=== PATIENT | female | born 1970 | race Caucasian/White ===

== ENCOUNTER 2016-12-23 12:31 | Inpatient (IN) | payer OTHER, MEDICAID ==
[~2016-12-23] VITALS: Ht 177.8 cm; Wt 65.3 kg
--- NOTE | 2016-12-23 13:50 | NUR ---
New admit from [facility] Report recieved from [place] at [facility]. patient arrived at 1340.
[2016-12-23 14:07] VITALS: BP 169/91; PULSE 87; RESP 15; O2SAT 98
--- NOTE | 2016-12-23 14:08 | NUR ---
Dialysis Dialysis nurse called and notified vital signs.
[2016-12-23 14:11] VITALS: PULSE 84
--- NOTE | 2016-12-23 14:18 | NUR ---
Nephrology Dr. Chadwick Beveller Operator at bed side.
--- NOTE | 2016-12-23 14:31 | NUR ---
Dialysis Dialysis nurse called and states," patient is ready for dialysis." Dr. Knightwin aware. Dr. Castillo at bed side and speaking to patient.
--- NOTE | 2016-12-23 14:36 | NUR ---
new orders Notified Dr. Castillo that patient received Ativan on her way back from [facility] to [facility]. New orders for Ativan and Dr. castillo states," it is fine." will follow orders.
[2016-12-23] MEDS ORDERED: Alum-Mag Hydrox-Simeth 30 mL Suspension PO PRN (15:00)
[2016-12-23] MEDS ORDERED: Polyethylene Glycol (PEG) 17 Gm Powder PO PRN (15:00)
[2016-12-23] MEDS ORDERED: Ondansetron 2 mg/mL 2 mL Inj IVPUSH PRN (15:00)
--- NOTE | 2016-12-23 15:05 | NUR ---
At dialysis Patient off to dialysis. Ativan given per orders with effective results.
[2016-12-23 15:10] VITALS: BP 165/106; PULSE 78
--- NOTE | 2016-12-23 15:13 | PCM.HPMED ---
Subjective Date of Service Dec 23, 2016 Primary Provider: Admitting Physician: Gabby Ramachandran DO Primary Care Physician: Trav Cox PA-C Attending Physician: Gabby Ramachandran DO Chief Complaint: Nausea and vomiting Chest pain/palpitations History of Present Illness: 46-year-old female with extensive history of cardiac disease requiring CABG 3 in October of 2016, end-stage renal disease on hemodialysis, history of anxiety and depression, uncontrolled type 2 diabetes with history of gastroparesis, and history of substance abuse including current daily use of marijuana presents to the emergency department at [facility] due to complaints of palpitations that started 3 days ago and nausea and vomiting. Patient reports that this has a gradual onset has remained constant. Patient denies chest pain including radiation to the arm or neck, shortness of breath, diaphoresis, diplopia, dizziness, lightheadedness, or back pain. Pain does not go away with rest. Patient also complains of ongoing nausea and vomiting with reported 15 bouts of nonbloody emesis over the last 3 days. Patient also states she has a sense of impending doom, difficulty concentrating, and lack of enthusiasm. Patient states that she is using marijuana daily and that this helps control her anxiety. Denies previous episodes of anxiety related emesis. Patient denies recent substance abuse outside of her marijuana. Patient missed dialysis on Friday due to these ailments. [facility] the patient had a mildly elevated white count 12.7 with a mild left shift and an otherwise unremarkable CBC. Glucose however was elevated at 444 with a creatinine of 7.9 and a BUN of 53. BMP revealed a corrected sodium of 135, potassium 4.7, chloride 91, bicarbonate of 20, albumin of 4.1, calcium of 9.5, normal LFTs, magnesium at 3.1, phosphorus of 5.8, and a negative troponin. Patient was transferred to [facility] for management of her kidney failure with dialysis. Review of Systems: Complete review of systems performed, pertinent positives and negatives per history of present illness, all other systems reviewed and are negative Allergies Coded Allergies: amoxicillin (Verified Allergy, Severe, Anaphylaxis, 12/23/16) clavulanic acid (Verified Allergy, Severe, Anaphylaxis, 12/23/16) lisinopril (Verified Allergy, Severe, "hyperkalemia", 12/23/16) morphine (Verified Allergy, Severe, Anaphylaxis, 12/23/16) propoxyphene (Verified Allergy, Severe, Anaphylaxis, 12/23/16) sulfamethizole (Verified Allergy, Severe, Anaphylaxis, 12/23/16) sumatriptan (Verified Allergy, Severe, Shortness of Breath, 12/23/16) hydroxyzine (Verified Allergy, Intermediate, "twitching", 12/23/16) metformin (Verified Allergy, Intermediate, "gi upset, diarrhea", 12/23/16) naproxen (Verified Allergy, Intermediate, Hives, 12/23/16) codeine (Verified Allergy, Unknown, 12/23/16) droperidol (Verified Allergy, Unknown, 12/23/16) ketorolac (Verified Allergy, Unknown, 12/23/16) metoclopramide (Verified Allergy, Unknown, 12/23/16) ondansetron (Verified Allergy, Unknown, 12/23/16) prochlorperazine (Verified Allergy, Unknown, 12/23/16) promethazine (Verified Allergy, Unknown, 12/23/16) tramadol (Verified Allergy, Unknown, 12/23/16) Uncoded Allergies: hyzine (Allergy, Intermediate, "myalgia", 12/23/16) Home Medications Albuterol sulfate HFA Alprazolam by mouth Aspirin 81 mg Ativan 1 mg 4 times a day when necessary migraines B complex vitamin Combivent spermatic inhalation Docusate Ergocalciferol Iron supplement Regular Humulin insulin sliding scale Lantus 20 units at bedtime Levothyroxine Hydroxyprogesterone acetate intramuscular Methadone Metoprolol succinate Sevelamer Carbonate Simvastatin Vitamin D PMH CABG and October/2016 and history of atypical chest pain Paroxysmal supraventricular tachycardia Anxiety/depression End-stage renal disease on hemodialysis with a history of hematuria Marijuana/substance abuse Type II diabetes with gastroparesis Cellulitis Chronic headache/migraines/tension GERD Surgical History Ankle surgery CABG 3 in October 2016 Incision and drainage of abscess Oophorectomy Shoulder and sinus surgery Family History Father at 62 of [place] Mother still living Social History Hx Alcohol Use: No Hx Substance Use: Yes Hx Tobacco Use: Yes Smoking Status: Former Smoker Exam Vital Signs Vital Sign - Last Date Time Temp Pulse Resp B/P Pulse Ox O2 Delivery O2 Flow Rate FiO2 12/23/16 14:11 84 12/23/16 14:07 36.5 15 169/91 98 Room Air Exam General: Very anxious, mild distress HEENT: PERRLA, EOMI, no JVD, neck supple Lymph: No lymphadenopathy Cardio: Tachycardic, regular rhythm; incision scar looks well-healed over the sternum Respiratory: CTA bilaterally with crackles greater in the left and right base Abdomen: Soft, moderately tender especially in the right upper quadrant, no guarding, no rebound tenderness, no distention Extremities: Strength 4 out of 5, no edema or cyanosis Psychiatric: Extremely anxious, not talkative, depressed mood Neuro: No neurological deficiencies appreciated Skin: No rash Lab and Diagnostics 12-lead ECG Normal sinus rhythm with rate of [address] changes. QTC is 474 Assessment & Plan 46-year-old female with uncontrolled diabetes and gastroparesis, CABG 3 in October 2016, end-stage renal disease on dialysis who recently missed her appointment for dialysis was transferred [facility] from [place] due to ongoing severe nausea vomiting and reported palpitations. Complete review of outside records completed. Abdominal pain with Nausea and vomiting; present admission; ongoing -Patient reports 15 episodes of nonbloody emesis, worse after prandial intake, over the last 3 days; does not appear to be overly dehydrated -Has a history of gastroparesis and daily marijuana use; patient also has a gallbladder but LFTs are normal -Compazine -Nothing by mouth today -If persistent nausea consider gastric emptying study -US RUQ abdomen Type II diabetes with gastroparesis -Presented with a blood sugar of 444 with anion gap of 25; patient at dialysis and ketones could not be checked but low concern for DKA -Home regimen: Lantus 20 units at bedtime; Regular human insulin per sliding scale twice daily -Will continue Lantus 20 units at bedtime -Patient is nothing by mouth so no prandial today -Medium correctional scale -Recheck BMP tomorrow Electrolyte imbalances with hyponatremia; present admission; ongoing -Patient admits to recently missed hemodialysis due to severe nausea and vomiting; feels worse today; AG 25 -Dr. Chadwick consulted and the patient will have dialysis today -Recheck magnesium and phosphorus as well as BMP tomorrow Reported Palpitations without chest pain; present on admission; ongoing -Recent history of CABG; patient denies chest pain or pressure; patient was tachycardic on admission -Initial troponin at [place] was negative and there are no concerning EKG changes -Trend troponin -If patient develops pain or pressure repeat EKG and obtain echo Anxiety on chronic benzodiazepines; present admission; ongoing -Patient's med rec shows she is on alprazolam and Ativan at home -Patient is extremely anxious and describes a sense of impending doom swells many other features of a panic attack -Will continue with Ativan, and at this point schedule 1 mg every 4 History of substance abuse CAD with recent CABG End-stage renal disease on hemodialysis Disposition: Patient admitted to medical floor for expectant length of stay greater than 2 midnights due to severity presenting symptoms, duration treatment , and risk for adverse events. Complete review of outside records was completed and assisted in the creation of this record. Pain Evaluation: Pain not Controlled Resuscitation Status: CPR: Attempt Resuscitation Time spent 60 minutes Attending Statement The patient was seen and examined together with Dr. Castillo on 12/23/16 I have added additional information to the note above. Charles Castillo DO Dec 23, 2016 15:13 Gabby Ramachandran DO Dec 23, 2016 17:31
[2016-12-23] MEDS ORDERED: Glucose 40% Oral Gel 15 Gm Tube PO PRN ×2 (16:05→16:10)
[2016-12-23] MEDS ORDERED: MetoCLOpramide 5 mg/mL 2 mL Inj IVPUSH PRN (16:05)
--- NOTE | 2016-12-23 16:21 | NUR ---
Elevated BP Notified Dr. Castillo r/t elevated BP 179/115, HR 81 and c/o headaches. New orders for Tylenol and PRN given as ordered at the dialysis. Dr. Castillo is aware of that admit nurse is working on Medication Req.
[2016-12-23 16:35] VITALS: BP 123/71; PULSE 73; RESP 21; O2SAT 97
[2016-12-23] MEDS: Insulin LISPRO 300 Unit/3 mL Inj SUBQ SCH ×2 (17:30→22:00)
[2016-12-23] MEDS ORDERED: MULT-666 PO (17:36)
[2016-12-23] MEDS ORDERED: VIT1TABL83 PO (17:36)
[2016-12-23] MEDS ORDERED: ALPR2TAB6 PO (17:36)
[2016-12-23] MEDS ORDERED: INSU100V7 SUBQ (17:36)
[2016-12-23] MEDS ORDERED: UBID100C16 PO (17:36)
[2016-12-23] MEDS ORDERED: DOCU240C41 PO (17:36)
[2016-12-23] MEDS ORDERED: SEVE800T7 PO (17:36)
[2016-12-23] MEDS ORDERED: SENN-133 PO (17:36)
[2016-12-23] MEDS ORDERED: LEVO50TA6 PO (17:36)
[2016-12-23] MEDS ORDERED: METO25TA6 PO (17:36)
[2016-12-23] MEDS ORDERED: ATOR40TA69 PO (17:36)
[2016-12-23] MEDS ORDERED: LOSA25TA21 PO (17:36)
[2016-12-23] MEDS ORDERED: IPRA4AER INH (17:36)
[2016-12-23] MEDS ORDERED: NEPHVIT PO (17:36)
[2016-12-23] MEDS ORDERED: methadone liquid PO (17:36)
[2016-12-23] MEDS ORDERED: INSLIS SUBQ (17:36)
[2016-12-23] MEDS ORDERED: ALBU18HF INH (17:36)
[2016-12-23] MEDS ORDERED: CHOL100045 PO (17:36)
[2016-12-23] MEDS ORDERED: ASCO100089 PO (17:36)
[2016-12-23] MEDS ORDERED: ASPI-973 PO (17:36)
[2016-12-23] MEDS ORDERED: MEDR150D7 INTRAMU040 (17:36)
[2016-12-23] MEDS ORDERED: ProchlorPERazine 5 mg/mL 2 mL Inj IVPUSH PRN (17:45)
--- NOTE | 2016-12-23 18:48 | NUR ---
Call from dialysis Dialysis nurse called and states," patient is tachycardic HR 125 and pain 8/10 abdominal pain and headaches. PRN Tylenol was given by dialysis nurse with ineffective results per dialysis nurse. Manan paged Dr. Charles Castillo and awaiting call back with orders. patient is still at dialysis.
[2016-12-23] MEDS ORDERED: Labetalol 5 mg/mL 4 mL Inj IVPUSH ONE (18:55)
--- NOTE | 2016-12-23 19:05 | NUR ---
New orders New orders for IV labetelol and status " UNV." notified dialysis nurse r/t new orders and aware.
--- NOTE | 2016-12-23 19:22 | NUR ---
Dialysis note: 4 hr tx, Net UF 2850. Right cath, QB 350 for most of tx. Pt received ativan shortly before [place] [facility] and still exhibited anxiety intermittently through tx. Tylenol given for pain, but unable to manage pain effectively. Primary MD is working on getting methadone for her. Dressing changed, island dressing and chloroprep. No s/s of infection. clotting noted near end of tx in venous drip chamber and QB was gradually decreased r.t elevated venous pressures. She was tachy, in the 120s, 30 min before end of tx, Primary RNMagnus notified and she contacted MD. Meds will be available on pts. floor. HR decreased to 98 at end of tx. Blood returned; site dwelled with heparin 1000 and secured with caps and gauze. Pt returned to floor stable but exhibiting some anxiety r/t pain. Please see DTR for complete record of VS.
[2016-12-23 20:17] VITALS: BP 146/92; PULSE 96; RESP 16; O2SAT 96
[2016-12-23] MEDS: LORazepam 1 mg Tablet PO PRN (20:25)
[2016-12-23] MEDS ORDERED: Insulin GLARgine 100 Unit/mL Syringe SUBQ SCH (21:00)
--- NOTE | 2016-12-23 21:42 | CONS ---
[address] [address] CONSULTATION REPORT PATIENT: SHAWNEE ZUNIGA : 1970 MR#: [id number] ADMIT: 12/23/2016 JOB ID: [id number] DATE OF SERVICE: RENAL CONSULTATION: HISTORY: The patient is a very pleasant 46-year-old white female who was transferred to [facility] for end-stage renal disease and is in need of dialysis. Renal consultation is being sought for further evaluation and management of her end-stage renal disease. She has a history of end-stage renal disease, normally dialyzes on Friday, and Friday at [facility]. The etiology of her renal failure is due to longstanding chronic kidney disease from insulin-requiring diabetes. She also has a history of hypertension. She states that she missed dialysis this past Friday because she was feeling unwell. She relates a 2-3 day history of nausea, vomiting, and some slight diarrhea. She has also complained of a chronic chilling feeling which has gone on for a number of months. She denies any fever, cough, wheezing, chest pain, orthopnea, headache, scotomas, skin rashes, or arthralgias. She denies any urinary discomfort, dysuria, or frequency. She came to the emergency department at [facility] because she was "freaking out." In questioning her a bit more closely, it appears that in the last four months, aside from starting dialysis, she has also had coronary artery bypass graft surgery in October of this year and has had somewhat of a prolonged recovery. She states that she has been continually anxious and takes intermittently Ativan. She also has recent insomnia, flight of ideas, difficulty in concentrating, difficulty with short-term memory. She denies any suicidal ideations but also has a feeling of impending doom. She denies a history of any prior depression. PAST MEDICAL HISTORY: Significant for insulin-dependent diabetes mellitus for the last 20 years which has been complicated by retinopathy, however, she states that she does not have a history of peripheral neuropathy or peripheral vascular disease. She also has a history of hypertension with hypertensive heart disease and hypertensive nephrosclerosis, coronary artery disease and a history of coronary artery bypass graft earlier this year, a transient ischemic attack in the past, hepatitis A, hypothyroidism and hyperlipidemia. PAST SURGICAL HISTORY: Significant for coronary artery bypass graft, ankle ORIF and an oophorectomy. ALLERGIES: She denies any allergies to any food or any medications. SOCIAL HISTORY: She denies use of alcohol, tobacco, or illicit drugs, but does smoke marijuana. FAMILY HISTORY: Noncontributory. MEDICATION LIST: Unavailable at time of my consultation. REVIEW OF SYSTEMS: As detailed above, otherwise, is noncontributory. PHYSICAL EXAMINATION: Revealed a thin, somewhat pale appearing 46-year-old white female who was somewhat anxious and made poor eye contact during our consultation. Her blood pressure is 169/91 with a pulse rate of 87. HEENT examination is remarkable for pale sclerae. Cornea, conjunctivae, pupils, and extraocular muscles are all within normal limits. Neck: Supple without adenopathy, thyromegaly or jugular venous distention. Lungs were clear to auscultation. Tunnel catheter was in place in the right internal jugular vein. Heart was regular and rhythmical with a soft systolic murmur. Abdomen was soft, without any tenderness, rebound, guarding, masses or hepatosplenomegaly. Extremities do not show any evidence of any clubbing, cyanosis, or edema. Skin turgor is good. LABORATORY EXAMINATION: Lab obtained earlier today at [place] showed a potassium of 4.8 and creatinine of 7.53. IMPRESSION: 1. End-stage renal disease, dialysis dependent. 2. Diabetic nephropathy. 3. Hypertension with hypertensive heart disease and hypertensive nephrosclerosis. 4. Anxiety and depression secondary to numerous situational issues with her health. RECOMMENDATION: 1. The patient is to be dialyzed today for four hours on a Revaclear Max dialyzer and a 3 potassium bath. Blood flow rate is 400, dialysate flow 600, 1200 of heparin 500 an hour. Will try to take 1-2 L or more if possible. 2. I would strongly recommend a psychiatric evaluation for better medical coverage for both her anxiety and depression. Anxiety following either initiation of renal replacement therapy and/or coronary artery bypass graft is extremely common, and putting these two together her risk of having a major depressive episode is quite high. Once again, I would like to thank you for allowing me to participate in the care of this most pleasant and interesting patient. I will be following her closely with you.
[2016-12-23 23:29] VITALS: BP 173/103; PULSE 89; RESP 18; O2SAT 98
[2016-12-24 00:13] VITALS: PULSE 90
[2016-12-24 02:35] LABS: BASOPHILS % (AUTO) 0.2 % (0-3); EOSINOPHILS % (AUTO) 0.1 % (0-5); MONOCYTES % (AUTO) 8.4 % (4-12); Mean Corpuscular Hemoglobin 29.9 pg (27.0-35.0); Mean Corpuscular Volume 91.4 fL (81-100); NEUTROPHILS % (AUTO) 68.7 % (40-74); Platelet Count 276 bil/L (150-400)
[2016-12-24 03:37] LABS: Magnesium 2.3 mg/dL (1.6-2.6); Phosphorus 5.1 mg/dL (2.5-4.9)
[2016-12-24 04:48] VITALS: BP 151/111; PULSE 118; RESP 18; O2SAT 97
[2016-12-24] MEDS: LORazepam 1 mg Tablet PO PRN (05:03)
--- NOTE | 2016-12-24 05:45 | NUR ---
Anxiety / Pain Pt reported severe migraine at beginning of shift and requested pain medication; attempted to assess methadone usage per pt report, but pt stated "I don't take methadone for pain. It's for... It's for... It's for... ... I can't remember the words for it." Pt stated Ativan or Dilaudid were effective pain management for her migraine; paged. Ativan ordered and administered without relief, pt requested further pain medication. paged again, orders for oxycodone given. Pt significantly anxious and restless, repeatedly turning and moving in bed, though resting during interventions. After obtaining oxycodone for pt and administering, pain level was assessed and pt stated "It's bad." When asked for a number, pt stated "Oh, it's a three. ... No. A six." Oxycodone administered; pt resting throughout rest of shift. At approx. 0500, pt reported "I feel miserable, I need methadone; I haven't had it in three or four days." Pt informed methadone was not available per eMAR, but she could be given oxycodone instead. Pt stated "Okay." Upon reassessment, pt violently coughing/retching in room; denied vomiting, but stated "I feel miserable! My stomach hurts, my head hurts, the oxycodone didn't help at all." informed. Pt hypertensive throughout shift but did not meet parameters for labetalol administration. Tele SR/ST 90s-100s. EKG obtained this AM r/t elevated troponins; pt denies chest pain or discomfort. Addendum: 12/24/16 at 0608 by DIMITRY CASTILLO RN Pt requested garcía this AM at 0600; when pt educated to current NPO status while GI workup is ongoing, pt stated "I know what the problem is, I'm withdrawing. I couldn't take my methadone for 3 days."
--- NOTE | 2016-12-24 08:21 | NUR ---
left AMA 0820 Pt's mom arrives, pt signed AMA paperwork. PIV dc'd with ease. Pt left with mother. Dr Aldana notified
--- NOTE | 2016-12-24 08:21 | DRSVH ---
PROCEDURE: US ABDOMEN ([id number]) INDICATIONS: gallbladder and ducts TECHNIQUE: Real-time scanning was performed of the abdominal and retroperitoneal organs, with image documentatio n. COMPARISON: None. FINDINGS: Liver: Liver is normal in size and homogeneous in echotexture. Gallbladder: There are gallstones and sludge. No gallbladder wall thickening, pericholecystic fluid or sonographic Cantrell's sign. Biliary ducts: Intrahepatic bile ducts are non-dilated. Extrahepatic bile duct caliber measures 5 m m. Normal is 6-7 mm or less in diameter, or 10 mm or less post-cholecystectomy. Pancreas: Visualized portions of the pancreas are sonographically normal. Spleen: Spleen is normal in size and homogeneous in echotexture. Kidneys: Kidneys are normal in size and echotexture. Right kidney measures 10.1 cm long; left kidne y measures 10.0 cm long. There several simple appearing cyst in right kidney measuring up to 2 cm. T here is mild renal cortical thinning. Left kidney is suboptimally visualized. No hydronephrosis or ne phrolithiasis. No solid masses. Aorta: Visualized aorta is normal in caliber at less than 3 cm. Iliacs: Proximal common iliac arteries are normal in caliber at less than 2.5 cm. IVC: Intrahepatic inferior vena cava is patent. Miscellaneous: No free abdominal fluid. IMPRESSION: 1. Cholelithiasis. No ultrasoun evidence for acute cholecystitis. 2. Simple renal cysts in right kidney and mild renal cortical thinning. Dictated by: Isela Randolph M.D. on 12/24/2016 at 8:08 Approved by: Isela Randolph M.D. on 12/24/2016 at 8:20
--- NOTE | 2016-12-24 16:43 | PCM.DC.MED ---
Discharge Summary Date of Service Dec 24, 2016 Dates of Hospitalization Date of Hospital Admission Dec 23, 2016 at 13:46 Date of Discharge: Dec 24, 2016 Providers: Admitting Physician: Gabby Ramachandran DO Primary Care Physician: Trav Cox PA-C Attending Physician: Gabby Ramachandran DO Diagnosis at Time of Discharge Diagnosis at Time of Discharge Abdominal pain with Nausea and vomiting; present admission; ongoing Type II diabetes with gastroparesis Electrolyte imbalances with hyponatremia; present admission; ongoing Reported Palpitations without chest pain; present on admission; ongoing Anxiety on chronic benzodiazepines; present admission; ongoing . Consultations Nephrology consulted with Dr. Chadwick Procedures ECG 12 Lead Normal sinus rhythm with rate of [address] changes. QTC is 474 Brief History Taken From HPI composed by Dr. Castillo on 12/23/16 46-year-old female with extensive history of cardiac disease requiring CABG 3 in October of 2016, end-stage renal disease on hemodialysis, history of anxiety and depression, uncontrolled type 2 diabetes with history of gastroparesis, and history of substance abuse including current daily use of marijuana presents to the emergency department at [facility] due to complaints of palpitations that started 3 days ago and nausea and vomiting. Patient reports that this has a gradual onset has remained constant. Patient denies chest pain including radiation to the arm or neck, shortness of breath, diaphoresis, diplopia, dizziness, lightheadedness, or back pain. Pain does not go away with rest. Patient also complains of ongoing nausea and vomiting with reported 15 bouts of nonbloody emesis over the last 3 days. Patient also states she has a sense of impending doom, difficulty concentrating, and lack of enthusiasm. Patient states that she is using marijuana daily and that this helps control her anxiety. Denies previous episodes of anxiety related emesis. Patient denies recent substance abuse outside of her marijuana. Patient missed dialysis on Friday due to these ailments. [facility] the patient had a mildly elevated white count 12.7 with a mild left shift and an otherwise unremarkable CBC. Glucose however was elevated at 444 with a creatinine of 7.9 and a BUN of 53. BMP revealed a corrected sodium of 135, potassium 4.7, chloride 91, bicarbonate of 20, albumin of 4.1, calcium of 9.5, normal LFTs, magnesium at 3.1, phosphorus of 5.8, and a negative troponin. Patient was transferred to [facility] for management of her kidney failure with dialysis. . Hospital Course The patient was admitted with 10/ abdominal pain in the setting of poorly controlled diabetes, renal failure on dialysis having missed her prior dialysis on 12/21/16, and longstanding gastroparesis. The patient's main concern throughout her stay was administration of her Methadone, after her dosing was confirmed with her clinic the patient was offered Methadone at a slightly reduced dose given that her abdominal pain was likely secondary to constipation and gastroparesis. However, she abruptly elected to leave against medical advice despite assurance that she would receive methadone and dialysis today. Patient elected to leave AMA Abdominal pain with Nausea and vomiting; present admission; ongoing -Patient reports 15 episodes of nonbloody emesis, worse after prandial intake, over the last 3 days; does not appear to be overly dehydrated -Has a history of gastroparesis and daily marijuana use; patient also has a gallbladder but LFTs are normal -Compazine -Nothing by mouth -considered gastric emptying study -US RUQ abdomen Type II diabetes with gastroparesis -Presented with a blood sugar of 444 with anion gap of 25; patient at dialysis and ketones could not be checked but low concern for DKA -Home regimen: Lantus 20 units at bedtime; Regular human insulin per sliding scale twice daily -continued Lantus 20 units at bedtime -Patient is nothing by mouth so no prandial -Medium correctional scale -Recheck BMP tomorrow Electrolyte imbalances with hyponatremia; present admission; ongoing -Patient admits to recently missed hemodialysis due to severe nausea and vomiting; feels worse today; AG 25 -Dr. Chadwick consulted and we appreciate his advice -tracked magnesium and phosphorus as well as BMP Reported Palpitations without chest pain; present on admission; ongoing -Recent history of CABG; patient denies chest pain or pressure; patient was tachycardic on admission -Initial troponin [facility] negative and there are no concerning EKG changes -Trended troponin Anxiety on chronic benzodiazepines; present admission; ongoing -Patient's med rec shows she is on alprazolam and Ativan at home -Patient was extremely anxious and described a sense of impending doom as well as many other features of a panic attack -Will continue with Ativan, and at this point schedule 1 mg every 4 Exam Vital Signs (Last) Date Time Temp Pulse Resp B/P Pulse Ox O2 Delivery O2 Flow Rate FiO2 12/24/16 04:48 37.4 118 18 151/111 97 Room Air Exam General: A/O x3 Very anxious, moderate acute distress secondary to abdominal pain HEENT: PERRLA, EOMI, no JVD, neck supple Lymph: No lymphadenopathy Cardio: Tachycardic, regular rhythm; incision scar looks well-healed over the sternum Respiratory: CTA bilaterally with crackles greater in the left and right base Abdomen: Soft, moderately tender especially in the right upper quadrant, no guarding, no rebound tenderness, no distention Extremities: Strength 4 out of 5, no edema or cyanosis Psychiatric: Extremely anxious, fixated upon methadone dosing Neuro: No neurological deficiencies appreciated . Test 12/24/16 02:25 White Blood Count 12.5th/mm3 (3.8-10.1) Red Blood Count 5.55mil/mm3 (3.90-5.20) Hemoglobin 16.6g/dL (12.0-15.6) Hematocrit 50.7% (35.0-46.0) Mean Corpuscular Volume 91.4fL (81-100) Mean Corpuscular Hemoglobin 29.9pg (27.0-35.0) Mean Corpuscular Hemoglobin Concent 32.7% (32.0-37.0) Red Cell Distribution Width 15.0% (12.3-15.4) Platelet Count 276bil/L (150-400) Neutrophils (%) (Auto) 68.7% (40-74) Lymphocytes (%) (Auto) 22.3% (14-46) Monocytes (%) (Auto) 8.4% (4-12) Eosinophils (%) (Auto) 0.1% (0-5) Basophils (%) (Auto) 0.2% (0-3) Sodium Level 131mEq/L (134-144) Potassium Level 4.8mEq/L (3.5-5.2) Chloride Level 89mEq/L (97-108) Carbon Dioxide Level 19mmol/L (18-29) Blood Urea Nitrogen 30mg/dL (6-24) Creatinine 5.11mg/dL (0.57-1.00) Estimat Glomerular Filtration Rate 13mL/min (>59) Glucose Level 320mg/dL (60-99) Lactic Acid Level 1.7mmol/L (0.4-2.0) Calcium Level 10.0mg/dL (8.5-10.1) Phosphorus Level 5.1mg/dL (2.5-4.9) Magnesium Level 2.3mg/dL (1.6-2.6) Total Bilirubin 1.1mg/dL (0.0-1.2) Aspartate Amino Transf (AST/SGOT) 19U/L (0-50) Alanine Aminotransferase (ALT/SGPT) 12U/L (0-32) Alkaline Phosphatase 115U/L (25-150) Troponin T 0.522ug/L (0.0-0.011) Total Protein 7.4g/dL (6.4-8.4) Albumin 4.2g/dL (3.4-5.0) Lipase 23U/L (13-60) Procalcitonin 0.30ng/mL (0.00-0.08) Thyroid Stimulating Hormone (TSH) 1.670uIU/mL (0.450-4.500) Discharge Medications Discharge Medications ([methadone liquid]) Unknown Dose PO DAILY (Reported) Ascorbic Acid (Vitamin C) 1,000 Mg Tab.chew 2,000 MG PO DAILY (Reported) Aspirin (Aspirin) 81 Mg Tablet 162 MG PO DAILY (Reported) Atorvastatin Calcium (Atorvastatin Calcium) 40 Mg Tablet 40 MG PO DAILY ( Reported) Cholecalciferol (Vitamin D3) (Vitamin D) 1,000 Unit Capsule 1,000 UNIT PO DAILY (Reported) Docusate Calcium (Stool Softener) 240 Mg Capsule 240-480 MG PO DAILY (Reported) Insulin Glargine (Lantus U100 Insulin Vial) 100 Unit/Ml Vial 8 UNITS SUBQ HS ( Reported) Levothyroxine (Levothyroxine) 50 Mcg Tablet 50 MCG PO DAILY (Reported) Losartan Potassium (Losartan Potassium) 25 Mg Tablet 25 MG PO DAILY (Reported) Medroxyprogesterone Acetate (Medroxyprogesterone Acetate) 150 Mg/1 Ml Syringe 150 MG [id number] q12 weeks (Reported) Metoprolol Tartrate (Metoprolol Tartrate) 25 Mg Tablet 25 MG PO BID (Reported) Multivitamin (Once Daily) 1 Each Tablet 1 EACH PO DAILY (Reported) Sennosides (Senna) 8.6 Mg Tablet 8.6-17.2 MG PO DAILY (Reported) Sevelamer Carbonate (Renvela) 800 Mg Tablet 1,600 MG PO TIDWM (Reported) Ubidecarenone (Coq-10) 100 Mg Capsule 100 MG PO DAILY (Reported) Vit B Comp/C/FA/Iron/Vit E (Vitamin B Complex Tablet) 1 Each Tablet 1 EACH PO DAILY (Reported) Vitamin B Complex/Vit C ([place]-Michael Tablet) 1 Tab Tab 1 TAB PO DAILY (Reported) As needed Albuterol Sulfate (Ventolin HFA Inhaler) 200 Puff/18 Gm Inhaler 1-2 PUFFS INH q4 -6 hours PRN PRN For Shortness of Breath (Reported) Albuterol/Ipratropium (Combivent Respimat Inhal [place]) 120 Spr/4 Gm Inhaler 1 PUFF INH q6 hours PRN PRN For Shortness of Breath (Reported) Alprazolam (Alprazolam) 2 Mg Tablet 2 MG PO TID PRN PRN For Anxiety (Reported) Insulin Human Lispro (HumaLOG U100 Insulin Vial) 100 Unit/Ml Unit 2-10 UNITS SUBQ TIDWM PRN PRN sliding scale (Reported) Followup Plan Disposition: Left AMA Follow-up plan Please go to dialysis for your regularly scheduled appointment today. Follow up with your primary care provider within 2 weeks. Follow-up Provider: Trav Cox PA-C Follow-up with PCP in: 2 weeks Attending Statement The patient was seen and examined together with Dr. Aldana on 12/24/16 and I have added additional information to the note above. copies to: Trav Cox PA-C, David E DO Dec 24, 2016 16:43 Gabby Ramachandran DO Dec 24, 2016 18:50
== END 2016-12-24 08:15 | disposition left against medical advice (07) | DRG 73 ==
LOC: PCC 13:46
PROVIDERS: ADMIT Neuromusculoskeletal Medicine & OMM; ATTEND Neuromusculoskeletal Medicine & OMM
PROC: 5A1D00Z (ICD-10-PCS; principal; 2016-12-23)
DX: E11.43 Type 2 diabetes mellitus with diabetic autonomic (poly)neuropathy (principal); N18.6 End stage renal disease; I13.11 Hypertensive heart and chronic kidney disease without heart failure, with stage 5 chronic kidney disease, or end stage renal disease; E11.65 Type 2 diabetes mellitus with hyperglycemia; K31.84 Gastroparesis; E11.319 Type 2 diabetes mellitus with unspecified diabetic retinopathy without macular edema; E03.9 Hypothyroidism, unspecified; E78.5 Hyperlipidemia, unspecified; F41.8 Other specified anxiety disorders; F12.90 Cannabis use, unspecified, uncomplicated; R00.2 Palpitations; Z79.82 Long term (current) use of aspirin; Z95.1 Presence of aortocoronary bypass graft; Z79.51 Long term (current) use of inhaled steroids; Z99.2 Dependence on renal dialysis; Z79.4 Long term (current) use of insulin; Z87.891 Personal history of nicotine dependence

== ENCOUNTER 2016-12-24 20:58 | Observation (INO) | payer MEDICAID, OTHER ==
[~2016-12-24] VITALS: Ht 167.6 cm; Wt 62.0 kg
[~2016-12-24 20:58] MED LIST: ALBU18HF INH; ALPR2TAB6 PO; ASCO100089 PO; ASPI-973 PO; ATOR40TA69 PO; CHOL100045 PO; DOCU240C41 PO; INSLIS SUBQ; INSU100V7 SUBQ; IPRA4AER INH; LEVO50TA6 PO; LOSA25TA21 PO; MEDR150D7 INTRAMU040; METO25TA6 PO; MULT-666 PO; NEPHVIT PO; SENN-133 PO; SEVE800T7 PO; UBID100C16 PO; VIT1TABL83 PO; methadone liquid PO
[2016-12-24 22:37] VITALS: PULSE 65
[2016-12-24 22:41] VITALS: BP 101/37; PULSE 66; RESP 19; O2SAT 99
[2016-12-25] MEDS ORDERED: Alum-Mag Hydrox-Simeth 30 mL Suspension PO PRN (00:45)
[2016-12-25] MEDS ORDERED: Polyethylene Glycol (PEG) 17 Gm Powder PO PRN (00:45)
[2016-12-25] MEDS ORDERED: Heparin 5,000 Unit/mL Inj SUBQ SCH (00:45)
--- NOTE | 2016-12-25 01:45 | PCM.HPMED ---
Subjective Date of Service Dec 25, 2016 Primary Provider: Admitting Physician: Dragan Quinn MD Primary Care Physician: Trav Cox PA-C Attending Physician: Dragan Quinn MD Admit Status: Direct Admit Chief Complaint: Altered mental status History of Present Illness: Ms. William is a 46-year-old female with past medical history of cardiac disease requiring CABG 3 in October 2016, ESRD on HD, anxiety/depression, DM type II uncontrolled, gastroparesis, substance abuse with current daily use of marijuana presented to the [facility] emergency department yesterday evening after leaving [facility] the same day after not receiving her desired methadone dose. She was told that her methadone dose would have to be decreased secondary to her reported complaints of abdominal pain which is most likely secondary to constipation and gastroparesis. She was scheduled for dialysis though she did not receive this treatment prior to leaving [facility]. She reportedly returned home and reportedly took twice her regular dose of methadone. She was only transferred back to [facility] to receive dialysis and monitoring for methadone overdose. At time of interview patient arousable to painful stimulation though not able to converse appropriately or answer questions in a meaningful manner. When asked specifically of pain complaints she does deny this. At [facility] was found to have a prolonged QT on EKG, magnesium was given. She also presented with an elevated troponin at 0.1. Also had a mildly elevated white count 4.9 with mild left shift. Otherwise unremarkable. Glucose reported to be 399, creatinine 6.9 BUN 47. Corrected sodium 135, potassium 4.1, chloride 92, bicarbonate 28, albumin 3.3, calcium 8.8, TSH of 6.838 Review of Systems: Unable to obtain ROS secondary to patient mental status. Allergies Coded Allergies: amoxicillin (Verified Allergy, Severe, Anaphylaxis, 12/23/16) clavulanic acid (Verified Allergy, Severe, Anaphylaxis, 12/23/16) lisinopril (Verified Allergy, Severe, "hyperkalemia", 12/23/16) morphine (Verified Allergy, Severe, Anaphylaxis, 12/23/16) propoxyphene (Verified Allergy, Severe, Anaphylaxis, 12/23/16) sulfamethizole (Verified Allergy, Severe, Anaphylaxis, 12/23/16) sumatriptan (Verified Allergy, Severe, Shortness of Breath, 12/23/16) hydroxyzine (Verified Allergy, Intermediate, "twitching", 12/23/16) metformin (Verified Allergy, Intermediate, "gi upset, diarrhea", 12/23/16) naproxen (Verified Allergy, Intermediate, Hives, 12/23/16) codeine (Verified Allergy, Unknown, 12/23/16) droperidol (Verified Allergy, Unknown, 12/23/16) ketorolac (Verified Allergy, Unknown, 12/23/16) metoclopramide (Verified Allergy, Unknown, 12/23/16) ondansetron (Verified Allergy, Unknown, 12/23/16) prochlorperazine (Verified Allergy, Unknown, 12/23/16) promethazine (Verified Allergy, Unknown, 12/23/16) tramadol (Verified Allergy, Unknown, 12/23/16) Uncoded Allergies: hyzine (Allergy, Intermediate, "myalgia", 12/23/16) Home Medications Albuterol sulfate HFA Alprazolam by mouth Aspirin 81 mg Ativan 1 mg 4 times a day when necessary migraines B complex vitamin Combivent spermatic inhalation Docusate Ergocalciferol Iron supplement Regular Humulin insulin sliding scale Lantus 20 units at bedtime Levothyroxine Hydroxyprogesterone acetate intramuscular Methadone Metoprolol succinate Sevelamer Carbonate Simvastatin Vitamin D [facility] CABG and October/2016 and history of atypical chest pain Paroxysmal supraventricular tachycardia Anxiety/depression End-stage renal disease on hemodialysis with a history of hematuria Marijuana/substance abuse Type II diabetes with gastroparesis Cellulitis Chronic headache/migraines/tension GERD Surgical History Ankle surgery CABG 3 in October 2016 Incision and drainage of abscess Oophorectomy Shoulder and sinus surgery Family History Father at 62 of [place] Mother still living Social History Hx Alcohol Use: No Hx Substance Use: Yes (Marijuana and heroin) Hx Tobacco Use: Yes Smoking Status: Former Smoker Exam Vital Signs Vital Sign - Last Date Time Temp Pulse Resp B/P Pulse Ox O2 Delivery O2 Flow Rate FiO2 12/24/16 22:52 Supplement Oxygen 12/24/16 22:41 36.1 66 19 101/37 99 2.00 Exam General: Lying in hospital bed asleep. Arousable to painful stimulation. Unable to answer questions appropriately. HEENT: Normocephalic, atraumatic. External ears without defect. Pupils constricted, reactive to light. Neck: No jugular venous distension. No bruits. Cardiovascular: Regular rate and rhythm with no murmurs, rubs, or gallops appreciated Pulmonary: Clear to auscultation bilaterally, upper anterior lung triplett. Abdomen: Soft, nontender - no painful response to palpation, nondistended. No rigidity noted. Extremities: No cyanosis or edema Skin: Normal temperature, turgor, and texture, no rash Psychiatric: Somnolent, arousable to painful stimulation. Able to answer questions in 1 word sentences. Lab and Diagnostics 12-lead ECG EKG done at [facility] shows normal sinus rhythm with a prolonged QT interval Assessment & Plan 46-year-old female with uncontrolled diabetes and gastroparesis, CABG 3 in October 2016, end-stage renal disease noncompliant with dialysis recently left [facility] after methadone overdose. Acute encephalopathy due to Methadone overdose. Present on admission. Ongoing - GCS 12 - eyes open to pain, confused, moves to localized pain - EKG showed QT prolongation - Telemetry shows sinus rhythm with regular rate, prolonged QTc interval - Respiratory rate remains greater than 12, supplemental oxygen to maintain sats - Continue to monitor, - Consider Naloxone Type II diabetes with gastroparesis. Chronic. Present on admission. Ongoing - But sugar reported to be 399 at [facility] ER, anion gap 11 - A1c 8.5 - Correctional scale ordered - Continue to monitor End-stage renal disease, on HD. Chronic. Present on admission. Ongoing - Patient scheduled to receive dialysis yesterday, left AM prior to receiving treatment - Nephrology consult Pseudo-Hyponatremia. Present on admission. Ongoing - At [facility] ER 131, glucose 399, corrected sodium 134 - Continue to monitor Elevated troponins. Present on admission. Ongoing - Troponin 0.1 at [facility], continue to trend - EKG did not show ST changes - Recent history of CABG - Continue to monitor Hypothyroidism. Present on admission. Ongoing - TSH [facility] 6.838 - Restart home levothyroxine Patient Status: Patient was admitted under inpatient status with expected length of stay greater than two midnights due to severity of presenting symptoms , risk of adverse event, and complexity of treatment plan. Majority of patient's medications held secondary to patient's mental status and hemodynamic state. Day team to adjust medications Pain Evaluation: Adequate Pain Control GI Prophylaxis: H2 rhonda VTE Prophylaxis: Sub-Q Heparin (Unfractionated) Resuscitation Status: CPR: Attempt Resuscitation Attending Statement The patient was seen and examined together with Dr. Veloz on 12/24 and I agree with the history, exam and plan as outlined in the note above. ERUM VELOZ DO Dec 25, 2016 01:45 Dragan Quinn MD Dec 25, 2016 02:52
[2016-12-25] MEDS ORDERED: Dextrose 10% 250 ML IV PRN (02:10)
[2016-12-25] MEDS ORDERED: Glucose 40% Oral Gel 15 Gm Tube PO PRN (02:10)
[2016-12-25 02:59] VITALS: BP 101/69; PULSE 67; RESP 19; O2SAT 100
[2016-12-25 03:10] LABS: BASOPHILS % (AUTO) 0.8 % (0-3); EOSINOPHILS % (AUTO) 2.6 % (0-5); MONOCYTES % (AUTO) 7.8 % (4-12); Mean Corpuscular Hemoglobin 30.2 pg (27.0-35.0); Mean Corpuscular Volume 93.5 fL (81-100); NEUTROPHILS % (AUTO) 47.1 % (40-74); Platelet Count 188 bil/L (150-400)
[2016-12-25 03:36] LABS: Magnesium 3.4 mg/dL (1.6-2.6)
--- NOTE | 2016-12-25 05:56 | PCM.DC.MED ---
Discharge Summary Date of Service Dec 25, 2016 Dates of Hospitalization Date of Hospital Admission Dec 24, 2016 at 22:23 Date of Discharge: Dec 25, 2016 Providers: Admitting Physician: Dragan Quinn MD Primary Care Physician: Trav Cox PA-C Attending Physician: Dragan Quinn MD Diagnosis at Time of Discharge Diagnosis at Time of Discharge Acute encephalopathy due to Methadone overdose Type II diabetes with gastroparesis End-stage renal disease, on HD Pseudo-Hyponatremia Elevated troponin Hypothyroidism Procedures ECG 12 Lead EKG done at [facility] shows normal sinus rhythm with a prolonged QT interval Brief History Ms. William is a 46-year-old female with past medical history of cardiac disease requiring CABG 3 in October 2016, ESRD on HD, anxiety/depression, DM type II uncontrolled, gastroparesis, substance abuse with current daily use of marijuana presented to the [place] emergency department yesterday evening after leaving [facility] the same day after not receiving her desired methadone dose. She was told that her methadone dose would have to be decreased secondary to her reported complaints of abdominal pain which is most likely secondary to constipation and gastroparesis. She was scheduled for dialysis though she did not receive this treatment prior to leaving [facility]. She reportedly returned home and reportedly took twice her regular dose of methadone. She was only transferred back to [facility] to receive dialysis and monitoring for methadone overdose. At time of interview patient arousable to painful stimulation though not able to converse appropriately or answer questions in a meaningful manner. When asked specifically of pain complaints she does deny this. At [facility] was found to have a prolonged QT on EKG, magnesium was given. She also presented with an elevated troponin at 0.1. Also had a mildly elevated white count 4.9 with mild left shift. Otherwise unremarkable. Glucose reported to be 399, creatinine 6.9 BUN 47. Corrected sodium 135, potassium 4.1, chloride 92, bicarbonate 28, albumin 3.3, calcium 8.8, TSH of 6.838 Hospital Course 46-year-old female with uncontrolled diabetes and gastroparesis, CABG 3 in October 2016, end-stage renal disease noncompliant with dialysis recently left [facility] after methadone overdose. During morning lab draw patient was awoken by laborer car [employer], immediately demanded to leave hospital. Patient strongly counseled against this as she is overdue to receive her hemodialysis treatment and her troponin levels jenny from 0.1-0.36 and the span of approximately 8 hours. She was alert and oriented to time day place situation. Was capable of making her own decisions and remained adamant that she wants to return home to be in her own house. Patient's mother made aware of this decision, refused to provide transportation as she also feels patient needs to remain in hospital. Despite vigorous efforts to work with patient in whatever way we can to keep her in the hospital she adamantly refused to stay and signed AMA paperwork. At time of dictation patient calling For a ride home. Acute encephalopathy due to Methadone overdose. Present on admission. Ongoing - GCS 12 - eyes open to pain, confused, moves to localized pain - EKG showed QT prolongation - Telemetry shows sinus rhythm with regular rate, prolonged QTc interval - Respiratory rate remains greater than 12, supplemental oxygen to maintain sats - Continue to monitor, - Consider Naloxone Type II diabetes with gastroparesis. Chronic. Present on admission. Ongoing - But sugar reported to be 399 at [place] ER, anion gap 11 - A1c 8.5 - Correctional scale ordered - Continue to monitor End-stage renal disease, on HD. Chronic. Present on admission. Ongoing - Patient scheduled to receive dialysis yesterday, left AMA prior to receiving treatment - Nephrology consult Pseudo-Hyponatremia. Present on admission. Ongoing - At [place] ER 131, glucose 399, corrected sodium 134 - Continue to monitor Elevated troponin. Present on admission. Ongoing - Troponin 0.1 at [place], continue to trend - EKG did not show ST changes - Recent history of CABG - Continue to monitor Hypothyroidism. Present on admission. Ongoing - TSH cascade 6.838 - Restart home levothyroxine Patient Status: Patient was admitted under inpatient status with expected length of stay greater than two midnights due to severity of presenting symptoms , risk of adverse event, and complexity of treatment plan. Majority of patient's medications held secondary to patient's mental status and hemodynamic state. Day team to adjust medications Exam Vital Signs (Last) Date Time Temp Pulse Resp B/P Pulse Ox O2 Delivery O2 Flow Rate FiO2 12/25/16 02:59 36.3 67 19 101/69 100 Nasal Cannula 2.00 Exam No exam, Pt left AMA Test 12/25/16 02:18 White Blood Count 9.9th/mm3 (3.8-10.1) Red Blood Count 4.44mil/mm3 (3.90-5.20) Hemoglobin 13.4g/dL (12.0-15.6) Hematocrit 41.5% (35.0-46.0) Mean Corpuscular Volume 93.5fL (81-100) Mean Corpuscular Hemoglobin 30.2pg (27.0-35.0) Mean Corpuscular Hemoglobin Concent 32.3% (32.0-37.0) Red Cell Distribution Width 14.8% (12.3-15.4) Platelet Count 188bil/L (150-400) Neutrophils (%) (Auto) 47.1% (40-74) Lymphocytes (%) (Auto) 41.2% (14-46) Monocytes (%) (Auto) 7.8% (4-12) Eosinophils (%) (Auto) 2.6% (0-5) Basophils (%) (Auto) 0.8% (0-3) Sodium Level 136mEq/L (134-144) Potassium Level 4.2mEq/L (3.5-5.2) Chloride Level 95mEq/L (97-108) Carbon Dioxide Level 22mmol/L (18-29) Blood Urea Nitrogen 51mg/dL (6-24) Creatinine 6.83mg/dL (0.57-1.00) Estimat Glomerular Filtration Rate 9mL/min (>59) Glucose Level 180mg/dL (60-99) Calcium Level 9.2mg/dL (8.5-10.1) Magnesium Level 3.4mg/dL (1.6-2.6) Total Bilirubin 0.5mg/dL (0.0-1.2) Aspartate Amino Transf (AST/SGOT) 35U/L (0-50) Alanine Aminotransferase (ALT/SGPT) 26U/L (0-32) Alkaline Phosphatase 84U/L (25-150) Troponin T 0.360ug/L (0.0-0.011) Total Protein 5.8g/dL (6.4-8.4) Albumin 3.4g/dL (3.4-5.0) Discharge Medications Discharge Medications ([methadone liquid]) Unknown Dose PO DAILY (Reported) Ascorbic Acid (Vitamin C) 1,000 Mg Tab.chew 2,000 MG PO DAILY (Reported) Aspirin (Aspirin) 81 Mg Tablet 162 MG PO DAILY (Reported) Atorvastatin Calcium (Atorvastatin Calcium) 40 Mg Tablet 40 MG PO DAILY ( Reported) Cholecalciferol (Vitamin D3) (Vitamin D) 1,000 Unit Capsule 1,000 UNIT PO DAILY (Reported) Docusate Calcium (Stool Softener) 240 Mg Capsule 240-480 MG PO DAILY (Reported) Insulin Glargine (Lantus U100 Insulin Vial) 100 Unit/Ml Vial 8 UNITS SUBQ HS ( Reported) Levothyroxine (Levothyroxine) 50 Mcg Tablet 50 MCG PO DAILY (Reported) Losartan Potassium (Losartan Potassium) 25 Mg Tablet 25 MG PO DAILY (Reported) Medroxyprogesterone Acetate (Medroxyprogesterone Acetate) 150 Mg/1 Ml Syringe 150 MG [id number] q12 weeks (Reported) Metoprolol Tartrate (Metoprolol Tartrate) 25 Mg Tablet 25 MG PO BID (Reported) Multivitamin (Once Daily) 1 Each Tablet 1 EACH PO DAILY (Reported) Sennosides (Senna) 8.6 Mg Tablet 8.6-17.2 MG PO DAILY (Reported) Sevelamer Carbonate (Renvela) 800 Mg Tablet 1,600 MG PO TIDWM (Reported) Ubidecarenone (Coq-10) 100 Mg Capsule 100 MG PO DAILY (Reported) Vit B Comp/C/FA/Iron/Vit E (Vitamin B Complex Tablet) 1 Each Tablet 1 EACH PO DAILY (Reported) Vitamin B Complex/Vit C (Adilene-Michael Tablet) 1 Tab Tab 1 TAB PO DAILY (Reported) As needed Albuterol Sulfate (Ventolin HFA Inhaler) 200 Puff/18 Gm Inhaler 1-2 PUFFS INH q4 -6 hours PRN PRN For Shortness of Breath (Reported) Albuterol/Ipratropium (Combivent Respimat Inhal Campbell) 120 Spr/4 Gm Inhaler 1 PUFF INH q6 hours PRN PRN For Shortness of Breath (Reported) Alprazolam (Alprazolam) 2 Mg Tablet 2 MG PO TID PRN PRN For Anxiety (Reported) Insulin Human Lispro (HumaLOG U100 Insulin Vial) 100 Unit/Ml Unit 2-10 UNITS SUBQ TIDWM PRN PRN sliding scale (Reported) Followup Plan Follow-up plan Patient left AMA Patient Instructions Patient counseled strongly against remaining in hospital, counseled strongly to present herself for hemodialysis today. Advised about her elevated troponin levels possible danger of an additional cardiac event. Patient acknowledged warnings and instructions, remained determined to leave AGAINST MEDICAL ADVICE Attending Statement The patient was seen and examined together with Dr. Veloz on 12/24 and I agree with the history, exam and plan as outlined in the note above. ERUM VELOZ DO Dec 25, 2016 05:46 Dragan Quinn MD Dec 28, 2016 11:30
--- NOTE | 2016-12-25 06:21 | NUR ---
Admit Pt arrived to PCC room 2023 at approx. 2230; sedated but rousable to voice, able to answer questions with one-word answers but falls right back to sleep. Belongings with patient, report received from [facility] RN. Admit completed per past medical records, med rec not able to be completed r/t pt unable to answer questions effectively, poor historian, and family not available. Tele SR 80s, VSS. Soft wrist restraints implemented to protect lines, as pt removes IVs and leads when awake.
--- NOTE | 2016-12-25 06:25 | NUR ---
AMA At approx. 0300, pt woke for lab draw, and per report from kaleb, stated she wanted to go home and was in pain. Upon assessment, pt sitting up to EOB, stating repeatedly that she wanted to go home. When asked why, pt stated "I just do. I just want to go home. I can't do this, I can't be here. I need to go home." Pt called her mother, but mother refused to come escort pt home. Pt insisted she was going to go home. MD givens, consulted with pt and delineated risks of leaving AMA; pt stated she understood risks of going home despite elevated troponins and necessary dialysis treatment. Pt asked to verbalize clearly that she understood she may be having a cardiac event and that leaving AMA may result in ; pt verbalized understanding and restated wish to leave and go home. Pt called multiple [employer] [facility] this AM arranging transport, currently waiting arrival of cab. AMA paperwork signed and in chart. Addendum: 12/25/16 at 0706 by DIMITRY CASTILLO RN Pt left building at approx. 0705. Escorted by security. All belongings with pt.
[2016-12-25] MEDS ORDERED: Insulin LISPRO 300 Unit/3 mL Inj SUBQ SCH (08:00)
== END 2016-12-25 07:20 | disposition left against medical advice (07) ==
LOC: PCC 22:23 → INTOOBSV 22:23
PROVIDERS: ADMIT Hospitalist; ATTEND Hospitalist
DX: G93.40 Encephalopathy, unspecified (principal); T40.3X4A Poisoning by methadone, undetermined, initial encounter; E11.43 Type 2 diabetes mellitus with diabetic autonomic (poly)neuropathy; K31.84 Gastroparesis; N18.6 End stage renal disease; Z99.2 Dependence on renal dialysis; E03.9 Hypothyroidism, unspecified; E87.1 Hypo-osmolality and hyponatremia; I25.10 Atherosclerotic heart disease of native coronary artery without angina pectoris; F41.8 Other specified anxiety disorders; G43.909 Migraine, unspecified, not intractable, without status migrainosus; K21.9 Gastro-esophageal reflux disease without esophagitis; I47.1 Supraventricular tachycardia; F12.90 Cannabis use, unspecified, uncomplicated; F11.90 Opioid use, unspecified, uncomplicated; Z95.1 Presence of aortocoronary bypass graft; Z87.891 Personal history of nicotine dependence; Z79.51 Long term (current) use of inhaled steroids; Z79.4 Long term (current) use of insulin; Z79.82 Long term (current) use of aspirin
CPT/HCPCS: 36415; 80053; 83735; 84484; 85025; G0378; G0379; J1644; J1815

== ENCOUNTER 2017-02-09 19:03 | Inpatient (IN) | payer OTHER, MEDICAID ==
[~2017-02-09] VITALS: Ht 167.6 cm; Wt 64.7 kg
[2017-02-09 20:40] VITALS: PULSE 76
[2017-02-09 20:46] VITALS: BP 185/84; PULSE 77; RESP 16; O2SAT 97
[2017-02-09] MEDS ORDERED: Ondansetron 2 mg/mL 2 mL Inj IVPUSH PRN (21:10)
[2017-02-09] MEDS ORDERED: Alum-Mag Hydrox-Simeth 30 mL Suspension PO PRN (21:10)
[2017-02-09] MEDS ORDERED: Furosemide 10 mg/mL 10 mL Inj IVPUSH ONE (21:10)
[2017-02-09] MEDS ORDERED: HYDROmorphone 1 mg/mL Inj IVPUSH PRN (21:10)
[2017-02-09] MEDS ORDERED: Sucralfate 100 mg/mL 10 mL Suspension PO ONE (21:10)
[2017-02-09] MEDS ORDERED: Polyethylene Glycol (PEG) 17 Gm Powder PO PRN (21:10)
[2017-02-09] MEDS: Ondansetron 2 mg/mL 2 mL Inj IVPUSH PRN (21:46)
[2017-02-09] MEDS: 0.9% Sodium Chloride 1,000 ML IV SCH (21:46)
[2017-02-09 22:27] LABS: BASOPHILS % (AUTO) 0.3 % (0-3); EOSINOPHILS % (AUTO) 0 % (0-5); Mean Corpuscular Hemoglobin 31.4 pg (27.0-35.0); Mean Corpuscular Volume 95.7 fL (81-100); NEUTROPHILS % (AUTO) 86.1 % (40-74); Platelet Count 270 bil/L (150-400)
--- NOTE | 2017-02-09 22:42 | PCM.HPMED ---
Subjective Date of Service Feb 09, 2017 Primary Provider: Admitting Physician: Marcelle Herring DO Primary Care Physician: Trav Cox PA-C Attending Physician: Marcelle Herring DO Admit Status: Direct Admit Chief Complaint: Nausea, vomiting, abdominal pain History of Present Illness: 46-year-old female with extensive history of cardiac disease requiring CABG 3 in October of 2016, end-stage renal disease on hemodialysis, history of anxiety and depression, uncontrolled type 2 diabetes with history of gastroparesis, and history of substance abuse including current daily use of marijuana presents to the emergency department at [facility] due to complaints 7 days of nausea, diarrhea, vomiting, and abdominal pain. Patient is only moderately cooperative on interview. Patient states that the symptoms came 3 days after she lost her benzodiazepine prescription. Since that time she is having trouble eating due to the severity of the nausea, but continues to use marijuana daily. Her pain is located mostly in the epigastrium to the right flank, sharp, without additional radiation, and is constant. Patient denies any recent changes in diet, travel, or sick contacts. Patient was recently here in December complaining of palpitations with concurrent nausea and vomiting similar to today's episode. She states that she has been compliant with her dialysis and did not miss dialysis yesterday. Patient was also quite anxious. [place] labs revealed a elevated potassium of 5.8. Additional labs of note include glucose of 456. In [facility] ED patient was given 2 mg Ativan, 10 units insulin acute events check. Patient was brought to [facility] due to severity of symptoms and our ability to do inpatient dialysis. Review of Systems: Complete review of systems performed; pertinent positives and negatives per history of present illness, all other systems reviewed and are negative Allergies Coded Allergies: amoxicillin (Verified Allergy, Severe, Anaphylaxis, 12/23/16) clavulanic acid (Verified Allergy, Severe, Anaphylaxis, 12/23/16) morphine (Verified Allergy, Severe, Anaphylaxis, 02/09/17) OK TO TAKE OXYCODONE propoxyphene (Verified Allergy, Severe, Anaphylaxis, 12/23/16) sulfamethizole (Verified Allergy, Severe, Anaphylaxis, 12/23/16) sumatriptan (Verified Allergy, Severe, Shortness of Breath, 12/23/16) hydroxyzine (Verified Allergy, Intermediate, "twitching", 12/23/16) naproxen (Verified Allergy, Intermediate, Hives, 12/23/16) codeine (Verified Allergy, Unknown, 12/23/16) droperidol (Verified Allergy, Unknown, 12/23/16) ketorolac (Verified Allergy, Unknown, 12/23/16) metoclopramide (Verified Allergy, Unknown, 12/23/16) ondansetron (Verified Allergy, Unknown, 12/23/16) prochlorperazine (Verified Allergy, Unknown, 12/23/16) promethazine (Verified Allergy, Unknown, 12/23/16) tramadol (Verified Allergy, Unknown, 12/23/16) metformin (Verified Adverse Reaction, Intermediate, "gi upset, diarrhea", 02/09/17) Uncoded Allergies: hyzine (Allergy, Intermediate, "myalgia", 12/23/16) Home Medications Albuterol HFA Combivent Alprazolam 2 mg by mouth 3 times a day Aspirin 81 mg Atorvastatin 40 mg Insulin glargine 8 units subcutaneous at bedtime Humalog 10 units subcutaneous 3 times a day with meals Levothyroxine 50 g by mouth daily Losartan 25 mg by mouth daily Medroxyprogesterone 50 mg every 12 weeks Metoprolol 25 mg by mouth twice a day Sevelamer 1600 mg Questionable methadone PMH CABG and October/2016 and history of atypical chest pain Paroxysmal supraventricular tachycardia Anxiety/depression End-stage renal disease on hemodialysis with a history of hematuria Marijuana/substance abuse Type II diabetes with gastroparesis Cellulitis Chronic headache/migraines/tension GERD Hypothyroidism Surgical History Ankle surgery CABG 3 in October 2016 Incision and drainage of abscess Oophorectomy Shoulder and sinus surgery Family History Father at 62 of [place] Mother still living Social History Hx Alcohol Use: No Hx Substance Use: Yes (marijuana) Hx Tobacco Use: Yes Smoking Status: Former Smoker Exam Vital Signs Vital Sign - Last Date Time Temp Pulse Resp B/P Pulse Ox O2 Delivery O2 Flow Rate FiO2 02/09/17 20:46 37.0 77 16 185/84 97 Room Air Exam General: Somnolent female, appears older than stated age HEENT: PERRLA, EOMI, nonicteric, membranes dry Lymph: No lymphadenopathy Cardio: Regular rate and rhythm no murmurs rubs or gallops Respiratory: CTA bilaterally, no wheezes, no crackles Abdomen: Soft, positive bowel sounds, only mildly tender, nondistended Extremities: No edema, 4 x 4 strength, sensation intact Psych: Somnolent Neuro: Sensation intact Skin: No rash Lab and Diagnostics Result Diagram: 02/09/17 0175 Assessment & Plan 46-year-old female with extensive history of cardiac disease requiring CABG 3 in October of 2016, end-stage renal disease on hemodialysis, history of anxiety and depression, uncontrolled type 2 diabetes with history of gastroparesis, and history of substance abuse including current daily use of marijuana presents to the emergency department at [facility] due to complaints 7 days of nausea, diarrhea, vomiting, and abdominal pain. Abdominal pain with nausea and vomiting; present on admission; ongoing -Etiology unclear at this time; could be due to Ativan withdrawal, cholecystitis as patient has a history of cholelithiasis; gastroparesis from diabetes; peptic ulcer disease, or cyclic vomiting syndrome from heavy marijuana use -10ml Sucrulfate x1 tonight as she will be going for dialysis tomorrow -Ondansetron 4-8 mg for nausea control -Dilaudid 0.5 mg every 4 when necessary for abdominal pain which is likely related to prolonged vomiting -Ativan given at [facility] and continued here -Ultrasound the right upper quadrant -CMP/LFTs ordered -Patient has adverse reaction to Reglan along with just about every other medication -Protonix 40 mg by mouth twice a day as IV is unavailable -CBC is unremarkable and will recheck in the a.m. -Patient counseled against continuing to use marijuana -Patient received 1L NS at [facility]; ordered additional liter and continue at 125ml/hr through tonight -Procalcitonin,lipase, and magnesium pending -Noted patient is somewhat somnolent likely due to recent Ativan and pain control Anion gap metabolic acidosis; present on admission; ongoing -AG of 27 likely due to hyperglycemia and recent severe vomiting -1L NS already given; second liter running; continue NS through night -Recheck in AM -Dialysis ordered for AM Hypertensive urgency; present admission; ongoing -presented here with SBP > 180 -Labetalol 20mg IV if available; if not will switch to PO -Restart home meds Acute Hyperkalemia; present admission; ongoing -Presented with K of 5.8 -Given 10units regular insulin at [facility] -Kayexalate given -Furosemide 60mg -Recheck CMP on admit -Tele ESRD; presents on admission; stable -Patient currently has hyperkalemia at 5.8 -Maintain on telemetry; no abnormalities noted -Disgussed with Dr Vazquez who will set up dialysis -Renal diet -Recheck CMP -Urine analysis Type II diabetes with gastroparesis -presented to cascade with BG >400; now 237 -Continue home regimen -Lantus 10 units at bedtime -Lispro correctional with 3 units prandial at dinnertime Anxiety on chronic benzodiazepines -Ativan 1 mg every 6 Hypothyroidism, chronic; present admission; stable -Continue levothyroxine 50 g daily Disposition: Patient is being admitted to inpatient status with expected length of stay greater than two midnights due to to severity of presentation, duration of treatment, and risks of adverse events disposition Pain Evaluation: Adequate Pain Control GI Prophylaxis: Proton Pump Inhibitor VTE Prophylaxis: Sub-Q Heparin (Unfractionated) Resuscitation Status: CPR: Attempt Resuscitation Attending Statement The patient was seen and examined together with house staff on 02/09/2017 and I agree with the history, exam and plan as outlined in the note above. Charles Castillo DO Feb 09, 2017 22:41 Marcelle Herring DO Feb 10, 2017 03:08
[2017-02-09 23:07] LABS: Magnesium 2.7 mg/dL (1.6-2.6)
[2017-02-09] MEDS ORDERED: 0.9% Sodium Chloride 1,000 ML IV ONE (23:10)
[2017-02-09] MEDS ORDERED: Insulin GLARgine 100 Unit/mL Syringe SUBQ SCH (23:13)
[2017-02-09 23:14] VITALS: BP 190/96; PULSE 76; RESP 20; O2SAT 98
[2017-02-09] MEDS ORDERED: Labetalol 5 mg/mL 20 mL Inj IVPUSH ONE (23:15)
[2017-02-09 23:20] VITALS: BP 186/84
--- NOTE | 2017-02-09 23:35 | NUR ---
Admit Patient arrived via EMS from [facility] at 2039. Patient is oriented x3 but drowsy, appears to fall asleep during conversation. Patient restless in bed and reports 8/10 abdominal pain and continuous nausea. Per records from [facility], patient already received IV zofran and ativan in their ED. Patient placed on tele: sinus rhythm in the 90s. NS infusing on arrival. Patient uncooperative with admission process; admit documentation completed as much as possible with available records from [facility]. Patient having frequent episodes of gagging and dry heaving, with occasional small amounts of greenish, watery emesis. Additional 4mg IV zofran given and 1000mg carafate. Patient asleep but restless in bed.
[2017-02-10] VITALS (8 sets, daily range): BP systolic 147–198; BP diastolic 79–103; PULSE 69–93; RESP 16–20; O2SAT 93–97
[2017-02-10] MEDS: 0.9% Sodium Chloride 1,000 ML IV SCH ×2 (00:24→09:16)
[2017-02-10] MEDS: Heparin 5,000 Unit/mL Inj SUBQ SCH ×4 (01:52→23:20)
[2017-02-10] MEDS: HYDROmorphone 0.5 mg/0.5 mL iSecure Syringe IVPUSH PRN ×3 (01:53→14:12)
[2017-02-10 02:38] LABS: BASOPHILS % (AUTO) 0.3 % (0-3); EOSINOPHILS % (AUTO) 2.7 % (0-5); Mean Corpuscular Volume 96.8 fL (81-100); NEUTROPHILS % (AUTO) 84.5 % (40-74); Platelet Count 219 bil/L (150-400)
[2017-02-10 02:49] LABS: Magnesium 2.6 mg/dL (1.6-2.6); Phosphorus 6.3 mg/dL (2.5-4.9)
--- NOTE | 2017-02-10 09:15 | DRSVH ---
PROCEDURE: US ABDOMEN, LIMITED ([id number]) INDICATIONS: 46 year-old woman with abdominal pain. TECHNIQUE: Real-time focused scanning was performed of the abdomen, with image documentation. COMPARISON: [facility], US, US ABDOMEN, 12/23/2016, 22:08. FINDINGS: The there are gallstones. Gallbladder wall is borderline thickened measuring 2.7 x 3.1 mm. No pericholecystic fluid collection or sonographic Cantrell sign. Common bile duct is normal in color m easuring 5 mm. IMPRESSION: Cholelithiasis. There is borderline thickening of gallbladder wall. Recommend clinical co rrelation for early acute cholecystitis. Dictated by: Isela Randolph M.D. on 02/10/2017 at 9:10 Approved by: Isela Randolph M.D. on 02/10/2017 at 9:13
[2017-02-10] MEDS: Ondansetron 2 mg/mL 2 mL Inj IVPUSH PRN (09:16)
--- NOTE | 2017-02-10 09:43 | PCM.PNMED ---
Subjective Date of Service Feb 10, 2017 Subjective Patient is a 46y/o female admitted after onset of N/V/D with ABD pain after 3 days w/o benzodiazapines. Patient continues to have diffuse ABD pain with one episode of emesis this morning. Denies any CP, SOB, or diarrhea. Overnight events: Nursing reports nausea overnight and patient responded to 4mg IV zofran and 1,000mg Carafate. Comprehensive ROS was negative except as noted above. Exam Vital Signs Vital Sign - Last Date Time Temp Pulse Resp B/P Pulse Ox O2 Delivery O2 Flow Rate FiO2 02/10/17 09:08 36.3 93 20 181/91 97 Room Air Intake and Output 02/09/17 02/09/17 02/10/17 Cumulative From/Thru 15:00 23:00 07:00 02/09/17 20:44 - 02/10/17 06:14 Intake Total 1724 ml 1724 ml Output Total 800 ml 800 ml Balance 924 ml 924 ml Intake Oral 0 ml 0 ml IV Total 1724 ml 1724 ml Output Urine Total 800 ml 800 ml Exam Constitutional: Patient alert and oriented X3. In no acute distress, but uncomfortable in bed. Eyes: Pupils equally reactive, EOMI Heart: Regular Rate and rhythm. No murmurs. No edema noted Lungs: Clear to auscultation bilaterally. No wheezes, rales, or rhonchi. ABD: Soft, mildly diffusely tender to palpation. Bowel Sounds present throughout. Negative Cantrell's sign Skin: Warm, Dry Neuro: CN II-XII grossly intact. Psych: mood and affect appropriate IVs and Medications Medications Reviewed: Medications were reviewed in detail Lab and Diagnostics Item Value Date Time Red Blood Count 4.06 mil/mm3 02/10/17 0200 Mean Corpuscular Volume 96.8 fL 02/10/17 0200 Mean Corpuscular Hemoglobin 31.0 pg 02/10/17 0200 Mean Corpuscular Hemoglobin Concent 32.1 % 02/10/17 0200 Red Cell Distribution Width 19.1 % H 02/10/17 0200 Neutrophils (%) (Auto) 84.5 % H 02/10/17 0200 Lymphocytes (%) (Auto) 8.9 % L 02/10/17 0200 Monocytes (%) (Auto) 3.0 % L 7/24/17 0200 Eosinophils (%) (Auto) 2.7 % 02/10/17199 Basophils (%) (Auto) 0.3 % 02/10/17199 Estimat Glomerular Filtration Rate 12 mL/min 02/10/17199 Calcium Level 8.9 mg/dL 02/10/17199 Phosphorus Level 6.3 mg/dL H 02/10/17199 Magnesium Level 2.6 mg/dL 02/10/17199 Total Bilirubin 0.5 mg/dL 02/10/17199 Aspartate Amino Transf (AST/SGOT) 28 U/L 02/10/17199 Alanine Aminotransferase (ALT/SGPT) 15 U/L 02/10/17199 Alkaline Phosphatase 86 U/L 02/10/17199 Total Protein 6.6 g/dL 02/10/17199 Albumin 3.5 g/dL 02/10/17199 Result Diagram: 02/10/1719902/10/17199 X-Rays, CTs and MRIs US limited Dictated by: Isela Randolph M.D. IMPRESSION: Cholelithiasis. There is borderline thickening of gallbladder wall. Recommend clinical correlation for early acute cholecystitis. Approved by: Isela Randolph M.D. on 02/10/2017 at 9:13 Assessment & Plan 46-year-old female with extensive history of cardiac disease requiring CABG 3 in October of 2016, end-stage renal disease on hemodialysis, history of anxiety and depression, uncontrolled type 2 diabetes with history of gastroparesis, and history of substance abuse including current daily use of marijuana presents to the emergency department at [facility] due to complaints 7 days of nausea, diarrhea, vomiting, and abdominal pain. Abdominal pain with nausea and vomiting; present on admission; ongoing -Etiology unclear at this time; could be due to Ativan withdrawal, methadone withdrawal; gastroparesis from diabetes; peptic ulcer disease, or cyclic vomiting syndrome from heavy marijuana use - Start home dose today of 50mg methadone PO daily, continue home regimen -dialysis later today (02/10) -Ondansetron 4-8 mg for nausea control, patient has multiple allergies to other antiemetics. -Dilaudid 0.5 mg every 4hours when necessary for abdominal pain which is likely related to prolonged vomiting -Restart home dose of 2mg Alprazolam PO TID PRN anxiety -Ultrasound of the right upper quadrant - revealed cholelithiasis with gallbladder wall thickening, patient shows no signs of infection at this time ( WBC 10) with stable vital signs, will continue to monitor -Protonix 40 mg by mouth twice a day as IV is unavailable -CBC is unremarkable and will recheck in the a.m. -Patient counseled against continuing to use marijuana - Stopping IVF as patient is receiving dialysis (02/10). Anion gap metabolic acidosis; present on admission; ongoing -AG of 27 likely due to hyperglycemia and recent severe vomiting -Patient received a total of 3L NS. IVF d/c'd (02/10) -Recheck labs in AM -Dialysis today (02/10) Hypertensive urgency; present admission; ongoing -Presented with SBP > 180 -Labetalol 20mg IV if available; if not will switch to 200mg BID PO -Blood pressure still elevated will restart home meds after dialysis Acute Hyperkalemia; present admission; ongoing -Presented with K of 5.8 currently 5.3 - Will recheck in AM status post dialysis today. -Given 10units regular insulin at [facility] prior to transfer -Kayexalate given yesterday (02/09). -Tele ESRD; presents on admission; stable -Patient previously had hyperkalemia of 5.8, is going to dialysis today. Will recheck with AM labs. -Maintain on telemetry; no abnormalities noted -Renal diet -Recheck CMP -Urine analysis Type II diabetes with gastroparesis -presented to [facility] with BG >400; now 237 -Continue home regimen -Increase Lantus from 10 to 20 units at bedtime -Sliding scale insulin initiated. -Accuchecks ACHS Anxiety on chronic benzodiazepines -Alprazolam 2mg PO TID PRN anxiety Hypothyroidism, chronic; present admission; stable -Continue levothyroxine 50 g daily - AM TSH Disposition: Patient is currently progressing well. We will reassess patient's electrolytes abnormalities status post dialysis. Patient's home dose of chronic pain medications has been restarted today. We will reassess the patient in the morning most likely discharge in 1-2 days. GI Prophylaxis: Proton Pump Inhibitor VTE Prophylaxis: Sub-Q Heparin (Unfractionated) Resuscitation Status: CPR: Attempt Resuscitation Attending Statement The patient was seen and examined together with Dr. Reyes on 7/24/17 and I have added additional information to the note above. Maxx Reyes DO Feb 10, 2017 09:43 Gabby Ramachandran DO Feb 11, 2017 13:12
[2017-02-10] MEDS ORDERED: METH10OR11 PO (09:53)
[2017-02-10] MEDS ORDERED: ASCO-294 PO (09:55)
--- NOTE | 2017-02-10 10:32 | NUR ---
Social Work Note: Screen Note/Multidisciplinary Rounds Data& Assessment: EMR reviewed. Pt was discussed in AM rounds today, per MD pt is not medically ready for discharge at this time. Lesvia William is a 46 year old female admitted on 02/09/2017 for diabetic and renal disease and hyperkalmeia. Pt has substance use hx and she currently uses daily THC. No MD order for substance use at this time. Pt lives in [place] and is independent at baseline. Pt is a senior living HD patient. Pt currently SBA in her room. SW to follow up with pt regarding initial assessment and any discharge needs. No MD orders identified at this time. SW to continue to follow. Plan: Anticipated discharge home via POV when medically ready. SW to follow up with pt regarding initial assessment and any discharge needs. No MD orders identified at this time. SW to continue to follow. KIRAN Miramontes
[2017-02-10] MEDS ORDERED: Glucose 40% Oral Gel 15 Gm Tube PO PRN (12:35)
[2017-02-10] MEDS: Insulin LISPRO 300 Unit/3 mL Inj SUBQ SCH ×3 (13:26→20:28)
--- NOTE | 2017-02-10 15:43 | CONS ---
[address] [address] CONSULTATION REPORT PATIENT: SHAWNEE ZUNIGA : 1970 MR#: [id number] ADMIT: 02/09/2017 JOB ID: [id number] DATE OF SERVICE: 02/10/2017 REQUESTING PHYSICIAN: Charles Castillo DO. REASON FOR CONSULTATION: Management of end-stage renal disease. CHIEF COMPLAINT: Nausea, vomiting. PRESENT ILLNESS: This is a 46-year-old, lady, with significant past medical history of end-stage renal disease, on hemodialysis every Friday, Friday, and Friday, coronary artery disease, status post CABG, marijuana abuse, type 2 diabetes, who presented to the hospital with a complaint of nausea and vomiting. She reported that she has had nausea, vomiting, and abdominal pain approximately 3-4 days prior to the admission. Her appetite is poor. She has not been able to keep the food down. She reports no fever, no chills. No significant chest pain or shortness of breath. She complains of the epigastric pain, sharp in nature, nonradiating. The patient also complaining of being shaky. Of note, the patient has used daily marijuana. She initially presented to [facility] and later on transferred to [facility] due to the need of hemodialysis. She is under the care of outside security rover. She is dialyzed at [facility] every Friday, Friday, and Friday, via right tunneled catheter. Renal Service was consulted to resume dialysis while she is hospitalized. PAST MEDICAL HISTORY: 1. End-stage renal disease, on hemodialysis every Friday, Friday, and Friday. 2. Type 2 diabetes with renal manifestation. 3. History of gastroparesis. 4. Coronary artery disease, status post CABG. 5. Hypertension. 6. Dyslipidemia. 7. Marijuana abuse. 8. Hypothyroid. 9. GERD. 10. Chronic headache. 11. Anxiety and depression. PAST SURGICAL HISTORY: 1. Status post right tunneled catheter placement. 2. Status post CABG x3 in October 2016. 3. Ankle surgery. 4. Oophorectomy. 5. Shoulder surgery. 6. Sinus surgery. 7. I and D of abscess. FAMILY HISTORY: Father at age 62 due to DC. SOCIAL HISTORY: Patient is a former smoker. She uses daily marijuana. Alcohol: Denied using alcohol. ALLERGIES: She has a long list of allergies includin. AMOXICILLIN. 2. CLAVULANIC ACID. 3. MORPHINE. 4. SUMATRIPTAN. 5. HYDROXYZINE. 6. NAPROXEN. 7. CODEINE. 8. DROPERIDOL. 9. KETOROLAC. 10. METOCLOPRAMIDE. 11. ONDANSETRON. 12. PROCHLORPERAZINE. 13. PROMETHAZINE. 14. METOPROLOL. 15. METFORMIN. 16. PROPOXYPHENE. REVIEW OF SYSTEMS: Fourteen-point review of systems was performed. PHYSICAL EXAMINATION: Vitals: Temperature 36.2, pulse 93, respiratory 20, blood pressure 181/91, O2 sat 97% on room air. General appearance: Sleeping, arousable. Moderate pain. Being on dialysis. HEENT: PERRLA, atraumatic, dry mucous membranes. No pallor. No icteric sclerae. No JVD. No lymphadenopathy. No thyroid enlargement. Heart: Regular rhythm. Normal S1, S2. No murmurs, rubs, or gallops. Lungs: Clear to auscultation bilaterally. No wheezing. No rhonchi. Abdomen: Soft, mild distention on the epigastric area. Active bowel sounds. No hepatosplenomegaly. Extremities: No edema, cyanosis or clubbing of fingers. Skin: Right tunneled catheter in place which is dry, clean and intact. LABORATORY: WBC 10, hemoglobin 12.6. Sodium 134, potassium 5.3, chloride 94, bicarb 12, BUN 37, creatinine 5.53. Ultrasound showed cholelithiasis, borderline thickening of gallbladder. Procalcitonin 0.22. ASSESSMENT: 1. End-stage renal disease, on hemodialysis every Friday, Friday, and Friday. 2. Anion gap metabolic acidosis. Need to rule out ketoacidosis, including starvation, DKA, or alcoholic ketoacidosis. Also very likely that she has metabolic acidosis secondary to uremia. 3. Persistent nausea, vomiting and epigastric pain. 4. Cholelithiasis. 5. Type 2 diabetes with renal manifestation and underlying disease of gastroparesis. 6. Anxiety and depression. 7. Hypothyroidism. 8. Hypertension. Per renal standpoint, will resume dialysis today. Run at 4 hours ultrafiltration, 1-2 L as tolerated. Will check ketone level and alcohol level. Will order urine tox screen. Resume antihypertensive medication if she is able to tolerate the oral medications. Thank you for allowing me to participate in the care of your patient. We will monitor along with you. BARTOLOMED
--- NOTE | 2017-02-10 18:04 | NUR ---
Dialysis, Medications 0930 - Discussed her care with Dr. Ramachandran, Dr. Aldana, and the rest of the multidisciplinary care team during morning rounds. Informed them that she was requesting her home Xanax and Methadone. Dr. Ramachandran said to page the R1 resident once the medication req was completed so that her home meds could be ordered. Informed them that her Kayexalate had not been given during the night as she was having nausea and vomiting. Dr. Ramachandran said to give it rectally. Notified the team that her blood glucose this morning was 359 and she did not have an insulin sliding scale ordered. They acknowledged this information. 0953 - The Dialysis nurse, Radha, called and was given a report. Informed her that the patient was feeling like she was withdrawing from her Xanax and Methadone and was having a hard time remaining still. She said she would call back in about an hour to see if she had received the medications yet. 1145 - She was taken to Dialysis in [facility] after receiving her Xanax and Methadone. Central Supply Technician notified. Radha wondered if her NS@125 mls/hour could be turned down as the goal with dialysis was to decrease her fluid balance. Told her this nurse would speak with the Physician. 1235 - Spoke to Dr. Aldana and asked if her fluids could be decreased and if she could have insulin ordered for her high blood sugars as none had been ordered yet. He said it was okay to decrease her normal saline to 75mls/hour and that he would order a medium dose sliding scale insulin. 1309 - Notified the Dialysis nurse of the new orders. 1600 - Radha called to give report and said she was ready to come back to [facility]. She said her abdominal pain had decreased to about a 4/10, her blood pressure was 167/97 post dialysis, and that she had taken about 1.7 liters of fluid off. About 1620 - She returned to [facility] 2001. 1637 - Spoke to Pharmacist Nav about changing her Kayexalate to the rectal route as she was back from dialysis. He pointed out that even though her potassium was 5.3 last night her dialysis likely corrected it. Told him this nurse would contact the Physicians for clarification. Dr. Ramachandran and Dr. Reyes said to not give it. 1725 - Dr. Aldana stopped by for safety rounds and was given an update on her care. Medication - She is much calmer since receiving her Methadone and Xanax. Able to carry on a conversation and is following staff requests. States she is feeling much better and was even wondering about going home tonight. Informed her that the Physicians would like to keep an eye on her for tonight which she was agreeable to. Care continues.
--- NOTE | 2017-02-10 18:18 | NUR ---
Dialysis note: 4 hr tx Net UF 1700 right cath, dressing changed, [place], chloroprep Pt had abdominal pain which was somewhat controlled with dilaudid UF goal set for 3.5 r/t hypertension and then lowered to 2.0. Cath limbs dwelled with Heparin 1000 and secured with caps Report given to primary RNEssie Pt left in the care of MOC RNAdelaide. Please see DTR for complete record of VS
[2017-02-10] MEDS ORDERED: Insulin GLARgine 100 Unit/mL Syringe SUBQ SCH (21:00)
[2017-02-10] MEDS: Pantoprazole 40 mg ER24 Tablet PO SCH (21:23)
--- NOTE | 2017-02-10 22:30 | NUR ---
Pain Pt states she does not need any pain medications as she does not have any pain. Pt requesting Xanax at scheduled time to relieve on going anxiety.
[2017-02-11 04:46] VITALS: BP 151/77; PULSE 85; RESP 16; O2SAT 94
[2017-02-11 07:35] VITALS: PULSE 72
[2017-02-11] MEDS: Insulin LISPRO 300 Unit/3 mL Inj SUBQ SCH ×2 (08:00→11:33)
[2017-02-11 09:15] VITALS: BP 180/98; PULSE 68; RESP 17; O2SAT 96
[2017-02-11] MEDS: Heparin 5,000 Unit/mL Inj SUBQ SCH (09:20)
[2017-02-11] MEDS: Pantoprazole 40 mg ER24 Tablet PO SCH (09:20)
--- NOTE | 2017-02-11 10:12 | PCM.DIMED ---
Maxx Reyes DO 02/11/17 1012: Discharge Instructions Date of Service Feb 11, 2017 Dates of Hospitalization Feb 09, 2017 at 19:06 Discharge Diagnosis Discharge Diagnosis Abdominal pain with nausea and vomiting; present on admission; ongoing Anion gap metabolic acidosis; present on admission; ongoing Hypertensive urgency; present admission; ongoing Acute Hyperkalemia; present admission; ongoing ESRD; presents on admission; stable Type II diabetes with gastroparesis Anxiety on chronic benzodiazepines Hypothyroidism, chronic; present admission; stable Medication Instructions Additional med instructions Please follow up today through your Methadone clinic to prescribe you with enough medication to last you until your Wednesday 02/14 appointment. Test Results Test Results We did an ultrasound of your gallbladder. It did not appear that you had an infection in your gallbladder. Diet Discharge Diet: Renal Diet Activity Discharge Activity: No restrictions Call your provider Call your provider for: Fever or Chills, Shortness of breath, Bleeding, Chest pain, Vomitting, Excessive diarrhea, Weakness (unilateral) Patient Instructions Follow-up plan Follow up with your primary care provider as scheduled this Friday. Follow-up Provider: Trav Cox PA-C Follow-up with PCP in: 1 week (Wednesday 02/14) Gabby Ramachandran DO 02/11/17 2044: Discharge Instructions Attending's Statement The patient was seen and examined together with Dr. Reyes on 02/11/17 and I agree with the history, exam and plan as outlined in the note above. Maxx Reyes DO Feb 11, 2017 10:12 Gabby Ramachandran DO Feb 11, 2017 20:44
[2017-02-11 10:16] VITALS: PULSE 69
[2017-02-11] MEDS ORDERED: LOSA25TA21 PO (10:22)
[2017-02-11] MEDS ORDERED: ALPR2TAB6 PO (10:22)
[2017-02-11] MEDS ORDERED: METO25TA6 PO (10:22)
--- NOTE | 2017-02-11 11:30 | NUR ---
Social Work Note: Initial Assessment/Discharge/Multidisciplinary Rounds Data& Assessment: EMR reviewed. Pt was discussed in AM rounds today, per pt is medically improved and ready to discharge home via POV. LUIS me with pt and pt mother at bedside to confirm discharge plan and assess for any unmet needs. SW role explained and Discharge Planning Checklist provided. Lesvia William is a 46 year old female admitted on 02/09/2017 for diabetic/renal disease. Pt has [facility] health insurance and sees MIRACLE Landis for primary care. Pt lives in [place] and is independent at baseline with all ADL's. Pt does not use any DME and drives herself but also uses [employer] for transportation to dialysis. Pt is a T, Th, Sat. Dialysis pt at [facility]. Pt does not have HH or SNF hx. Pt does not have LTC insurance or VA benefits. DPOA/AD paperwork provided. Pt and pt mother denies any other needs. No MD orders identified. Plan: Per pt is medically ready to discharge home via POV. Pt and pt mother denies any other needs. No MD orders identified. No other discharge needs identified. KIRAN Miramontes Addendum: 02/11/17 at 1134 by MARIA FERNANDA STAPLETON Amended: Links added.
--- NOTE | 2017-02-11 11:39 | NUR ---
Discharge 0930 - Discussed her care with Dr. Ramachandran, Dr. Aldana, and the rest of the multidisciplinary care team during morning rounds. Informed them that her blood pressure this morning prior to her Hypertensive medications was 180/98. Also asked if she could have an inhaler ordered per her request. This information was acknowledged. 1135 - She discharged at this time. Prior to discharge her two IVs and telemetry were discontinued intact. Discussed with and gave her the discharge paperwork (3 prescriptions, care notes, and instructions). She had no questions or needs at the time of discharge. She was escorted with her friend and all her belongings to the front of the hospital by this nurse and a student nurse.
--- NOTE | 2017-02-11 13:46 | PCM.DC.MED ---
Discharge Summary Date of Service Feb 11, 2017 Dates of Hospitalization Date of Hospital Admission Feb 09, 2017 at 19:06 Date of Discharge: Feb 11, 2017 Providers: Admitting Physician: Marcelle Herring DO Primary Care Physician: Trav Cox PA-C Attending Physician: Gabby Ramachandran DO Diagnosis at Time of Discharge Diagnosis at Time of Discharge Abdominal pain with nausea and vomiting; present on admission; ongoing Anion gap metabolic acidosis; present on admission; ongoing Hypertensive urgency; present admission; ongoing Acute Hyperkalemia; present admission; ongoing ESRD; presents on admission; stable Type II diabetes with gastroparesis Anxiety on chronic benzodiazepines Hypothyroidism, chronic; present admission; stable Consultations Nephrology with Dr. Camp Procedures XRay, CTs & MRIs US limited Dictated by: Isela Randolph M.D. IMPRESSION: Cholelithiasis. There is borderline thickening of gallbladder wall. Recommend clinical correlation for early acute cholecystitis. Approved by: Isela Randolph M.D. on 02/10/2017 at 9:13 Hospital Course 46-year-old female with extensive history of cardiac disease requiring CABG 3 in October of 2016, end-stage renal disease on hemodialysis, history of anxiety and depression, uncontrolled type 2 diabetes with history of gastroparesis, and history of substance abuse including current daily use of marijuana presents to the emergency department at [facility] due to complaints 7 days of nausea, diarrhea, vomiting, and abdominal pain. Patient received dialysis as an inpatient and her abdominal pain and nausea improved greatly over the course of her hospital stay such that she was stable and at her baseline at the time of DC. For full hospital course please see below: Abdominal pain with nausea and vomiting; present on admission; ongoing -Etiology not entirely clear; possibly due to Ativan withdrawal, methadone withdrawal; gastroparesis from diabetes; peptic ulcer disease, or cyclic vomiting syndrome from heavy marijuana use; or some combination of any of these -Continue home Methadone dosing -dialysis (02/10) -Ondansetron 4-8 mg for nausea control, patient has multiple allergies to other antiemetics. -home dose of 2mg Alprazolam PO TID PRN anxiety -Ultrasound of the right upper quadrant - revealed cholelithiasis with gallbladder wall thickening, patient shows no signs of infection at this time ( WBC 10) with stable vital signs, continued to monitor -Protonix 40 mg by mouth twice a day as IV is unavailable -CBC is unremarkable and will recheck in the a.m. -Patient counseled against continuing to use marijuana Anion gap metabolic acidosis; present on admission; resolved -AG of 27 upon presentation likely due to hyperglycemia and recent severe vomiting -Patient received a total of 3L NS. IVF d/c'd (02/10) -Dialysis (02/10) Hypertensive urgency; present admission; Improved -Presented with SBP > 180 -Labetalol PO PRN -Resume home Losartan and Metoprolol Acute Hyperkalemia; present admission; Resolved -Presented with K of 5.8 currently 5.3 -Resolved following dialysis -Given 10units regular insulin at [facility] prior to transfer -Kayexalate given(02/09). -Tele ESRD; presents on admission; stable -Patient had hyperkalemia of 5.8 -Maintain on telemetry; no abnormalities noted -Renal diet -Followed CMP Type II diabetes with gastroparesis -presented to [facility] with BG >400; now 237 -Increase Lantus from 10 to 20 units at bedtime -Sliding scale insulin initiated. -Accuchecks ACHS Anxiety on chronic benzodiazepines (drug dependence) -Alprazolam 2mg PO TID PRN anxiety Hypothyroidism, chronic; present admission; stable -Continue levothyroxine 50 g daily - AM TSH Exam Vital Signs (Last) Date Time Temp Pulse Resp B/P Pulse Ox O2 Delivery O2 Flow Rate FiO2 02/11/17 10:16 69 02/11/17 09:15 37.1 17 180/98 96 Room Air Exam Constitutional: Patient alert and oriented X3. In no acute distress, but uncomfortable in bed. Eyes: Pupils equally reactive, EOMI, PERRL Heart: Regular Rate and rhythm. No murmurs. No edema noted Lungs: Clear to auscultation bilaterally. No wheezes, rales, or rhonchi. ABD: Soft, mildly diffusely tender to palpation. Bowel Sounds present throughout. Negative Cantrell's sign Skin: Warm, Dry, no rashes or lesions Neuro: CN II-XII grossly intact. No focal neurologic deficit Psych: mood and affect appropriate Test 02/09/17 22:15 02/10/17 02:00 02/11/17 02:35 Lipase 17U/L (13-60) Procalcitonin 0.22ng/mL (0.00-0.08) White Blood Count 10.0th/mm3 (3.8-10.1) Red Blood Count 4.06mil/mm3 (3.90-5.20) Hemoglobin 12.6g/dL (12.0-15.6) Hematocrit 39.3% (35.0-46.0) Mean Corpuscular Volume 96.8fL (81-100) Mean Corpuscular Hemoglobin 31.0pg (27.0-35.0) Mean Corpuscular Hemoglobin Concent 32.1% (32.0-37.0) Red Cell Distribution Width 19.1% (12.3-15.4) Platelet Count 219bil/L (150-400) Neutrophils (%) (Auto) 84.5% (40-74) Lymphocytes (%) (Auto) 8.9% (14-46) Monocytes (%) (Auto) 3.0% (4-12) Eosinophils (%) (Auto) 2.7% (0-5) Basophils (%) (Auto) 0.3% (0-3) Hemoglobin A1c 9.5% (4.8-5.6) Phosphorus Level 6.3mg/dL (2.5-4.9) Magnesium Level 2.6mg/dL (1.6-2.6) Alcohols < 10mg/dL (0-10) Ketones Small (Negative) Sodium Level 140mEq/L (134-144) Potassium Level 3.8mEq/L (3.5-5.2) Chloride Level 98mEq/L (97-108) Carbon Dioxide Level 25mmol/L (18-29) Blood Urea Nitrogen 22mg/dL (6-24) Creatinine 3.43mg/dL (0.57-1.00) Estimat Glomerular Filtration Rate 21mL/min (>59) Glucose Level 134mg/dL (60-99) Calcium Level 8.5mg/dL (8.5-10.1) Total Bilirubin 0.5mg/dL (0.0-1.2) Aspartate Amino Transf (AST/SGOT) 15U/L (0-50) Alanine Aminotransferase (ALT/SGPT) 11U/L (0-32) Alkaline Phosphatase 65U/L (25-150) Total Protein 5.2g/dL (6.4-8.4) Albumin 3.2g/dL (3.4-5.0) Thyroid Stimulating Hormone (TSH) 2.410uIU/mL (0.450-4.500) Discharge Medications Discharge Medications Ascorbate Calcium (Vitamin C) 500 Mg Tablet 2,000 MG PO DAILY (Reported) Aspirin (Aspirin) 81 Mg Tablet 162 MG PO DAILY (Reported) Atorvastatin Calcium (Atorvastatin Calcium) 40 Mg Tablet 40 MG PO DAILY ( Reported) Cholecalciferol (Vitamin D3) (Vitamin D) 1,000 Unit Capsule 1,000 UNIT PO DAILY (Reported) Docusate Calcium (Stool Softener) 240 Mg Capsule 240-480 MG PO DAILY (Reported) Insulin Glargine (Lantus U100 Insulin Vial) 100 Unit/Ml Vial 8 UNITS SUBQ HS ( Reported) Levothyroxine (Levothyroxine) 50 Mcg Tablet 50 MCG PO DAILY (Reported) Losartan Potassium (Losartan Potassium) 25 Mg Tablet 25 MG PO DAILY Prescribed by: Erika SAMS Medroxyprogesterone Acetate (Medroxyprogesterone Acetate) 150 Mg/1 Ml Syringe 150 MG [id number] q12 weeks (Reported) Methadone (Methadone) 10 Mg/1 Ml Oral.conc 50 MG PO DAILY (Reported) Metoprolol Tartrate (Metoprolol Tartrate) 25 Mg Tablet 50 MG PO BID Prescribed by: Erika SAMS Sevelamer Carbonate (Renvela) 800 Mg Tablet 1,600 MG PO TIDWM (Reported) Ubidecarenone (Coq-10) 100 Mg Capsule 400 MG PO DAILY (Reported) Vit B Comp/C/FA/Iron/Vit E (Vitamin B Complex Tablet) 1 Each Tablet 1 EACH PO DAILY (Reported) As needed Albuterol Sulfate (Ventolin HFA Inhaler) 200 Puff/18 Gm Inhaler 1-2 PUFFS INH q4 -6 hours PRN PRN For Shortness of Breath (Reported) Albuterol/Ipratropium (Combivent Respimat Inhal [place]) 120 Spr/4 Gm Inhaler 1 PUFF INH q6 hours PRN PRN For Shortness of Breath (Reported) Alprazolam (Alprazolam) 2 Mg Tablet 2 MG PO TID PRN PRN For Anxiety Prescribed by: Erika SAMS Insulin Human Lispro (HumaLOG U100 Insulin Vial) 100 Unit/Ml Unit 2-10 UNITS SUBQ TIDWM PRN PRN sliding scale (Reported) Additional med instructions Please follow up today through your Methadone clinic to prescribe you with enough medication to last you until your Wednesday 02/14 appointment. Followup Plan Disposition: Home Follow-up plan Follow up with your primary care provider as scheduled this Friday. Discharge Diet: Renal Diet Discharge Activity: No restrictions Follow-up Provider: Trav Cox PA-C Follow-up with PCP in: 1 week (Wednesday 02/14) Time spent Time spent planning and coordinating discharge > 35 minutes Attending Statement The patient was seen and examined together with Dr. Aldana on 02/11/2017 and I have added additional information to the note above. copies to: Trav Cox PA-C, David E DO Feb 11, 2017 13:46 Gabby Ramachandran DO Feb 12, 2017 13:25 enough medication to last you until your Wednesday 02/14 appointment. Followup Plan Disposition: Home Follow-up plan Follow up with your primary care provider as scheduled this Friday. Discharge Diet: Renal Diet Discharge Activity: No restrictions Follow-up Provider: Trav Cox PA-C Follow-up with PCP in: 1 week (Wednesday 02/14) Time spent Time spent planning and coordinating discharge > 35 minutes copies to: Trav Cox PA-C, David E DO Feb 11, 2017 13:46
== END 2017-02-11 11:44 | disposition home or self-care (01) | DRG 391 ==
LOC: PCC 19:06
PROVIDERS: ADMIT Internal Medicine; ATTEND Internal Medicine
DX: R10.9 Unspecified abdominal pain (principal); N18.6 End stage renal disease; E87.2 Acidosis; K31.84 Gastroparesis; E11.43 Type 2 diabetes mellitus with diabetic autonomic (poly)neuropathy; I12.0 Hypertensive chronic kidney disease with stage 5 chronic kidney disease or end stage renal disease; E11.22 Type 2 diabetes mellitus with diabetic chronic kidney disease; R11.2 Nausea with vomiting, unspecified; Z99.2 Dependence on renal dialysis; I16.0 Hypertensive urgency; F41.9 Anxiety disorder, unspecified; E03.9 Hypothyroidism, unspecified; Z95.1 Presence of aortocoronary bypass graft; E11.65 Type 2 diabetes mellitus with hyperglycemia; Z79.4 Long term (current) use of insulin

== ENCOUNTER 2017-02-26 14:03 | Inpatient (IN) | payer OTHER, MEDICAID ==
[2017-02-26] VITALS (7 sets, daily range): BP systolic 99–155; BP diastolic 69–100; PULSE 88–110; RESP 20; O2SAT 93–100
[~2017-02-26] VITALS: Ht 167.6 cm; Wt 60.5 kg
[~2017-02-26 14:03] MED LIST changes: +ASCO-294 PO; -ASCO100089 PO; +METH10OR11 PO; -MULT-666 PO; -NEPHVIT PO; -SENN-133 PO; -methadone liquid PO
[2017-02-26] MEDS: Propofol Inj 1,000,000 MCG in IV Premix 1 EACH IV SCH ×2 (15:15→20:20)
[2017-02-26] MEDS ORDERED: Polyethylene Glycol (PEG) 17 Gm Powder PO PRN (15:40)
[2017-02-26] MEDS ORDERED: Senna-Docusate 8.6-50 mg Tablet PO PRN (15:40)
[2017-02-26] MEDS ORDERED: Ondansetron 2 mg/mL 2 mL Inj IVPUSH PRN (15:40)
[2017-02-26] MEDS ORDERED: Acetaminophen IV 1,000 MG in IV Premix 1 EACH IV PRN (15:40)
[2017-02-26] MEDS ORDERED: Propofol Inj 1,000,000 MCG in IV Premix 1 EACH IV SCH ×2 (15:45→16:30)
[2017-02-26] MEDS ORDERED: LORazepam 100 mg/100 mL NS 100 MG in IV Premix 100 EACH IV SCH (15:45)
--- NOTE | 2017-02-26 15:50 | ABG ---
DateTimeAnalyzed 15:44:00 -_ pH ____7.281 - 7.320 7.420 pCO2 ___38.7__ -mmHg 41.0 51.0 pO2 ___43.2__ -mmHg 24.0 40.0 HCO3- ___17.6__ -mmol/L ABE ___-8.2__ -mmol/L tHb ___15.4__ -g/dL 12.0 18.0 O2Hb ___67.0__ -% COHb ____0.6__ -% 0.0 1.5 MetHb ____1.4__ -% 0.4 1.5 sO2 ___68.4__ -% FIO2 ___40.0__ -% PEEP ____5.0__ -cmH2O Set_RR ___20.0__ -b/min Vt __500.0__ -L Drawn By as - Date/Time Notified____ 15:50:00 -_ Spontaneous_RR ___28.0__ -b/min Oxygen Device 1 VENTILATOR - Notified By ams - Notified Whom Dr Edinson - B 756 -mmHg tO2 ___14.5__ -Vol% Jeffrey test N/A -
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
[2017-02-26 16:26] LABS: BASOPHILS % (AUTO) 0.3 % (0-3); EOSINOPHILS % (AUTO) 0.1 % (0-5); Mean Corpuscular Hemoglobin 31.7 pg (27.0-35.0); Mean Corpuscular Volume 93.7 fL (81-100); NEUTROPHILS % (AUTO) 89.3 % (40-74); Platelet Count 331 bil/L (150-400)
--- NOTE | 2017-02-26 16:37 | ED.REPORT ---
HPI-Abd Pain F 2 and Over Date of Service Feb 26, 2017 ED Provider: Nursing Notes Stated Complaint: HYPERKALEMIA/RENAL FAILURE ON DIALYSIS/HYPERTENSIV Allergies: Coded Allergies: amoxicillin (Verified Allergy, Severe, Anaphylaxis, 12/23/16) clavulanic acid (Verified Allergy, Severe, Anaphylaxis, 12/23/16) morphine (Verified Allergy, Severe, Anaphylaxis, 02/09/17) OK TO TAKE OXYCODONE propoxyphene (Verified Allergy, Severe, Anaphylaxis, 12/23/16) sulfamethizole (Verified Allergy, Severe, Anaphylaxis, 12/23/16) sumatriptan (Verified Allergy, Severe, Shortness of Breath, 12/23/16) hydroxyzine (Verified Allergy, Intermediate, "twitching", 12/23/16) naproxen (Verified Allergy, Intermediate, Hives, 12/23/16) codeine (Verified Allergy, Unknown, 12/23/16) droperidol (Verified Allergy, Unknown, 12/23/16) ketorolac (Verified Allergy, Unknown, 12/23/16) metoclopramide (Verified Allergy, Unknown, 12/23/16) ondansetron (Verified Allergy, Unknown, 12/23/16) prochlorperazine (Verified Allergy, Unknown, 12/23/16) promethazine (Verified Allergy, Unknown, 12/23/16) tramadol (Verified Allergy, Unknown, 12/23/16) metformin (Verified Adverse Reaction, Intermediate, "gi upset, diarrhea", 02/09/17) Uncoded Allergies: hyzine (Allergy, Intermediate, "myalgia", 12/23/16) Scheduled Ascorbate Calcium (Vitamin C) 500 Mg Tablet 2,000 MG PO DAILY Aspirin (Aspirin) 81 Mg Tablet 162 MG PO DAILY Atorvastatin Calcium (Atorvastatin Calcium) 40 Mg Tablet 40 MG PO DAILY Cholecalciferol (Vitamin D3) (Vitamin D) 1,000 Unit Capsule 1,000 UNIT PO DAILY Docusate Calcium (Stool Softener) 240 Mg Capsule 240-480 MG PO DAILY Insulin Glargine (Lantus U100 Insulin Vial) 100 Unit/Ml Vial 8 UNITS SUBQ HS Levothyroxine (Levothyroxine) 50 Mcg Tablet 50 MCG PO DAILY Losartan Potassium (Losartan Potassium) 25 Mg Tablet 25 MG PO DAILY Medroxyprogesterone Acetate (Medroxyprogesterone Acetate) 150 Mg/1 Ml Syringe 150 MG [id number] q12 weeks Methadone (Methadone) 10 Mg/1 Ml Oral.conc 50 MG PO DAILY Metoprolol Tartrate (Metoprolol Tartrate) 25 Mg Tablet 50 MG PO BID Sevelamer Carbonate (Renvela) 800 Mg Tablet 1,600 MG PO TIDWM Ubidecarenone (Coq-10) 100 Mg Capsule 400 MG PO DAILY Vit B Comp/C/FA/Iron/Vit E (Vitamin B Complex Tablet) 1 Each Tablet 1 EACH PO DAILY Scheduled PRN Albuterol Sulfate (Ventolin HFA Inhaler) 200 Puff/18 Gm Inhaler 1-2 PUFFS INH q4 -6 hours PRN PRN For Shortness of Breath Albuterol/Ipratropium (Combivent Respimat Inhal [place]) 120 Spr/4 Gm Inhaler 1 PUFF INH q6 hours PRN PRN For Shortness of Breath Alprazolam (Alprazolam) 2 Mg Tablet 2 MG PO TID PRN PRN For Anxiety Insulin Human Lispro (HumaLOG U100 Insulin Vial) 100 Unit/Ml Unit 2-10 UNITS SUBQ TIDWM PRN PRN sliding scale Past Medical History Smoking History Former Smoker Interpretation & Diagnostics Lab Results Interpretation Result Diagram: 02/26/17 1620 Test 02/26/17 16:20 White Blood Count 17.7th/mm3 (3.8-10.1) Red Blood Count 4.76mil/mm3 (3.90-5.20) Hemoglobin 15.1g/dL (12.0-15.6) Hematocrit 44.6% (35.0-46.0) Mean Corpuscular Volume 93.7fL (81-100) Mean Corpuscular Hemoglobin 31.7pg (27.0-35.0) Mean Corpuscular Hemoglobin Concent 33.9% (32.0-37.0) Red Cell Distribution Width 16.6% (12.3-15.4) Platelet Count 331bil/L (150-400) Neutrophils (%) (Auto) 89.3% (40-74) Lymphocytes (%) (Auto) 4.6% (14-46) Monocytes (%) (Auto) 5.0% (4-12) Eosinophils (%) (Auto) 0.1% (0-5) Basophils (%) (Auto) 0.3% (0-3) Discharge & Departure Referrals: Trav Cox PA-C (PCP) Donny Chadwick DO Feb 26, 2017 16:37
--- NOTE | 2017-02-26 16:39 | PCM.HPMED ---
Subjective Date of Service Feb 26, 2017 Primary Provider: Admitting Physician: Jeffrey Neves MD Primary Care Physician: Trav Cox PA-C Attending Physician: Jeffrey Neves MD Admit Status: Direct Admit, Critical Care Chief Complaint: Seizure, intubated for airway protection. Hyperkalemia. Her chief complaint was anxiety and need for refill of Xanax. History of Present Illness: All history is obtained from medical records. The patient arrives intubated, sedated with propofol drip. She has an endotracheal tube in place, a left IJ central venous catheter, and a left tibia-fibula interosseous needle in place. The patient apparently presented to [facility] with anxiety state and need for Xanax refill. There she was thought to have a seizure shortly after arrival. This quickly lead to sedation and intubation for airway protection. Patient's laboratories revealed hyperkalemia consistent with probable noncompliance with regards to her dialysis. She does have a right subclavian dialysis catheter in place. She does have a history of dialysis noncompliance. The implications that she takes chronic benzodiazepines and that this might be a withdrawal seizure given her presentation asking for refill of her Xanax. There is no documentation of our DHR of a history of seizure disorder. She is having a history of stated THC use as well as possible methadone use. U tox is not available. The patient had her propofol turned up to 50 with minimal or incomplete sedation. The patient is also said to have positive ketones and hyperglycemia. A blood gas was obtained here and is pending. The patient is also hypertensive most of the time she was at the other emergency Department. No other history or review of systems is unobtainable as she is intubated and sedated. Review of Systems: Not obtainable, patient is intubated and sedated. Allergies Coded Allergies: amoxicillin (Verified Allergy, Severe, Anaphylaxis, 12/23/16) clavulanic acid (Verified Allergy, Severe, Anaphylaxis, 12/23/16) morphine (Verified Allergy, Severe, Anaphylaxis, 02/09/17) OK TO TAKE OXYCODONE propoxyphene (Verified Allergy, Severe, Anaphylaxis, 12/23/16) sulfamethizole (Verified Allergy, Severe, Anaphylaxis, 12/23/16) sumatriptan (Verified Allergy, Severe, Shortness of Breath, 12/23/16) hydroxyzine (Verified Allergy, Intermediate, "twitching", 12/23/16) naproxen (Verified Allergy, Intermediate, Hives, 12/23/16) codeine (Verified Allergy, Unknown, 12/23/16) droperidol (Verified Allergy, Unknown, 12/23/16) ketorolac (Verified Allergy, Unknown, 12/23/16) metoclopramide (Verified Allergy, Unknown, 12/23/16) ondansetron (Verified Allergy, Unknown, 12/23/16) prochlorperazine (Verified Allergy, Unknown, 12/23/16) promethazine (Verified Allergy, Unknown, 12/23/16) tramadol (Verified Allergy, Unknown, 12/23/16) metformin (Verified Adverse Reaction, Intermediate, "gi upset, diarrhea", 02/09/17) Uncoded Allergies: hyzine (Allergy, Intermediate, "myalgia", 12/23/16) Home Medications From previous discharge record, these are not confirmed. Albuterol HFA Combivent Alprazolam 2 mg by mouth 3 times a day Aspirin 81 mg Atorvastatin 40 mg Insulin glargine 8 units subcutaneous at bedtime Humalog 10 units subcutaneous 3 times a day with meals Levothyroxine 50 g by mouth daily Losartan 25 mg by mouth daily Medroxyprogesterone 50 mg every 12 weeks Metoprolol 25 mg by mouth twice a day Sevelamer 1600 mg Questionable methadone PMH End-stage renal disease, on dialysis with a history of noncompliance Pertinent physical supraventricular tachycardia. CAD with history of bypass grafting. Chronic anxiety Chronic depression Diabetes mellitus type II, insulin-dependent Diabetic gastropathy Current recurrent migraine headaches GERD Hypothyroidism Possible THC and opiates use. Surgical History Coronary artery bypass grafting October 2016, the grafts. Ankle surgery Family History Not obtainable patient is intubated Social History Occupation: unknown Hx Alcohol Use: No Hx Substance Use: Yes (marijuana) Hx Tobacco Use: Yes Smoking Status: Former Smoker Living Arrangement: with Family Exam Vital Signs As documented Exam She is intubated and has an endotracheal tube in place. She is sedated. The patient does pursue a chronically ill. She does appear comfortable. Normal skull. Normal nose and ears. Anicteric sclera, symmetric pupils Oropharynx is unremarkable, no facial droop. Neck is supple, normal thyroid. No adenopathy. Lungs are clear, normal effort rate. Heart is regular without murmur gallop or rub. Abdomen soft, nondistended or tender. She does have multiple areas of ecchymoses on her abdominal wall. Extremities are free of pedal edema. Good radial and pedal pulses. Skin is free of rash, lesions. No petechiae Joints are grossly normal. Cranial nerves are grossly normal. Motor strength is normal in all extremities. Normal muscular tone. Right subclavian dialysis catheter. Left IJ central venous catheter Lab and Diagnostics Result Diagram: 02/26/17 1620 Assessment & Plan 1. Probable benzodiazepine withdrawal seizure, POA and reactive. External percent drip and follow expectantly. 2. Hyperkalemia and mild volume overload, POA and active. Dialysis is initiated today. 3. Diabetic ketoacidosis, POA and presumably active. Confirm with pH and ketones at this time as well as blood sugar and anion gap. If she is not in DKA will begin insulin drip per the DKA protocol. 4. CAD with history of bypass grafting, POA and stable. Continue cardioprotective medications including aspirin per OG tube and beta-blockade. 5. Possible polysubstance abuse, POA. We will confirm with a urine tox. Patient to falls to full resuscitation. Inpatient status with anticipated length of stay of 2 nights or more. Pain Evaluation: Adequate Pain Control Resuscitation Status: CPR: Attempt Resuscitation Time spent 60 minutes of critical care time Jeffrey Neves MD Feb 26, 2017 16:39
[2017-02-26 16:40] LABS: INR 0.94 ratio
[2017-02-26] MEDS: LORazepam Inj 100 MG in 0.9% Sodium Chloride 50 ML IV PRN (16:44)
[2017-02-26 17:34] LABS: APPEARANCE,URINE HAZY (CLEAR,HAZY); COLOR,URINE YELLOW (YELLOW); OCCULT BLOOD,URINE MODERATE (NEGATIVE); PH,URINE 6.5 (5.0-8.0); UROBILINOGEN,URINE NORMAL (NORMAL)
[2017-02-26] MEDS ORDERED: Insulin Human REGular Inj 100 UNIT in 0.9% Sodium Chloride-Pha MIX 100 ML IV SCH (17:36)
--- NOTE | 2017-02-26 18:45 | NUR ---
Admit Note Patient admitted to floor around 1515. Intubated and in 4 pt restraints. Agitated and diaphoretic. Medics gave Propofol bolus to settle. Settled patient into room on 4 pt restraints. Propofol at 50 mcg/kg/min. Patient still agitated, pulling, kicking. MD added Ativan gtt. Ativan is at 2 mg/hr currently. Patient is more calm, but continues to move extremities. Vent is at 40%, 5, 500, 20. Sats 100%. Lungs clear. Tele, ST 109 currently. MD stopped IV fluids. Dialysis started upon arrival to floor. bP, 120/86 now. Serum glucose 181. MD ordered non DKA insuin gtt. Will start when arrives from Pharmacy. [place] cath in place, scant urine-- 20 mls this shift. UA sent. Temp 36.4. Following POC.
--- NOTE | 2017-02-26 20:11 | NUR ---
Hemodialysis note 4hr tx. 2.0kg removed. tx uneventful. SBP 100-120 Cath dresg changed, no S/S infection.
--- NOTE | 2017-02-26 20:15 | ABG ---
DateTimeAnalyzed 20:10:00 -_ pH ____7.530 - 7.350 7.450 pCO2 ___26.0__ -mmHg 35.0 45.0 HCO3- ___21.6__ -mmol/L 22.0 26.0 ABE ____0.6__ -mmol/L -2.0 2.0 tHb ___14.7__ -g/dL 12.0 18.0 O2Hb ___96.5__ -% COHb ____0.0__ -% 0.0 1.5 MetHb ____0.6__ -% 0.4 1.5 sO2 ___97.0__ -% FIO2 ___21.0__ -% PEEP ____5.0__ -cmH2O Set_RR ___20.0__ -b/min Vt __500.0__ -L Drawn By MD - Date/Time Notified____ 20:15:00 -_ Spontaneous_RR ___20.0__ -b/min Oxygen Device 1 VENTILATOR - Notified By MD - Notified Whom RN R.QUIROZ - B 755 -mmHg tO2 ___20.1__ -Vol% Jeffrey test N/A -
[2017-02-26] MEDS: Heparin 5,000 Unit/mL Inj SUBQ SCH (20:19)
[2017-02-26] MEDS ORDERED: Famotidine Inj 50 ML IV SCH (20:30)
--- NOTE | 2017-02-26 20:32 | ABG ---
DateTimeAnalyzed 20:24:19 -_ pH ____7.537 - 7.350 7.450 pCO2 ___27.4__ -mmHg 35.0 45.0 pO2 135 -mmHg 69.0 116 HCO3- ___23.3__ -mmol/L 22.0 26.0 ABE ____1.2__ -mmol/L -2.0 2.0 tHb ___14.5__ -g/dL 12.0 18.0 O2Hb ___97.2__ -% COHb ____0.3__ -% 0.0 1.5 MetHb ____0.0__ -% 0.4 1.5 sO2 ___97.1__ -% FIO2 ___21.0__ -% PEEP ____5.0__ -cmH2O Set_RR 20 -b/min Vt __500.0__ -L Drawn By MD - Date/Time Notified____ 20:31:00 -_ Spontaneous_RR 20 -b/min Oxygen Device 1 VENTILATOR - Notified By MD - Notified Whom RN R.QUIROZ - K+ ____4.0__ -mmol/L 3.5 5.0 tO2 ___20.0__ -Vol% Jeffrey test N/A -
[2017-02-26] MEDS: fentaNYL 2,500 mCg/250 mL 2,500 MCG in IV Premix 1 EACH IV SCH (20:36)
[2017-02-27] VITALS (12 sets, daily range): BP systolic 81–135; BP diastolic 56–92; PULSE 105–120; RESP 22–31; O2SAT 94–100
--- NOTE | 2017-02-27 00:29 | ABG ---
DateTimeAnalyzed 00:20:42 -_ pH ____7.523 - 7.350 7.450 pCO2 ___30.3__ -mmHg 35.0 45.0 pO2 ___74.9__ -mmHg 69.0 116 HCO3- ___24.9__ -mmol/L 22.0 26.0 ABE ____2.3__ -mmol/L -2.0 2.0 tHb ___14.4__ -g/dL 12.0 18.0 O2Hb ___93.7__ -% COHb ____0.3__ -% 0.0 1.5 MetHb ____0.0__ -% 0.4 1.5 sO2 ___93.8__ -% FIO2 ___21.0__ -% PEEP ____5.0__ -cmH2O Set_RR 14 -b/min Vt __500.0__ -L Drawn By MD - Date/Time Notified____ 00:28:00 -_ Spontaneous_RR 19 -b/min Oxygen Device 1 VENTILATOR - Notified By MD - Notified Whom RN R.QUIROZ - K+ ____4.9__ -mmol/L 3.5 5.0 tO2 ___19.0__ -Vol% Jeffrey test N/A -
[2017-02-27 03:10] LABS: BASOPHILS % (AUTO) 0.2 % (0-3); EOSINOPHILS % (AUTO) 0.1 % (0-5); MONOCYTES % (AUTO) 7.4 % (4-12); Mean Corpuscular Volume 95.1 fL (81-100); NEUTROPHILS % (AUTO) 77.2 % (40-74); Platelet Count 336 bil/L (150-400)
--- NOTE | 2017-02-27 05:11 | ABG ---
DateTimeAnalyzed 05:02:52 -_ pH ____7.489 - 7.350 7.450 pCO2 ___32.7__ -mmHg 35.0 45.0 pO2 105 -mmHg 69.0 116 HCO3- ___24.9__ -mmol/L 22.0 26.0 ABE ____1.7__ -mmol/L -2.0 2.0 tHb ___14.8__ -g/dL 12.0 18.0 O2Hb ___96.0__ -% COHb ____0.2__ -% 0.0 1.5 MetHb ____0.0__ -% 0.4 1.5 sO2 ___96.2__ -% FIO2 ___21.0__ -% PEEP ____5.0__ -cmH2O Set_RR 14 -b/min Vt __500.0__ -L Drawn By MD - Date/Time Notified____ 05:10:00 -_ Spontaneous_RR 22 -b/min Oxygen Device 1 VENTILATOR - Notified By MD - Notified Whom RN R.QUIROZ - K+ ____5.4__ -mmol/L 3.5 5.0 tO2 ___20.1__ -Vol% Jeffery test N/A -
--- NOTE | 2017-02-27 06:30 | NUR ---
Sedation/NG Pt's sedation turned off for 90 minutes due to low BIS score. Pt started awakening and becoming anxious. Propofol increased slowly to current amount of 15mcg/kg/minute, fetanyl 50mcg/hour, and Ativan 2mg/hour. MD made aware of coffee ground through NG tube and now bloody and less coffee ground like; MD switched order from PEPCID IV to Protonix BID IVP.
[2017-02-27] MEDS: Propofol Inj 1,000,000 MCG in IV Premix 1 EACH IV SCH ×3 (06:40→22:54)
[2017-02-27] MEDS ORDERED: Famotidine Inj 50 ML IV SCH (07:30)
[2017-02-27] MEDS ORDERED: Albuterol-Ipratropium 3 mL Inhalation Solution ONE (07:33)
[2017-02-27] MEDS: Heparin 5,000 Unit/mL Inj SUBQ SCH (08:30)
[2017-02-27] MEDS: Pantoprazole 4 mg/mL 10 mL Inj IVPUSH SCH ×2 (08:35→16:35)
--- NOTE | 2017-02-27 10:22 | PCM.PNNEPH ---
Subjective Date of Service Feb 27, 2017 Subjective The patient remains somnolent on a ventilator, sedated, with ongoing benzodiazepine replacement. In discussion with the ICU staff they are going to wean her sedation and attempt to extubate her today. Exam Vital Signs Vital Sign - Last Date Time Temp Pulse Resp B/P Pulse Ox O2 Delivery O2 Flow Rate FiO2 02/27/17 08:00 37.3 120 24 101/72 100 Mechanical Ventilator 60 Intake and Output 02/26/17 02/26/17 02/27/17 Cumulative From/Thru 15:00 23:00 07:00 02/26/17 17:12 - 02/27/17 06:00 Intake Total 222 ml 518 ml 740 ml Output Total 2095 ml 695 ml 2790 ml Balance -1873 ml -177 ml -2050 ml Intake Oral 0 ml 0 ml IV Total 222 ml 518 ml 740 ml Output Urine Total 20 ml 15 ml 35 ml Gastric Drainage Total 75 ml 680 ml 755 ml Ultrafiltrate 2000 ml 2000 ml # Bowel Movements 0 0 Exam Lungs few scattered rhonchi but otherwise were clear. Heart was tachycardic. Abdomen was soft with some diminished bowel sounds noted. There was no tenderness, rebound, guarding, masses, or hepatosplenomegaly. Extremities do not show any evidence of any clubbing cyanosis or edema. Lab and Diagnostics Result Diagram: 02/27/17 0954 02/27/17 0255 Plan Impression Impression #1 end-stage renal disease dialysis dependent #2 diabetic nephropathy #3 hypertension with hypertensive heart disease and hypertensive nephrosclerosis number for benzodiazepine withdrawal Recommendations #1 the patient was sedated for 3 hours on a standard dialyzer, 3 potassium bath, thousand of heparin and 200 per hour, 400 blood flow 600 dialysate flow, in 1-2 L to be removed as tolerated. From my point of view she can be extubated per the ICU team. Donny Chadwick DO Feb 27, 2017 10:22
[2017-02-27] MEDS ORDERED: Propofol 10,000 mCg/mL 100 mL Inj ONE (10:38)
--- NOTE | 2017-02-27 10:41 | NUR ---
NUTRITION ASSESSMENT: ASSESS: Pt is a 46yo F admitted to CCU for hyperkalemia and respiratory failure. She is currently intubated and sedated. Pt has history of ESRD. Nephrology is following and pt is to have dialysis today. RN noted that pt had coffee ground/bloody ouput via NGT. Pt has been NPO x1 day. PMHX: ESRD, tachycardia, CAD, T2DM, Diabetic gastropathy, GERD, anxiety LABS: Reviewed. K 5.4, Cl 92, Bun 29, rn home health 4.96, glu 204, A1C 9.3, Alb 3.7 MEDS: Reviewed. Fentanyl, propofol currently running at 9.5ml/hr providing 250kcal/day. GI: bloody/coffee ground output via NGT. 0 BM SKIN: wc note pending CURRENT WTS: 61.1kg, BMI 21.7kg/m2, IBW: 59.1kg DIET: NPO x1 EST. NEEDS: VENT/ DIALYSIS Kcals: 1220-1530kcal/day (20-25kcal/kg) Pro: 95-125g/day (1.2-2.0g/kg) Fluids:~1550ml/day NUTRITION DIAGNOSIS: 1.) Inadequate oral intake related to decreased ability to consume sufficient energy as evidenced by current NPO status 2.) Increased kcal/pro needs related to ESRD as evidence by pt on chronic dialysis NUTRITION INTERVENTION: 1.) Will continue to monitor NPO/GI status. 2.) If pt continues on vent and has not further GI complications, recommend TF of Nepro be started. Recommend start at 10ml/hr. If tolerated, advance by 10ml q 6 hrs until reach goal rate of 33ml/hr to provide 1306kcal (1556kcal w/propofol) and 58g pro (100% kcal and 61% pro needs). 3.) Adjust goal rate based on daily propofol 4.) Recommend add prosource once TF to goal rate to better meet protein needs MONITOR / EVAL: NPO/vent, GI, wt, labs, POC, nutrition status. Will continue to monitor per high nutrition risk guidelines
--- NOTE | 2017-02-27 10:56 | DRSVH ---
PROCEDURE: X-RAY CHEST ONE VIEW, PORTABLE ([id number]) INDICATIONS: intubated TECHNIQUE: One view of the chest was acquired. COMPARISON: [facility], CR, XR CHEST 1VW (PORTABLE), 02/26/2017, 15:50. FINDINGS: Surgical changes and devices: Stable positioning of right IJ dialysis catheter, ETT, nasogastric tube and left IJ CVL. Lungs and pleura: No pleural effusions or pneumothorax. Lungs are clear. Mediastinum: Mediastinal contours appear normal. Heart size is normal. Bones and chest wall: No suspicious bony lesions. Overlying soft tissues appear unremarkable. IMPRESSION: Stable support lines and tubes in no definite acute cardiopulmonary process. Dictated by: Kem Gordon RR Interpreted: Caleb Cabrera MD on 02/27/2017 at 10:05 Approved by: Caleb Cabrera M.D. on 02/27/2017 at 10:54
--- NOTE | 2017-02-27 11:08 | NUR ---
Social Work: Initial Assessment/Multidisciplinary Rounds D: Per EMR review, pt is a 46 year old female admitted for hyperkalemia/renal failure on dialysis. Pt is [facility] Blind/Disabled with [facility] Medicaid. PCP is Trav Cox PA-C. WILL is Parminder Sheffield, daughter, . Advanced directives not completed according to pt's mother. No RA Score entered at this time. Pt discussed in multidisciplinary rounds. Pt remains in CCU, vented and sedated. [employer] spoke with the patient's mother, Rebeca Ghotra ([phone]) via telephone to complete initial assessment. Sw role explained, contact information provided. Pt lives in [place] with her mother. Pt uses no DME and is I at baseline. Pt does not have a car at this time and relies on others for transportation. Pt has a history with [facility] for RN care and has never required SNF. A: Pt who remains in CCU. P: Evolving; SU[employer] to continue to follow to assess pt's discharge needs as clinical course progresses. KIRAN Hoffman Addendum: 02/27/17 at 1113 by SHAWNEE STAPLETON Amended: Links added.
--- NOTE | 2017-02-27 11:15 | NUR ---
Inpatient Wound Nurse Patient seen by CWON RN for Pressure Ulcer Prevention Protocol. No bogginess or erythema noted to bilateral heels or elbows. Patient's primary nurses stated that no erythema, breakdown or stage 1 pressure ulcers have been observed on posterior. Patient is sedated and intubated, turned as nursing staff requires, who will alert [facility]ON of any wounds. She is on appropriate surface, heels floated, staff is following pressure ulcer prevention protocol. Patient was ambulatory and independent prior to admission with no known wounds. [facility] will not follow unless specific wounds are identified.
[2017-02-27] MEDS ORDERED: INSU100V7 SUBQ (11:40)
[2017-02-27] MEDS ORDERED: LOSA50TA37 PO (11:40)
[2017-02-27] MEDS ORDERED: METO50TA3 PO (11:40)
--- NOTE | 2017-02-27 13:42 | CONS ---
[address] [address] CONSULTATION REPORT PATIENT: SHAWNEE ZUNIGA : 1970 MR#: [id number] ADMIT: 02/26/2017 JOB ID: [id number] PULMONARY CRITICAL CARE CONSULTATION: DATE OF SERVICE: 02/27/2017 REQUESTING PHYSICIAN: Brennen Estrada MD REASON FOR CONSULTATION: Respiratory failure. HISTORY OF PRESENT ILLNESS: The patient is a 46-year-old, female who was transferred yesterday from [facility], having been intubated in the emergency department at that facility because of a seizure. Apparently presented to [facility] for anxiety and needing Xanax refill (however see note regarding mother's history). Had a seizure soon after arrival, requiring sedation and intubation. She was hyperkalemic due to noncompliance with dialysis. Does chronically take benzodiazepines. According to the patient's mother, the patient has chronic GI problems. Diagnosis apparently remains elusive. However, she had increasing pain. It was diffusely throughout the entire abdomen. Associated with increasing nausea and vomiting especially the past two days. Unclear whether there was any blood in the emesis or per rectum. The GI symptoms were the actual reason for her missing her recent dialysis appointments. Mother also indicates that the patient had a three-vessel CABG in October of this year. I think she lost maybe as much as 50 pounds since that time. Has had a weight as high as 300 pounds. Long history of heroin abuse. Apparently stopped using about a year ago though another family member indicates that she believes the patient is intermittently still using heroin. Was also in a methadone clinic. Chronically takes benzodiazepines; taking 2 mg three times a day. Some question that she recently lost her prescription and presented to the emergency department for Xanax refill, while in fact her mother says she presented because of the GI symptoms. The mother does not know of any underlying particular GI issues. No prior history of ulcer disease that she is aware of. No other history available from the patient. She is currently sedated on the ventilator. However, review of the chart includes past medical history of end-stage renal disease on dialysis, paroxysmal supraventricular tachycardia, coronary disease with bypass grafting, chronic anxiety, chronic depression, diabetes mellitus type 2., diabetic gastropathy, migraine headaches, GERD, hypothyroidism. ALLERGIES: Include: 1. AMOXICILLIN with an anaphylactic reaction. 2. MORPHINE. 3. PROPOXYPHENE. 4. SULFAMETHOXAZOLE. All with anaphylactic reactions. 5. SUMATRIPTAN. 6. HYDROXYZINE. 7. NAPROXEN. 8. CODEINE. 9. DROPERIDOL. 10. KETORALAC. 11. METOCLOPRAMIDE. 12. ODANSETRON. 13. PROCHLORPERAZINE. 14. PROMETHAZINE. 15. TRAMADOL. All with unknown reactions. 16. METFORMIN with GI upset, diarrhea. 17. Also has an allergy to HYZINE which causes myalgia. REVIEW OF SYSTEMS: Unable to obtain. OTHER DATA: Unable to obtain any other history. OBJECTIVE: Temperature 37.3 though earlier this morning temperature above 38.2. Pulse 100-120, respiratory rate 24-32 with ventilator set at 17, blood pressure 101/72, O2 sat on FiO2 60%, PEEP of 5 is 100%. I and O: The patient has had 0.2 L in, since admission yesterday evening. Underwent dialysis with ultrafiltrate of 2 L taken off. General appearance: At times agitated, at times sedated. Appearing much older than her stated age. Eyes: Conjunctivae are pink. Pupils about 2 mm. Nose and throat could not be examined due to the presence of various tubes. Chest: Variable breathing pattern; at times over-breathing the ventilator, at times stacking. Trigger is extremely sensitive. Peak inspiratory pressure 22 with a tidal volume of 500, plateau of 19. PEEP is set at 5, measured at about 6 or 7. Heart: Regular rhythm. Rapid rate. Heart tones seem normal. Abdomen is soft. Nondistended. Some bowel tones present. Extremities: Extremely cold hands and feet. Warmer up by the elbows and knees. Skin: IV site right antecubital; do not know whether this is nursing induced or patient self-induced. Dialysis catheter in right anterior upper chest. No surrounding erythema or fluctuance. IJ line in left internal jugular vein. LABORATORY VALUES: White count of 13,600 with 77 polymorphonuclears, no bands, 14 lymphocytes, 7 monocytes. Hemoglobin stable at 14.3. Platelet count 336,000. INCOMPLETE DICTATION: Dictation ends here.
[2017-02-27] MEDS ORDERED: Sodium Chloride LOK Flush 10 mL Syringe IVFLUSH PRN (14:25)
[2017-02-27] MEDS: Insulin Human REGular 300 Unit/3 mL Inj SUBQ SCH ×2 (15:21→20:05)
[2017-02-27] MEDS: fentaNYL 2,500 mCg/250 mL 2,500 MCG in IV Premix 1 EACH IV SCH ×2 (15:45→20:02)
--- NOTE | 2017-02-27 17:08 | NUR ---
Dialysis note 3 hr tx Net UF 1300 Pt intubated, sedated, propofol, fentanyl, ativan Right cath, dresg CDI QB 400 down to 360 Pt hypotensive with elevated HR. notified, Dr. rivera UF rate lowered to 500 mL/hr, Bolus 50 NS given, UF off for 15 min. Final VS 99/76 HR 123 Cath limbs dwelled with Heparin 1000 and secured with caps Report given to primary RNMere Please see DTR for complete record of VS
--- NOTE | 2017-02-27 17:10 | PCM.PNMED ---
Subjective Date of Service Feb 27, 2017 Subjective Patient was transferred from [facility] yesterday due to presumed benzo diazepam withdrawal. Patient presented there asking for Xanax and apparently had a seizure. She was intubated in the emergency department and transferred to our facility due to her end-stage renal disease and missing dialysis appointments. She was hyperkalemic. Patient was very difficult event she does have a history of anxiety and appeared to be overbreathing the vent. Patient was mildly alkalotic on ABG. Nephrology and pulmonology are on the case with us. No notes are available. Patient sedated and no review of systems can be obtained. Exam Vital Signs Vital Sign - Last Date Time Temp Pulse Resp B/P Pulse Ox O2 Delivery O2 Flow Rate FiO2 02/27/17 16:10 130 96/64 100 50 02/27/17 12:00 Ventilator 02/27/17 12:00 36.8 29 Intake and Output 02/26/17 02/26/17 02/27/17 Cumulative From/Thru 15:00 23:00 07:00 02/26/17 17:12 - 02/27/17 06:00 Intake Total 222 ml 518 ml 740 ml Output Total 2095 ml 695 ml 2790 ml Balance -1873 ml -177 ml -2050 ml Intake Oral 0 ml 0 ml IV Total 222 ml 518 ml 740 ml Output Urine Total 20 ml 15 ml 35 ml Gastric Drainage Total 75 ml 680 ml 755 ml Ultrafiltrate 2000 ml 2000 ml # Bowel Movements 0 0 Exam General: sedated HEENT: pupils equal, nonicteric, membranes moist Lymph: No lymphadenopathy Cardio: Regular rate and rhythm s Respiratory: CTA bilaterally Abdomen: Soft, positive bowel sounds Extremities: No edema Psych: sedated Neuro: sedated Skin: No rash IVs and Medications Medications Reviewed: Medications were reviewed in detail Lab and Diagnostics Result Diagram: 02/27/17 0954 02/27/17 0255 Assessment & Plan 46-year-old female with history of polysubstance abuse and long-term benzodiazepine use presented to [facility] yesterday requesting Xanax, who subsequently underwent a seizure and was intubated, and transferred to [facility] due to missed dialysis. Neurological: Patient with a strong history of substance abuse including heroin , methamphetamines, long-term high-dose marijuana, and alcohol. Urine tox screen was positive for marijuana and methadone. She presented requesting Xanax and subsequently have a seizure, last was taken to mean that she was withdrawing from benzodiazepine. Currently sedated with propofol, fentanyl, and Ativan. Decrease in sedation causes the patient to be anxious and to fight the event. Plan for today is to attempt reduction sedation following dialysis. Pulmonary team is monitoring the vent. Cardio: Patient has a history of CAD with bypass. We will continue the aspirin through her OG as well as metoprolol 50 mg twice a day. Respiratory: Patient was fighting the vent and current blood gas indicates a mild alkalosis. Pulmonary team managing the vent Abdomen: Currently soft. Bowel regimen available when patient is able to take. No current feedings going on. We will discuss starting trickle and dietitian consult if patient continues on vent tomorrow. Currently on famotidine for prophylaxis Renal: Patient has ESRD and has been dialyzed for 3 hours today. She also presented with hyperkalemia which should be corrected after dialysis. Will follow with CMP. Infection: Procalcitonin was 1.11 and patient had a white count of 17.7. Blood cultures no growth at 24 hours. Sputum is pending. Chest x-ray and urine are unremarkable Patient status: Pending assessment patient may be extubated tomorrow. She is to undergo dialysis today we will see how she tolerates that. Pain Evaluation: Adequate Pain Control GI Prophylaxis: H2 rhonda Resuscitation Status: CPR: Attempt Resuscitation Time spent 35 minutes in patient assessment in care coordination including discussing data with consultants on the unit Attending Statement I examined the patient on rounds today. I agree with the assessment and plan as stated above. Charles Castillo DO Feb 27, 2017 17:09 Brennen Estrada MD Feb 27, 2017 18:18
--- NOTE | 2017-02-27 18:24 | NUR ---
Sedation/Hemodynamics/Resp/Activity Patient tachycardic, tachypneic, and diaphoretic at beginning of shift. Gave a Fentnyl 50 mcg IV bolus from gtt and it settled patient well. Intermittently requiring boluses of Fentanyl and Ativan to settle. Obviously uncomfortable, but not responsive. MD aware of need for increased sedation and hemodynamics. Fentayl is a 125 mcgs, Ativan at 2 mg, and Propofol at 25 mcgs. BP low and HR in the 120s (ST) during dialysis. MD aware, wanting to "just watch". Scant UOP this shift. Patient diaphoretic most of day. Continues with maroon colored NGT output, but volume has slowed way down. H and H rechecked this morning. T Max, 37.3. Vent at 50%/5/500/14. lung coarse t/o. Sats maintaind around 100%. Using accessory muscle to breath. Turning patient in bed except during dialysis. Monitoring closely.
[2017-02-27] MEDS: LORazepam Inj 100 MG in 0.9% Sodium Chloride 50 ML IV PRN (20:54)
[2017-02-28] VITALS (13 sets, daily range): BP systolic 82–140; BP diastolic 53–72; PULSE 105–128; RESP 17–30; O2SAT 93–100
[2017-02-28] MEDS: Insulin Human REGular 300 Unit/3 mL Inj SUBQ SCH ×4 (02:41→20:32)
--- NOTE | 2017-02-28 04:29 | ABG ---
DateTimeAnalyzed 04:20:38 -_ pH ____7.445 - 7.350 7.450 pCO2 ___31.0__ -mmHg 35.0 45.0 pO2 ___69.7__ -mmHg 69.0 116 HCO3- ___21.3__ -mmol/L 22.0 26.0 ABE ___-2.3__ -mmol/L -2.0 2.0 tHb ___13.6__ -g/dL 12.0 18.0 O2Hb ___92.4__ -% COHb ____0.6__ -% 0.0 1.5 MetHb ____0.0__ -% 0.4 1.5 sO2 ___92.2__ -% FIO2 ___50.0__ -% PEEP ____5.0__ -cmH2O Set_RR 14 -b/min Vt __500.0__ -L Drawn By MK - Date/Time Notified____ 04:28:00 -_ Spontaneous_RR 29 -b/min Oxygen Device 1 VENTILATOR - K+ ____4.5__ -mmol/L 3.5 5.0 tO2 ___17.6__ -Vol% Jeffrey test _Positive -
[2017-02-28 05:10] LABS: BASOPHILS % (AUTO) 0.2 % (0-3); EOSINOPHILS % (AUTO) 0 % (0-5); MONOCYTES % (AUTO) 7.6 % (4-12); Mean Corpuscular Volume 99.1 fL (81-100); NEUTROPHILS % (AUTO) 84.6 % (40-74); Platelet Count 282 bil/L (150-400)
[2017-02-28 05:45] LABS: Magnesium 2.1 mg/dL (1.6-2.6); Phosphorus 7.7 mg/dL (2.5-4.9)
[2017-02-28] MEDS: Propofol Inj 1,000,000 MCG in IV Premix 1 EACH IV SCH ×3 (05:52→17:47)
[2017-02-28] MEDS ORDERED: levoFLOXacin Inj 750 MG in IV Premix 1 EACH IV ONE ×2 (08:30→16:30)
[2017-02-28] MEDS: Pantoprazole 4 mg/mL 10 mL Inj IVPUSH SCH ×2 (08:33→16:41)
[2017-02-28] MEDS: Thiamine Inj 300 MG in Dextrose 5% 50 ML IV SCH (09:04)
[2017-02-28] MEDS: fentaNYL 2,500 mCg/250 mL 2,500 MCG in IV Premix 1 EACH IV SCH (09:43)
--- NOTE | 2017-02-28 10:09 | PROG NOTE ---
[address] [address] PROGRESS NOTE PATIENT: SHAWNEE ZUNIGA : 1970 MR#: [id number] ADMIT: 02/26/2017 JOB ID: [id number] PULMONARY CRITICAL CARE FOLLOWUP NOTE: DATE: 02/28/2017 PROBLEM LIST: 1. Respiratory failure. 2. End stage renal disease requiring dialysis. 3. Tachycardia. 4. Hypertension. 5. Opiate addiction. 6. Benzodiazepine addiction. 7. Seizure. 8. History of nausea and vomiting. 9. Coronary artery disease status post three vessel CABG October 2016. 10. Past history of heroin abuse, possibly relapse with intermittent use. SUBJECTIVE: None. OBJECTIVE: Temperature 36.6. Pulse about 120. Respiratory rate 30 with ventilator set at 16. Blood pressure 86/55 to 109/77. On admission blood pressure was 155/100. O2 sat on FiO2 50%, PEEP of 5, is 98%. I and O: The patient receiving daily dialysis with ultrafiltrate of 1.3 L yesterday and a 2 L IV input. General appearance: Sedated on the ventilator. Currently receiving fentanyl at 150 mcg per hour, lorazepam at 3 mg an hour and propofol at 20 mcg/kg per hour. Eyes: Conjunctivae are pink. Pupils 1-2 mm. Nose and throat could not be examined. Chest: Fair breath sounds bilaterally. Left lung field relatively clear with maybe a few crackles in the lower lateral lung field. Right lung field has definite crackles in the lower lung triplett, especially laterally, maybe lower half to 2/3 of the lung, sparing only the right apex. Heart: Rapid rate. Heart tones seem normal. Regular rhythm. Abdomen is soft. Nondistended. Rare bowel tones noted. Extremities: Warm. Somewhat clammy. Skin: No rash. LABORATORY DATA: Shows a white count of 22,000 up from 13,600 yesterday. Moderate neutrophilia. No left shift. Hemoglobin 13.5 and relatively stable. Platelet count 282,000, slightly decreased from 336 yesterday. MCV in the low to mid 90s. Sodium 140, potassium 4.7, chloride 96, CO2 is 21, BUN 29, creatinine 4.8. Glucose moderately elevated at 207. Calcium 9 with an albumin of 3.6, phosphorus elevated at 7.7, magnesium normal at 2.1. Total bilirubin 0.5, AST 59 and mildly increased from value of 19 yesterday. ALT 45 and again mildly increased from value of 12 yesterday. Alkaline phos normal at 72. Lipase is 17. Procalcitonin 2.3 up from 1.1 yesterday and 0.21, 48 hours previously. Sputum Gram stain shows no polys. Rare mixed racheal. Blood cultures x2 negative at 24 hours. MRSA screen by PCR negative. Chest x-ray shows lungs to be clear. Cardiac silhouette normal. Echocardiogram has been done but awaiting report. ASSESSMENT: 1. Altered of vital signs with that tachycardia, hypertension and tachypnea. Arterial blood gases this morning on FiO2 of 0.5, PEEP of 5, rate of 14, though the patient breathing at 27, at a tidal volume of 500, shows a pO2 of 69, pCO2 of 31, pH 7.44. The patient becomes extremely agitated when either the lorazepam or propofol is attempted to be tapered. Gets extremely tachypneic. She has remained somewhat tachycardic throughout her two day stay, running about 110, occasionally as high as 130, but mostly in the 110-125 range. Also tachycardic. Awaiting echocardiogram. She did have a seizure upon presentation to the ER at [facility]. Chest x-ray, although normal on admission, may be misleading as she does have crackles today. May be some element of fluid overload though she has been dialyzed both days with a net of essentially 3 L off. Do not think she is fluid overloaded and therefore, would be concerned about aspiration pneumonitis. In addition, her mother states she is has had nausea and vomiting. Could have aspirated during that time or have an intra-abdominal process proceeding. I think at this point would be worthwhile repeating the sputum studies if any sputum is available and obtaining a CT of the chest, abdomen and pelvis to look for a source of reported sepsis. 2. Seizure. Possibly withdrawal seizure. Unclear exactly what the patient takes. Methadone and Xanax have been documented. Some concern that the patient is intermittently using heroin again. We will treat her symptomatically at this point. On a number of medications to assist with withdrawal at the moment. The patient not alerting particularly. Never been in a cognitive state, always requiring goodly doses of sedatives and opiates. Not sure about her neurologic history. We will therefore obtain a CT scan of the head. 3. Renal failure. Thanks to our nephrology colleagues as status looks pretty good due to the electrolytes. They have taken off 3 L and proceeding effectively in control of her renal status. 4. Mildly elevated transaminases. Possibly due to medications. Possibly due to underlying disease. Minimal at this point but given the problems associated with her mental status, etc. may be useful to explore this further. Seems hepatotoxic, if indeed there is a problem there are at all. 5. Elevated white count. No left shift but rather a neutrophilia. Might be due to withdrawal. However, I think it appropriate to re-evaluate her for sepsis. Procalcitonin drifting up. Given her significant comorbidities, possibly re-culturing and maybe antibiotics would be in order. Unfortunately, she is allergic to SULFA and AUGMENTIN. We will re-evaluate the situation and then try to deal with an antibiotic regimen to cover anaerobes for possible aspiration and broad spectrum antibiotics for her significant comorbidities. Awaiting echocardiogram but maybe repeat cultures looking for infectious endocarditis would not be it unwarranted given the questionable history of repeat heroin use. PLAN: 1. Three sets of blood cultures. 2. Sputum for Gram stain, C and S if available. 3. Urine for UA, C and S if appropriate. 4. CT head, chest abdomen and pelvis. 5. Obtain results of echocardiogram. 6. Depending on results, formulate am antibiotic regimen for Gram positives, Gram negatives, as well as anaerobes, the latter above the diaphragm. 7. Serum ammonia level. TIME SPENT: So far critical care, 60 minutes.
[2017-02-28] MEDS: Norepineph 8,000 mCg/250 mL NS 8,000 MCG in IV Premix 1 EACH IV SCH (10:29)
[2017-02-28] MEDS ORDERED: Norepinephrine 8,000 mCg/250 mL NS Premix IV ONE (10:30)
--- NOTE | 2017-02-28 10:43 | NUR ---
NUTRITION FOLLOW-UP: ASSESS: Pt is a 46 YO female admitted to CCU with hyperkalemia and respiratory failure, following two days of significant abdominal pain with nausea and vomiting, which precluded her from her regularly scheduled dialysis treatments. She had a witnesses seizure and was intubated at [facility], subsequently transferred to [facility], where she remains intubated and sedated. Of note, the patient has had a 50 pound weight loss since her CABG in 11/04; records do not indicate if this was intentional or unintentional. Her white count is increasing, and she is hypotensive, requiring Norepi. CT ordered to rule out endocarditis. Order received to initiate enteral feeding today. PMHX: ESRD requiring dialysis, tachycardia, CAD, T2DM, diabetic gastropathy, GERD, anxiety, benzo abuse, GI pain, heroin use, ETOH, methadone, marijuana use with cyclic nausea / vomiting, mirgraines, hypothyroid, GERD. LABS: Reviewed. Chloride 96, BUN 29, Cr 4.81, Glu 207, Phos 7.7, AST 59, ALT 45, Procalcitonin 2.31. MEDS: Reviewed. Insulin, norepi, thiamine, ativan, fentanyl. Propofol rate currently 5.7 ml/hr providing 150 kcal/day. GI: No BM reported. It appears that NGT output has decreased, and maroon color has cleared. SKIN: No pressure injuries, per clinical applications specialist. WT:61.1 kg, BMI 21.7 kg/m2, IBW: 59.1kg DIET: NPO x 2 D. EST. NEEDS: VENT/ DIALYSIS Kcals: 1220-1530kcal/day (20-25kcal/kg) Pro: 95-125g/day (1.2-2.0g/kg) Fluids:~1550ml/day NUTRITION DIAGNOSIS: 1) Inadequate oral intake related to decreased ability to consume sufficient energy as evidenced by current NPO status - PERSISTS. 2) Increased kcal/pro needs related to ESRD as evidence by pt on chronic dialysis - PERSISTS. NUTRITION INTERVENTION: 1) Enteral feeding initiated this morning, as follows. Nepro enteral formula initiated at 10 mL / hr x 24 hr. Once tolerance established, recommend advancing 10ml every 6 hr to goal rate of 33 ml/hr to provide 1306 kcal (1456 kcal w/propofol) and 58 g pro (100% kcal and 61% pro needs). 3) Adjust goal rate based on daily propofol. 4) Once tolerance established, will add 4 packets Pro[employer] liquid protein per day to meet 100% protein needs. MONITOR / EVAL: Enteral feeding advance / tolerance, GI, wt, labs, POC, nutrition status. Will continue to monitor per high nutrition risk guidelines. Addendum: 03/01/17 at [address] Leahy initiated trophic enteral feeding today; will follow up per high nutrition risk guidelines for tolerance / advance.
--- NOTE | 2017-02-28 12:12 | PCM.PNNEPH ---
Subjective Date of Service Feb 28, 2017 Subjective The patient is still on the ventilator and they are attempting to wean her today. The persistent problem has been a consistent leukocytosis with a white count today of >22,000. She is scheduled for CT with contrast today. Exam Vital Signs Vital Sign - Last Date Time Temp Pulse Resp B/P Pulse Ox O2 Delivery O2 Flow Rate FiO2 02/28/17 11:29 93 02/28/17 11:10 120 98/58 50 02/28/17 11:00 37.0 17 Mechanical Ventilator Intake and Output 02/27/17 02/27/17 02/28/17 Cumulative From/Thru 15:00 23:00 07:00 02/26/17 17:12 - 02/28/17 06:13 Intake Total 401 ml 1016 ml 2157 ml Output Total 1310 ml 138 ml 4238 ml Balance -909 ml 878 ml -2081 ml Intake Oral 0 ml IV Total 401 ml 1016 ml 2157 ml Output Urine Total 10 ml 8 ml 53 ml Gastric Drainage Total 130 ml 885 ml Ultrafiltrate 1300 ml 3300 ml # Bowel Movements 0 0 Exam Lungs are clear to auscultation. Heart is tachycardic. Abdomen soft with any tenderness rebound or guarding noted. Extremities do not show any evidence of any clubbing cyanosis or edema. Skin turgor is good. Lab and Diagnostics Result Diagram: 02/28/17 04502/28/17 0450 Plan Impression Impression #1 end-stage renal disease dialysis dependent number to diabetic nephropathy #3 hypertension with hypertensive heart disease and hypertensive nephrosclerosis #5 metabolic acidosis which is resolved. Recommendations #1 chromic arrangements for her dialysis in the morning. Donny Chadwick DO Feb 28, 2017 12:12
--- NOTE | 2017-02-28 12:42 | DRSVH ---
PROCEDURE: CT BRAIN WITHOUT CONTRAST ([id number]) INDICATIONS: Leukocytosis, N/V TECHNIQUE: Noncontrast 4.5 mm thick angled axial sections acquired from the foramen magnum to the vertex, with c oronal reformats. COMPARISON: None. FINDINGS: Image quality: There is streak artifact from an overlying lead wire. CSF spaces: Basal cisterns are patent. No extra-axial fluid collections. The ventricles are symmet olive in size and shape. Brain: No intracranial hemorrhage, mass, or mass effect. There are subcortical and periventricular white matter hypodensities primarily within the right parietal and occipital lobes which are nonspeci fic. There is intracranial internal carotid artery atherosclerosis. Skull and face: Calvarium and visualized facial bones are intact, without suspicious lesions. Sinuses: Visualized sinuses and mastoids are clear. IMPRESSION: 1. Mild periventricular and subcortical hypodensities in the right parietal and occipital lobes are nonspecific and may represent early chronic small vessel ischemic changes. But the differential is b road and include inflammatory processes such as demyelinating disease and infection among other etiol ogies. Recommend correlation clinically and consider further evaluation with MRI if indicated. Dictated by: Jerson Inman M.D. on 02/28/2017 at 12:32 Approved by: Jerson Inman M.D. on 02/28/2017 at 12:40
--- NOTE | 2017-02-28 13:22 | DRSVH ---
PROCEDURE: CT CHEST, ABDOMEN AND PELVIS [facility] CONTRAST ([id number]) INDICATIONS: Leukocytosis, abdominal pain, nausea, and vomiting. TECHNIQUE: After the administration of oral and intravenous contrast, 5 mm thick sections acquired from the lung apices to the symphysis. 5 mm coronal and sagittal reformats were performed, with additional 7 mm c oronal MIP reformats through the lungs. For radiation dose reduction, the following was used: autom ated exposure control, adjustment of mA and/or kV according to patient size. COMPARISON: None. FINDINGS: Image quality: There is motion artifact limiting evaluation. CHEST: Lungs and pleura: There is an endotracheal tube present with the tip approximately 2.5 cm from the ca linn. There are bilateral small clustered ground glass nodules with a basilar predominance and confl uent patchy areas of consolidation in the posterior lower lobes. No pleural effusions or pneumothora x. Mediastinum: There is a right internal jugular tunneled catheter with the tip at the cavoatrial junc tion. There is a left internal jugular central venous catheter with tip also at the cavoatrial junct ion. Heart size is normal. No pericardial effusion. Prominent coronary arterial vascular calcifica tion is present. No mediastinal or hilar adenopathy by size criteria. Thoracic aorta and central pul monary arteries are normal in size. There is a nasogastric tube extending into the stomach. Esophag us is normal in caliber. No hiatal hernia. Chest wall: No axillary or supraclavicular adenopathy by size criteria. Thyroid gland demonstrates no nodules. ABDOMEN: Solid organs: There is mild periportal edema in the liver without mass lesions. The spleen is normal in size. The gallbladder is markedly distended without calcified gallstones or gallbladder wall thi ckening. Biliary system is non dilated. Pancreas enhances normally. There is a left adrenal nodule measuring approximately 1.6 cm with indeterminate attenuation values. There are small cysts in the kidneys bilaterally. No hydronephrosis. Peritoneum and bowel: Small bowel loops demonstrate normal wall thickness and caliber. There is segm ental wall thickening involving the cecum and ascending colon as well as a distal segment involving t he rectosigmoid colon. No free fluid or air. Nodes and vessels: No retroperitoneal or mesenteric adenopathy by size criteria. Aorta and inferior vena cava are normal in size. Miscellaneous: No ventral hernias. PELVIS: Genitourinary: There is a Chester catheter within a partially distended urinary bladder. Miscellaneous: No inguinal hernias or adenopathy. Bones: No suspicious bony lesions. No vertebral body compression fractures. IMPRESSION: 1. Bilateral clustered pulmonary nodules with areas of confluent consolidation in the lower lobes kowalski ggestive of aspiration and pneumonia. 2. Segmental wall thickening involving the cecum and ascending colon as well as the rectosigmoid col on consistent with a nonspecific colitis, likely infectious or inflammatory. 3. Endotracheal tube present with the tip approximately 2.5 cm from the mike. Consider withdrawal by approximately 1-1.5 cm. 4. Distention of the gallbladder without calcified gallstones. Recommend further evaluation with ul trasound if there is clinical suspicion for cholecystitis. 5. Indeterminate left adrenal nodule. Further evaluation may be obtained with an adrenal protocol C T or MRI when clinically feasible. Dictated by: Jerson Inman M.D. on 02/28/2017 at 12:40 Approved by: Jerson Inman M.D. on 02/28/2017 at 13:20
[2017-02-28] MEDS: LORazepam Inj 100 MG in 0.9% Sodium Chloride 50 ML IV PRN (14:39)
[2017-02-28] MEDS: metroNIDAZOLE Inj 500 MG in IV Premix 1 EACH IV SCH ×2 (15:31→16:30)
--- NOTE | 2017-02-28 16:10 | PCM.PNMED ---
Subjective Date of Service Feb 28, 2017 Subjective Patient has made no progress. She does get agitated with reduction of the propofol and Ativan but she continues to need the ventilator and is not showing signs of significant cognition. Exam Vital Signs Vital Sign - Last Date Time Temp Pulse Resp B/P Pulse Ox O2 Delivery O2 Flow Rate FiO2 02/28/17 11:29 93 02/28/17 11:10 120 98/58 50 02/28/17 11:00 37.0 17 Mechanical Ventilator Intake and Output 02/27/17 02/27/17 02/28/17 Cumulative From/Thru 15:00 23:00 07:00 02/26/17 17:12 - 02/28/17 06:13 Intake Total 401 ml 1016 ml 2157 ml Output Total 1310 ml 138 ml 4238 ml Balance -909 ml 878 ml -2081 ml Intake Oral 0 ml IV Total 401 ml 1016 ml 2157 ml Output Urine Total 10 ml 8 ml 53 ml Gastric Drainage Total 130 ml 885 ml Ultrafiltrate 1300 ml 3300 ml # Bowel Movements 0 0 Exam General: sedated HEENT: pupils equal, nonicteric, membranes moist Lymph: No lymphadenopathy Cardio: Regular rate and rhythm Respiratory: CTA bilaterally Abdomen: Soft, positive bowel sounds Extremities: No edema Psych: sedated Neuro: sedated Skin: Full body exam was performed in no ulcerations IVs and Medications Medications Reviewed: Medications were reviewed in detail Lab and Diagnostics Result Diagram: 02/28/17 0450 02/28/17 0450 X-Rays, CTs and MRIs Chest x-ray 02/27/17 IMPRESSION: Stable support lines and tubes in no definite acute cardiopulmonary process. Dictated by: Kem Gordon [facility] Interpreted: Caleb Cabrera MD on 02/27/2017 at 10:05 Approved by: Caleb Cabrera M.D. on 02/27/2017 at 10:[address] 02/28/17 1. Mild periventricular and subcortical hypodensities in the right parietal and occipital lobes are nonspecific and may represent early chronic small vessel ischemic changes. But the differential is broad and include inflammatory processes such as demyelinating disease and infection among other etiologies. Recommend correlation clinically and consider further evaluation with MRI if indicated. Dictated by: Jerson Inman M.D. on 02/28/2017 at 12:[address] 02/28/17 1. Bilateral clustered pulmonary nodules with areas of confluent consolidation in the lower lobes suggestive of aspiration and pneumonia. 2. Segmental wall thickening involving the cecum and ascending colon as well as the rectosigmoid colon consistent with a nonspecific colitis, likely infectious or inflammatory. 3. Endotracheal tube present with the tip approximately 2.5 cm from the mike. Consider withdrawal by approximately 1-1.5 cm 4. Distention of the gallbladder without calcified gallstones. Recommend further evaluation with ultrasound if there is clinical suspicion for cholecystitis 5. Indeterminate left adrenal nodule. Further evaluation may be obtained with an adrenal protocol CT or MRI when clinically feasible. Dictated by: Jerson Inman M.D. on 02/28/2017 at 12:40 Assessment & Plan 46-year-old female with history of polysubstance abuse and long-term benzodiazepine use presented to [facility] yesterday requesting Xanax, who subsequently underwent a seizure and was intubated, and transferred to [facility] due to missed dialysis. Neurological: Essentially the patient was transferred to our facility due to benzodiazepine withdrawal and seizure and need for ongoing dialysis. The patient shown very little neurological progress except for agitation. Brain CT today showed mild subcortical hypodensities could be demyelinating or possibly even infectious. We will consider an lumbar puncture Cardio: Patient has a history of CAD with bypass. We will continue the aspirin through her OG as well as metoprolol 50 mg twice a day. Echo was taken 02/26/17 but there is no resultant Meditech. Discussed with echo lab and CPOE and the report report should be available to us by the end of the day. Echo did report that the left ventricle at some mild dyskinesis and no ejection fraction was given. Patient has been placed on Cheetah in hopes of better understanding her hemodynamics. Respiratory: Patient still remains stable on the vent with normal blood gas with near hypoxia with FiO2 of 0.5. CT of the chest was consistent with aspiration pneumonia. Patient also had a elevation in the procalcitonin as well as the white count. Patient started on levofloxacin and Flagyl due to her penicillin allergy. Abdomen: CT of the abdomen demonstrated possible colitis from the cecum through the colon I was nonspecific. There is also a question about cholecystitis. Patient had multiple hospital stays, admitted them have included evaluation of the gallbladder, but her course is always been nonspecific and due to her other comorbid conditions, her gallbladder has remained intact. Order ultrasound of her right upper quadrant tonight. Patient also had a left adrenal nodule is not overly concerning but should be followed up with after discharge. Renal: Rectal itching much improved today following dialysis yesterday. She received contrast for her CT and will undergo dialysis today or tomorrow morning. Infection: The patient gives the appearance of having an ongoing infection with an increased white count and pro calcitonin. Her CT is consistent with aspiration and she has not been covered by antibiotics as of yet.. There is a possibility of cholangitis or gallbladder disease, although labs were not overly suspicious. She could have colitis but this is questionable as well. Patient started on levofloxacin and Flagyl. Will consider lumbar puncture if neurologic status remains impaired. Patient status: No timetable for discharge GI Prophylaxis: H2 rhonda VTE Mechanical Devices: Intermittant Pneumatic CD Resuscitation Status: CPR: Attempt Resuscitation Time spent 35 minutes Attending Statement I interviewed and examined the patient on rounds. I agree with the assessment and plan as stated above. Charles Castillo DO Feb 28, 2017 16:10 Brennen Estrada MD Mar 01, 2017 13:49
--- NOTE | 2017-02-28 16:28 | NUR ---
P: Anxiety I: Febrile . [facility]. Ct of head,abdomen, and chest. Bathed x2 with linen changed. Pale and diaphoretic. Cheetah placed on pt per 's request. Antibiotics started. NGT LCS output 800cc of green fluid so tube feedings held today and will be started tomorrow.Blood sugars more elevated and SSI coverage increased to high dose coverage. Ativan increased to 5mg/hr per . Tried to decrease propofol but was unable. Increased Propofol to 50mcqs for CT then decreased it to 40mcqs. Fentanyl remains at 150mcqs/hr. ST. Turned Q 2 hours. US of abdomen done. E: Stable S: Restraints on for pt safety. Frequent rounding.
[2017-02-28] MEDS: Levothyroxine 100 mCg/5 mL Inj IV SCH (16:45)
[2017-02-28] MEDS ORDERED: 0.9% Sodium Chloride 250 ML IV ONE ×2 (16:45→17:20)
--- NOTE | 2017-02-28 17:27 | DRSVH ---
PROCEDURE: US ABDOMEN, LIMITED ([id number]) INDICATIONS: Distended gallbladder TECHNIQUE: Real-time focused scanning was performed of the abdomen, with image documentation. COMPARISON: [facility], CT, CT CHEST ABD PELVIS W CON, 02/28/2017, 12:16. [facility], US, ABDOMEN LTD, 02/10/2017, 8:23. FINDINGS: Gallbladder is prominent and there are several small gallstones. No gallbladder wall thick ening. No biliary dilatation. IMPRESSION: Limited exam demonstrating prominence of the gallbladder and several small gallstones. Dictated by: Kem BURKETT Interpreted: Honey Vivar MD on 02/28/2017 at 16:34 Approved by: Honey Vivar M.D. on 02/28/2017 at 17:25
[2017-03-01] VITALS (11 sets, daily range): BP systolic 83–126; BP diastolic 59–80; PULSE 87–106; RESP 14–22; O2SAT 94–100
[2017-03-01] MEDS: Propofol Inj 1,000,000 MCG in IV Premix 1 EACH IV SCH ×3 (00:50→12:56)
[2017-03-01] MEDS: metroNIDAZOLE Inj 500 MG in IV Premix 1 EACH IV SCH ×3 (00:51→17:34)
[2017-03-01] MEDS ORDERED: Acetaminophen IV 1,000 MG in IV Premix 1 EACH IV ONE (01:00)
[2017-03-01] MEDS: Insulin Human REGular 300 Unit/3 mL Inj SUBQ SCH ×4 (02:20→20:15)
[2017-03-01] MEDS: Norepineph 8,000 mCg/250 mL NS 8,000 MCG in IV Premix 1 EACH IV SCH (02:26)
[2017-03-01] MEDS: fentaNYL 2,500 mCg/250 mL 2,500 MCG in IV Premix 1 EACH IV SCH ×2 (02:27→19:36)
--- NOTE | 2017-03-01 04:41 | ABG ---
DateTimeAnalyzed 04:34:00 -_ pH ____7.324 - 7.350 7.450 pCO2 ___35.7__ -mmHg 35.0 45.0 pO2 ___84.5__ -mmHg 69.0 116 HCO3- ___18.0__ -mmol/L 22.0 26.0 ABE ___-6.8__ -mmol/L -2.0 2.0 tHb ___13.1__ -g/dL 12.0 18.0 O2Hb ___91.8__ -% COHb ____0.8__ -% 0.0 1.5 MetHb ____1.4__ -% 0.4 1.5 sO2 ___93.9__ -% FIO2 ___50.0__ -% PRVC 14 - PEEP ____5.0__ -cmH2O Set_RR ___14.0__ -b/min Vt __500.0__ -L Drawn By MM - Date/Time Notified____ 04:40:00 -_ Spontaneous_RR ___14.0__ -b/min Oxygen Device 1 VENTILATOR - Notified Whom ___DR WONG - B 756 -mmHg tO2 ___17.0__ -Vol% Jeffrey test N/A -
[2017-03-01 05:15] LABS: Mean Corpuscular Volume 99.5 fL (81-100)
[2017-03-01] MEDS: Thiamine Inj 300 MG in Dextrose 5% 50 ML IV SCH (07:24)
[2017-03-01] MEDS: Pantoprazole 4 mg/mL 10 mL Inj IVPUSH SCH ×2 (07:24→17:34)
[2017-03-01] MEDS: Levothyroxine 100 mCg/5 mL Inj IV SCH (07:26)
[2017-03-01] MEDS: Chlorhexidine 0.12% 15 mL Oral Solution MT SCH ×2 (09:33→19:37)
--- NOTE | 2017-03-01 09:37 | DRSVH ---
PROCEDURE: X-RAY CHEST ONE VIEW, PORTABLE ([id number]) INDICATIONS: intubated TECHNIQUE: One view of the chest was acquired. COMPARISON: [facility], CR, XR CHEST 1VW (PORTABLE), 02/27/2017, 8:32. [facility], CR, XR CHEST 1VW (PORTABLE), 02/26/2017, 15:50. FINDINGS: Surgical changes and devices: ET tube with tip presumably chronic. There is interval diaphragm. Right -sided dialysis catheter with tips in the mid SVC. Sternotomy. Lungs and pleura: No pleural effusions or pneumothorax. Lungs are clear. Mediastinum: Mediastinal contours appear normal. Heart size is normal. Bones and chest wall: No suspicious bony lesions. Overlying soft tissues appear unremarkable. IMPRESSION: Stable support devices. No acute cardiopulmonary pathology. Dictated by: Huy Quintero M.D. on 03/01/2017 at 9:35 Approved by: Huy Quintero M.D. on 03/01/2017 at 9:36
--- NOTE | 2017-03-01 11:24 | PCM.PNNEPH ---
Subjective Date of Service Mar 01, 2017 Subjective Inpatient is still ventilator dependent and has had some persistent hypotension in the last 24 hours. This did respond to some extent with IV fluid. I have discussed the case with Dr. Tabares from critical care team. Her on CT with contrast yesterday did not reveal any definitive source of medical problems. Exam Vital Signs Vital Sign - Last Date Time Temp Pulse Resp B/P Pulse Ox O2 Delivery O2 Flow Rate FiO2 03/01/17 08:05 86 113/62 97 45 03/01/17 07:56 36.6 17 Mechanical Ventilator Intake and Output 02/28/17 02/28/17 03/01/17 Cumulative From/Thru 15:00 23:00 07:00 02/26/17 17:12 - 03/01/17 06:17 Intake Total 2070 ml 1243 ml 5470 ml Output Total 800 ml 400 ml 5438 ml Balance 1270 ml 843 ml 32 ml Intake Oral 600 ml 600 ml IV Total 1470 ml 1243 ml 4870 ml Output Urine Total 50 ml 100 ml 203 ml Gastric Drainage Total 750 ml 300 ml 1935 ml Ultrafiltrate 3300 ml # Bowel Movements 0 Exam Neck is supple without adenopathy, thyromegaly, or drug use distention. Lungs are clear to auscultation. Heart is regular and rhythmical with a soft systolic murmur. Abdomen is soft with minimal bowel sounds noted. There is no tenderness or rebound guarding masses or hepatosplenomegaly. Extremities no extremity evidence of any clubbing, cyanosis or edema. Lab and Diagnostics Result Diagram: 03/01/17 0505 03/01/17 0505 X-Rays, CTs and MRIs Chest x-ray 02/27/17 IMPRESSION: Stable support lines and tubes in no definite acute cardiopulmonary process. Dictated by: Kem Gordon [facility] Interpreted: Caleb Cabrera MD on 02/27/2017 at 10:05 Approved by: Caleb Cabrera M.D. on 02/27/2017 at 10:[address] 02/28/17 1. Mild periventricular and subcortical hypodensities in the right parietal and occipital lobes are nonspecific and may represent early chronic small vessel ischemic changes. But the differential is broad and include inflammatory processes such as demyelinating disease and infection among other etiologies. Recommend correlation clinically and consider further evaluation with MRI if indicated. Dictated by: Jerson Inman M.D. on 02/28/2017 at 12:[address] 02/28/17 1. Bilateral clustered pulmonary nodules with areas of confluent consolidation in the lower lobes suggestive of aspiration and pneumonia. 2. Segmental wall thickening involving the cecum and ascending colon as well as the rectosigmoid colon consistent with a nonspecific colitis, likely infectious or inflammatory. 3. Endotracheal tube present with the tip approximately 2.5 cm from the mike. Consider withdrawal by approximately 1-1.5 cm 4. Distention of the gallbladder without calcified gallstones. Recommend further evaluation with ultrasound if there is clinical suspicion for cholecystitis 5. Indeterminate left adrenal nodule. Further evaluation may be obtained with an adrenal protocol CT or MRI when clinically feasible. Dictated by: Jerson Inman M.D. on 02/28/2017 at 12:40 Plan Impression Impression #1 end-stage renal disease dialysis dependent number to diabetic nephropathy #3 hypertension with hypertensive heart disease and hypertensive nephrosclerosis, for persistent metabolic acidosis Recommendations #1 the patient dialyzed today for 3-1/2 hours on a standard dialyzer, 2 potassium bath, 38 bicarbonate, 400 blood flow is 600 dialysate flow , also heparin and 412. In light of her persistent hypotension will not remove any fluid today. Donny Chadwick DO Mar 01, 2017 11:24
--- NOTE | 2017-03-01 13:34 | PCM.PNMED ---
Subjective Date of Service Mar 01, 2017 Subjective 46-year-old woman with benzodiazepine dependence and poor compliance with ESRD presented with benzodiazepine withdrawal seizure requiring intubation, complicated by respiratory distress and fever of uncertain origin. She continues to need the ventilator with appropriate sedation. Reduce sedation results in dysfunctional breathing pattern. She is unable to provide history today. Exam Vital Signs Vital Sign - Last Date Time Temp Pulse Resp B/P Pulse Ox O2 Delivery O2 Flow Rate FiO2 03/01/17 12:00 37.0 90 14 94/62 100 Mechanical Ventilator 45 Intake and Output 02/28/17 02/28/17 03/01/17 Cumulative From/Thru 15:00 23:00 07:00 02/26/17 17:12 - 03/01/17 06:17 Intake Total 2070 ml 1243 ml 5470 ml Output Total 800 ml 400 ml 5438 ml Balance 1270 ml 843 ml 32 ml Intake Oral 600 ml 600 ml IV Total 1470 ml 1243 ml 4870 ml Output Urine Total 50 ml 100 ml 203 ml Gastric Drainage Total 750 ml 300 ml 1935 ml Ultrafiltrate 3300 ml # Bowel Movements 0 Exam General: Pale middle-aged woman on ventilator sedated HEENT: sclerae anicteric Neck: no apparent JVD Chest: Generally clear to auscultation Cardiac: S1S2, regular, no murmur Abdomen: BS reduce, distended Extremities: No pitting edema Neuro: Unresponsive to verbal and physical stimulation, cranial nerves symmetric , pupils are reactive IVs and Medications Medications Reviewed: Medications were reviewed in detail Lab and Diagnostics Result Diagram: 03/01/17 0505 03/01/17 0505 X-Rays, CTs and MRIs Chest x-ray 02/27/17 IMPRESSION: Stable support lines and tubes in no definite acute cardiopulmonary process. Dictated by: Kem Gordon [facility] Interpreted: Caleb Cabrera MD on 02/27/2017 at 10:05 Approved by: Caleb Cabrera M.D. on 02/27/2017 at 10:[address] 02/28/17 1. Mild periventricular and subcortical hypodensities in the right parietal and occipital lobes are nonspecific and may represent early chronic small vessel ischemic changes. But the differential is broad and include inflammatory processes such as demyelinating disease and infection among other etiologies. Recommend correlation clinically and consider further evaluation with MRI if indicated. Dictated by: Jerson Inman M.D. on 02/28/2017 at 12:[address] 02/28/17 1. Bilateral clustered pulmonary nodules with areas of confluent consolidation in the lower lobes suggestive of aspiration and pneumonia. 2. Segmental wall thickening involving the cecum and ascending colon as well as the rectosigmoid colon consistent with a nonspecific colitis, likely infectious or inflammatory. 3. Endotracheal tube present with the tip approximately 2.5 cm from the mike. Consider withdrawal by approximately 1-1.5 cm 4. Distention of the gallbladder without calcified gallstones. Recommend further evaluation with ultrasound if there is clinical suspicion for cholecystitis 5. Indeterminate left adrenal nodule. Further evaluation may be obtained with an adrenal protocol CT or MRI when clinically feasible. Dictated by: Jerson Inman M.D. on 02/28/2017 at 12:40 PROCEDURE: US ABDOMEN, LIMITED ([id number]) IMPRESSION: Limited exam demonstrating prominence of the gallbladder and several small gallstones. Dictated by: Kem Gordon [facility] Interpreted: Honey Vivar MD on 02/28/2017 at 16: 34 PROCEDURE: X-RAY CHEST ONE VIEW, PORTABLE ([id number]) IMPRESSION: Stable support devices. No acute cardiopulmonary pathology. Dictated by: Huy Quintero M.D. on 03/01/2017 at 9:35 Assessment & Plan 46-year-old female with history of polysubstance abuse and long-term benzodiazepine use presented to [facility] requesting Xanax, underwent a seizure and was intubated, and transferred to [facility], all following missed dialysis. # Neurological: Benzodiazepine withdrawal and seizure and need for ongoing dialysis. The patient shown very little neurological progress except for agitation. Brain CT showed mild subcortical hypodensities could be demyelinating or possibly even infectious. Current diagnosis is either toxic encephalopathy due to event later sedative medicines, less likely nonconvulsive epileptic status, prolonged postictal state, or infection - EEG on Friday if no improved neurological status with attempts to wean sedatives # Infection: Grossly low-grade fever since admission. WBC 17.7 on admission rising to 22.7 on 03/01. She seems to have ongoing infection with an increased white count and pro calcitonin. Her CT is consistent with aspiration pneumonia , although she has no respiratory secretions, and is now receiving appropriate antibiotics. She could have colitis but this is questionable as well. - Patient started on levofloxacin and Flagyl. # Cardio: Primary cardiovascular issue is hypotension requiring norepinephrine, currently at 0.1 mcg/kg. Unclear whether this is due to undiagnosed infection and sepsis, or hypertension related to ventilator sedatives. Echo was taken but there is no result [facility]. Echo did report that the left ventricle at some mild dyskinesis and no ejection fraction was given. Patient has been placed on Cheetah in hopes of better understanding her hemodynamics. Patient has a history of CAD with bypass. - Continue norepinephrine but taper as tolerated, maintain mean arterial pressure greater than 65 mmHg - Discontinue metoprolol at present - continue the aspirin through her OG. # Respiratory: Patient still remains stable on the vent with normal blood gas with near hypoxia with FiO2 of 0.5. CT of the chest was consistent with aspiration pneumonia, although chest x-ray unremarkable. Patient also had a elevation in the procalcitonin as well as the white count. - Continue levofloxacin and Flagyl, due to her penicillin allergy. # Abdomen: CT of the abdomen demonstrated possible colitis from the cecum through the colon I was nonspecific. She does not have diarrhea. Abdominal ultrasound does not confirm cholecystitis. Patient also had a left adrenal nodule is not overly concerning but should be followed up with after discharge. - Possible colitis, current antibiotic coverage for pneumonia is adequate # Renal: - Dialysis schedule per nephrology service Patient status: No timetable for discharge GI Prophylaxis: H2 rhonda VTE Mechanical Devices: Intermittant Pneumatic CD Resuscitation Status: CPR: Attempt Resuscitation Time spent 35 minutes Brennen Estrada MD Mar 01, 2017 13:34 Brennen Estrada MD Mar 01, 2017 13:34
[2017-03-01] MEDS ORDERED: 0.9% Sodium Chloride 1,000 ML IV SCH (14:10)
--- NOTE | 2017-03-01 15:23 | PROG NOTE ---
[address] [address] PROGRESS NOTE PATIENT: SHAWNEE ZUNIGA : 1970 MR#: [id number] ADMIT: 02/26/2017 JOB ID: [id number] DATE: 03/01/2017 PULMONARY CRITICAL CARE FOLLOWUP: PROBLEM LIST: 1. Respiratory failure. 2. End-stage renal disease requiring dialysis. 3. Tachycardia. 4. Hypertension. 5. Opiate addiction. 6. Benzodiazepine addiction. 7. Seizures. 8. History of nausea and vomiting. 9. Coronary artery disease status post three-vessel CABG in October 2016. 10. Past history of heroin abuse, with possible relapse. 11. Diabetic gastroparesis. 12. Diabetes. SUBJECTIVE: None. OBJECTIVE: Temperature 37. Pulse 87-98. Respiratory rate 14-17 with ventilator set at 14. Blood pressure 98/61. O2 sat on FiO2 0.45, PEEP of 5 is 100%. General appearance: Sedated, on ventilator. Chest: Fair breath sounds bilaterally. There are diffuse mid to end expiratory wheezes. Some inspiratory adventitial sounds. With tidal volume of 500, rate of 14, FiO2 of 0.45, and PEEP of 5, peak inspiratory pressure of 27, plateau is 8. PEEP is set at 5, measured at 10. Arterial blood gases on those settings, except for an FiO2 of 0.5 rather than 0.45, show a pO2 of 84, pCO2 of 35, pH of 7.32. Heart: Regular rhythm. Heart tones seem normal. Abdomen: Soft. Quiet. Extremities: No pretibial edema. LABORATORY: Shows a white count of 22,700. Diff not available. Hemoglobin 12.7, down from 13.5. Platelet count 302,000, stable. Sodium 140, potassium 5, chloride 99, CO2 is 18. BUN 47, up from 29. Creatinine 6.6, up from 4.8. Calcium 9.2. Prealbumin 14. Ammonia level 36. Blood culture growing coagulase-negative Staph isolated from 1/ bottles. Chest x-ray shows lungs are clear. Heart size relatively normal. Hemodynamics show a cardiac index of 2.3, stroke volume index of 27, TPRI is 2745. ASSESSMENT: 1. Hypertension. With the liter of saline given yesterday the patient's hemodynamics have improved. Norepinephrine infusion is down from 0.20 mcg/kg per minute to 0.05 mcg/kg per minute. Hemodynamics suggest she remains a bit volume depleted and would improve with some additional saline. Will slowly infuse possibly about a liter today again and see how we do. 2. Mental status. Sedation has been decreased. Off lorazepam. Still on Versed and fentanyl, though the fentanyl too has come down. Unfortunately she gets quite agitated rather easily. Will continue to slowly decrease sedatives as she is able to tolerate. 3. Malnutrition. No particular . 4. Auto PEEP. Vent settings suggest the patient is auto peeping. She has been overriding the ventilator but not so much now. Will drop her tidal volume a bit and increase her inspiratory flow and see if we can improve the pressure problems in the chest. May be affecting blood pressure, especially if we think she is a bit hypovolemic. Start nebulized bronchodilators to assist with the apparent bronchospasm. PLAN: 1. Vent changes to tidal volume of 480, inspiratory time of 0.75 seconds. 2. DuoNeb via nebulizer 1 vial q.i.d. 3. Normal saline 200 mL an hour x5 hours for a total of one additional liter. 4. Start Jevity at 10 mL an hour trophic feed. 5. Continue to taper sedatives. Currently on propofol 30 mcg/kg per minute as well as fentanyl 125 mcg per hour. TIME: Time spent so far in critical care 55 minutes.
[2017-03-01] MEDS: Albuterol-Ipratropium 3 mL Inhalation Solution NEB SCH ×2 (16:01→20:31)
[2017-03-01] MEDS: Sodium Chloride LOK Flush 10 mL Syringe IVFLUSH PRN (17:34)
--- NOTE | 2017-03-01 17:53 | NUR ---
Mentation/Hemodynamics.. Has been noted to score RASS numbers of -3/-4 and is minimally responsive to oral care or stimulous. Has had Ativan weaned to off and Fentanyl and propofol have also been weaned down. Dr Leahy updated. Was able to wean Levophed some but is currently doing a 3 hour dialysis treatment with B/P's drifting into the 90's. Levophed increased and this has been effective. No family here or phone calls received this shift.
[2017-03-01] MEDS: LORazepam Inj 100 MG in 0.9% Sodium Chloride 50 ML IV PRN (19:37)
--- NOTE | 2017-03-01 21:38 | NUR ---
Hemidialysis note 3.5 hour tx completed 200ml fluid removed from patient 65.1L blood processed SBP in 90s - 120s, see DTR for full VS. Difficulty with tunnelled catheter. ports reversed twice and finally worked with A-V, V-A. Streaking in dialyzer and drip chamber post tx Heparin 1000u/cc instilled into cathetr post tx.
[2017-03-02] VITALS (14 sets, daily range): BP systolic 99–125; BP diastolic 58–71; PULSE 98–110; RESP 14–18; O2SAT 97–100
[2017-03-02] MEDS: Albuterol-Ipratropium 3 mL Inhalation Solution NEB SCH ×7 (00:23→23:35)
[2017-03-02] MEDS: metroNIDAZOLE Inj 500 MG in IV Premix 1 EACH IV SCH ×3 (00:27→17:00)
[2017-03-02] MEDS: Insulin Human REGular 300 Unit/3 mL Inj SUBQ SCH ×4 (02:42→20:25)
[2017-03-02] MEDS: Propofol Inj 1,000,000 MCG in IV Premix 1 EACH IV SCH (02:42)
--- NOTE | 2017-03-02 04:42 | ABG ---
DateTimeAnalyzed 04:33:32 -_ pH ____7.408 - 7.350 7.450 pCO2 ___40.3__ -mmHg 35.0 45.0 pO2 ___86.9__ -mmHg 69.0 116 HCO3- ___25.4__ -mmol/L 22.0 26.0 ABE ____0.7__ -mmol/L -2.0 2.0 tHb ___11.3__ -g/dL 12.0 18.0 O2Hb ___94.8__ -% COHb ____0.7__ -% 0.0 1.5 MetHb ____0.0__ -% 0.4 1.5 sO2 ___95.3__ -% FIO2 ___40.0__ -% PEEP ____5.0__ -cmH2O Set_RR 14 -b/min Vt __480.0__ -L Drawn By MK - Date/Time Notified____ 04:41:00 -_ Spontaneous_RR 14 -b/min Oxygen Device 1 VENTILATOR - K+ ____4.3__ -mmol/L 3.5 5.0 tO2 ___15.1__ -Vol% OrderingPhysicianInitials mf - Jeffrey test _Positive -
[2017-03-02] MEDS: Norepineph 8,000 mCg/250 mL NS 8,000 MCG in IV Premix 1 EACH IV SCH (06:39)
[2017-03-02 08:19] LABS: BASOPHILS % (AUTO) 0.2 % (0-3); EOSINOPHILS % (AUTO) 0.8 % (0-5); MONOCYTES % (AUTO) 6.2 % (4-12); Mean Corpuscular Hemoglobin 32.2 pg (27.0-35.0); Mean Corpuscular Volume 98.8 fL (81-100); Platelet Count 224 bil/L (150-400)
[2017-03-02] MEDS ORDERED: levoFLOXacin Inj 500 MG in IV Premix 1 EACH IV SCH (08:30)
[2017-03-02] MEDS: Pantoprazole 4 mg/mL 10 mL Inj IVPUSH SCH ×2 (08:39→16:59)
[2017-03-02] MEDS: Levothyroxine 100 mCg/5 mL Inj IV SCH (08:45)
[2017-03-02] MEDS: Chlorhexidine 0.12% 15 mL Oral Solution MT SCH ×2 (08:46→20:24)
[2017-03-02] MEDS: Thiamine Inj 300 MG in Dextrose 5% 50 ML IV SCH (10:37)
[2017-03-02] MEDS: Dexmedetomidine 400 mCg/100 mL 400 MCG in IV Premix 1 EACH IV SCH (11:25)
[2017-03-02] MEDS: fentaNYL 2,500 mCg/250 mL 2,500 MCG in IV Premix 1 EACH IV SCH (11:48)
--- NOTE | 2017-03-02 11:52 | PCM.PNMED ---
Subjective Date of Service Mar 02, 2017 Subjective No overnight events. Patient remains stable in the same setting she was in previously. She has been difficult to withdraw sedation due to agitation. Discuss his case with ICU team. Exam Vital Signs Vital Sign - Last Date Time Temp Pulse Resp B/P Pulse Ox O2 Delivery O2 Flow Rate FiO2 03/02/17 08:35 100 117/62 98 40 03/02/17 08:10 Ventilator 03/02/17 08:09 38.2 15 Intake and Output 03/01/17 03/01/17 03/02/17 Cumulative From/Thru 15:00 23:00 07:00 02/26/17 17:12 - 03/02/17 06:29 Intake Total 1979 ml 1076 ml 8525 ml Output Total 210 ml 80 ml 5728 ml Balance 1769 ml 996 ml 2797 ml Intake Oral 600 ml IV Total 1979 ml 946 ml 7795 ml Tube Feeding 90 ml 90 ml Tube Irrigant 40 ml 40 ml Output Urine Total 10 ml 80 ml 293 ml Gastric Drainage Total 1935 ml Ultrafiltrate 200 ml 3500 ml # Bowel Movements 0 0 0 Exam General: sedated HEENT: pupils equal, nonicteric, membranes moist Lymph: No lymphadenopathy Cardio: Regular rate and rhythm Respiratory: CTA bilaterally Abdomen: Soft, positive bowel sounds Extremities: No edema Psych: sedated Neuro: sedated IVs and Medications Medications Reviewed: Medications were reviewed in detail Lab and Diagnostics Result Diagram: 03/02/17 0800 03/02/17 0555 X-Rays, CTs and MRIs Chest x-ray 02/27/17 IMPRESSION: Stable support lines and tubes in no definite acute cardiopulmonary process. Dictated by: Kem Gordon [facility] Interpreted: Caleb Cabrera MD on 02/27/2017 at 10:05 Approved by: Caleb Cabrera M.D. on 02/27/2017 at 10:[address] 02/28/17 1. Mild periventricular and subcortical hypodensities in the right parietal and occipital lobes are nonspecific and may represent early chronic small vessel ischemic changes. But the differential is broad and include inflammatory processes such as demyelinating disease and infection among other etiologies. Recommend correlation clinically and consider further evaluation with MRI if indicated. Dictated by: Jerson Inman M.D. on 02/28/2017 at 12:[address] 02/28/17 1. Bilateral clustered pulmonary nodules with areas of confluent consolidation in the lower lobes suggestive of aspiration and pneumonia. 2. Segmental wall thickening involving the cecum and ascending colon as well as the rectosigmoid colon consistent with a nonspecific colitis, likely infectious or inflammatory. 3. Endotracheal tube present with the tip approximately 2.5 cm from the mike. Consider withdrawal by approximately 1-1.5 cm 4. Distention of the gallbladder without calcified gallstones. Recommend further evaluation with ultrasound if there is clinical suspicion for cholecystitis 5. Indeterminate left adrenal nodule. Further evaluation may be obtained with an adrenal protocol CT or MRI when clinically feasible. Dictated by: Jerson Inman M.D. on 02/28/2017 at 12:40 PROCEDURE: US ABDOMEN, LIMITED ([id number]) IMPRESSION: Limited exam demonstrating prominence of the gallbladder and several small gallstones. Dictated by: Kem Gordon [facility] Interpreted: Honey Vivar MD on 02/28/2017 at 16: 34 PROCEDURE: X-RAY CHEST ONE VIEW, PORTABLE ([id number]) IMPRESSION: Stable support devices. No acute cardiopulmonary pathology. Dictated by: Huy Quintero M.D. on 03/01/2017 at 9:35 Assessment & Plan 46-year-old female with history of polysubstance abuse and long-term benzodiazepine use presented to [facility] requesting Xanax, underwent a seizure and was intubated, and transferred to [facility], all following missed dialysis. Neurological: Benzodiazepine withdrawal and medication-induced encephalopathy. Patient been very agitated when sedation is been withdrawn and there is a question as to whether this is all due to primary benzodiazepine withdrawal markers underlying infectious component. From the history got from [place] the patient presented asking for her benzodiazepine as she had been out for a couple of days and then seized requiring intubation. There are no reported claims of infectious symptoms although she has had a persistent white count is now trending down. -Considering lumbar puncture this afternoon -Started Precedex and decreasing fentanyl Infection: Likely aspiration pneumonia based on CT and history of seizure, less likely viral or bacterial meningitis. Intermittent low-grade fevers that have been absent for 2 days or so before this morning single reading of 38.2. As with any seizure there is a concern for aspiration with consistent CT findings which is why the patient was started on levofloxacin and Flagyl. PCR blood showed a coag negative staph which appears be a contaminant. Blood cultures are still negative after 2 days and MRSA screen is negative as well. Colitis may also be in the picture but less likely at this time. - Continue levofloxacin and Flagyl - Recheck pro calcitonin - Lumbar puncture as above Cardio: History of CAD with triple bypass. Cheetah shows good cardiac output and SVV was less than 13 showing adequate preload. Official echo report still not back but reports from the Echo department were that the left ventricle at some mild dyskinesis and no ejection fraction was given. Norepinephrine off -Continue to monitor, and continue aspirin Respiratory: Aspiration pneumonia and acute hypoxic respiratory failure. Blood gases stable with adequate pO2 and good ventilation. Again, CT of the chest was consistent with aspiration pneumonia, although chest x-ray unremarkable. Patient also had a elevation in the procalcitonin as well as the white count which are now trending down. The biggest obstacle to extubation as the patient' s anxiety and inability to reduce sedation. Starting Precedex today and decreasing the fentanyl in hopes that we can control the agitation and extubate , hopefully tomorrow. -Continue levofloxacin and Flagyl, due to her penicillin allergy. Abdomen: CT of the abdomen demonstrated possible colitis from the cecum through the colon I was nonspecific. She does not have diarrhea. Abdominal ultrasound was negative for cholecystitis. Patient also had a left adrenal nodule is not overly concerning but should be followed up with after discharge. -Continue levofloxacin and Flagyl Renal: Dialysis is going well Dr. Chadwick continues to follow. -Dialysis schedule per nephrology service Patient status: No timetable for discharge GI Prophylaxis: H2 rhonda VTE Mechanical Devices: Intermittant Pneumatic CD Resuscitation Status: CPR: Attempt Resuscitation Time spent 45 minutes Attending Statement I examined the patient on rounds today. No clear focal source of infection. I agree with the assessment and plan as stated above. Charles Castillo DO Mar 02, 2017 11:52 Brennen Estrada MD Mar 02, 2017 18:30
--- NOTE | 2017-03-02 12:15 | PCM.PNNEPH ---
Subjective Date of Service Mar 02, 2017 Subjective Patient remains ventilatory dependent. We will hold there is not much change in her condition. She is tolerating tube feedings. Her blood cultures have come back positive for coagulase-negative staph which may be contaminant. Her labs this morning shows white count of 17.1 and 86% segs. Her sodium is 138, potassium 4.7, chloride 95, bicarbonate 21, BUN and creatinine 34 and 4.8 respectively. Exam Vital Signs Vital Sign - Last Date Time Temp Pulse Resp B/P Pulse Ox O2 Delivery O2 Flow Rate FiO2 03/02/17 08:35 100 117/62 98 40 03/02/17 08:10 Ventilator 03/02/17 08:09 38.2 15 Intake and Output 03/01/17 03/01/17 03/02/17 Cumulative From/Thru 15:00 23:00 07:00 02/26/17 17:12 - 03/02/17 06:29 Intake Total 1979 ml 1076 ml 8525 ml Output Total 210 ml 80 ml 5728 ml Balance 1769 ml 996 ml 2797 ml Intake Oral 600 ml IV Total 1979 ml 946 ml 7795 ml Tube Feeding 90 ml 90 ml Tube Irrigant 40 ml 40 ml Output Urine Total 10 ml 80 ml 293 ml Gastric Drainage Total 1935 ml Ultrafiltrate 200 ml 3500 ml # Bowel Movements 0 0 0 Exam Patient is unresponsive. Neck is supple without adenopathy, thyromegaly, or jugular venous distention. Lungs are clear to auscultation. Heart was regular and rhythmical with a soft systolic murmur. Abdomen is soft with diminished pulses. There is no tenderness rebound guarding masses or hepatosplenomegaly. Extremities show any evidence of any clubbing cyanosis or edema. Lab and Diagnostics Result Diagram: 03/02/17 0800 03/02/17 0555 X-Rays, CTs and MRIs Chest x-ray 02/27/17 IMPRESSION: Stable support lines and tubes in no definite acute cardiopulmonary process. Dictated by: Kem Gordon [facility] Interpreted: Caleb Cabrera MD on 02/27/2017 at 10:05 Approved by: Caleb Cabrera M.D. on 02/27/2017 at 10:[address] 02/28/17 1. Mild periventricular and subcortical hypodensities in the right parietal and occipital lobes are nonspecific and may represent early chronic small vessel ischemic changes. But the differential is broad and include inflammatory processes such as demyelinating disease and infection among other etiologies. Recommend correlation clinically and consider further evaluation with MRI if indicated. Dictated by: Jerson Inman M.D. on 02/28/2017 at 12:[address] 02/28/17 1. Bilateral clustered pulmonary nodules with areas of confluent consolidation in the lower lobes suggestive of aspiration and pneumonia. 2. Segmental wall thickening involving the cecum and ascending colon as well as the rectosigmoid colon consistent with a nonspecific colitis, likely infectious or inflammatory. 3. Endotracheal tube present with the tip approximately 2.5 cm from the mike. Consider withdrawal by approximately 1-1.5 cm 4. Distention of the gallbladder without calcified gallstones. Recommend further evaluation with ultrasound if there is clinical suspicion for cholecystitis 5. Indeterminate left adrenal nodule. Further evaluation may be obtained with an adrenal protocol CT or MRI when clinically feasible. Dictated by: Jerson Inman M.D. on 02/28/2017 at 12:40 PROCEDURE: US ABDOMEN, LIMITED ([id number]) IMPRESSION: Limited exam demonstrating prominence of the gallbladder and several small gallstones. Dictated by: Kem Gordon [facility] Interpreted: Honey Vivar MD on 02/28/2017 at 16: 34 PROCEDURE: X-RAY CHEST ONE VIEW, PORTABLE ([id number]) IMPRESSION: Stable support devices. No acute cardiopulmonary pathology. Dictated by: Huy Quintero M.D. on 03/01/2017 at 9:35 Plan Impression Impression #1 end-stage renal disease dialysis dependent #2 diabetic nephropathy #3 hypertension with hypertensive heart disease and hypertensive nephrosclerosis number for possible aspiration pneumonia. Recommendations #1 patient tolerated her dialysis treatment yesterday and she is scheduled for an additional treatment on Friday as scheduled. Donny Chadwick DO Mar 02, 2017 12:15
--- NOTE | 2017-03-02 16:14 | PROG NOTE ---
[address] [address] PROGRESS NOTE PATIENT: SHAWNEE ZUNIGA : 1970 MR#: [id number] ADMIT: 02/26/2017 JOB ID: [id number] DATE: 03/02/2017 PULMONARY CRITICAL CARE FOLLOWUP NOTE: PROBLEM LIST: 1. Respiratory failure. 2. End-stage renal disease requiring dialysis. 3. Opiate addiction. 4. Benzodiazepine addiction. 5. Seizure. 6. History of nausea and vomiting, chronic. 7. Coronary artery disease status post three-vessel CABG in October 2016. 8. History of heroin abuse, with probable relapse. 9. Diabetic gastroparesis. 10. Diabetes. SUBJECTIVE: None. OBJECTIVE: Temperature 38.4. Pulse is 98-110. Respiratory rate 15. Blood pressure 107/60. O2 sat on FiO2 of 40%, PEEP of 8 is 100. I and O shows 3.2 L in, 0.6 L out, and only 110 mL being urine. General appearance: Sedated on ventilator. Some minimal motor response to verbal, possibly tactile stimuli. Chest: Fairly good breath sounds bilaterally. Lung triplett seemed clear. Unable to obtain pulmonary mechanics due to spontaneous respirations. However, peak inspiratory pressure is 18 with a tidal volume of 480. Heart: Regular rhythm. Heart tones normal. Abdomen: Soft. Quiet. Extremities: Warm. No pretibial edema. LABORATORY DATA: Shows a white count of 17,100 down from 22,700 yesterday, 86 polymorphonuclears, no bands, 6 lymphocytes. Hemoglobin 10.9, slowly dropping as it was 12.7 yesterday. Platelet count 224,000, slowly dropping. Sodium 138, potassium 4.7, chloride 95, CO2 is 21, BUN 34, creatinine 4.8, calcium 8.8. ASSESSMENT: 1. Hypertension with tachycardia. With some fluid resuscitation the patient's hemodynamics have improved markedly. With CHEETAH monitoring cardiac index has increased from 2.1 to 4.4 over the past 48 hours. SVV has dropped from 16-19 down to about 8. Stroke volume index has increased from low 20s to 43. Pulse has gone from 120-130 down to about 100. O2 sat has risen to 100%. Norepinephrine has been decreased from 0.2 to 0.02 mcg/kg per minute. 2. Fever. The situation is a bit unclear. Chest x-ray shows the lung triplett to be relatively clear. Today's films continue to show clear lungs. CT of the abdomen shows some slightly clustered nodules that are suggestive of aspiration. Cecum and ascending colon have some thickening consistent with nonspecific colitis. Gallbladder is somewhat distended, but ultrasound suggests that the gallbladder is prominent, though without wall thickening or biliary dilatation. The patient continues on broad-spectrum antibiotics. Currently receiving levofloxacin due to her multiple allergies. Also receiving metronidazole. Concern is regarding aspiration pneumonitis. Unclear as to the abdominal findings, as she chronically has problems with the nausea/vomiting. 3. Seizure. Reportedly due to benzodiazepine withdrawal. She has required quite heavy sedation with fentanyl in the mid 100s, lorazepam, and propofol. Currently off propofol. Lorazepam down to one. Hopefully will start seeing some increased activity but with her renal failure this might take quite a while. I think, given the current situation, if she is not more awake tomorrow would consider doing an EEG on the off chance she is manifesting a nonconvulsive status epilepticus. There was not apparently any prior seizure disorder, though certainly could be manifesting withdrawal as underpinning her fever. PLAN: 1. Continue current regimens. 2. Continue fluids, low-dose pressors, and sedatives. 3. If mental status not improving, consider EEG tomorrow. 4. Discussed with the primary care team here in the ICU. TIME: Time spent so far in critical care 45 minutes.
[2017-03-02] MEDS: Acetaminophen IV 1,000 MG in IV Premix 1 EACH IV PRN (18:28)
[2017-03-02 19:04] LABS: APPEARANCE,URINE CLEAR (CLEAR,HAZY); COLOR,URINE YELLOW (YELLOW); OCCULT BLOOD,URINE TRACE (NEGATIVE)
[2017-03-02 19:05] LABS: UROBILINOGEN,URINE NORMAL (NORMAL)
--- NOTE | 2017-03-02 19:38 | NUR ---
Sedation / Fever: Patient was weaned off Ativan and Propofol gtt and is now on Fentanyl 75mcg/hr and Precedex 0.2mcg/kg/min. RASS score -3. MD notified and suggested to keep sedation at current rate overnight. Patient remains intubated and restrained with soft wrist restraints to maintain patient safey and patent airway. Temp. of 39 degrees Celsius. MD was notified. Ordered Tylenol IV, Blood cultures and Urine culture. Tylenol was administered and cultures were collected and sent to lab.
[2017-03-02] MEDS: Nystatin 100,000 Unit/mL 5 mL Suspension PO SCH (20:24)
[2017-03-03] VITALS (13 sets, daily range): BP systolic 103–160; BP diastolic 56–88; PULSE 107–126; RESP 15–21; O2SAT 88–100
[2017-03-03] MEDS: metroNIDAZOLE Inj 500 MG in IV Premix 1 EACH IV SCH (01:01)
[2017-03-03 02:59] LABS: BASOPHILS % (AUTO) 0.2 % (0-3); EOSINOPHILS % (AUTO) 1.1 % (0-5); MONOCYTES % (AUTO) 6.9 % (4-12); Mean Corpuscular Hemoglobin 31.7 pg (27.0-35.0); Mean Corpuscular Volume 97.7 fL (81-100); NEUTROPHILS % (AUTO) 83.2 % (40-74); Platelet Count 216 bil/L (150-400)
[2017-03-03] MEDS: Insulin Human REGular 300 Unit/3 mL Inj SUBQ SCH ×4 (02:59→20:31)
[2017-03-03] MEDS: Acetaminophen IV 1,000 MG in IV Premix 1 EACH IV PRN (03:00)
[2017-03-03 03:23] LABS: Magnesium 2.1 mg/dL (1.6-2.6); Phosphorus 8.1 mg/dL (2.5-4.9)
--- NOTE | 2017-03-03 03:55 | NUR ---
Fevers/ Resp/ sedation Patient's temp 37.6-38.5 overnight. PRN Tylenol given. Fan in room. Second set of blood cultures drawn by lab (first shift by day shift RN). Patient has episode of desaturtion. Repositioned, suctioned with moderate amount of creamy secretions. SpO2 remained 89-90%. RT notified who cesilia ABG. Vent settings change, patient now on 55% O2. Continue to monitor. Patient remains on Fentanyl and Precedex only. Patient moves all four extremities, attempts to sit forward. Patient's movements are weak and slow. She does not open eyes or follow any commands. Patient remains restrained.
[2017-03-03] MEDS: Albuterol-Ipratropium 3 mL Inhalation Solution NEB SCH ×5 (04:08→20:09)
[2017-03-03] MEDS: Nystatin 100,000 Unit/mL 5 mL Suspension PO SCH ×4 (08:30→20:30)
--- NOTE | 2017-03-03 08:32 | DRSVH ---
PROCEDURE: X-RAY CHEST ONE VIEW, PORTABLE ([id number]) INDICATIONS: intubated TECHNIQUE: One view of the chest was acquired. COMPARISON: [facility], CR, XR CHEST 1VW (PORTABLE), 03/01/2017, 3:19. FINDINGS: Surgical changes and devices: Endotracheal tube tip is not well-visualized due to overlying median st ernotomy wires but is likely approximately 2 cm from the mike. Nasogastric tube is redemonstrated extending into the stomach with the tip not included on the current study . There is a right interna l jugular tunnel catheter with the tip in the superior vena cava. Postsurgical changes are redemonst rated mediastinal. Lungs and pleura: No pleural effusions or pneumothorax. There are few patchy left retrocardiac opac ities which may represent atelectasis or developing consolidation. Mediastinum: Mediastinal contours appear unchanged given rotation. Heart size is normal. Bones and chest wall: No suspicious bony lesions. Overlying soft tissues appear unremarkable. IMPRESSION: 1. Endotracheal tube tip is not well-visualized due to overlying wires but is likely located approxi mately 2 cm from the mike. Recommend attention on followup and possible withdrawal. 2. Patchy left retrocardiac opacities compatible with atelectasis or developing consolidation. Dictated by: Jerson Inman M.D. on 03/03/2017 at 8:16 Approved by: Jerson Inman M.D. on 03/03/2017 at 8:30
[2017-03-03] MEDS ORDERED: Tigecycline Inj 100 MG in 0.9% Sodium Chloride 100 ML IV ONE (10:00)
[2017-03-03] MEDS: Pantoprazole 4 mg/mL 10 mL Inj IVPUSH SCH ×2 (10:03→16:30)
[2017-03-03] MEDS: Chlorhexidine 0.12% 15 mL Oral Solution MT SCH ×2 (10:03→20:13)
[2017-03-03] MEDS: Levothyroxine 100 mCg/5 mL Inj IV SCH (10:06)
--- NOTE | 2017-03-03 10:19 | PCM.PNMED ---
Subjective Date of Service Mar 03, 2017 Subjective ICU Progress Note Patient is a 46-year-old female with history of polysubstance abuse and long- term benzodiazepine use presented to [facility] requesting Xanax, underwent a seizure and was intubated, and transferred to [facility], all following missed dialysis. Overnight, she spiked a fever (TMax 39 C), given APAP and blood cultures were drawn. She began to show signs of increasing alertness overnight, and was moving all 4 extremities and trying to sit up, but failed to follow any commands. She would occasionally desat to the high 80s, and was producing thick secretions. Suctioning did not help, but her O2 sats improved with increased FiO2. Currently on fentanyl @ 100, and Precedex @ 0.6. Pt was weaned off norepi yesterday. Exam Vital Signs Vital Sign - Last Date Time Temp Pulse Resp B/P Pulse Ox O2 Delivery O2 Flow Rate FiO2 03/03/17 07:52 121 160/88 100 55 03/03/17 03:00 38.2 03/03/17 03:00 Ventilator 03/02/17 23:30 15 Intake and Output 03/02/17 03/02/17 03/03/17 Cumulative From/Thru 15:00 23:00 07:00 02/26/17 17:12 - 03/03/17 05:41 Intake Total 840 ml 902 ml 92520 ml Output Total 80 ml 200 ml 6008 ml Balance 760 ml 702 ml 4259 ml Intake Oral 600 ml IV Total 610 ml 630 ml 9035 ml Tube Feeding 232 ml 322 ml TPN/PPN 110 ml 110 ml Tube Irrigant 120 ml 40 ml 200 ml Output Urine Total 80 ml 200 ml 573 ml Gastric Drainage Total 1935 ml Ultrafiltrate 3500 ml # Bowel Movements 0 0 Exam General: Agitated and trying to sit up, noncommunicative and not following commands. Does not open eyes. Head: Normocephalic, atraumatic. External ears normal. Eyes: PERRLA, EOMI. Anicteric sclerae. Mouth: Mouth normal, Mucous membranes moist/pink Neck: Neck supple with full range of motion. Chest& Lungs: Coarse breath sounds bilaterally Cardiovascular: Tachycardic, regular rhythm, Normal S1, Normal S2, No murmurs/ rubs/gallops Abdomen: Non-tender, Non-distended, No masses, Normoactive bowel tones, Soft Musculoskeletal: Normal range of motion Extremities: No cyanosis/clubbing/edema bilaterally Neurological: Somewhat awake but agitated and confused. Vent Settings FiO2: 55 PEEP set: 5 PEEP mes: 9 RR: 14 VT: 480 Peak: 15 Plat: ---- Lab and Diagnostics Result Diagram: 03/03/17 0250 03/03/17 0250 X-Rays, CTs and MRIs Chest x-ray 02/27/17 IMPRESSION: Stable support lines and tubes in no definite acute cardiopulmonary process. Dictated by: Kem PINTO Interpreted: Caleb Cabrera MD on 02/27/2017 at 10:05 Approved by: Caleb Cabrera M.D. on 02/27/2017 at 10:[address] 02/28/17 1. Mild periventricular and subcortical hypodensities in the right parietal and occipital lobes are nonspecific and may represent early chronic small vessel ischemic changes. But the differential is broad and include inflammatory processes such as demyelinating disease and infection among other etiologies. Recommend correlation clinically and consider further evaluation with MRI if indicated. Dictated by: Jerson Inman M.D. on 02/28/2017 at 12:[address] 02/28/17 1. Bilateral clustered pulmonary nodules with areas of confluent consolidation in the lower lobes suggestive of aspiration and pneumonia. 2. Segmental wall thickening involving the cecum and ascending colon as well as the rectosigmoid colon consistent with a nonspecific colitis, likely infectious or inflammatory. 3. Endotracheal tube present with the tip approximately 2.5 cm from the mike. Consider withdrawal by approximately 1-1.5 cm 4. Distention of the gallbladder without calcified gallstones. Recommend further evaluation with ultrasound if there is clinical suspicion for cholecystitis 5. Indeterminate left adrenal nodule. Further evaluation may be obtained with an adrenal protocol CT or MRI when clinically feasible. Dictated by: Jerson Inman M.D. on 02/28/2017 at 12:40 PROCEDURE: US ABDOMEN, LIMITED ([id number]) IMPRESSION: Limited exam demonstrating prominence of the gallbladder and several small gallstones. Dictated by: Kem PINTO Interpreted: Honey Vivar MD on 02/28/2017 at 16: 34 PROCEDURE: X-RAY CHEST ONE VIEW, PORTABLE ([id number]) IMPRESSION: Stable support devices. No acute cardiopulmonary pathology. Dictated by: Huy Quintero M.D. on 03/01/2017 at 9:35 Assessment & Plan Patient is a 46-year-old female with history of polysubstance abuse and long- term benzodiazepine use presented to [facility] requesting Xanax, underwent a seizure and was intubated, and transferred to [facility], all following missed dialysis. Acute hypoxic respiratory failure. - Secondary to seizures. Patient currently on mechanical ventilation. - Will start pressure support trials today. - Attempt to wean off sedation Acute seizures. - Likely secondary to benzodiazepine withdrawal, although intracranial causes should be ruled out. Pt likely does not need EEG at this time as she is starting to wake up, but will consider brain MRI once her agitation improves and she starts following commands. As benzo withdrawal is a possibility, we will restart her home Xanax at this time to prevent further seizures. - Restarted home Xanax 2 mg TID PO - Consider MRI brain in future Acute encephalopathy. - Multifactorial. Patient is on chronic methadone, but family reports likely recent heroin and ongoing alcohol use, so withdrawal is certainly a possible contributing factor. The patient is still on significant sedation with fentanyl and Precedex, so we will continue to wean these as tolerated, while trying to avoid worsening her agitation. - Wean fentanyl and Precedex as tolerated. Acute sepsis. - CXR was relatively clear but CT abdomen showed bilateral lower lobe infiltrates suspicious for aspiration. CT of the abdomen demonstrated possible colitis from the cecum through the colon consistent with a nonspecific colitis. Gallbladder was distended on CT but US showed no gallbladder wall thickening, so less likely to be source of infection. Blood and sputum cultures negative to date. Pt apparently has history of gastroparesis, and had been complaining of N/ V and abdominal pain intermittently, with worsening symptoms prior to admission. DDx includes aspiration pneumonia vs colitis as most likely causes for fevers at this point. Other possibilities include line infections or fungal infection. Antibiotic choice is limited due to her extensive allergy list, so she is currently receiving levofloxacin and Flagyl. Her WBC is improving but procalcitonin continues to increase and she continues to spike fevers. - Dr. Faith of Infectious Disease has been consulted. We appreciate his input. - Stopped levofloxacin and Flagyl. Started tigecycline - Fungal blood cultures - Fungitell and Cryptococcal antigens - Sputum cultures - Blood cultures from peripheral line, dialysis catheter, and skin History of CAD with stents. - Pt had been hypotensive, responding well to fluids. Echo showed mild moderately increased LV wall thickness with normal LVEF. Regional wall motion abnormalities could not be excluded due to limited visualization. Relaxation abnormality of LV present. - Continue aspirin - Continue to monitor ESRD - Continue dialysis per Nephrology GI Prophylaxis: H2 rhonda VTE Mechanical Devices: Intermittant Pneumatic CD Resuscitation Status: CPR: Attempt Resuscitation Attending Statement I have seen and examined this patient with the resident physician. Vital signs , labs, imaging have been reviewed. I agree with the assessment and plan above. Please refer to my separately dictated progress note for any modifications to above. Abbey Dupree M.D. Pulmonary and Critical Care medicine Pager [phone] Miguel Arreola Mar 03, 2017 10:19 Abbey Dupree MD Mar 03, 2017 13:30 -Considering lumbar puncture this afternoon -Started Precedex and decreasing fentanyl Infection: Likely aspiration pneumonia based on CT and history of seizure, less likely viral or bacterial meningitis. Intermittent low-grade fevers that have been absent for 2 days or so before this morning single reading of 38.2. As with any seizure there is a concern for aspiration with consistent CT findings which is why the patient was started on levofloxacin and Flagyl. PCR blood showed a coag negative staph which appears be a contaminant. Blood cultures are still negative after 2 days and MRSA screen is negative as well. Colitis may also be in the picture but less likely at this time. - Continue levofloxacin and Flagyl - Recheck pro calcitonin - Lumbar puncture as above Cardio: History of CAD with triple bypass. Cheetah shows good cardiac output and SVV was less than 13 showing adequate preload. Official echo report still not back but reports from the Echo department were that the left ventricle at some mild dyskinesis and no ejection fraction was given. Norepinephrine off -Continue to monitor, and continue aspirin Respiratory: Aspiration pneumonia and acute hypoxic respiratory failure. Blood gases stable with adequate pO2 and good ventilation. Again, CT of the chest was consistent with aspiration pneumonia, although chest x-ray unremarkable. Patient also had a elevation in the procalcitonin as well as the white count which are now trending down. The biggest obstacle to extubation as the patient' s anxiety and inability to reduce sedation. Starting Precedex today and decreasing the fentanyl in hopes that we can control the agitation and extubate , hopefully tomorrow. -Continue levofloxacin and Flagyl, due to her penicillin allergy. Abdomen: . She does not have diarrhea. Abdominal ultrasound was negative for cholecystitis. Patient also had a left adrenal nodule is not overly concerning but should be followed up with after discharge. -Continue levofloxacin and Flagyl Renal: Dialysis is going well Dr. Chadwick continues to follow. -Dialysis schedule per nephrology service Patient status: No timetable for discharge GI Prophylaxis: H2 rhonda VTE Mechanical Devices: Intermittant Pneumatic CD Resuscitation Status: CPR: Attempt Resuscitation Miguel Arreola Mar 03, 2017 10:19
[2017-03-03] MEDS: Thiamine Inj 300 MG in Dextrose 5% 50 ML IV SCH (10:24)
[2017-03-03] MEDS: Norepineph 8,000 mCg/250 mL NS 8,000 MCG in IV Premix 1 EACH IV SCH (10:29)
--- NOTE | 2017-03-03 11:33 | NUR ---
NUTRITION FOLLOW-UP: ASSESS: 46 YO F admitted to CCU with hyperkalemia and respiratory failure, dialysis dependent. Pt had a seizure and was intubated at [place]. Pt remains intubated. TF advancing to goal, at 30 ml/hr per CCU rounds. PMHX: ESRD requiring dialysis, tachycardia, CAD, T2DM, diabetic gastropathy, GERD, anxiety, benzo abuse, GI pain, heroin use, ETOH, methadone, marijuana use with cyclic nausea / vomiting, mirgraines, hypothyroid, GERD. LABS: Reviewed. BUN 48, Cr 5.88, Glu 183, Ca 8.4, Phos 8.1 MEDS: Reviewed. Precedex, Insulin, pressor, Fentanyl. GI: No BM noted. SKIN: No pressure injuries, per mri specialist. WT: 61.9 kg, BMI 22.0 kg/m2, IBW: 59.1 kg DIET: NPO. NUTRITION SUPPORT: Nepro @ 30 ml/hr, advancing to goal of 33 ml/hr. At goal TF will provide 1306 kcal, 58 g protein; meeting 100% calorie, 61% protein needs. EST. NEEDS: VENT/ DIALYSIS Calories: 7666-8693 kcal/day (20-25 kcal/kg BW) Protein: 95-125 g/day (1.2-2.0 g/kg BW) Fluids: ~1550 ml/day NUTRITION DIAGNOSIS: 1) Inadequate oral intake related to decreased ability to consume sufficient energy as evidenced by current NPO status - IMPROVING. TF advancing to goal. 2) Increased kcal/pro needs related to ESRD as evidence by pt on chronic dialysis - PERSISTS. NUTRITION INTERVENTION: 1) Continue to advanced TF of Nepro to goal of 33 ml/hr. 2) Once tolerance established, will add 4 packets Pro[employer] liquid protein per day to meet 100% protein needs. MONITOR/EVALUATE: NPO/Vent, TF advance/tolerance, GI, wt, labs, POC, nutrition status. Follow per high nutrition risk guidelines.
[2017-03-03] MEDS: Dexmedetomidine 400 mCg/100 mL 400 MCG in IV Premix 1 EACH IV SCH (11:37)
[2017-03-03] MEDS: fentaNYL 2,500 mCg/250 mL 2,500 MCG in IV Premix 1 EACH IV SCH (12:31)
--- NOTE | 2017-03-03 13:08 | PCM.PNNEPH ---
Subjective Date of Service Mar 03, 2017 Subjective Spiked temp last night, Tmax 38.2. Off vasopressors. Remains intubated and sedated. Agitated at times, trying to sit up. Last HD on Sat. Exam Vital Signs Vital Sign - Last Date Time Temp Pulse Resp B/P Pulse Ox O2 Delivery O2 Flow Rate FiO2 03/03/17 11:54 120 153/82 100 30 03/03/17 03:00 38.2 03/03/17 03:00 Ventilator 03/02/17 23:30 15 Intake and Output 03/02/17 03/02/17 03/03/17 Cumulative From/Thru 15:00 23:00 07:00 02/26/17 17:12 - 03/03/17 05:41 Intake Total 840 ml 902 ml 50678 ml Output Total 80 ml 200 ml 6008 ml Balance 760 ml 702 ml 4259 ml Intake Oral 600 ml IV Total 610 ml 630 ml 9035 ml Tube Feeding 232 ml 322 ml TPN/PPN 110 ml 110 ml Tube Irrigant 120 ml 40 ml 200 ml Output Urine Total 80 ml 200 ml 573 ml Gastric Drainage Total 1935 ml Ultrafiltrate 3500 ml # Bowel Movements 0 0 Exam GENERAL: Intubated, sedated, agitated at times. She was trying to sit up during my visit. HEENT: Head is normocephalic and atraumatic. Mucous membranes are moist. NECK: Supple, no elevation of JVD, No carotid bruits. No lymphadenopathy or thyromegaly. Left IJ triple-lumen in place LUNGS: Equal breath sounds bilaterally, fine crackles at the bases. Right tunneled catheter in place. HEART: Normal S1/S2, tachycardic Regular rate and rhythm, no murmurs, rubs or gallops. ABDOMEN: Soft, nontender, and nondistended. Positive bowel sounds. No hepatosplenomegaly was noted. EXTREMITIES: Without any cyanosis, clubbing, rash, lesions or edema. SKIN: No ulceration or induration present. Lab and Diagnostics Result Diagram: 03/03/17 0250 03/03/17 0250 X-Rays, CTs and MRIs Chest x-ray 02/27/17 IMPRESSION: Stable support lines and tubes in no definite acute cardiopulmonary process. Dictated by: Kem PINTO Interpreted: Caleb Cabrera MD on 02/27/2017 at 10:05 Approved by: Caleb Cabrera M.D. on 02/27/2017 at 10:[address] 02/28/17 1. Mild periventricular and subcortical hypodensities in the right parietal and occipital lobes are nonspecific and may represent early chronic small vessel ischemic changes. But the differential is broad and include inflammatory processes such as demyelinating disease and infection among other etiologies. Recommend correlation clinically and consider further evaluation with MRI if indicated. Dictated by: Jerson Inman M.D. on 02/28/2017 at 12:[address] 02/28/17 1. Bilateral clustered pulmonary nodules with areas of confluent consolidation in the lower lobes suggestive of aspiration and pneumonia. 2. Segmental wall thickening involving the cecum and ascending colon as well as the rectosigmoid colon consistent with a nonspecific colitis, likely infectious or inflammatory. 3. Endotracheal tube present with the tip approximately 2.5 cm from the mike. Consider withdrawal by approximately 1-1.5 cm 4. Distention of the gallbladder without calcified gallstones. Recommend further evaluation with ultrasound if there is clinical suspicion for cholecystitis 5. Indeterminate left adrenal nodule. Further evaluation may be obtained with an adrenal protocol CT or MRI when clinically feasible. Dictated by: Jerson Inman M.D. on 02/28/2017 at 12:40 PROCEDURE: US ABDOMEN, LIMITED ([id number]) IMPRESSION: Limited exam demonstrating prominence of the gallbladder and several small gallstones. Dictated by: Kem Gordon RRA Interpreted: Honey Vivar MD on 02/28/2017 at 16: 34 PROCEDURE: X-RAY CHEST ONE VIEW, PORTABLE ([id number]) IMPRESSION: Stable support devices. No acute cardiopulmonary pathology. Dictated by: Huy Quintero M.D. on 03/01/2017 at 9:35 Plan Plan: 1. End-stage renal disease, hemodialysis dependent 2. Acute hypoxic respiratory failure 3. Sepsis, unclear definite source of infection, suspected aspiration pneumonia 4. Metabolic encephalopathy 5. Seizure 6. Polysubstance abuse 7. Type II diabetes with diabetic nephropathy 8. Hypertension with hypertensive nephrosclerosis Plan: We will reschedule her dialysis day to be performed every Friday and Friday. We will dialyze her today for 3-1/2 hours, ultrafiltration to 1-2 L as tolerated. We will use 2K bath. The rest of management as per ICU team. We will monitor along with you. Anita Camp MD Mar 03, 2017 13:08
--- NOTE | 2017-03-03 14:49 | PCM.PNMED ---
Subjective Date of Service Mar 03, 2017 Subjective Patient remains vented with phlebotomy supervisor sedation she is moving all 4 extremities. She is not following commands and is essentially nonresponsive. She does not appear to be seizing. Exam Vital Signs Vital Sign - Last Date Time Temp Pulse Resp B/P Pulse Ox O2 Delivery O2 Flow Rate FiO2 03/03/17 12:30 Ventilator 03/03/17 12:30 37.7 121 15 139/78 100 30 Intake and Output 03/02/17 03/02/17 03/03/17 Cumulative From/Thru 15:00 23:00 07:00 02/26/17 17:12 - 03/03/17 05:41 Intake Total 840 ml 902 ml 41505 ml Output Total 80 ml 200 ml 6008 ml Balance 760 ml 702 ml 4259 ml Intake Oral 600 ml IV Total 610 ml 630 ml 9035 ml Tube Feeding 232 ml 322 ml TPN/PPN 110 ml 110 ml Tube Irrigant 120 ml 40 ml 200 ml Output Urine Total 80 ml 200 ml 573 ml Gastric Drainage Total 1935 ml Ultrafiltrate 3500 ml # Bowel Movements 0 0 Exam General: Intermittently agitated; moving all 4 extremities HEENT: pupils equal, nonicteric, membranes moist Cardio: Regular rate and rhythm Respiratory: CTA bilaterally with coarse breath sounds Abdomen: Soft, positive bowel sounds Extremities: No edema IVs and Medications Medications Reviewed: Medications were reviewed in detail Lab and Diagnostics Result Diagram: 03/03/17 0250 03/03/17 0250 X-Rays, CTs and MRIs Chest x-ray 02/27/17 IMPRESSION: Stable support lines and tubes in no definite acute cardiopulmonary process. Dictated by: Kem Gordon [facility] Interpreted: Caleb Cabrera MD on 02/27/2017 at 10:05 Approved by: Caleb Cabrera M.D. on 02/27/2017 at 10:[address] 02/28/17 1. Mild periventricular and subcortical hypodensities in the right parietal and occipital lobes are nonspecific and may represent early chronic small vessel ischemic changes. But the differential is broad and include inflammatory processes such as demyelinating disease and infection among other etiologies. Recommend correlation clinically and consider further evaluation with MRI if indicated. Dictated by: Jerson Inman M.D. on 02/28/2017 at 12:[address] 02/28/17 1. Bilateral clustered pulmonary nodules with areas of confluent consolidation in the lower lobes suggestive of aspiration and pneumonia. 2. Segmental wall thickening involving the cecum and ascending colon as well as the rectosigmoid colon consistent with a nonspecific colitis, likely infectious or inflammatory. 3. Endotracheal tube present with the tip approximately 2.5 cm from the mike. Consider withdrawal by approximately 1-1.5 cm 4. Distention of the gallbladder without calcified gallstones. Recommend further evaluation with ultrasound if there is clinical suspicion for cholecystitis 5. Indeterminate left adrenal nodule. Further evaluation may be obtained with an adrenal protocol CT or MRI when clinically feasible. Dictated by: Jerson Inman M.D. on 02/28/2017 at 12:40 PROCEDURE: US ABDOMEN, LIMITED ([id number]) IMPRESSION: Limited exam demonstrating prominence of the gallbladder and several small gallstones. Dictated by: Kem Gordon [facility] Interpreted: Honey Vivar MD on 02/28/2017 at 16: 34 PROCEDURE: X-RAY CHEST ONE VIEW, PORTABLE ([id number]) IMPRESSION: Stable support devices. No acute cardiopulmonary pathology. Dictated by: Huy Quintero M.D. on 03/01/2017 at 9:35 Assessment & Plan Patient is a 46-year-old female with history of polysubstance abuse and long- term benzodiazepine use presented to [facility] requesting Xanax, underwent a seizure and was intubated, and transferred to [facility], all following missed dialysis. Problem list: 1. Acute hypoxic respiratory failure 2. Sepsis with possible aspiration pneumonia vs unidentified etiology 3. Metabolic vs drug induced encephalopathy following seizure 4. End-stage renal disease on hemodialysis 5. Seizures 6. Type II diabetes 7. Hypertension 8. Polysubstance abuse Neurological: Questionable benzodiazepine withdrawal started the patient's medical course. Patient is made progress today with lightening of sedation. She is moving all 4 limbs which is encouraging although she is not awake or following commands. Current question remains whether this encephalopathy is due to the amount of medications she received to be sedated while on the vent or if it is sequelae of another yet undiagnosed problem. Lumbar puncture was deferred yesterday and white count has improved. With patient moving about we will continue to decrease the sedation and increase Precedex to control agitation. Will defer EEG at this time as patient does not appear to show signs of seizure. -Titrate down fentanyl -Initiate 3 times a day Xanax Infection: Initially appeared that the patient aspirated with evidence on CT and history of seizure. Patient has been on Levaquin and Flagyl with a decreasing white count from 22.7 to 13.9 today. However procalcitonin has increased. Infectious disease consult sought. All lines are being cultured, as well as sputum and fungal cultures. Dr. Faith is also ordering cryptococcal antigen and fungitell. Dr. Faith's note is not yet available -Blood culture/6 due to an culture/fungal culture -Fungitell and cryptococcal antigen -Start tigecycline -Stop Flagyl and levofloxacin Cardio: History of triple bypass. Cheet[place]w is on patient we are following. Echo is available in [facility] -Continue aspirin Respiratory: Patient is doing well on present even with reduction of sedation. Plans today are to start a pressure support trial while weaning off sedation. Renal: Continue dialysis per nephrology. Electrolytes are essentially normal. Abdomen: Unaware of any bowel movements. Continued trickle feeds. There are positive bowel sounds. Patient status: No timetable until patient is extubated. GI Prophylaxis: H2 rhonda VTE Mechanical Devices: Intermittant Pneumatic CD Resuscitation Status: CPR: Attempt Resuscitation Time spent 40 minutes Attending Statement I examined the patient on rounds today. Persistent fever uncertain origin. I agree with the assessment and plan as stated above. Charles Castillo DO Mar 03, 2017 14:49 Brennen Estrada MD Mar 04, 2017 07:14
--- NOTE | 2017-03-03 17:11 | PROG NOTE ---
[address] [address] PROGRESS NOTE PATIENT: SHAWNEE ZUNIGA : 1970 MR#: [id number] ADMIT: 02/26/2017 JOB ID: [id number] DATE: 03/03/2017 The patient is a 46-year-old woman with end-stage renal disease on hemodialysis, coronary artery disease, type 2 diabetes and substance abuse, presenting with seizure, acute respiratory failure requiring mechanical ventilation and encephalopathy. The patient was seen and evaluated with resident physician, Dr. Miguel Arreola. Please refer to his separate detailed note for additional information. INTERVAL HISTORY: Remains agitated on sedation but not yet following commands or making any purposeful movements. Continues to have fever up to 39.5. REVIEW OF SYSTEMS: Could not be obtained since she is intubated. PHYSICAL EXAMINATION: Vital signs reviewed. FiO2 40%, PEEP of 5. General: Intubated, on sedation but moving arms and legs, not following commands or tracking. Chest clear to auscultation. LABORATORIES: Reviewed: Notable for WBC down from 22 on admission to 13.9, currently. Chemistry also reviewed. Procalcitonin has been rising since admission from 0.21, now up to 2.69 steadily, going up every day. Cultures: One blood culture was positive for coag-negative staph, otherwise negative. IMAGING: Chest x-ray is reviewed and shows clear pulmonary parenchyma with tubes and lines in appropriate positions. ASSESSMENT AND RECOMMENDATIONS: 1. Acute hypoxic respiratory failure, on mechanical ventilation since February 26. 2. Acute encephalopathy, unexplained. 3. Seizure on February 26, 2017. 4. End-stage renal disease, on hemodialysis. 5. SIRS/sepsis--unknown source. 6. History of polysubstance abuse. RECOMMENDATION: This 46-year-old woman with multiple medical problems including end-stage renal disease on dialysis, polysubstance abuse, presented requesting Ativan, having run out and had a seizure in the emergency department requiring intubation and mechanical ventilation since that time. She remains agitated and not following commands despite lightening sedation. If anything, she becomes severely agitated when we lighten her sedation without following commands. I am most concerned about her fever and recent hypotension requiring pressors. She is certainly acting like she has sepsis/septic shock of unknown source. Although her white count has been coming down, her procalcitonin has been steadily rising and she remains febrile. For this reason, Dr. Faith with Infectious Disease was consulted today. She is on levofloxacin and metronidazole which are going to be modified per Dr. Faith's recommendations. We are going to repeat blood and sputum cultures. Other things to consider would be an intra-abdominal or neurologic sources of infection and will wait and see what Dr. Faith recommends for additional workup for these possibilities. She is getting hemodialysis which will be switched to Friday, Friday, Friday per Nephrology. She is on appropriate DVT and GI prophylaxis. She has been off pressors. CRITICAL CARE TIME: 45 minutes.
--- NOTE | 2017-03-03 19:00 | CONS ---
[address] [address] CONSULTATION REPORT PATIENT: SHAWNEE ZUNIGA : 1970 MR#: [id number] ADMIT: 02/26/2017 JOB ID: [id number] DATE OF SERVICE: 03/03/[address] Dupree for this timely consult. REASON FOR CONSULTATION: Persistent fever, leukocytosis, and elevated procalcitonin in a complex ICU patient. HISTORY OF THE PRESENT ILLNESS: The patient is an extraordinarily complex, 46-year-old woman with underlying end-stage renal disease, chronic abdominal pain, diabetes, with gastropathy, coronary artery disease. She recently underwent coronary artery bypass grafting for that problem. She is also a known polysubstance abuser and requires extremely high doses of benzodiazepines on an outpatient basis for anxiety, as well as various pain medications and has been known in the past to inject intravenous heroin, though it is unclear when or if this practice stopped. The patient presented on February 26 to [facility] requesting benzodiazepines as she had run out of her high-dose Xanax and was requesting refills. She had also apparently missed some recent dialysis sessions. While there, she had a seizure which required intubation and was also found to have hyperkalemia, as well as some abdominal pain. Following her intubation and initial stabilization, she was transferred here and has remained in the ICU here at [facility] over the past five days. During that time, she has been receiving levofloxacin and Flagyl as empiric therapy for what may have been an aspiration event and/or an abdominal process. Though she has been weaned off vasopressor agents and has started to awaken somewhat, she remains intubated, confused, and combative, and with intermittent fevers. Infectious Disease consultation is requested regarding management of this complex patient. Because of her ongoing intubated and sedated status, no history can be obtained from the patient, though I did perform a comprehensive review of the available records. PAST MEDICAL HISTORY: 1. Diabetes mellitus with gastropathy. 2. End-stage renal disease. 3. Chronic abdominal pain. 4. Organic heart disease. a. Status post CABG 2016. b. SVT. 5. History of IV drug use with heroin use confirmed until about a year ago and possibly relapsing. Note that the patient is on chronic methadone replacement. 6. Chronic benzodiazepine use with high doses being used for anxiety up to 2 mg q.8 h. of Xanax on a chronic basis. 7. Migraine headaches. 8. Anxiety disorder. ALLERGIES: Included: 1. A purported anaphylaxis to AMOXICILLIN CLAVULANATE. 2. As well as severe intolerance of SULFA AGENTS. This has driven her antibiotic use here in the hospital to the combination of levofloxacin and Flagyl which she has tolerated. SOCIAL HISTORY: The patient is an ex-smoker who does not consume alcohol. She was an intravenous heroin user until about a year ago, when she is reported to have stopped but some notes in the chart indicate this may not be a certainty. I cannot ask her about any of this as she is intubated and sedated. FAMILY HISTORY: Not available in this intubated sedated patient. REVIEW OF SYSTEMS: Not available in this intubated, sedated patient. PHYSICAL EXAMINATION: Reveals a chronically ill-appearing woman who looks much older than 46 years old, lying supine in her ICU bed. She is currently orally intubated and being actively ventilated. Her temperatures when she first came in were 38.2, and she has continued to have low-grade fevers, like that throughout her hospital stay. She is currently exactly that, 38.2 degrees. Her pulse 121, and it is a sinus rhythm. Blood pressure 160/88. She is not on vasopressors. She is saturating well on 55% FiO2 and 5 of PEEP. Examination of the head reveals no trauma. Eyes without scleral icterus or conjunctivitis. Pupils are small and equal. Nose appears normal. She has oral endotracheal tube and orogastric tube. In the right upper chest there is a hemodialysis catheter which appears uninfected externally, at least. In the left neck there is a triple lumen IJ which also appears uninfected. Examination of the nose unremarkable. Oral exam with oral endotracheal tube, orogastric tube. No evidence of abnormality there. Neck is completely supple and without adenopathy. Lungs with scattered rales at the bases. Otherwise clear. Cardiac tone: Regular rate and rhythm with tachycardia. Abdomen is soft and apparently nontender, though the patient is really not responsive during my exam. There is certainly no gross hepatosplenomegaly or ascites. No other masses are noted. She does have a Chester catheter. External genitalia normal. The Chester is draining small amounts of clear yellow urine. No inguinal adenopathy. Extremities are somewhat wasted, but without evidence of synovitis. There is no evidence for cellulitis. No skin breakdown and peripheral pulses quite intact. Because she is intubated and sedated and obtunded, I cannot evaluate sensory or motor function, though at different times, the nurses have observed her making what appear to be purposeful movements to get out of bed or extubate herself but she does not follow any commands or interact meaningfully. LABORATORIES: Include white count which was 22,000 at its maximum on February 28. It has now fallen to 14,000, platelet count 216. Creatinine is 5.58 in this dialysis patient. Procalcitonin has been slowly rising. It is now 2.69. LFTs include AST 59, ALT 45, creatinine is 4.8. Urinalysis without white cells. Toxicology was positive for methadone and marijuana. Micro studies include many negative blood cultures over the past five days with one bottle only growing coag-negative Staph. MRSA screen negative. Sputum had normal racheal. I reviewed the imaging together with the pulmonary attending this morning on ICU rounds. The CT scan of the chest, abdomen, and pelvis done on the showed some clustered nodularity in both lower lung trilpett, which could be consistent with an aspiration type process. Also noted was some thickening of the cecum and the ascending colon, which was nonspecific, and the gallbladder was distended but without evidence of cholecystitis. This led to an abdominal ultrasound which did not show evidence of cholecystitis but did confirm the finding of multiple stones. A chest x-ray done today was evaluated. It looks relatively clear with perhaps some interstitial prominence, and a possible left retrocardiac infiltrate. Note that this is the area where the nodules were most clustered on the CT scan by my eye. IMPRESSION: This is a difficult case as we have very little in the way of history of an unfortunate woman with a history of polysubstance abuse who came to the [place] emergency department about five days ago looking for a refill of her high-dose Xanax. She had a seizure at that time, and also was noted to have complications of end-stage liver disease with some missed dialysis sessions. She was intubated and transferred here where she has had persistent low-grade fevers despite levo and Flagyl use. Potential sources of fever here are multiple but one would be most concerned of course about a pulmonary process given the nodularity seen on the CT scans. Other possibilities here of course could include line infection, as the patient has indwelling hemodialysis as well as now triple lumen line. Drug withdrawal might be also considered as a cause of these low-grade fevers. Fungemia remains a possibility, as does Clostridium difficile, though the patient is not having any stools whatsoever, but it is worth noting that her CT scan did show thickened cecum. If it gets worse. With respect to her pulmonary processes, it seems most likely this would be an aspiration given the history of recent seizures, but it is also worth considering the possibility of a chronic pneumonia, perhaps due to Crypto or some similar, more esoteric organisms. Typical causes of aspiration pneumonia would likely been treated already with the broad-spectrum antibiotics she has received today, including levo and Flagyl. RECOMMENDATIONS: 1. Blood cultures x2 should be done both through the dialysis line as well as the triple-lumen. 2. Serum Crypto antigen will be ordered. 3. The blood cultures done today should be fungal blood cultures, and I will notify the lab of that. 4. We can go ahead and stop the levofloxacin and Flagyl today, I think, as she has received a five-day course. It may be not unreasonable to substitute a wholly different antibiotic at this point, and I would consider the use of tigecycline in this circumstance. I would ordinarily lean towards a carbapenem but given her recent seizures, I would not wish to aggravate that process. 5. Whether to add antifungal therapy remains unclear at this time but would not be unreasonable to consider if the patient continues to have low-grade fevers. 6. I will continue to follow this patient with you.
[2017-03-03] MEDS: Propofol Inj 1,000,000 MCG in IV Premix 1 EACH IV SCH ×2 (19:39→20:55)
[2017-03-03] MEDS: Tigecycline Inj 50 MG in 0.9% Sodium Chloride 100 ML IV SCH (20:55)
--- NOTE | 2017-03-03 22:28 | NUR ---
Dialysis note: 3 1/2 hr tx Net UF 2000 Right cath A - V; V-A Arterial limb would not pull. Used as venous limb QB 400 down to 315, clotting noted in the venous drip chamber Pt intubated, vent Pt intermittently moved all 4 limbs, and tried to sit up. Opened eyes but did not follow commands. Blood returned and blood cultures drawn. Cath limbs dwelled with Heparin 1000 and secured with caps Report given to primary RNLety Pt stable at end of tx.
[2017-03-04] VITALS (13 sets, daily range): BP systolic 105–147; BP diastolic 55–84; PULSE 99–122; RESP 14–30; O2SAT 93–100
[2017-03-04] MEDS: Albuterol-Ipratropium 3 mL Inhalation Solution NEB SCH ×7 (00:26→23:56)
[2017-03-04] MEDS: Dexmedetomidine 400 mCg/100 mL 400 MCG in IV Premix 1 EACH IV SCH ×2 (01:40→08:15)
[2017-03-04] MEDS: Insulin Human REGular 300 Unit/3 mL Inj SUBQ SCH ×4 (01:43→20:40)
[2017-03-04] MEDS: fentaNYL 2,500 mCg/250 mL 2,500 MCG in IV Premix 1 EACH IV SCH (05:59)
--- NOTE | 2017-03-04 06:07 | ABG ---
DateTimeAnalyzed 06:01:00 -_ pH ____7.486 - 7.350 7.450 pCO2 ___35.2__ -mmHg 35.0 45.0 pO2 ___83.5__ -mmHg 69.0 116 HCO3- ___26.3__ -mmol/L 22.0 26.0 ABE ____3.3__ -mmol/L -2.0 2.0 tHb ___10.0__ -g/dL 12.0 18.0 O2Hb ___93.7__ -% COHb ____1.2__ -% 0.0 1.5 MetHb ____1.4__ -% 0.4 1.5 sO2 ___96.2__ -% FIO2 ___30.0__ -% PRVC 14 - Vt __480.0__ -L Drawn By blf - Date/Time Notified____ 06:06:00 -_ Spontaneous_RR ___18.0__ -b/min Notified By blf - Notified Whom Reji Yancey RN - B 756 -mmHg tO2 ___13.2__ -Vol% Jeffrey test _Positive -
--- NOTE | 2017-03-04 06:09 | NUR ---
Sedation/Skin Pt increasingly anxious. Received order to increase Precedex up to 1mcg/kg/hour. Propofol subsequently started for sedation needs. Pt has two non-blanchable reddened area to her buttocks. Mepelex was on her, replaced with new Mepelex, signed and dated the dressing. Pressure Ulcer Protocol already in progress and consult with Wound Care already pending.
[2017-03-04 08:11] LABS: Cryptococcal Ag Negative (Negative)
--- NOTE | 2017-03-04 08:15 | DRSVH ---
PROCEDURE: X-RAY CHEST ONE VIEW, PORTABLE ([id number]) INDICATIONS: Intubated TECHNIQUE: One view of the chest was acquired. COMPARISON: [facility], CR, XR CHEST 1VW (PORTABLE), 03/03/2017, 7:16. FINDINGS: Surgical changes and devices: Sternotomy with mediastinal postoperative changes. Right-sided dialysis catheter with tips in the SVC. Left IJ CVC with tip in the mid SVC. Stable ET and enteric tubes. Lungs and pleura: No pleural effusions or pneumothorax. Left basilar atelectasis otherwise the lungs are clear. Mediastinum: Mediastinal contours appear normal. Heart size is normal. Bones and chest wall: No suspicious bony lesions. Overlying soft tissues appear unremarkable. IMPRESSION: No significant change since the previous study. Stable support devices. Dictated by: Huy Quintero M.D. on 03/04/2017 at 8:12 Approved by: Huy Quintero M.D. on 03/04/2017 at 8:13
--- NOTE | 2017-03-04 08:19 | PROG NOTE ---
[address] [address] PROGRESS NOTE PATIENT: SHAWNEE ZUNIGA : 1970 MR#: [id number] ADMIT: 02/26/2017 JOB ID: [id number] DATE: 03/04/2017 REASON FOR FOLLOW UP: Fever, leukocytosis, and elevated procalcitonin. INTERVAL HISTORY: The patient continues to be relatively stable on the ventilator and requires heavy sedation. The patient becomes agitated when her sedation is decreased, but otherwise she is relatively stable on the ventilator. At this point, she is heavily sedated and of course not able to give any additional history. I did discuss this case with ICU as well as IV management. I discussed this case with the ICU nurse as well as the IV management team. PHYSICAL EXAMINATION: The patient is currently afebrile 37.5. Over the past 24 hours she has been afebrile according to notes in the chart with a temperature max 37.7. Recall that on March 02 though she spiked as high as 39 degrees. Pulse is currently approximately 100. Ventilator settings 30% FiO2 with 5 of PEEP. She is saturating 98% on that. Her blood pressure is stable at 131/69 without vasopressor agents and her urine output continues to be modest according to the notes available here in the computer. The patient's eyes are without conjunctivitis or scleral icterus. The oral cavity with endotracheal tube and orogastric tube present. Lungs with scattered coarse breath sounds including numerous rhonchi bilaterally. Cardiac tones regular rate and rhythm. There is a left neck central line which appears benign at its insertion site and a right upper chest dialysis catheter which also appears benign. The patient's abdomen is without obvious tenderness, though she is obviously very sedated. There is no hepatosplenomegaly or ascites. The extremities are without evidence of cellulitis. There is some early skin breakdown seen along the sacrum. LABORATORIES: Include white count was 13 yesterday, it has not been repeated today. Creatinine today is 3.77 in this dialysis patient. ALT is 51, bilirubin 0.5. Procalcitonin has not been done in two days. When last checked it was 2.69 and rising. Fungitell and cryptococcal antigen are pending. In terms of microbiology, fungal blood cultures drawn through both lines from yesterday are pending. A sputum from yesterday showed moderate polys without organisms and the culture is pending. Blood cultures from the are negative. Blood cultures from the also negative. Blood cultures from the had a coag-negative staph in 1/4 bottles which is likely of no significance and blood cultures from back on the when she was admitted are negative. IMAGING: Includes today's chest x-ray, which I reviewed. It is fairly unimpressive to my eye. There may be a very small left pleural effusion, but no major infiltrate is noted. This film has not yet been formally read by the radiologist so this is my amateur opinion. If anything though when comparing it to yesterday's it looks somewhat improved, though there is a hint of possible retrocardiac infiltrate this is quite subtle. IMPRESSION: This is an unfortunate 46-year-old woman with an extraordinary collection of problems including diabetes with gastropathy, end-stage renal disease, coronary artery disease status post recent coronary artery bypass graft, and history of polysubstance abuse. She was admitted through the [facility] with seizures possibly due to withdrawal from high-dose benzodiazepine. She has subsequently been ventilated and has had leukocytosis and an elevated procalcitonin. Fevers have been intermittent and so far unexplained. A course of levofloxacin and Flagyl did not seem to be of benefit and yesterday we stopped those antibiotics and instead instituted tigecycline. I realize this is an unusual choice as it has its limitations as an antibiotic, but it does not provoke C. diff and does provide reasonably broad spectrum coverage except for Pseudomonas and Providencia. At this point, the patient is certainly stable and her fever curve seems to be declining. We do not have a procalcitonin from today, nor a CBC. RECOMMENDATIONS: 1. I would continue cautiously with the tigecycline. 2. We await the multiple cultures and serologies which are pending. 3. I would hold off on antifungal therapy at this point, as I think it is fairly low probability, but obviously that would change should we have a positive culture Fungitell. 4. Note that I will be out of town for the next 6 days returning to work on March 11. I can be reached by telephone or text message about this or any other patient if needed.
[2017-03-04] MEDS: Levothyroxine 100 mCg/5 mL Inj IV SCH (08:31)
[2017-03-04] MEDS: Sodium Chloride LOK Flush 10 mL Syringe IVFLUSH PRN (08:32)
[2017-03-04] MEDS: Propofol Inj 1,000,000 MCG in IV Premix 1 EACH IV SCH ×3 (08:32→22:31)
[2017-03-04] MEDS: Thiamine Inj 300 MG in Dextrose 5% 50 ML IV SCH (08:32)
[2017-03-04] MEDS: Chlorhexidine 0.12% 15 mL Oral Solution MT SCH ×2 (08:32→20:37)
[2017-03-04] MEDS: Nystatin 100,000 Unit/mL 5 mL Suspension PO SCH ×3 (08:33→20:37)
[2017-03-04] MEDS: Tigecycline Inj 50 MG in 0.9% Sodium Chloride 100 ML IV SCH ×2 (08:33→20:37)
[2017-03-04] MEDS: Pantoprazole 4 mg/mL 10 mL Inj IVPUSH SCH ×2 (08:34→16:13)
[2017-03-04] MEDS: Heparin 5,000 Unit/mL Inj SUBQ SCH ×2 (09:25→16:11)
[2017-03-04] MEDS: Norepineph 8,000 mCg/250 mL NS 8,000 MCG in IV Premix 1 EACH IV SCH (10:29)
--- NOTE | 2017-03-04 11:30 | PROG NOTE ---
[address] [address] PROGRESS NOTE PATIENT: SHAWNEE ZUNIGA : 1970 MR#: [id number] ADMIT: 02/26/2017 JOB ID: [id number] DATE: 03/04/2017 PULMONARY CRITICAL CARE PROGRESS NOTE: The patient is a 46-year-old woman with end-stage renal disease on hemodialysis, coronary artery disease, type 2 diabetes and polysubstance abuse presenting with seizure and acute respiratory failure. The patient was seen and evaluated with resident physician, Miguel Arreola DO. Please refer to his separate detailed note for additional information. INTERVAL HISTORY: Propofol was added overnight with which she is much more sedated this morning after a long period of agitation all day yesterday. REVIEW OF SYSTEMS: Unable to obtain. PHYSICAL EXAMINATION: Vital signs reviewed. T-max was 37.7 at noon yesterday, and she has been afebrile since then. General: Intubated, sedated, not responsive to me. Chest is clear to auscultation. LABORATORIES: Reviewed. Notable for WBC down to 13.9 from 17.1 yesterday and 22.7 the day prior, trending in the right direction. Procalcitonin is down to 2.33 from 2.69 yesterday. No growth on any cultures so far. Chest x-ray remains clear. ASSESSMENT: 1. Acute hypoxic respiratory failure, on mechanical ventilation since February 26. 2. Acute encephalopathy -- unexplained. 3. Seizure on February 26. 4. End-stage renal disease, on hemodialysis. 5. Persistent fevers, systemic inflammatory response syndrome -- unknown source. 6. History of polysubstance abuse. RECOMMENDATIONS: This 46-year-old woman with multiple medical problems including end-stage renal disease, on dialysis, and polysubstance abuse presented to the emergency department and had a seizure. This has been attributed to benzo withdrawal. She was intubated with a seizure and has remained intubated, encephalopathic since that time, with intermittent fevers that are unexplained. Yesterday, she was seen by Infectious Disease, and tigecycline was added to her antibiotic regimen, with levofloxacin and Flagyl stopped. Since noon yesterday, she has had no further elevated temperatures and has remained afebrile. The other issue has been encephalopathy and her difficulty with sedation. She is doing better on propofol, so I think we should wean off the Precedex completely and simply continue propofol and fentanyl. From the vent standpoint, she is only on 30% and 5 of PEEP, so we went ahead with a pressure support trial today. She is tolerating 10-12 of pressure support quite well, so I would like to try slowly bringing her down to 5/5 and do a spontaneous breathing trial if possible. She is getting dialysis Friday, Friday and Friday while in the hospital, although at baseline she gets Friday, and Friday. She is on appropriate GI prophylaxis. We will add DVT prophylaxis with heparin today. CRITICAL CARE TIME: 40 minutes.
--- NOTE | 2017-03-04 12:10 | PCM.PNNEPH ---
Subjective Date of Service Mar 04, 2017 Subjective HD performed yesterday without complications. UF 2L Stable BP. FiO2 decreased, 30%. Afebrile worsening anemia. Exam Vital Signs Vital Sign - Last Date Time Temp Pulse Resp B/P Pulse Ox O2 Delivery O2 Flow Rate FiO2 03/04/17 11:20 101 28 113/61 100 30 03/04/17 08:00 Ventilator 03/04/17 04:00 37.5 Intake and Output 03/03/17 03/03/17 03/04/17 Cumulative From/Thru 15:00 23:00 07:00 02/26/17 17:12 - 03/04/17 06:00 Intake Total 565 ml 1309 ml 63998 ml Output Total 2250 ml 180 ml 8438 ml Balance -1685 ml 1129 ml 3703 ml Intake Oral 0 ml 600 ml IV Total 565 ml 544 ml 79390 ml Tube Feeding 601 ml 923 ml TPN/PPN 110 ml Tube Irrigant 164 ml 364 ml Output Urine Total 250 ml 180 ml 1003 ml Gastric Drainage Total 0 ml 1935 ml Ultrafiltrate 2000 ml 5500 ml # Bowel Movements 0 0 Exam GENERAL: Intubated, sedated, agitated at times. HEENT: Head is normocephalic and atraumatic. Mucous membranes are moist. NECK: Supple, no elevation of JVD, No carotid bruits. No lymphadenopathy or thyromegaly. Left IJ triple-lumen in place LUNGS: Equal breath sounds bilaterally, fine crackles at the bases. Right tunneled catheter in place. HEART: Normal S1/S2, tachycardic Regular rate and rhythm, no murmurs, rubs or gallops. ABDOMEN: Soft, nontender, and nondistended. Positive bowel sounds. No hepatosplenomegaly was noted. EXTREMITIES: Without any cyanosis, clubbing, rash, lesions or edema. Lab and Diagnostics Result Diagram: 03/03/17 0250 03/04/17 0420 X-Rays, CTs and MRIs Chest x-ray 02/27/17 IMPRESSION: Stable support lines and tubes in no definite acute cardiopulmonary process. Dictated by: Kem PINTO Interpreted: Caleb Cabrera MD on 02/27/2017 at 10:05 Approved by: Caleb Cabrera M.D. on 02/27/2017 at 10:[address] 02/28/17 1. Mild periventricular and subcortical hypodensities in the right parietal and occipital lobes are nonspecific and may represent early chronic small vessel ischemic changes. But the differential is broad and include inflammatory processes such as demyelinating disease and infection among other etiologies. Recommend correlation clinically and consider further evaluation with MRI if indicated. Dictated by: Jerson Inman M.D. on 02/28/2017 at 12:[address] 02/28/17 1. Bilateral clustered pulmonary nodules with areas of confluent consolidation in the lower lobes suggestive of aspiration and pneumonia. 2. Segmental wall thickening involving the cecum and ascending colon as well as the rectosigmoid colon consistent with a nonspecific colitis, likely infectious or inflammatory. 3. Endotracheal tube present with the tip approximately 2.5 cm from the mike. Consider withdrawal by approximately 1-1.5 cm 4. Distention of the gallbladder without calcified gallstones. Recommend further evaluation with ultrasound if there is clinical suspicion for cholecystitis 5. Indeterminate left adrenal nodule. Further evaluation may be obtained with an adrenal protocol CT or MRI when clinically feasible. Dictated by: Jerson Inman M.D. on 02/28/2017 at 12:40 PROCEDURE: US ABDOMEN, LIMITED ([id number]) IMPRESSION: Limited exam demonstrating prominence of the gallbladder and several small gallstones. Dictated by: Kem Gordon [facility] Interpreted: Honey Vivar MD on 02/28/2017 at 16: 34 PROCEDURE: X-RAY CHEST ONE VIEW, PORTABLE ([id number]) IMPRESSION: Stable support devices. No acute cardiopulmonary pathology. Dictated by: Huy Quintero M.D. on 03/01/2017 at 9:35 Plan Impression 1. End-stage renal disease, hemodialysis dependent 2. Acute hypoxic respiratory failure 3. Sepsis, unclear definite source of infection, suspected aspiration pneumonia 4. Metabolic encephalopathy 5. Seizure 6. Polysubstance abuse 7. Type II diabetes with diabetic nephropathy 8. Hypertension with hypertensive nephrosclerosis 9. Worsening anemia Plan: Continue HD Q Friday and Friday. No urgent HD indicated at the moment. Repeat iron panel, FOBT. The rest of management as per ICU team. We will monitor along with you. Anita Camp MD Mar 04, 2017 12:10
--- NOTE | 2017-03-04 12:58 | PCM.PNMED ---
Subjective Date of Service Mar 04, 2017 Subjective ICU Progress Note Patient is a 46-year-old female with history of polysubstance abuse and long- term benzodiazepine use presented to [facility] requesting Xanax, underwent a seizure and was intubated, and transferred to [facility], all following missed dialysis. Overnight, she became more agitated and was started on Precedex gtt at 1 mcg/kg/ hr. She was afebrile overnight, and otherwise her night was uneventful. This morning, she is sedated and does not respond to verbal cues or physical stimulation. Exam Vital Signs Vital Sign - Last Date Time Temp Pulse Resp B/P Pulse Ox O2 Delivery O2 Flow Rate FiO2 03/04/17 12:18 109 99 30 03/04/17 12:16 20 123/69 03/04/17 08:00 Ventilator 03/04/17 04:00 37.5 Intake and Output 03/03/17 03/03/17 03/04/17 Cumulative From/Thru 15:00 23:00 07:00 02/26/17 17:12 - 03/04/17 06:00 Intake Total 565 ml 1309 ml 52654 ml Output Total 2250 ml 180 ml 8438 ml Balance -1685 ml 1129 ml 3703 ml Intake Oral 0 ml 600 ml IV Total 565 ml 544 ml 40637 ml Tube Feeding 601 ml 923 ml TPN/PPN 110 ml Tube Irrigant 164 ml 364 ml Output Urine Total 250 ml 180 ml 1003 ml Gastric Drainage Total 0 ml 1935 ml Ultrafiltrate 2000 ml 5500 ml # Bowel Movements 0 0 Exam General: Sedated and intubated. Unresponsive. Head: Normocephalic, atraumatic. External ears normal. Eyes: PERRLA, EOMI. Anicteric sclerae. Mouth: Mouth normal, Mucous membranes moist/pink Neck: Neck supple with full range of motion. Chest& Lungs: Coarse breath sounds bilaterally Cardiovascular: Tachycardic, regular rhythm, Normal S1, Normal S2, No murmurs/ rubs/gallops Abdomen: Non-tender, Non-distended, No masses, Normoactive bowel tones, Soft Musculoskeletal: Normal range of motion Extremities: No cyanosis/clubbing/edema bilaterally Neurological: Unresponsive. Vent Settings FiO2: 30 PEEP set: 5 PEEP mes: 8 RR: 14 VT: 480 Peak: 25 Plat: 18 Lab and Diagnostics Result Diagram: 03/03/17 0250 03/04/17 0420 X-Rays, CTs and MRIs Chest x-ray 02/27/17 IMPRESSION: Stable support lines and tubes in no definite acute cardiopulmonary process. Dictated by: Kem PINTO Interpreted: Caleb Cabrera MD on 02/27/2017 at 10:05 Approved by: Caleb Cabrera M.D. on 02/27/2017 at 10:[address] 02/28/17 1. Mild periventricular and subcortical hypodensities in the right parietal and occipital lobes are nonspecific and may represent early chronic small vessel ischemic changes. But the differential is broad and include inflammatory processes such as demyelinating disease and infection among other etiologies. Recommend correlation clinically and consider further evaluation with MRI if indicated. Dictated by: Jerson Inman M.D. on 02/28/2017 at 12:[address] 02/28/17 1. Bilateral clustered pulmonary nodules with areas of confluent consolidation in the lower lobes suggestive of aspiration and pneumonia. 2. Segmental wall thickening involving the cecum and ascending colon as well as the rectosigmoid colon consistent with a nonspecific colitis, likely infectious or inflammatory. 3. Endotracheal tube present with the tip approximately 2.5 cm from the mike. Consider withdrawal by approximately 1-1.5 cm 4. Distention of the gallbladder without calcified gallstones. Recommend further evaluation with ultrasound if there is clinical suspicion for cholecystitis 5. Indeterminate left adrenal nodule. Further evaluation may be obtained with an adrenal protocol CT or MRI when clinically feasible. Dictated by: Jerson Inman M.D. on 02/28/2017 at 12:40 PROCEDURE: US ABDOMEN, LIMITED ([id number]) IMPRESSION: Limited exam demonstrating prominence of the gallbladder and several small gallstones. Dictated by: Kem PINTO Interpreted: Honey Vivar MD on 02/28/2017 at 16: 34 PROCEDURE: X-RAY CHEST ONE VIEW, PORTABLE ([id number]) IMPRESSION: Stable support devices. No acute cardiopulmonary pathology. Dictated by: Huy Quintero M.D. on 03/01/2017 at 9:35 Assessment & Plan Patient is a 46-year-old female with history of polysubstance abuse and long- term benzodiazepine use presented to [facility] requesting Xanax, underwent a seizure and was intubated, and transferred to [facility], all following missed dialysis. Acute hypoxic respiratory failure. - Secondary to seizures. Patient currently on mechanical ventilation since February 26. Patient is oversedated at this point, so we will discontinue Precedex and continue to lighten sedation before continuing pressure support trials. - Continue pressure support trials. - Attempt to wean off sedation Acute seizures. - Likely secondary to benzodiazepine withdrawal, although intracranial causes should be ruled out. - Restarted home Xanax 2 mg TID PO - Consider MRI brain in future if her mental status does not improve. Acute encephalopathy. - Multifactorial. Patient is on chronic methadone, but family reports likely recent heroin and ongoing alcohol use, so withdrawal is certainly a possible contributing factor. Pt is oversedated on increased Precedex today, so will discontinue it and continue fentanyl and propofol for now. The patient is still on significant sedation with fentanyl and propofol, so we will continue to wean these as tolerated, while trying to avoid worsening her agitation. - Discontinued Precedex - Wean fentanyl and propofol as tolerated. Persistent fevers, acute. Improving. - Pt had been presenting with persistent fevers and elevated WBC count over her admission. CT abd showed bilateral lower lobe infiltrates suspicious for aspiration and possible colitis. Blood and sputum cultures negative to date. Also concern for line infections or fungal infection. Dr. Faith saw the pt yesterday and started tigecycline. She was afebrile overnight and her WBC began to decline, as did her procalcitonin. - Dr. Faith of Infectious Disease has been consulted. We appreciate his input. - Continue tigecycline - Discontinued levofloxacin and Flagyl. - Fungal blood cultures pending - Fungitell and Cryptococcal antigens pending - Sputum cultures pending - Blood cultures from peripheral line, dialysis catheter, and skin pending History of CAD with stents. - Pt had been hypotensive, responding well to fluids. Echo showed mild moderately increased LV wall thickness with normal LVEF. Regional wall motion abnormalities could not be excluded due to limited visualization. Relaxation abnormality of LV present. - Continue aspirin - Continue to monitor ESRD - Continue dialysis per Nephrology M/W/F GI Prophylaxis: H2 rhonda VTE Prophylaxis: Sub-Q Heparin (Unfractionated) VTE Mechanical Devices: Intermittant Pneumatic CD Resuscitation Status: CPR: Attempt Resuscitation Attending Statement I have seen and examined this patient with the resident physician. Vital signs , labs, imaging have been reviewed. I agree with the assessment and plan above. Please refer to my separately dictated progress note for any modifications to above. Abbey Dupree M.D. Pulmonary and Critical Care medicine Pager [phone] Miguel Arreola Mar 04, 2017 12:58 Abbey Dupree MD Mar 05, 2017 07:25
[2017-03-04 13:53] LABS: Unsaturated Iron Binding 86.7 ug/dL
--- NOTE | 2017-03-04 17:27 | NUR ---
Social Work: Continued Discharge Planning/Multidisciplinary Rounds D: Pt discussed in multidisciplinary rounds. Pt remains in CCU on mech vent. CCU team is trying to wean pt's sedation so that they can begin the process of extubation. Pt continues to receive dialysis while in the hospital. Followed by nephrology and ID. Case management is continuing to follow pt's clinical course during hospitalization and assist with discharge planning as discharge needs become known. A: Pt who was previously I at baseline. P: Evolving; [employer] to continue to follow to assess for d/c needs and barriers as the pt's clinical course progresses. KIRAN Hoffman
[2017-03-04] MEDS ORDERED: Dexmedetomidine 400 mCg/100 mL 400 MCG in IV Premix 1 EACH IV SCH (18:48)
--- NOTE | 2017-03-04 19:01 | PCM.PNMED ---
Subjective Date of Service Mar 04, 2017 Subjective Overnight patient's Precedex was increased and patient was somnolent throughout the day. Yesterday she was started on tigecycline by infectious disease and overnight there were No fevers and white count is declining. Exam Vital Signs Vital Sign - Last Date Time Temp Pulse Resp B/P Pulse Ox O2 Delivery O2 Flow Rate FiO2 03/04/17 16:54 125 99 30 03/04/17 16:00 Ventilator 03/04/17 16:00 37.2 14 139/80 Intake and Output 03/03/17 03/03/17 03/04/17 Cumulative From/Thru 15:00 23:00 07:00 02/26/17 17:12 - 03/04/17 06:00 Intake Total 565 ml 1309 ml 33003 ml Output Total 2250 ml 180 ml 8438 ml Balance -1685 ml 1129 ml 3703 ml Intake Oral 0 ml 600 ml IV Total 565 ml 544 ml 33795 ml Tube Feeding 601 ml 923 ml TPN/PPN 110 ml Tube Irrigant 164 ml 364 ml Output Urine Total 250 ml 180 ml 1003 ml Gastric Drainage Total 0 ml 1935 ml Ultrafiltrate 2000 ml 5500 ml # Bowel Movements 0 0 Exam General: Sedated HEENT: pupils equal, nonicteric, membranes moist Cardio: Regular rate and rhythm Respiratory: CTA bilaterally with coarse breath sounds Abdomen: Soft, positive bowel sounds Extremities: No edema IVs and Medications Medications Reviewed: Medications were reviewed in detail Lab and Diagnostics Result Diagram: 03/03/17 0250 03/04/17 0420 X-Rays, CTs and MRIs Chest x-ray 02/27/17 IMPRESSION: Stable support lines and tubes in no definite acute cardiopulmonary process. Dictated by: Kem Gordon [facility] Interpreted: Caleb Cabrera MD on 02/27/2017 at 10:05 Approved by: Caleb Cabrera M.D. on 02/27/2017 at 10:[address] 02/28/17 1. Mild periventricular and subcortical hypodensities in the right parietal and occipital lobes are nonspecific and may represent early chronic small vessel ischemic changes. But the differential is broad and include inflammatory processes such as demyelinating disease and infection among other etiologies. Recommend correlation clinically and consider further evaluation with MRI if indicated. Dictated by: Jerson Inman M.D. on 02/28/2017 at 12:[address] 02/28/17 1. Bilateral clustered pulmonary nodules with areas of confluent consolidation in the lower lobes suggestive of aspiration and pneumonia. 2. Segmental wall thickening involving the cecum and ascending colon as well as the rectosigmoid colon consistent with a nonspecific colitis, likely infectious or inflammatory. 3. Endotracheal tube present with the tip approximately 2.5 cm from the mike. Consider withdrawal by approximately 1-1.5 cm 4. Distention of the gallbladder without calcified gallstones. Recommend further evaluation with ultrasound if there is clinical suspicion for cholecystitis 5. Indeterminate left adrenal nodule. Further evaluation may be obtained with an adrenal protocol CT or MRI when clinically feasible. Dictated by: Jerson Inman M.D. on 02/28/2017 at 12:40 PROCEDURE: US ABDOMEN, LIMITED ([id number]) IMPRESSION: Limited exam demonstrating prominence of the gallbladder and several small gallstones. Dictated by: Kem Gordon [facility] Interpreted: Honey Vivar MD on 02/28/2017 at 16: 34 PROCEDURE: X-RAY CHEST ONE VIEW, PORTABLE ([id number]) IMPRESSION: Stable support devices. No acute cardiopulmonary pathology. Dictated by: Huy Quintero M.D. on 03/01/2017 at 9:35 Assessment & Plan Patient is a 46-year-old female with history of polysubstance abuse and long- term benzodiazepine use presented to [facility] requesting Xanax, underwent a seizure and was intubated, and transferred to [facility], all following missed dialysis. Problem list: 1. Acute hypoxic respiratory failure 2. Sepsis with possible aspiration pneumonia vs unidentified etiology 3. Metabolic vs drug induced encephalopathy following seizure 4. End-stage renal disease on hemodialysis 5. Seizures 6. Type II diabetes 7. Hypertension 8. Polysubstance abuse 9. Persistent fevers of unknown origin Neurological: Questionable benzodiazepine withdrawal started the patient's medical course. Last night precedex was increased and patient was very somnolent this morning. Discussed with ICU team recommend patient be switched to propofol in titrated down. -Titrate down fentanyl -Initiate 3 times a day Xanax -Off Precedex -Propofol titrated up until paracentesis of them will titrate down Infection: Dr. Faith for the patient is cycling yesterday there is no fever overnight. White count is trending down as his pro-calcitonin. Fungal antibodies negative. -Blood culture/6 due to an culture/fungal culture pending -Fungitell and cryptococcal antigen pending -Continue tigecycline Cardio: History of triple bypass. Cheetah is on patient we are following. Echo is available in [facility] -Continue aspirin Respiratory: Patient is doing well on present even with reduction of sedation. -Redundant managed by pulmonology Renal: Continue dialysis per nephrology. Electrolytes are essentially normal. Abdomen: Unaware of any bowel movements. Continued trickle feeds. There are positive bowel sounds. Patient status: No timetable until patient is extubated. GI Prophylaxis: H2 rhonda VTE Prophylaxis: Sub-Q Heparin (Unfractionated) VTE Mechanical Devices: Intermittant Pneumatic CD Resuscitation Status: CPR: Attempt Resuscitation Time spent 35 minutes Attending Statement I examined the patient on rounds today. I agree with the assessment and plan as stated above. Charles Castillo DO Mar 04, 2017 19:01 Brennen Estrada MD Mar 06, 2017 07:42
--- NOTE | 2017-03-04 19:24 | NUR ---
Sedation.. Pt had precedex weaned to off and was able to do a 4 hour pressure support trial. Has been more restless but will open eyes and attempt to track. Noted to have legs off the bed and into the railing with an abrasion noted on R luna. Propofol increased some to maintain comfort and less agitation. Is abdias tube feeds well with minimal residuals.
[2017-03-05] VITALS (12 sets, daily range): BP systolic 110–170; BP diastolic 66–92; PULSE 99–124; RESP 18–34; O2SAT 95–100
[2017-03-05] MEDS: Heparin 5,000 Unit/mL Inj SUBQ SCH ×3 (00:58→16:03)
[2017-03-05] MEDS: fentaNYL 2,500 mCg/250 mL 2,500 MCG in IV Premix 1 EACH IV SCH (01:56)
[2017-03-05] MEDS: Propofol Inj 1,000,000 MCG in IV Premix 1 EACH IV SCH ×2 (02:54→08:35)
[2017-03-05] MEDS: Insulin Human REGular 300 Unit/3 mL Inj SUBQ SCH ×4 (02:57→20:30)
[2017-03-05] MEDS: Albuterol-Ipratropium 3 mL Inhalation Solution NEB SCH ×5 (05:21→21:11)
[2017-03-05 05:29] LABS: BASOPHILS % (AUTO) 0.6 % (0-3); EOSINOPHILS % (AUTO) 4.1 % (0-5); MONOCYTES % (AUTO) 12.1 % (4-12); Mean Corpuscular Hemoglobin 31.7 pg (27.0-35.0); Mean Corpuscular Volume 98.3 fL (81-100); NEUTROPHILS % (AUTO) 65.8 % (40-74); Platelet Count 261 bil/L (150-400)
[2017-03-05] MEDS: Nystatin 100,000 Unit/mL 5 mL Suspension PO SCH ×3 (08:08→21:08)
[2017-03-05] MEDS: Pantoprazole 4 mg/mL 10 mL Inj IVPUSH SCH ×2 (08:08→16:03)
[2017-03-05] MEDS: Tigecycline Inj 50 MG in 0.9% Sodium Chloride 100 ML IV SCH (08:08)
[2017-03-05] MEDS: Chlorhexidine 0.12% 15 mL Oral Solution MT SCH ×2 (08:08→20:30)
[2017-03-05] MEDS: Sodium Chloride LOK Flush 10 mL Syringe IVFLUSH PRN (08:11)
[2017-03-05] MEDS: Thiamine Inj 300 MG in Dextrose 5% 50 ML IV SCH (08:33)
[2017-03-05] MEDS: Levothyroxine 100 mCg/5 mL Inj IV SCH (08:45)
[2017-03-05 09:12] LABS: Vitamin B12 1649 pg/mL (211-946)
--- NOTE | 2017-03-05 10:22 | PCM.PNMED ---
Subjective Date of Service Mar 05, 2017 Subjective ICU Progress Note Patient is a 46-year-old female with history of polysubstance abuse and long- term benzodiazepine use presented to [facility] requesting Xanax, underwent a seizure and was intubated, and transferred to [facility], all following missed dialysis. Yesterday, she was weaned off of Precedex and began to become more alert. She tolerated a pressure support trial for 4 hours yesterday. Overnight she was somewhat restless but opened her eyes spontaneously and attempted to track. Today she is on a pressure support trial and tolerating well. Exam Vital Signs Vital Sign - Last Date Time Temp Pulse Resp B/P Pulse Ox O2 Delivery O2 Flow Rate FiO2 03/05/17 09:58 102 22 143/83 100 30 03/05/17 08:00 Ventilator 03/05/17 08:00 36.6 Intake and Output 03/04/17 03/04/17 03/05/17 Cumulative From/Thru 15:00 23:00 07:00 02/26/17 17:12 - 03/05/17 06:18 Intake Total 1515 ml 1173 ml 91090 ml Output Total 125 ml 250 ml 8813 ml Balance 1390 ml 923 ml 6016 ml Intake Oral 600 ml IV Total 705 ml 631 ml 94495 ml Tube Feeding 601 ml 422 ml 1946 ml TPN/PPN 110 ml Tube Irrigant 209 ml 120 ml 693 ml Output Urine Total 125 ml 250 ml 1378 ml Gastric Drainage Total 1935 ml Ultrafiltrate 5500 ml # Bowel Movements 0 0 0 Exam General: Arousable and opens eyes to verbal command, but tracks poorly and not interactive. Head: Normocephalic, atraumatic. External ears normal. Eyes: PERRLA, EOMI. Anicteric sclerae. Mouth: Mouth normal, Mucous membranes moist/pink Neck: Neck supple with full range of motion. Chest& Lungs: Clear to auscultation bilaterally. Cardiovascular: Tachycardic, regular rhythm, Normal S1, Normal S2, No murmurs/ rubs/gallops Abdomen: Non-tender, Non-distended, No masses, Normoactive bowel tones, Soft Musculoskeletal: Normal range of motion Extremities: No cyanosis/clubbing/edema bilaterally Neurological: Arousable but disoriented Lab and Diagnostics Result Diagram: 03/05/1751903/05/17 0520 X-Rays, CTs and MRIs Chest x-ray 02/27/17 IMPRESSION: Stable support lines and tubes in no definite acute cardiopulmonary process. Dictated by: Kem PINTO Interpreted: Caleb Cabrera MD on 02/27/2017 at 10:05 Approved by: Caleb Cabrera M.D. on 02/27/2017 at 10:[address] 02/28/17 1. Mild periventricular and subcortical hypodensities in the right parietal and occipital lobes are nonspecific and may represent early chronic small vessel ischemic changes. But the differential is broad and include inflammatory processes such as demyelinating disease and infection among other etiologies. Recommend correlation clinically and consider further evaluation with MRI if indicated. Dictated by: Jerson Inman M.D. on 02/28/2017 at 12:[address] 02/28/17 1. Bilateral clustered pulmonary nodules with areas of confluent consolidation in the lower lobes suggestive of aspiration and pneumonia. 2. Segmental wall thickening involving the cecum and ascending colon as well as the rectosigmoid colon consistent with a nonspecific colitis, likely infectious or inflammatory. 3. Endotracheal tube present with the tip approximately 2.5 cm from the mike. Consider withdrawal by approximately 1-1.5 cm 4. Distention of the gallbladder without calcified gallstones. Recommend further evaluation with ultrasound if there is clinical suspicion for cholecystitis 5. Indeterminate left adrenal nodule. Further evaluation may be obtained with an adrenal protocol CT or MRI when clinically feasible. Dictated by: Jerson Inman M.D. on 02/28/2017 at 12:40 PROCEDURE: US ABDOMEN, LIMITED ([id number]) IMPRESSION: Limited exam demonstrating prominence of the gallbladder and several small gallstones. Dictated by: Kem PINTO Interpreted: Honey Vivar MD on 02/28/2017 at 16: 34 PROCEDURE: X-RAY CHEST ONE VIEW, PORTABLE ([id number]) IMPRESSION: Stable support devices. No acute cardiopulmonary pathology. Dictated by: Huy Quintero M.D. on 03/01/2017 at 9:35 Assessment & Plan Patient is a 46-year-old female with history of polysubstance abuse and long- term benzodiazepine use presented to [facility] requesting Xanax, underwent a seizure and was intubated, and transferred to [facility], all following missed dialysis. Acute hypoxic respiratory failure. - Secondary to seizures. Patient currently on mechanical ventilation since February 26. Patient is doing well on pressure support trials. We will continue to wean off sedation as tolerated and aim for extubation within the next 1-2 days. - Continue pressure support trials. May extubate today or tomorrow. - Attempt to wean off fentanyl and propofol - Physical therapy ordered Acute seizures. - Likely secondary to benzodiazepine withdrawal, although intracranial causes should be ruled out. - Continue home Xanax 2 mg TID PO - MRI brain in future once pt is cooperative and able to hold still Acute encephalopathy. - Multifactorial. Patient is on chronic methadone, but family reports likely recent heroin and ongoing alcohol use, so withdrawal is certainly a possible contributing factor. Pt is oversedated on increased Precedex today, so will discontinue it and continue fentanyl and propofol for now. The patient is still on significant sedation with fentanyl and propofol, so we will continue to wean these as tolerated, while trying to avoid worsening her agitation. - Discontinued Precedex - Wean fentanyl and propofol as tolerated. Acute sepsis. Resolving. - Likely secondary to unknown gram positive infection. Pt had been presenting with persistent fevers and elevated WBC count over her admission. CT abd showed bilateral lower lobe infiltrates suspicious for aspiration and possible colitis. Blood and sputum cultures negative to date. Also concern for line infections or fungal infection. Dr. Faith saw the pt yesterday and started tigecycline. She was afebrile since 03/03 and her WBC has normalized, and procalcitonin trended down. Her infectious markers improved once switching from Levaquin/Flagyl to tigecycline, so likely an unknown gram positive infection. - Dr. Faith of Infectious Disease has been consulted. We appreciate his input. - Continue tigecycline - Discontinued levofloxacin and Flagyl. - Fungal blood cultures pending - Fungitell and Cryptococcal antigens pending Opiate and alcohol abuse - Pt has history of heroin abuse and methadone use, positive for methadone on Utox. Also history of alcohol abuse. Once she is weaned off fentanyl drip, she will likely need opiates for her withdrawal. - Continue home Xanax - Thiamine 300 mg IV daily - Oxycodone 5 mg q6h tube feed once pt is extubated. History of CAD with stents. - Pt had been hypotensive, responding well to fluids. Echo showed mild moderately increased LV wall thickness with normal LVEF. Regional wall motion abnormalities could not be excluded due to limited visualization. Relaxation abnormality of LV present. - Continue aspirin - Continue to monitor ESRD - Continue dialysis per Nephrology M/W/F GI Prophylaxis: H2 rhonda VTE Prophylaxis: Sub-Q Heparin (Unfractionated) VTE Mechanical Devices: Intermittant Pneumatic CD Resuscitation Status: CPR: Attempt Resuscitation Attending Statement I have seen and examined this patient with the resident physician. Vital signs , labs, imaging have been reviewed. I agree with the assessment and plan above. Please refer to my separately dictated progress note for any modifications to above. Abbey Dupree M.D. Pulmonary and Critical Care medicine Pager [phone] Miguel Arreola Mar 05, 2017 10:21 Abbey Dupree MD Mar 07, 2017 08:09
[2017-03-05] MEDS: oxyCODONE 1 mg/mL 5 mL Liquid TUBE SCH ×3 (12:10→21:29)
[2017-03-05] MEDS ORDERED: Darbepoetin Alfa 40 mCg/0.4 mL Inj SUBQ ONE (12:25)
--- NOTE | 2017-03-05 12:28 | PCM.PNNEPH ---
Subjective Date of Service Mar 05, 2017 Subjective Pr nurse note, precedex weaned to off and was able to do a 4 hour pressure support trial. Responsive to painful stimuli. Afebrile. No acute event. Exam Vital Signs Vital Sign - Last Date Time Temp Pulse Resp B/P Pulse Ox O2 Delivery O2 Flow Rate FiO2 03/05/17 09:58 102 22 143/83 100 30 03/05/17 08:00 Ventilator 03/05/17 08:00 36.6 Intake and Output 03/04/17 03/04/17 03/05/17 Cumulative From/Thru 14:59 22:59 06:59 02/26/17 17:12 - 03/05/17 06:18 Intake Total 1515 ml 1173 ml 25866 ml Output Total 125 ml 250 ml 8813 ml Balance 1390 ml 923 ml 6016 ml Intake Oral 600 ml IV Total 705 ml 631 ml 88865 ml Tube Feeding 601 ml 422 ml 1946 ml TPN/PPN 110 ml Tube Irrigant 209 ml 120 ml 693 ml Output Urine Total 125 ml 250 ml 1378 ml Gastric Drainage Total 1935 ml Ultrafiltrate 5500 ml # Bowel Movements 0 0 0 Exam GENERAL: Intubated, responsive to painful stimuli, agitated at times. ETT/OG in place. HEENT: Head is normocephalic and atraumatic. Mucous membranes are moist. NECK: Supple, no elevation of JVD, No carotid bruits. No lymphadenopathy or thyromegaly. Left IJ triple-lumen in place LUNGS: Equal breath sounds bilaterally,decreased BS at bases. Right tunneled catheter in place. HEART: Normal S1/S2, tachycardic Regular rate and rhythm, no murmurs, rubs or gallops. ABDOMEN: Soft, nontender, and nondistended. Positive bowel sounds. No hepatosplenomegaly was noted. EXTREMITIES: Without any cyanosis, clubbing, rash, lesions or edema. Lab and Diagnostics Result Diagram: 03/05/1751903/05/17519 X-Rays, CTs and MRIs Chest x-ray 02/27/17 IMPRESSION: Stable support lines and tubes in no definite acute cardiopulmonary process. Dictated by: Kem PINTO Interpreted: Caleb Cabrera MD on 02/27/2017 at 10:05 Approved by: Caleb Cabrera M.D. on 02/27/2017 at 10:[address] 02/28/17 1. Mild periventricular and subcortical hypodensities in the right parietal and occipital lobes are nonspecific and may represent early chronic small vessel ischemic changes. But the differential is broad and include inflammatory processes such as demyelinating disease and infection among other etiologies. Recommend correlation clinically and consider further evaluation with MRI if indicated. Dictated by: Jerson Inman M.D. on 02/28/2017 at 12:[address] 02/28/17 1. Bilateral clustered pulmonary nodules with areas of confluent consolidation in the lower lobes suggestive of aspiration and pneumonia. 2. Segmental wall thickening involving the cecum and ascending colon as well as the rectosigmoid colon consistent with a nonspecific colitis, likely infectious or inflammatory. 3. Endotracheal tube present with the tip approximately 2.5 cm from the mike. Consider withdrawal by approximately 1-1.5 cm 4. Distention of the gallbladder without calcified gallstones. Recommend further evaluation with ultrasound if there is clinical suspicion for cholecystitis 5. Indeterminate left adrenal nodule. Further evaluation may be obtained with an adrenal protocol CT or MRI when clinically feasible. Dictated by: Jerson Inman M.D. on 02/28/2017 at 12:40 PROCEDURE: US ABDOMEN, LIMITED ([id number]) IMPRESSION: Limited exam demonstrating prominence of the gallbladder and several small gallstones. Dictated by: Kem Gordon [facility] Interpreted: Honey Vivar MD on 02/28/2017 at 16: 34 PROCEDURE: X-RAY CHEST ONE VIEW, PORTABLE ([id number]) IMPRESSION: Stable support devices. No acute cardiopulmonary pathology. Dictated by: Huy Quintero M.D. on 03/01/2017 at 9:35 Plan Impression 1. End-stage renal disease, hemodialysis dependent 2. Acute hypoxic respiratory failure 3. Sepsis, unclear definite source of infection, suspected aspiration pneumonia 4. Metabolic encephalopathy 5. Seizure 6. Polysubstance abuse 7. Type II diabetes with diabetic nephropathy 8. Hypertension with hypertensive nephrosclerosis 9. Anemia of CKD. Plan: Continue HD Q Friday and Friday. Add aranesp 40 mcg subQ x1. The rest of management as per ICU team. We will monitor along with you. Anita aCmp MD Mar 05, 2017 12:28
--- NOTE | 2017-03-05 13:09 | PROG NOTE ---
[address] [address] PROGRESS NOTE PATIENT: SHAWNEE ZUNIGA : 1970 MR#: [id number] ADMIT: 02/26/2017 JOB ID: [id number] DATE: 03/05/2017 PULMONARY CRITICAL CARE PROGRESS NOTE: The patient is a 46-year-old woman with end-stage renal disease on hemodialysis, coronary artery disease, type 2 diabetes and polysubstance abuse presenting with seizure and acute respiratory failure. The patient was seen and evaluated with resident physician, Miguel Arreola DO. Please refer to his separate detailed note for additional information. INTERVAL HISTORY: She is doing well on a pressure support trial today. She is apparently more responsive and tracking, following commands. REVIEW OF SYSTEMS: Could not be obtained since the patient is intubated. PHYSICAL EXAMINATION: Vital signs reviewed. Afebrile. T-max 37.8. FiO2 of 30%, PEEP 5 cm. General: Intubated, on sedation but opens her eyes, tracks for me. Chest clear to auscultation. LABORATORIES: Reviewed. Procalcitonin is trending down, 2.05 today from 2.3 yesterday and 2.7 the day prior. White count has normalized completely from as high as 22 a few days ago. Cultures no new growth on sputum or blood cultures. with the exception of 1/2 positive blood cultures with coag-negative Staph on February 28. Chest x-ray: No acute changes. Clear bilaterally. With ET tube in appropriate position. ASSESSMENT: 1. Acute hypoxic respiratory failure on mechanical ventilation since February 26. 2. Acute encephalopathy -- improved. 3. Seizure on February 26 -- unexplained. 4. End-stage renal disease on hemodialysis. 5. Sepsis, unknown source -- resolved on antibiotics. 6. History of polysubstance abuse including IV heroin. RECOMMENDATIONS: This complex 46-year-old woman presented with a seizure and acute encephalopathy requiring intubation and mechanical ventilation. She has had fevers, leukocytosis which have resolved with the addition of tigecycline a couple of days ago by ID, but we do not yet have a source of infection identified. I think our best bet would be to continue a 7-10 day course of tigecycline for sepsis of unknown source. From a respiratory standpoint she is improving, doing well on a pressure support trial today, and neurologic status has also improved. This is all reassuring for sepsis associated delirium and I would like to extubate her today. She does have a history of polysubstance abuse including benzos and opiates. She is getting her home dose of Xanax 2 mg three times a day which should help treat any benzo withdrawal. I would also like to add oxycodone 5 mg per feeding tube q.6 hours in order to prevent any opiate withdrawal. We will turn off all her sedative drips at the time of extubation. She is getting dialysis three days a week per Nephrology. She is on appropriate DVT and GI prophylaxis. CRITICAL CARE TIME: 40 minutes.
--- NOTE | 2017-03-05 13:36 | DRSVH ---
PROCEDURE: X-RAY CHEST ONE VIEW, PORTABLE ([id number]) INDICATIONS: dyspnea TECHNIQUE: One view of the chest was acquired. COMPARISON: None. FINDINGS: Surgical changes and devices: Double-lumen central venous catheter from a right-sided approach in nor mal position, sternotomy wires, endotracheal tube, and nasogastric tube all appeared normal.. Lungs and pleura: No pleural effusions or pneumothorax. Lungs are clear. Mediastinum: Mediastinal contours appear normal. Heart size is normal. Bones and chest wall: No suspicious bony lesions. Overlying soft tissues appear unremarkable. IMPRESSION: Mildly reduced inspiratory volume, lines and tubes appear normal. Dictated by: Edvin Diaz M.D. on 02/26/2017 at 16:36 Approved by: Edvin Diaz M.D. on 02/26/2017 at 16:37
--- NOTE | 2017-03-05 18:52 | PCM.PNMED ---
Subjective Date of Service Mar 05, 2017 Subjective Patient did well overnight and is arousable this morning. This morning's goal was to be extubated and she was. She is protecting her airway well and opens her eyes to command but otherwise neurological status has much improved. She continues on Xanax. Exam Vital Signs Vital Sign - Last Date Time Temp Pulse Resp B/P Pulse Ox O2 Delivery O2 Flow Rate FiO2 03/05/17 16:40 102 20 99 Nasal Cannula 3.00 03/05/17 16:00 37.4 170/92 03/05/17 09:58 30 Intake and Output 03/04/17 03/04/17 03/05/17 Cumulative From/Thru 15:00 23:00 07:00 02/26/17 17:12 - 03/05/17 06:18 Intake Total 1515 ml 1173 ml 12229 ml Output Total 125 ml 250 ml 8813 ml Balance 1390 ml 923 ml 6016 ml Intake Oral 600 ml IV Total 705 ml 631 ml 79620 ml Tube Feeding 601 ml 422 ml 1946 ml TPN/PPN 110 ml Tube Irrigant 209 ml 120 ml 693 ml Output Urine Total 125 ml 250 ml 1378 ml Gastric Drainage Total 1935 ml Ultrafiltrate 5500 ml # Bowel Movements 0 0 0 Exam General: Somnolent Cardio: Regular rate and rhythm Respiratory: CTA bilaterally with coarse breath sounds Abdomen: Soft, positive bowel sounds Extremities: No edema IVs and Medications Medications Reviewed: Medications were reviewed in detail Lab and Diagnostics Result Diagram: 03/05/17 0520 03/05/17 0520 X-Rays, CTs and MRIs Chest x-ray 02/27/17 IMPRESSION: Stable support lines and tubes in no definite acute cardiopulmonary process. Dictated by: Kem Gordon [facility] Interpreted: Caleb Cabrera MD on 02/27/2017 at 10:05 Approved by: Caleb Cabrera M.D. on 02/27/2017 at 10:[address] 02/28/17 1. Mild periventricular and subcortical hypodensities in the right parietal and occipital lobes are nonspecific and may represent early chronic small vessel ischemic changes. But the differential is broad and include inflammatory processes such as demyelinating disease and infection among other etiologies. Recommend correlation clinically and consider further evaluation with MRI if indicated. Dictated by: Jerson Inman M.D. on 02/28/2017 at 12:[address] 02/28/17 1. Bilateral clustered pulmonary nodules with areas of confluent consolidation in the lower lobes suggestive of aspiration and pneumonia. 2. Segmental wall thickening involving the cecum and ascending colon as well as the rectosigmoid colon consistent with a nonspecific colitis, likely infectious or inflammatory. 3. Endotracheal tube present with the tip approximately 2.5 cm from the mike. Consider withdrawal by approximately 1-1.5 cm 4. Distention of the gallbladder without calcified gallstones. Recommend further evaluation with ultrasound if there is clinical suspicion for cholecystitis 5. Indeterminate left adrenal nodule. Further evaluation may be obtained with an adrenal protocol CT or MRI when clinically feasible. Dictated by: Jerson Inman M.D. on 02/28/2017 at 12:40 PROCEDURE: US ABDOMEN, LIMITED ([id number]) IMPRESSION: Limited exam demonstrating prominence of the gallbladder and several small gallstones. Dictated by: Kem Gordon [facility] Interpreted: Honey Vivar MD on 02/28/2017 at 16: 34 PROCEDURE: X-RAY CHEST ONE VIEW, PORTABLE ([id number]) IMPRESSION: Stable support devices. No acute cardiopulmonary pathology. Dictated by: Huy Quintero M.D. on 03/01/2017 at 9:35 Assessment & Plan Patient is a 46-year-old female with history of polysubstance abuse and long- term benzodiazepine use presented to [facility] requesting Xanax, underwent a seizure and was intubated, and transferred to [facility], all following missed dialysis. Problem list: 1. Acute hypoxic respiratory failure 2. Sepsis with possible aspiration pneumonia vs unidentified etiology 3. Metabolic vs drug induced encephalopathy following seizure 4. End-stage renal disease on hemodialysis 5. Seizures 6. Type II diabetes 7. Hypertension 8. Polysubstance abuse 9. Persistent fevers of unknown origin Neurological: Questionable benzodiazepine withdrawal started the patient's medical course. Patient is improving and responding to voice. She is still not able to track appropriately but is protecting her airway very well. - Xanax 3 times a day -Avoid sedation tonight Infection: Patient was started on tigecycline and infection markers have decreased. We will continue this for the time being. Fungal markers are negative as is the blood culture. Currently do not have a concrete source for the infection -Continue tigecycline Cardio: History of triple bypass. Fatoumata is on patient we are following. Echo is available in [facility] -Continue aspirin Respiratory: Extubated today and protect her airway well. Questionable aspiration but on antibiotics as above. Avoid sedatives tonight. -Monitor for signs of respiratory distress Renal: Continue dialysis per nephrology. Electrolytes are essentially normal. Abdomen: Unaware of any bowel movements. We will transition patient to by mouth once she is more awake. Patient status: Patient was extubated today and is doing well with regards to her vitals. Will transfer out of CCU if she is doing well in the morning. GI Prophylaxis: H2 rhonda VTE Prophylaxis: Sub-Q Heparin (Unfractionated) VTE Mechanical Devices: Intermittant Pneumatic CD Resuscitation Status: CPR: Attempt Resuscitation Attending Statement The patient was seen and examined together with on March 05 and I agree with the history, exam findings, and plan as outlined in the note above. I did participate in all aspects of the services provided today, including documentation and the plan of care. We will continue to follow her carefully. She remains tachypneic after extubation. The patient may require high flow for respiratory support. In addition she has dark stools will follow hematocrit and guaiac stools. The patient continues to have a fairly pronounced metabolic encephalopathy. Charles Castillo DO Mar 05, 2017 18:51 Jeffrey Neves MD Mar 06, 2017 13:35
--- NOTE | 2017-03-05 21:24 | ABG ---
DateTimeAnalyzed 21:17:00 -_ pH ____7.503 - 7.350 7.450 pCO2 ___32.8__ -mmHg 35.0 45.0 pO2 ___67.3__ -mmHg 69.0 116 HCO3- ___25.6__ -mmol/L 22.0 26.0 ABE ____3.0__ -mmol/L -2.0 2.0 tHb ___11.1__ -g/dL 12.0 18.0 O2Hb ___90.6__ -% COHb ____1.2__ -% 0.0 1.5 MetHb ____1.4__ -% 0.4 1.5 sO2 ___93.0__ -% FIO2 ___60.0__ -% Drawn By AF - Date/Time Notified____ 21:23:00 -_ Oxygen Device 1 __oxymask - Notified By AF - B 759 -mmHg tO2 ___14.2__ -Vol% Jeffrey test _Positive -
[2017-03-05] MEDS ORDERED: Labetalol 5 mg/mL 20 mL Inj IVPUSH ONE (22:40)
--- NOTE | 2017-03-05 23:55 | ABG ---
DateTimeAnalyzed 23:47:44 -_ pH ____7.524 - 7.350 7.450 pCO2 ___35.6__ -mmHg 35.0 45.0 pO2 ___69.7__ -mmHg 69.0 116 HCO3- ___29.3__ -mmol/L 22.0 26.0 ABE ____6.0__ -mmol/L -2.0 2.0 tHb ___11.1__ -g/dL 12.0 18.0 O2Hb ___92.6__ -% COHb ____0.9__ -% 0.0 1.5 MetHb ____0.0__ -% 0.4 1.5 sO2 ___93.3__ -% FIO2 ___45.0__ -% Drawn By MK - Date/Time Notified____ 23:55:00 -_ Liter_Flow ____7.00_ -L/min Oxygen Device 1 __oxymask - Notified By MK - K+ ____3.8__ -mmol/L 3.5 5.0 tO2 ___14.5__ -Vol% Jeffrey test _Positive -
[2017-03-06] VITALS (16 sets, daily range): BP systolic 144–180; BP diastolic 92–110; PULSE 93–130; RESP 24–45; O2SAT 90–98
[2017-03-06] MEDS: Tigecycline Inj 50 MG in 0.9% Sodium Chloride 100 ML IV SCH ×3 (00:22→20:53)
--- NOTE | 2017-03-06 00:27 | NUR ---
Dialysis note 4 hr tx Net UF 2000 right cath A-V, V-A QB 400 Dressg changed,CHG, chloroprep. No s/s of infection Pt hpertensive and labored breathing throughout Primary RN contacted doctor and gave labetelol with no result. Respiratory gave breathing txs and pt on oximask Dwelled with Heparin 1000 and limbs secured with caps Report given to primary RN Ria Pt in room under care of respiratory and primary RN Please see DTR for complete record of VS
[2017-03-06] MEDS: Heparin 5,000 Unit/mL Inj SUBQ SCH ×3 (00:30→16:07)
[2017-03-06] MEDS: Albuterol-Ipratropium 3 mL Inhalation Solution NEB SCH ×6 (00:33→19:49)
[2017-03-06] MEDS ORDERED: Acetaminophen IV 1,000 MG in IV Premix 1 EACH IV ONE ×2 (01:40→19:35)
[2017-03-06] MEDS: Insulin Human REGular 300 Unit/3 mL Inj SUBQ SCH ×4 (01:55→20:27)
[2017-03-06] MEDS: oxyCODONE 1 mg/mL 5 mL Liquid TUBE SCH ×4 (02:57→20:06)
[2017-03-06] MEDS ORDERED: MeTOProlol 1 mg/mL 5 mL Inj IVPUSH ONE (03:05)
[2017-03-06 03:40] LABS: Magnesium 1.9 mg/dL (1.6-2.6)
--- NOTE | 2017-03-06 04:31 | ABG ---
DateTimeAnalyzed 04:25:00 -_ pH ____7.483 - 7.350 7.450 pCO2 ___34.3__ -mmHg 35.0 45.0 pO2 ___73.6__ -mmHg 69.0 116 HCO3- ___25.4__ -mmol/L 22.0 26.0 ABE ____2.6__ -mmol/L -2.0 2.0 tHb ___11.4__ -g/dL 12.0 18.0 O2Hb ___91.9__ -% COHb ____1.3__ -% 0.0 1.5 MetHb ____1.4__ -% 0.4 1.5 sO2 ___94.4__ -% FIO2 ___60.0__ -% Drawn By AF - Date/Time Notified____ 04:31:00 -_ Oxygen Device 1 __oxymask - Notified By AF - B 761 -mmHg tO2 ___14.8__ -Vol% Jeffrey test _Positive -
--- NOTE | 2017-03-06 05:52 | NUR ---
HTN/tachypnea/stool HD was started around 1999 pt maintained hypertensive through out HD Labetalol 20mg was given with no results, pt also becoming tachypnea RR from 25-45 slight fever IV tylenol given resolved fever but not RR, ABGs obtained x3 this shift, MD aware up here to monitor pt often during the shift, after HD pts PO (via NG tube) lopressor 50mg given around 0015 no effect on BP around 0330 5mg IV lopressor given with no effect, SBP 165-175, pt also have 7 very large loose stools this shift ronal sent tele SR 90-103s pt neuro she opens eyes and tracks when you are in the room, isn't answering questions and not following directions.
[2017-03-06 07:35] LABS: BASOPHILS % (AUTO) 1.2 % (0-3); EOSINOPHILS % (AUTO) 2.1 % (0-5); MONOCYTES % (AUTO) 9.9 % (4-12); Mean Corpuscular Hemoglobin 32.1 pg (27.0-35.0); Mean Corpuscular Volume 97.6 fL (81-100); NEUTROPHILS % (AUTO) 70.3 % (40-74); Platelet Count 297 bil/L (150-400)
[2017-03-06] MEDS ORDERED: Nitroglycerin 2% 1 Gm Ointment TOPICAL ONE (07:40)
[2017-03-06] MEDS ORDERED: NiCARdipine Inj 25 MG in Dextrose 5% 240 ML IV PRN (07:48)
[2017-03-06] MEDS: Levothyroxine 100 mCg/5 mL Inj IV SCH (07:54)
[2017-03-06] MEDS: Chlorhexidine 0.12% 15 mL Oral Solution MT SCH ×2 (07:55→19:53)
[2017-03-06] MEDS: Nystatin 100,000 Unit/mL 5 mL Suspension PO SCH ×3 (08:23→20:06)
[2017-03-06] MEDS: NiCARdipine Inj 25 MG in Dextrose 5% 240 ML IV SCH ×2 (09:02→18:11)
--- NOTE | 2017-03-06 09:08 | DRSVH ---
PROCEDURE: X-RAY CHEST ONE VIEW, PORTABLE ([id number]) INDICATIONS: SHORTNESS OF BREATH TECHNIQUE: One view of the chest was acquired. COMPARISON: [facility], CR, XR CHEST 1VW (PORTABLE), 03/04/2017, 5:25. [facility], CR, XR CHEST 1VW (PORTABLE), 03/03/2017, 7:16. [facility], CR, XR CHEST 1VW (LEXI BLE), 03/01/2017, 3:19. FINDINGS: Surgical changes and devices: Median sternotomy. Right internal jugular vein tunneled hemodialysis ca theter. Left internal jugular vein central venous catheter. Lungs and pleura: No pleural effusions or pneumothorax. Upper thorax a partially obstructed by over lying structures. Lungs are clear as visualized.. Mediastinum: Mediastinal contours appear normal. Heart size is normal. Bones and chest wall: No suspicious bony lesions. Overlying soft tissues appear unremarkable. IMPRESSION: No acute process. Dictated by: Rossy Brock M.D. on 03/06/2017 at 9:02 Approved by: Rossy Brock M.D. on 03/06/2017 at 9:07
--- NOTE | 2017-03-06 09:52 | DRSVH ---
PROCEDURE: CT BRAIN WITHOUT CONTRAST ([id number]) INDICATIONS: 46-year-old hypertensive female. TECHNIQUE: Noncontrast 4.5 mm thick angled axial sections acquired from the foramen magnum to the vertex, with c oronal reformats. COMPARISON: [facility], CT, CT BRAIN WO CON, 02/28/2017, 12:16. FINDINGS: Image quality: Several images are degraded by patient motion. CSF spaces: Basal cisterns are patent. No extra-axial fluid collections. Ventricles are normal in size and shape. Brain: No midline shift. No intracranial masses or hemorrhage. Clifton-white matter interface is norm al. Previously noted white matter hypodensities within the posterior right temporal and right parieta l lobes are unchanged to slightly decreased in overall prominence. There is patchy intracranial inte rnal carotid artery atherosclerosis. Skull and face: Calvarium and visualized facial bones are intact, without suspicious lesions. Sinuses: There is dependent moderate fluid within the right sphenoid sinus. Other visualized sinuses and mastoids appear clear. Nasogastric tube is visualized. IMPRESSION: 1. Previously noted right temporoparietal lobe white matter hypodensity is unchanged to slightly decr eased in overall prominence, of uncertain etiology. Brain MRI may be helpful for further characteriza tion. 2. Persistent dependent fluid within the right sphenoid sinus, suggesting sinusitis. Dictated by: Patric Alvarado M.D. on 03/06/2017 at 9:46 Approved by: Patric Alvarado M.D. on 03/06/2017 at 9:51
--- NOTE | 2017-03-06 11:07 | PCM.PNMED ---
Subjective Date of Service Mar 06, 2017 Subjective ICU Progress Note Patient is a 46-year-old female with history of polysubstance abuse and long- term benzodiazepine use presented to [facility] requesting Xanax, underwent a seizure and was intubated, and transferred to [facility], all following missed dialysis. Overnight she became hypertensive with SBP 160s-180s. Dialysis had no effect. Amlodipine, labetalol, and metoprolol were tried with little to no effect. This morning she is somewhat awake, opening her eyes and tracking. She responds weakly to some questions by sometimes nodding or shaking her head, and tries to mouth words, but communication is poor. Per Dr. Castillo, she nodded when asked about chest pain, and was placed on a nicardipine drip, had topical nitro paste , and troponin and EKG were ordered. She was also febrile overnight with TMax 38.3. Exam Vital Signs Vital Sign - Last Date Time Temp Pulse Resp B/P Pulse Ox O2 Delivery O2 Flow Rate FiO2 03/06/17 05:00 37.3 95 40 165/95 96 OxyMask 6.00 03/05/17 09:58 30 Intake and Output 03/05/17 03/05/17 03/06/17 Cumulative From/Thru 15:00 23:00 07:00 02/26/17 17:12 - 03/06/17 06:12 Intake Total 1211 ml 1494 ml 97166 ml Output Total 200 ml 2400 ml 47387 ml Balance 1011 ml -906 ml 6121 ml Intake Oral 600 ml IV Total 361 ml 399 ml 07378 ml Tube Feeding 575 ml 855 ml 3376 ml TPN/PPN 110 ml Tube Irrigant 275 ml 240 ml 1208 ml Output Urine Total 200 ml 400 ml 1978 ml Gastric Drainage Total 1935 ml Ultrafiltrate 2000 ml 7500 ml # Bowel Movements 1 7 8 Exam General: Arousable and opens eyes to verbal command, tracks, follows some commands, attempts to answer some questions. Tachypneic and diaphoretic, appears in moderate distress. Head: Normocephalic, atraumatic. External ears normal. Eyes: PERRLA, EOMI. Anicteric sclerae. Mouth: Mouth normal, Mucous membranes moist/pink Neck: Neck supple with full range of motion. Chest& Lungs: Clear to auscultation bilaterally. Tachypneic. Cardiovascular: Tachycardic, regular rhythm, Normal S1, Normal S2, No murmurs/ rubs/gallops Abdomen: Non-tender, Non-distended, No masses, Normoactive bowel tones, Soft Musculoskeletal: Normal range of motion Extremities: No cyanosis/clubbing/edema bilaterally Neurological: Arousable but disoriented Lab and Diagnostics Result Diagram: 03/06/17 0255 03/06/17 0255 X-Rays, CTs and MRIs Chest x-ray 02/27/17 IMPRESSION: Stable support lines and tubes in no definite acute cardiopulmonary process. Dictated by: Kem PINTO Interpreted: Caleb Cabrera MD on 02/27/2017 at 10:05 Approved by: Caleb Cabrera M.D. on 02/27/2017 at 10:[address] 02/28/17 1. Mild periventricular and subcortical hypodensities in the right parietal and occipital lobes are nonspecific and may represent early chronic small vessel ischemic changes. But the differential is broad and include inflammatory processes such as demyelinating disease and infection among other etiologies. Recommend correlation clinically and consider further evaluation with MRI if indicated. Dictated by: Jerson Inman M.D. on 02/28/2017 at 12:[address] 02/28/17 1. Bilateral clustered pulmonary nodules with areas of confluent consolidation in the lower lobes suggestive of aspiration and pneumonia. 2. Segmental wall thickening involving the cecum and ascending colon as well as the rectosigmoid colon consistent with a nonspecific colitis, likely infectious or inflammatory. 3. Endotracheal tube present with the tip approximately 2.5 cm from the mike. Consider withdrawal by approximately 1-1.5 cm 4. Distention of the gallbladder without calcified gallstones. Recommend further evaluation with ultrasound if there is clinical suspicion for cholecystitis 5. Indeterminate left adrenal nodule. Further evaluation may be obtained with an adrenal protocol CT or MRI when clinically feasible. Dictated by: Jerson Inman M.D. on 02/28/2017 at 12:40 PROCEDURE: US ABDOMEN, LIMITED ([id number]) IMPRESSION: Limited exam demonstrating prominence of the gallbladder and several small gallstones. Dictated by: Kem PINTO Interpreted: Honey Vivar MD on 02/28/2017 at 16: 34 PROCEDURE: X-RAY CHEST ONE VIEW, PORTABLE ([id number]) IMPRESSION: Stable support devices. No acute cardiopulmonary pathology. Dictated by: Huy Quintero M.D. on 03/01/2017 at 9:35 Assessment & Plan Patient is a 46-year-old female with history of polysubstance abuse and long- term benzodiazepine use presented to [facility] requesting Xanax, underwent a seizure and was intubated, and transferred to [facility], all following missed dialysis. Acute hypoxic respiratory failure. Improving. - Secondary to seizures. Patient extubated 03/05/17. She became tachypneic overnight, with primary respiratory alkalosis. O2 90s on oxymask. - Continue to monitor. Hypertension, acute. - Pt became hypertensive overnight. Possibly rebound from missing home metoprolol and losartan vs withdrawal from unknown substance. - Restarted home metoprolol 50 mg BID - Restart home losartan 25 mg daily Possible chest pain, acute. - Pt appears in distress, possibly endorsing chest pain although communication is difficult. She has a hx of CAD so has risk factors for DC. Will hold off on heparin gtt at this time because of uncertain intracranial process on CT and possible dark stools. - Nitro paste placed - EKG and troponin ordered - Aspirin daily - Trend troponin Sepsis secondary to MSSA pneumonia. Active. - Pt had been presenting with persistent fevers and elevated WBC count over her admission.CT abd showed bilateral lower lobe infiltrates suspicious for aspiration and possible colitis. Sputum culture positive for MSSA. Improving on tigecycline. Colitis also a possibility, as she had 7 large bowel movements overnight, reportedly dark stool. Pt had not had a bowel movement for several days, however, and responded to laxatives. - Dr. Faith of Infectious Disease has been consulted. We appreciate his input. - Continue tigecycline - Stool guaiac pending - Fungal blood cultures pending - Fungitell and Cryptococcal antigens pending Acute seizures. Stable. - Likely secondary to benzodiazepine withdrawal, although intracranial causes should be ruled out. CT head shows right temporoparietal lobe white matter hypodensity, is unchanged from prior CT 1 week ago. Will follow up with MRI when pt is able to follow commands. - Restarted home Xanax 2 mg TID PO - Will order MRI brain when pt is able to follow commands and hold still. - Will discuss CT head results with Dr. Alvarado Acute encephalopathy. Improving. - Multifactorial. Patient is on chronic methadone, but family reports likely recent heroin and ongoing alcohol use, so withdrawal is certainly a possible contributing factor. She is beginning to improve with more meaningful behavior today, so we will continue to observe. History of CAD with stents. - Pt had been hypotensive, responding well to fluids. Echo showed mild moderately increased LV wall thickness with normal LVEF. Regional wall motion abnormalities could not be excluded due to limited visualization. Relaxation abnormality of LV present. - Continue aspirin - Continue to monitor ESRD - Continue dialysis per Nephrology M/W/F GI Prophylaxis: H2 rhonda VTE Prophylaxis: Sub-Q Heparin (Unfractionated) VTE Mechanical Devices: Intermittant Pneumatic CD Resuscitation Status: CPR: Attempt Resuscitation Attending Statement I have seen and examined this patient with the resident physician. Vital signs , labs, imaging have been reviewed. I agree with the assessment and plan above. Please refer to my separately dictated progress note for any modifications to above. Abbey Dupree M.D. Pulmonary and Critical Care medicine Pager [phone] Miguel Arreola Mar 06, 2017 11:06 Abbey Dupree MD Mar 07, 2017 08:16
--- NOTE | 2017-03-06 12:30 | PCM.PNNEPH ---
Subjective Date of Service Mar 06, 2017 Subjective She was extubated yesterday evening. She became hypertensive and tachypnic overnight. Nicardipine gtt started. Her home BP med resumed. Exam Vital Signs Vital Sign - Last Date Time Temp Pulse Resp B/P Pulse Ox O2 Delivery O2 Flow Rate FiO2 03/06/17 08:45 105 26 96 Nasal Cannula 55 50 03/06/17 05:00 37.3 165/95 Intake and Output 03/05/17 03/05/17 03/06/17 Cumulative From/Thru 15:00 23:00 07:00 02/26/17 17:12 - 03/06/17 06:12 Intake Total 1211 ml 1494 ml 97580 ml Output Total 200 ml 2400 ml 41946 ml Balance 1011 ml -906 ml 6121 ml Intake Oral 600 ml IV Total 361 ml 399 ml 81973 ml Tube Feeding 575 ml 855 ml 3376 ml TPN/PPN 110 ml Tube Irrigant 275 ml 240 ml 1208 ml Output Urine Total 200 ml 400 ml 1978 ml Gastric Drainage Total 1935 ml Ultrafiltrate 2000 ml 7500 ml # Bowel Movements 1 7 8 Exam GENERAL: restless, tachypnic. HEENT: Head is normocephalic and atraumatic. Mucous membranes are moist. NECK: Supple, no elevation of JVD, No carotid bruits. No lymphadenopathy or thyromegaly. Left IJ triple-lumen in place LUNGS: Equal breath sounds bilaterally,decreased BS at bases. Right tunneled catheter in place. HEART: Normal S1/S2, tachycardic Regular rate and rhythm, no murmurs, rubs or gallops. ABDOMEN: Soft, nontender, and nondistended. Positive bowel sounds. No hepatosplenomegaly was noted. EXTREMITIES: Without any cyanosis, clubbing, rash, lesions or edema. Lab and Diagnostics Result Diagram: 03/06/17 0255 03/06/17 0255 X-Rays, CTs and MRIs Chest x-ray 02/27/17 IMPRESSION: Stable support lines and tubes in no definite acute cardiopulmonary process. Dictated by: Kem Gordon Lillie Interpreted: Caleb Cabrera MD on 02/27/2017 at 10:05 Approved by: Caleb Cabrera M.D. on 02/27/2017 at 10:[address] 02/28/17 1. Mild periventricular and subcortical hypodensities in the right parietal and occipital lobes are nonspecific and may represent early chronic small vessel ischemic changes. But the differential is broad and include inflammatory processes such as demyelinating disease and infection among other etiologies. Recommend correlation clinically and consider further evaluation with MRI if indicated. Dictated by: Jerson Inman M.D. on 02/28/2017 at 12:[address] 02/28/17 1. Bilateral clustered pulmonary nodules with areas of confluent consolidation in the lower lobes suggestive of aspiration and pneumonia. 2. Segmental wall thickening involving the cecum and ascending colon as well as the rectosigmoid colon consistent with a nonspecific colitis, likely infectious or inflammatory. 3. Endotracheal tube present with the tip approximately 2.5 cm from the mike. Consider withdrawal by approximately 1-1.5 cm 4. Distention of the gallbladder without calcified gallstones. Recommend further evaluation with ultrasound if there is clinical suspicion for cholecystitis 5. Indeterminate left adrenal nodule. Further evaluation may be obtained with an adrenal protocol CT or MRI when clinically feasible. Dictated by: Jerson Inman M.D. on 02/28/2017 at 12:40 PROCEDURE: US ABDOMEN, LIMITED ([id number]) IMPRESSION: Limited exam demonstrating prominence of the gallbladder and several small gallstones. Dictated by: Kem Gordon [facility] Interpreted: Honey Vivar MD on 02/28/2017 at 16: 34 PROCEDURE: X-RAY CHEST ONE VIEW, PORTABLE ([id number]) IMPRESSION: Stable support devices. No acute cardiopulmonary pathology. Dictated by: Huy Quintero M.D. on 03/01/2017 at 9:35 Plan Impression 1. End-stage renal disease, hemodialysis dependent 2. Uncontrolled HTN Worsened after extubated. She is now very tachypnic. It appears that respiratory distress raises her BP. 3. Acute hypoxic respiratory failure 4. Metabolic encephalopathy 5. Sepsis. 6. Seizure 7. Polysubstance abuse 8. Type II diabetes with diabetic nephropathy 9. Anemia of CKD. Plan: Resume home BP meds. Increase losartan to 50 mg daily. Continue metoprolol. Wean off nicardipine. Try IV labetalol PRN. Address respiratory issue. Continue HD Q Friday and Friday. We will follow along. Anita Camp MD Mar 06, 2017 12:30
--- NOTE | 2017-03-06 12:36 | PROG NOTE ---
[address] [address] PROGRESS NOTE PATIENT: SHAWNEE ZUNIGA : 1970 MR#: [id number] ADMIT: 02/26/2017 JOB ID: [id number] DATE: 03/06/2017 CRITICAL CARE PROGRESS NOTE: The patient is a 46-year-old woman with end-stage renal disease on hemodialysis, polysubstance abuse, presenting with seizure and acute respiratory failure. The patient was seen and evaluated with resident physician, Miguel Arreola DO. Please refer to his separate detailed note for additional information. INTERVAL HISTORY: She was extubated yesterday and has been doing reasonably well but has become more and more tachypneic overnight. Her respiratory rate has been in the 30s to 40s. She has also become hypertensive. REVIEW OF SYSTEMS: Could not be obtained since patient is quite lethargic and somnolent. PHYSICAL EXAMINATION: Vital signs reviewed. T-max 38.3, pulse 95, respirations 40, BP 165/95, sats 96% on 6 L nasal cannula. General: Lethargic, lying in bed, tracking but not really following commands or answering questions. Chest is clear although she is tachypneic. LABORATORY DATA: Labs reviewed. WBC is completely normalized at 7.6. Chemistry also reviewed. Procalcitonin is down to 1.37 from 2.05. IMAGING: Chest x-ray: No new pulmonary infiltrates. OTHER DATA: Arterial blood gas shows pH 7.48, pCO2 of 34, pO2 of 73, bicarbonate of 25. ASSESSMENT AND RECOMMENDATIONS: 1. Acute respiratory distress/tachypnea. 2. Acute hypoxic respiratory failure - intubated February 26, extubated March 05, currently on 6 L nasal cannula. 3. Acute encephalopathy. 4. Seizure on February 26. 5. End-stage renal disease on hemodialysis. 6. Sepsis - unknown source. 7. History of polysubstance abuse including IV heroin. A complex 46-year-old woman with end-stage renal disease, polysubstance abuse, presenting to the emergency department with a seizure and subsequent respiratory failure requiring mechanical ventilation. She has had persistent fevers which seemed to resolve with the addition of tigecycline, although source of sepsis was not identified. Her sputum has grown MSSA which may have been the initial source of infection. Overnight, she was extubated but has become progressively more tachypneic and now has another fever to 38.3. Her procalcitonin however, is down to 1.27. She has been more and more hypertensive as well although this may be in part due to her not getting her home regimen of antihypertensives. We did a stat head CT today to rule out any acute intracranial process. There is a hypodensity in the temporoparietal region that is unexplained and the radiologist recommended an MRI. I think we should go ahead and pursue the MRI although she may need some sedation to cooperate with this. If the MRI does not reveal a source for her tachypnea, fever, then the next step would be to consider CT pulmonary angiogram to rule out pulmonary embolism as the cause. We are going to continue the tigecycline for now. She is also getting Xanax and oxycodone for possible benzo or narcotic withdrawal. CRITICAL CARE TIME: 60 minutes.
--- NOTE | 2017-03-06 13:04 | NUR ---
NUTRITION FOLLOW-UP: ASSESS: 46 YO F admitted to CCU with hyperkalemia and respiratory failure, dialysis dependent. Pt had a seizure and was intubated at [place]. Pt was successfully extubated yesterday; however, she has had persistent fevers which seemed to resolve with the addition of tigecycline, although source of sepsis was not identified. Her sputum has grown MSSA which may have been the initial source of infection. She has become progressively more tachypneic and now has another fever. She has been more and more hypertensive. Stat head CT was done today to rule out any acute intracranial process. There is a hypodensity in the temporoparietal region that is unexplained; MRI is ordered. If the MRI does not reveal a source for her tachypnea, fever, then the next step would be to consider CT pulmonary angiogram to rule out pulmonary embolism as the cause. The patient is not appropriate for a swallow evaluation at this time. Enteral feeding remains at goal rate 33 mL/hr. PMHX: ESRD requiring dialysis, tachycardia, CAD, T2DM, diabetic gastropathy, GERD, anxiety, benzo abuse, GI pain, heroin use, ETOH, methadone, marijuana use with cyclic nausea / vomiting, mirgraines, hypothyroid, GERD. LABS: Reviewed. Chloride 95, BUN 29, Cr 2.52, Glu 225, Alb 3.2. MEDS: Reviewed. Lopressor, insulin, synthroid. GI: 7 large, loose BM's reported today, following aggressive bowel regimen. SKIN: No pressure injuries, per adult health clinical nurse specialist. WT: 59.2 kg, BMI 21.0 kg/m2. Admit weight: 61.9 kg, BMI 22.0 kg/m2, IBW: 59.1 kg DIET: NPO. NUTRITION SUPPORT: Nepro rate currently at goal 33 ml/hr, providing 1306 kcal, 58 g protein; meeting 100% calorie, 61% protein needs. EST. NEEDS: VENT/ DIALYSIS Calories: 9431-3736 kcal/day (20-25 kcal/kg BW) Protein: 95-125 g/day (1.2-2.0 g/kg BW) Fluids: ~1550 ml/day NUTRITION DIAGNOSIS: 1) Inadequate oral intake related to decreased ability to consume sufficient energy as evidenced by current NPO status - IMPROVED. 2) Increased kcal/pro needs related to ESRD as evidence by pt on chronic dialysis - PERSISTS. NUTRITION INTERVENTION: 1) In the event diet unable to be advanced by tomorrow, will add 4 packets [employer] liquid protein per day to meet 100% protein needs. MONITOR/EVALUATE: NPO status, enteral feeding tolerance, GI, wt, labs, POC, nutrition status. Follow per high nutrition risk guidelines.
--- NOTE | 2017-03-06 13:25 | NUR ---
Hypertension/ tachypnea.. Pt had ongoing blood pressures above 170 syst and tachypnea that varied from rates of 20 to 50. MD's here to assess and pt was ordered for high flow O2. This has improved her resp rates down to 20-30's. Taken to CT scan to R/O CVA and this was completed with RN in attendance. Pt abdias procedure well. Was able to start nicardipine gtt once CT read by MD. Gtt has brought B/P down in the 140's syst. Is abdias tube feeds well without any further diarrhea. No family present. Mother did call and stated she will be in to see the pt on Friday.
[2017-03-06] MEDS ORDERED: Pantoprazole 40 mg ER24 Tablet PO SCH (16:30)
--- NOTE | 2017-03-06 17:36 | PCM.PNMED ---
Subjective Date of Service Mar 06, 2017 Subjective Patient remains tachypneic and tachycardic. She is only mildly responsive. Still getting small amounts of opiates and benzodiazepines. Exam Vital Signs Vital Sign - Last Date Time Temp Pulse Resp B/P Pulse Ox O2 Delivery O2 Flow Rate FiO2 03/06/17 13:23 108 24 91 Nasal Cannula 60 60 03/06/17 12:00 37.7 169/92 Intake and Output 03/05/17 03/05/17 03/06/17 Cumulative From/Thru 15:00 23:00 07:00 02/26/17 17:12 - 03/06/17 06:12 Intake Total 1211 ml 1494 ml 06475 ml Output Total 200 ml 2400 ml 99481 ml Balance 1011 ml -906 ml 6121 ml Intake Oral 600 ml IV Total 361 ml 399 ml 95367 ml Tube Feeding 575 ml 855 ml 3376 ml TPN/PPN 110 ml Tube Irrigant 275 ml 240 ml 1208 ml Output Urine Total 200 ml 400 ml 1978 ml Gastric Drainage Total 1935 ml Ultrafiltrate 2000 ml 7500 ml # Bowel Movements 1 7 8 Exam General: Somnolent Cardio: Tachycardic with regular rate Respiratory: CTA bilaterally with coarse breath sounds and tachypneic Abdomen: Soft, positive bowel sounds Extremities: No edema Neuro: Patient awakes to stimulus but does not maintain IVs and Medications Medications Reviewed: Medications were reviewed in detail Lab and Diagnostics Result Diagram: 03/06/17 0255 03/06/17 0255 X-Rays, CTs and MRIs Chest x-ray 02/27/17 IMPRESSION: Stable support lines and tubes in no definite acute cardiopulmonary process. Dictated by: Kem Gordon [facility] Interpreted: Caleb Cabrera MD on 02/27/2017 at 10:05 Approved by: Caleb Cabrera M.D. on 02/27/2017 at 10:[address] 02/28/17 1. Mild periventricular and subcortical hypodensities in the right parietal and occipital lobes are nonspecific and may represent early chronic small vessel ischemic changes. But the differential is broad and include inflammatory processes such as demyelinating disease and infection among other etiologies. Recommend correlation clinically and consider further evaluation with MRI if indicated. Dictated by: Jerson Inman M.D. on 02/28/2017 at 12:[address] 02/28/17 1. Bilateral clustered pulmonary nodules with areas of confluent consolidation in the lower lobes suggestive of aspiration and pneumonia. 2. Segmental wall thickening involving the cecum and ascending colon as well as the rectosigmoid colon consistent with a nonspecific colitis, likely infectious or inflammatory. 3. Endotracheal tube present with the tip approximately 2.5 cm from the mike. Consider withdrawal by approximately 1-1.5 cm 4. Distention of the gallbladder without calcified gallstones. Recommend further evaluation with ultrasound if there is clinical suspicion for cholecystitis 5. Indeterminate left adrenal nodule. Further evaluation may be obtained with an adrenal protocol CT or MRI when clinically feasible. Dictated by: Jerson Inman M.D. on 02/28/2017 at 12:40 PROCEDURE: US ABDOMEN, LIMITED ([id number]) IMPRESSION: Limited exam demonstrating prominence of the gallbladder and several small gallstones. Dictated by: Kem Gordon [facility] Interpreted: Honey Vivar MD on 02/28/2017 at 16: 34 PROCEDURE: X-RAY CHEST ONE VIEW, PORTABLE ([id number]) IMPRESSION: Stable support devices. No acute cardiopulmonary pathology. Dictated by: Huy Quintero M.D. on 03/01/2017 at 9:35 Assessment & Plan Patient is a 46-year-old female with history of polysubstance abuse and long- term benzodiazepine use presented to [facility] requesting Xanax, underwent a seizure and was intubated, and transferred to [facility], all following missed dialysis. Acute encephalopathy. No progress - Questionable if this is due to toxic encephalopathy from medications or if there is something warm and going on. Patient is not received a lumbar puncture. Or an MRI. She is now extubated and can go for MRI. - MRI and LP in the am Acute hypoxic respiratory failure. Improving. - Secondary to seizures. Patient extubated 03/05/17. She became tachypneic overnight, with primary respiratory alkalosis. O2 90s on oxymask. - Continue to monitor. Hypertension, acute. - Pt became hypertensive overnight. Possibly rebound from missing home metoprolol and losartan vs withdrawal from unknown substance. - Nicardipine drip this am; will allow some permissive htn today - Restarted home metoprolol 50 mg BID - Restart home losartan 25 mg daily Possible chest pain, acute. - Pt appears in distress, possibly endorsing chest pain although communication is difficult. She has a hx of CAD so has risk factors for AL. Will hold off on heparin gtt at this time because of uncertain intracranial process on CT and possible dark stools. - Nitro paste placed - Troponin elevated - Aspirin daily - Trend out troponin Sepsis secondary to MSSA pneumonia. Active. - Pt had been presenting with persistent fevers and elevated WBC count over her admission.CT abd showed bilateral lower lobe infiltrates suspicious for aspiration and possible colitis. Sputum culture positive for MSSA. Improving on tigecycline. Colitis also a possibility, as she had 7 large bowel movements overnight, reportedly dark stool. Pt had not had a bowel movement for several days, however, and responded to laxatives. - Dr. Faith of Infectious Disease has been consulted. We appreciate his input. - Continue tigecycline - Stool guaiac pending - Fungal blood cultures pending - Fungitell and Cryptococcal antigens pending Acute seizures. Stable. - Likely secondary to benzodiazepine withdrawal, although intracranial causes should be ruled out. CT head shows right temporoparietal lobe white matter hypodensity, is unchanged from prior CT 1 week ago. Will follow up with MRI when pt is able to follow commands. - Restarted home Xanax 2 mg TID PO - Will discuss CT head results with Dr. Alvarado History of CAD with stents. - Pt had been hypotensive, responding well to fluids. Echo showed mild moderately increased LV wall thickness with normal LVEF. Regional wall motion abnormalities could not be excluded due to limited visualization. Relaxation abnormality of LV present. - Continue aspirin - Continue to monitor ESRD - Continue dialysis per Nephrology M/W/F Status: Unknown etiology for the encephalopathy. Will run additional diagnostics tomorrow morning. GI Prophylaxis: H2 rhonda VTE Prophylaxis: Sub-Q Heparin (Unfractionated) VTE Mechanical Devices: Intermittant Pneumatic CD Resuscitation Status: CPR: Attempt Resuscitation Attending Statement The patient was seen and examined together with on March 06 and I agree with the history, exam findings, and plan as outlined in the note above. I did participate in all aspects of the services provided today, including documentation and the plan of care. The patient continues to have a significant metabolic encephalopathy as well as a respiratory alkalosis. We will continue to cover her for possible pneumonia and support with high flow oxygen. CT scan shows a possible stroke. MRI will be obtained to confirm this finding. Charles Castillo DO Mar 06, 2017 17:36 Jeffrey Neves MD Mar 07, 2017 14:12
--- NOTE | 2017-03-06 17:43 | NUR ---
Social Work: Update/Multidisciplinary Rounds D: Pt discussed in multidisciplinary rounds; the patient has been extubated. She is mildly responsive and not appropriate for BUSINESS TRAINER visit at this time. Per bedside RN, pt is now on high flow 02. Case management will continue to follow pt's clinical course and assess for d/c needs. Pt may benefit from a CD assessment based on past substance use. A: Pt who was previously I living in [place] P: Case management to continue to follow to assess for needs. KIRAN Hoffman
[2017-03-06] MEDS: Pantoprazole 4 mg/mL 10 mL Inj IV SCH (18:11)
--- NOTE | 2017-03-06 20:04 | ABG ---
DateTimeAnalyzed 19:56:12 -_ pH ____7.531 - 7.350 7.450 pCO2 ___22.8__ -mmHg 35.0 45.0 pO2 ___53.4__ -mmHg 69.0 116 HCO3- ___19.1__ -mmol/L 22.0 26.0 ABE ___-2.6__ -mmol/L -2.0 2.0 tHb ___14.3__ -g/dL 12.0 18.0 O2Hb ___87.3__ -% COHb ____0.6__ -% 0.0 1.5 MetHb ____0.0__ -% 0.4 1.5 sO2 ___87.7__ -% FIO2 ___21.0__ -% Drawn By MD - Oxygen Device 2 __CANNULA - Date/Time Notified____ 20:04:00 -_ Spontaneous_RR 28 -b/min Liter_Flow ___60.00_ -L/min Oxygen Device 1 HIGH FLOW - Notified By MD - Notified Whom RN A.SERNA - K+ ____4.5__ -mmol/L 3.5 5.0 tO2 ___17.5__ -Vol% Jeffrey test _Positive -
[2017-03-06] MEDS ORDERED: Insulin Human REGular 300 Unit/3 mL Inj SUBQ ONE (20:25)
--- NOTE | 2017-03-06 23:45 | ABG ---
DateTimeAnalyzed 23:36:20 -_ pH ____7.510 - 7.350 7.450 pCO2 ___29.7__ -mmHg 35.0 45.0 pO2 ___86.7__ -mmHg 69.0 116 HCO3- ___23.7__ -mmol/L 22.0 26.0 ABE ____0.9__ -mmol/L -2.0 2.0 tHb ___13.4__ -g/dL 12.0 18.0 O2Hb ___95.5__ -% COHb ____0.4__ -% 0.0 1.5 MetHb ____0.0__ -% 0.4 1.5 sO2 ___95.7__ -% FIO2 ___21.0__ -% Drawn By MD - Oxygen Device 2 __CANNULA - Date/Time Notified____ 23:44:00 -_ Spontaneous_RR 40 -b/min Liter_Flow ___60.00_ -L/min Oxygen Device 1 HIGH FLOW - Notified By MD - Notified Whom RN A.SERNA - K+ ____3.9__ -mmol/L 3.5 5.0 tO2 ___18.0__ -Vol% Jeffrey test _Positive -
[2017-03-07] VITALS (11 sets, daily range): BP systolic 138–163; BP diastolic 84–99; PULSE 82–107; RESP 28–42; O2SAT 98–100
[2017-03-07] MEDS: Albuterol-Ipratropium 3 mL Inhalation Solution NEB SCH ×4 (00:31→20:30)
[2017-03-07] MEDS: Insulin Human REGular 300 Unit/3 mL Inj SUBQ SCH (02:35)
[2017-03-07] MEDS: oxyCODONE 1 mg/mL 5 mL Liquid TUBE SCH ×4 (02:36→20:43)
[2017-03-07 03:41] LABS: BASOPHILS % (AUTO) 0.8 % (0-3); EOSINOPHILS % (AUTO) 0.1 % (0-5); MONOCYTES % (AUTO) 11.3 % (4-12); Mean Corpuscular Volume 94.5 fL (81-100); NEUTROPHILS % (AUTO) 68.7 % (40-74); Platelet Count 427 bil/L (150-400)
--- NOTE | 2017-03-07 06:24 | NUR ---
Febrile/Respiratory/HTN Tmax 38.4 C, given tylenol IV, last temp down to 37.7C, HR initially upto [address], now at 104-106 ST. SBP 150-160's, on nicardipine gtt @ 2.5 mg/hr, weaned off at 0500, systolic bp 140's. On high flow 02, initially on 60L/60%, po2 53, fion increased to 60L/80%, improved p02 to 87 at midnight. RR was high 30s to low 40s shallow and mouth breathing, RR down to low 30's this am. Pt more awake and interactive with staff, restless and follows simple commands. Bed alarm on, frequent rounding.
--- NOTE | 2017-03-07 06:24 | PCM.PNMED ---
Subjective Date of Service Mar 07, 2017 Subjective Pt remained tachypneic and tachycardiac over night. She did not have a significant fever greater than 38.8 or so. She continues to be somnolent Exam Vital Signs Vital Sign - Last Date Time Temp Pulse Resp B/P Pulse Ox O2 Delivery O2 Flow Rate FiO2 03/07/17 04:01 108 42 100 Nasal Cannula 60 80 03/07/17 03:45 37.7 138/92 Intake and Output 03/06/17 03/06/17 03/07/17 Cumulative From/Thru 15:00 23:00 07:00 02/26/17 17:12 - 03/07/17 06:08 Intake Total 1100 ml 1337 ml 69521 ml Output Total 100 ml 260 ml 76120 ml Balance 1000 ml 1077 ml 8198 ml Intake Oral 600 ml IV Total 654 ml 842 ml 95649 ml Tube Feeding 311 ml 375 ml 4062 ml TPN/PPN 110 ml Tube Irrigant 135 ml 120 ml 1463 ml Output Urine Total 100 ml 260 ml 2338 ml Gastric Drainage Total 1935 ml Ultrafiltrate 7500 ml # Bowel Movements 0 8 Exam General: Somnolent Cardio: Tachycardic with regular rate Respiratory: CTA bilaterally with coarse breath sounds and tachypneic Abdomen: Soft, positive bowel sounds Extremities: No edema Neuro: Patient awakes to stimulus but does focus or track Lab and Diagnostics Result Diagram: 03/07/17 0325 03/07/17 0325 X-Rays, CTs and MRIs Chest x-ray 02/27/17 IMPRESSION: Stable support lines and tubes in no definite acute cardiopulmonary process. Dictated by: Kem Gordon [facility] Interpreted: Caleb Cabrera MD on 02/27/2017 at 10:05 Approved by: Caleb Cabrera M.D. on 02/27/2017 at 10:[address] 02/28/17 1. Mild periventricular and subcortical hypodensities in the right parietal and occipital lobes are nonspecific and may represent early chronic small vessel ischemic changes. But the differential is broad and include inflammatory processes such as demyelinating disease and infection among other etiologies. Recommend correlation clinically and consider further evaluation with MRI if indicated. Dictated by: Jerson Inman M.D. on 02/28/2017 at 12:[address] 02/28/17 1. Bilateral clustered pulmonary nodules with areas of confluent consolidation in the lower lobes suggestive of aspiration and pneumonia. 2. Segmental wall thickening involving the cecum and ascending colon as well as the rectosigmoid colon consistent with a nonspecific colitis, likely infectious or inflammatory. 3. Endotracheal tube present with the tip approximately 2.5 cm from the mike. Consider withdrawal by approximately 1-1.5 cm 4. Distention of the gallbladder without calcified gallstones. Recommend further evaluation with ultrasound if there is clinical suspicion for cholecystitis 5. Indeterminate left adrenal nodule. Further evaluation may be obtained with an adrenal protocol CT or MRI when clinically feasible. Dictated by: Jerson Inman M.D. on 02/28/2017 at 12:40 PROCEDURE: US ABDOMEN, LIMITED ([id number]) IMPRESSION: Limited exam demonstrating prominence of the gallbladder and several small gallstones. Dictated by: Kem Gordon [facility] Interpreted: Honey Vivar MD on 02/28/2017 at 16: 34 PROCEDURE: X-RAY CHEST ONE VIEW, PORTABLE ([id number]) IMPRESSION: Stable support devices. No acute cardiopulmonary pathology. Dictated by: Huy Quintero M.D. on 03/01/2017 at 9:35 Assessment & Plan Patient is a 46-year-old female with history of polysubstance abuse and long- term benzodiazepine use presented to [facility] requesting Xanax, underwent a seizure and was intubated, and transferred to [facility], all following missed dialysis. Acute encephalopathy. No progress - Questionable if this is due to toxic encephalopathy from medications or if there is something warm and going on. Patient is not received a lumbar puncture. Or an MRI. She is now extubated and can go for MRI. - Pending MRI, then LP planned for this morning Acute hypoxic respiratory failure. Improving. - Secondary to seizures. Patient extubated 03/05/17. She became tachypneic overnight, with primary respiratory alkalosis. O2 90s on oxymask. - Continue to monitor. - Pt is likely moving towards reintubation Hypertension, acute. - Hypertension is better controlled this am with home medications. MRI to rule out neurological cause of hypertension - Nicardipine drip this am; will allow some permissive htn today - metoprolol 50 mg BID - osartan 25 mg daily Possible Chest pain with elevated troponin, acute. - Hx of CABG and tachycardic and tachypneic. Elevated troponins x 3. Nitro paste was placed yesterday. Could be due to hypoxia and demand - Patient is not communicating well and its questionable if he answers are intentional, but she nods when asked about chest pain - Nitro paste placed - Aspirin daily - Trop elevated to > 0.3 and consistent - ECHO ordered for today - Considering heparin drip. - Stat EKG Sepsis secondary to MSSA pneumonia. Active. - Pt had been presenting with persistent fevers and elevated WBC count over her admission.CT abd showed bilateral lower lobe infiltrates suspicious for aspiration and possible colitis. Sputum culture positive for MSSA. Improving on tigecycline. Colitis also a possibility, as she had 7 large bowel movements overnight, reportedly dark stool. Pt had not had a bowel movement for several days, however, and responded to laxatives. - Dr. Faith of Infectious Disease has been consulted. We appreciate his input. - Continue tigecycline - Fungal blood cultures pending - Fungitell and Cryptococcal antigens pending Acute seizures. Stable. - Etiology unclear; questionable benzo withdrawal - Restarted home Xanax 2 mg TID PO - Will discuss CT head results with Dr. Alvarado History of CAD with stents. - Ongoing questionable CP and elevated trop - Continue aspirin - Continue to monitor ESRD - Continue dialysis per Nephrology M/W/F Status: Unknown etiology for the encephalopathy. Will run additional diagnostics today and possible reintubate GI Prophylaxis: H2 rhonda VTE Prophylaxis: Sub-Q Heparin (Unfractionated) VTE Mechanical Devices: Intermittant Pneumatic CD Resuscitation Status: CPR: Attempt Resuscitation Attending Statement The patient was seen and examined together with on March 07 and I agree with the history, exam findings, and plan as outlined in the note above. I did participate in all aspects of the services provided today, including documentation and the plan of care. She is doing better from an encephalopathic standpoint today. We will obtain an MRI of her brain to follow-up on her abnormal CT scan. No change to her antibiotics for possible MSSA pneumonia. Continue to follow her respiratory alkalosis primarily. We will consider CT pulmonary angiogram if her head MRI is unremarkable to rule out occult pulmonary embolism. Charles Castillo DO Mar 07, 2017 06:24 Jeffrey Neves MD Mar 07, 2017 14:16
[2017-03-07] MEDS ORDERED: Heparin 5,000 Unit/mL Inj IVPUSH PRN (06:25)
[2017-03-07] MEDS ORDERED: Heparin 25K Unit/500mL 0.45 NS 25,000 UNIT in IV Premix 1 EACH IV SCH (06:25)
[2017-03-07] MEDS ORDERED: MeTOProlol 1 mg/mL 5 mL Inj ONE ×2 (06:36→06:45)
[2017-03-07] MEDS ORDERED: Adenosine 3 mg/mL 2 mL Inj ONE (06:36)
[2017-03-07] MEDS ORDERED: MeTOProlol 1 mg/mL 5 mL Inj IVPUSH SCH (06:45)
--- NOTE | 2017-03-07 07:10 | NUR ---
SVT Pt converted to SVT rate of 170's @ 0635. Notified Dr. Charan MD at bedside, 12 lead ekg done. Given metoprolol 5mg IV x 2, converted to NSR rate 90's @ 0700, BP stable.
[2017-03-07] MEDS: Pantoprazole 4 mg/mL 10 mL Inj IV SCH ×2 (08:05→16:24)
[2017-03-07] MEDS: Nystatin 100,000 Unit/mL 5 mL Suspension PO SCH ×3 (08:06→20:43)
[2017-03-07] MEDS: Levothyroxine 100 mCg/5 mL Inj IV SCH (08:06)
[2017-03-07] MEDS: Chlorhexidine 0.12% 15 mL Oral Solution MT SCH ×2 (08:06→16:48)
[2017-03-07] MEDS: Tigecycline Inj 50 MG in 0.9% Sodium Chloride 100 ML IV SCH ×2 (08:58→20:43)
[2017-03-07] MEDS: Insulin Human REGular Inj 100 UNIT in 0.9% Sodium Chloride-Pha MIX 100 ML IV SCH (09:07)
--- NOTE | 2017-03-07 09:32 | PCM.PNMED ---
Subjective Date of Service Mar 07, 2017 Subjective ICU Progress Note Patient is a 46-year-old female with history of polysubstance abuse and long- term benzodiazepine use presented to [facility] requesting Xanax, underwent a seizure and was intubated, and transferred to [facility], all following missed dialysis. Overnight, she was febrile with Tmax of 38.4, improved with APAP. She was hypertensive overnight with SBP 160s, which improved to 140s and nicardipine gtt was weaned off. Her oxygen needs have been increasing, currently on high flow nasal cannula. She converted to SVT with rate of 170s, which improved with metoprolol 5 mg IV x3. She began to wake up overnight, becoming more interactive and answering questions by nodding/shaking head. Today, she denies chest pain, shortness of breath, N/V. Exam Vital Signs Vital Sign - Last Date Time Temp Pulse Resp B/P Pulse Ox O2 Delivery O2 Flow Rate FiO2 03/07/17 07:10 91 40 100 Nasal Cannula 50 80 03/07/17 03:45 37.7 138/92 Intake and Output 03/06/17 03/06/17 03/07/17 Cumulative From/Thru 15:00 23:00 07:00 02/26/17 17:12 - 03/07/17 06:08 Intake Total 1100 ml 1337 ml 24126 ml Output Total 100 ml 260 ml 79832 ml Balance 1000 ml 1077 ml 8198 ml Intake Oral 600 ml IV Total 654 ml 842 ml 56736 ml Tube Feeding 311 ml 375 ml 4062 ml TPN/PPN 110 ml Tube Irrigant 135 ml 120 ml 1463 ml Output Urine Total 100 ml 260 ml 2338 ml Gastric Drainage Total 1935 ml Ultrafiltrate 7500 ml # Bowel Movements 0 8 Exam General: Arousable and opens eyes to verbal command, tracks, follows commands, attempts to answer some questions. Tachypneic and diaphoretic, appears in moderate distress. Head: Normocephalic, atraumatic. External ears normal. Eyes: PERRLA, EOMI. Anicteric sclerae. Mouth: Mouth normal, Mucous membranes moist/pink Neck: Neck supple with full range of motion. Chest& Lungs: Clear to auscultation bilaterally. Tachypneic. Cardiovascular: Tachycardic, regular rhythm, Normal S1, Normal S2, No murmurs/ rubs/gallops Abdomen: Non-tender, Non-distended, No masses, Normoactive bowel tones, Soft Musculoskeletal: Normal range of motion Extremities: No cyanosis/clubbing/edema bilaterally Neurological: Grossly neurologically intact. Lab and Diagnostics Result Diagram: 03/07/17 0325 03/07/17 0325 X-Rays, CTs and MRIs Chest x-ray 02/27/17 IMPRESSION: Stable support lines and tubes in no definite acute cardiopulmonary process. Dictated by: Kem PINTO Interpreted: Caleb Cabrera MD on 02/27/2017 at 10:05 Approved by: Caleb Cabrera M.D. on 02/27/2017 at 10:[address] 02/28/17 1. Mild periventricular and subcortical hypodensities in the right parietal and occipital lobes are nonspecific and may represent early chronic small vessel ischemic changes. But the differential is broad and include inflammatory processes such as demyelinating disease and infection among other etiologies. Recommend correlation clinically and consider further evaluation with MRI if indicated. Dictated by: Jerson Inman M.D. on 02/28/2017 at 12:[address] 02/28/17 1. Bilateral clustered pulmonary nodules with areas of confluent consolidation in the lower lobes suggestive of aspiration and pneumonia. 2. Segmental wall thickening involving the cecum and ascending colon as well as the rectosigmoid colon consistent with a nonspecific colitis, likely infectious or inflammatory. 3. Endotracheal tube present with the tip approximately 2.5 cm from the mike. Consider withdrawal by approximately 1-1.5 cm 4. Distention of the gallbladder without calcified gallstones. Recommend further evaluation with ultrasound if there is clinical suspicion for cholecystitis 5. Indeterminate left adrenal nodule. Further evaluation may be obtained with an adrenal protocol CT or MRI when clinically feasible. Dictated by: Jerson Inman M.D. on 02/28/2017 at 12:40 PROCEDURE: US ABDOMEN, LIMITED ([id number]) IMPRESSION: Limited exam demonstrating prominence of the gallbladder and several small gallstones. Dictated by: Kem PINTO Interpreted: Honey Vivar MD on 02/28/2017 at 16: 34 PROCEDURE: X-RAY CHEST ONE VIEW, PORTABLE ([id number]) IMPRESSION: Stable support devices. No acute cardiopulmonary pathology. Dictated by: Huy Quintero M.D. on 03/01/2017 at 9:35 Assessment & Plan Patient is a 46-year-old female with history of polysubstance abuse and long- term benzodiazepine use presented to [facility] requesting Xanax, underwent a seizure and was intubated, and transferred to [facility], all following missed dialysis. Acute hypoxic respiratory failure. Active - Secondary to seizures. Patient extubated 03/05/17. She continues to be tachypneic with primary respiratory alkalosis. Possibly secondary to pneumonia vs intracranial pathology. - On HFNC overnight, will try to wean to oxymask. Possible NSTEMI, acute. - Pt appears in distress, possibly endorsing chest pain although communication is difficult. She has a hx of CAD so has risk factors for IL. She denies chest pain or dyspnea at this time. - EKG and troponin ordered - Aspirin daily - Trend troponin - Echocardiogram ordered Acute seizures. Stable. - Likely secondary to benzodiazepine withdrawal, although intracranial causes should be ruled out. CT head shows right temporoparietal lobe white matter hypodensity, is unchanged from prior CT 1 week ago. MRI showed mild degree of white matter disease. Differential considerations include vasculitides, demyelinating disorders such as multiple sclerosis, diabetes, and early small vessel ischemic disease. Discussed case with [facility], who agree with plan to work up autoimmune or infectious causes, and also recommend CT angio brain/neck. - Restarted home Xanax 2 mg TID PO - Lumbar puncture attempt unsuccessful today. Will repeat attempt in future. - ROXY with reflex, ANCA, C3/4, cryoglobulin - ESR, CRP - Acute hepatitis panel, HIV panel - CSF for meningitis PCR panel, cell count, glucose, protein, cultures, cytology - Bilateral lower extremity duplex - CT angio brain/neck Sepsis secondary to MSSA pneumonia. Active. - Pt had been presenting with persistent fevers and elevated WBC count over her admission.CT abd showed bilateral lower lobe infiltrates suspicious for aspiration and possible colitis. Sputum culture positive for MSSA. Improving on tigecycline. - Dr. Faith of Infectious Disease has been consulted. We appreciate his input. - Continue tigecycline - Stool guaiac pending - Fungal blood cultures pending - Fungitell and Cryptococcal antigens pending Diabetes mellitus type 2 - A1c 9.1. Glucose 400 today. Was on high dose correctional regular insulin. - Stopped regular insulin SQ - Started insulin gtt Supraventricular tachycardia, acute. Resolved. - Pt had episode of SVT early this AM, with HR in 170s. Resolved with metoprolol 5 mg IV - Continue home metoprolol - Diltiazem 10-20 mg IV q1h PRN HR >110. - Monitor on telemetry. Hypertension, acute. Improved. - Better controlled, now on home medications. SBP improved to 140s and nicardipine gtt was discontinued. - Restarted home metoprolol 50 mg BID - Restarted home losartan 25 mg daily - Discontinued nicardipine gtt Acute encephalopathy. Improving. - Multifactorial. Patient is on chronic methadone, but family reports likely recent heroin and ongoing alcohol use, so withdrawal is certainly a possible contributing factor. She is beginning to improve with more meaningful behavior today, so we will continue to observe. ESRD - Continue dialysis per Nephrology M/W/F GI Prophylaxis: H2 rhonda VTE Prophylaxis: Sub-Q Heparin (Unfractionated) VTE Mechanical Devices: Intermittant Pneumatic CD Resuscitation Status: CPR: Attempt Resuscitation Attending Statement I have seen and examined this patient with the resident physician. Vital signs , labs, imaging have been reviewed. I agree with the assessment and plan above. Please refer to my separately dictated progress note for any modifications to above. Abbey Dupree M.D. Pulmonary and Critical Care medicine Pager [phone] Miguel Arreola Mar 07, 2017 08:28 Abbey Dupree MD Mar 09, 2017 14:48
--- NOTE | 2017-03-07 10:00 | NUR ---
Cardiac/Respiratory Pt NSR 80s-90s, denies CP. Troponin 0.316. RT transitioned pt from High-flow NC 3L to oxymask, SpO2 97% RR 25. Pt lethargic, but responsive. Answering questions appropriately, hoarse voice. To have MRI today. Addendum: 03/07/17 at 1529 by FIORELLA WEBB RN Cardiac/US/Fever/Insulin gtt Pt HR 170s, 15mg IVP diltiazem given, rate came down to ST low 100s. Currently ST 103. LE u/s being done at this time. To have LP this afternoon. T-Max 38.1(ax)- IV tylenol ordered, awaiting from pharmacy. RR now in the 30s-40s, SpO2 maintaining high 90s. Hyperglycemic, insulin gtt initiated, titrating per NDKA protocol.
--- NOTE | 2017-03-07 10:41 | PCM.PNNEPH ---
Subjective Date of Service Mar 07, 2017 Subjective Nicardipine off at 5am. Remains hypertensive but improved. Current BP meds: losartan and metoprolol. Tmax 38.4C. Exam Vital Signs Vital Sign - Last Date Time Temp Pulse Resp B/P Pulse Ox O2 Delivery O2 Flow Rate FiO2 03/07/17 09:35 90 28 99 03/07/17 08:41 37.0 163/93 hi flow nasal cannula 80 03/07/17 07:10 50 Intake and Output 03/06/17 03/06/17 03/07/17 Cumulative From/Thru 15:00 23:00 07:00 02/26/17 17:12 - 03/07/17 06:08 Intake Total 1100 ml 1337 ml 63187 ml Output Total 100 ml 260 ml 10572 ml Balance 1000 ml 1077 ml 8198 ml Intake Oral 600 ml IV Total 654 ml 842 ml 00345 ml Tube Feeding 311 ml 375 ml 4062 ml TPN/PPN 110 ml Tube Irrigant 135 ml 120 ml 1463 ml Output Urine Total 100 ml 260 ml 2338 ml Gastric Drainage Total 1935 ml Ultrafiltrate 7500 ml # Bowel Movements 0 8 Exam GENERAL: lying in bed, responsive to painful stimuli, tachypnic. HEENT: Head is normocephalic and atraumatic. Mucous membranes are moist. NG tube. NECK: Supple, no elevation of JVD, No carotid bruits. No lymphadenopathy or thyromegaly. Left IJ triple-lumen in place LUNGS: Equal breath sounds bilaterally,decreased BS at bases. Right tunneled catheter in place. HEART: Normal S1/S2, tachycardic Regular rate and rhythm, no murmurs, rubs or gallops. ABDOMEN: Soft, nontender, and nondistended. Positive bowel sounds. No hepatosplenomegaly was noted. EXTREMITIES: Without any cyanosis, clubbing, rash, lesions or edema. Lab and Diagnostics Result Diagram: 03/07/17 0325 03/07/17 0325 X-Rays, CTs and MRIs Chest x-ray 02/27/17 IMPRESSION: Stable support lines and tubes in no definite acute cardiopulmonary process. Dictated by: Kem Gordon A Interpreted: Caleb Cabrera MD on 02/27/2017 at 10:05 Approved by: Caleb Cabrera M.D. on 02/27/2017 at 10:[address] 02/28/17 1. Mild periventricular and subcortical hypodensities in the right parietal and occipital lobes are nonspecific and may represent early chronic small vessel ischemic changes. But the differential is broad and include inflammatory processes such as demyelinating disease and infection among other etiologies. Recommend correlation clinically and consider further evaluation with MRI if indicated. Dictated by: Jerson Inman M.D. on 02/28/2017 at 12:[address] 02/28/17 1. Bilateral clustered pulmonary nodules with areas of confluent consolidation in the lower lobes suggestive of aspiration and pneumonia. 2. Segmental wall thickening involving the cecum and ascending colon as well as the rectosigmoid colon consistent with a nonspecific colitis, likely infectious or inflammatory. 3. Endotracheal tube present with the tip approximately 2.5 cm from the mike. Consider withdrawal by approximately 1-1.5 cm 4. Distention of the gallbladder without calcified gallstones. Recommend further evaluation with ultrasound if there is clinical suspicion for cholecystitis 5. Indeterminate left adrenal nodule. Further evaluation may be obtained with an adrenal protocol CT or MRI when clinically feasible. Dictated by: Jerson Inman M.D. on 02/28/2017 at 12:40 PROCEDURE: US ABDOMEN, LIMITED ([id number]) IMPRESSION: Limited exam demonstrating prominence of the gallbladder and several small gallstones. Dictated by: Kem Gordon [facility] Interpreted: Honey Vivar MD on 02/28/2017 at 16: 34 PROCEDURE: X-RAY CHEST ONE VIEW, PORTABLE ([id number]) IMPRESSION: Stable support devices. No acute cardiopulmonary pathology. Dictated by: Huy Quintero M.D. on 03/01/2017 at 9:35 Plan Impression 1. End-stage renal disease. 2. Uncontrolled HTN 3. Acute hypoxic respiratory failure 4. Metabolic encephalopathy 5. Sepsis. 6. Seizure 7. Polysubstance abuse 8. Type II diabetes with diabetic nephropathy 9. Anemia of CKD. Plan: Continue metoprolol and losartan, dose to be adjusted accordingly. We will follow along. No hyperkalemia noted and she is euvolemic, we will dialyze her again on Sat. LUCILA Dupree. Anita Camp MD Mar 07, 2017 10:41
--- NOTE | 2017-03-07 10:57 | NUR ---
NUTRITION FOLLOW-UP: ASSESS: 46 YO F admitted to CCU with hyperkalemia and respiratory failure, dialysis dependent. Pt had a seizure and was intubated at [place]. Pt was successfully extubated 03/05; however, her sputum has grown MSSA which may have been the initial source of infection. She has become progressively more tachypneic and now has another fever. Stat head CT was done yesterday to rule out any acute intracranial process. There is a hypodensity in the temporoparietal region that is unexplained. MRI and LP planned for today. The patient is not appropriate for a swallow evaluation at this time. Enteral feeding remains at goal rate 33 mL/hr. PMHX: ESRD requiring dialysis, tachycardia, CAD, T2DM, diabetic gastropathy, GERD, anxiety, benzo abuse, GI pain, heroin use, ETOH, methadone, marijuana use with cyclic nausea / vomiting, mirgraines, hypothyroid, GERD. LABS: Reviewed. Chloride 96, BUN 71, Cr 4.46, Glu 400, Alb 3.1, Procalc 1.02. MEDS: Reviewed. Lopressor, insulin, synthroid, ativan. GI: 7 large, loose BM's reported yesterday, following aggressive bowel regimen. SKIN: No pressure injuries, per him specialists. WT: 57.7 kg, BMI 20.0 kg/m2. Admit weight: 61.9 kg, BMI 22.0 kg/m2, IBW: 59.1 kg DIET: NPO. NUTRITION SUPPORT: Nepro rate currently at goal 33 ml/hr, providing 1306 kcal, 58 g protein; meeting 100% calorie, 61% protein needs. EST. NEEDS: VENT/ DIALYSIS Calories: 4004-4594 kcal/day (20-25 kcal/kg BW) Protein: 95-125 g/day (1.2-2.0 g/kg BW) Fluids: ~1550 ml/day NUTRITION DIAGNOSIS: 1) Inadequate oral intake related to decreased ability to consume sufficient energy as evidenced by current NPO status - IMPROVED. 2) Increased kcal/pro needs related to ESRD as evidence by pt on chronic dialysis - PERSISTS. NUTRITION INTERVENTION: 1) Added 4 packets ProSource liquid protein per day today to meet 100% protein needs. MONITOR/EVALUATE: NPO status, enteral feeding / ProSource tolerance, GI, wt, labs, POC, nutrition status. Follow per high nutrition risk guidelines.
--- NOTE | 2017-03-07 13:00 | PROG NOTE ---
[address] [address] PROGRESS NOTE PATIENT: SHAWNEE ZUNIGA : 1970 MR#: [id number] ADMIT: 02/26/2017 JOB ID: [id number] DATE: 03/07/2017 PULMONARY CRITICAL CARE PROGRESS NOTE: The patient is a 46-year-old woman with end-stage renal disease on hemodialysis, polysubstance abuse, admitted with seizure and acute hypoxic respiratory failure. The patient was seen and evaluated with resident physician Miguel Arreola DO. Please refer to his separate detailed note for additional information. The following is a brief attending note. INTERVAL HISTORY: She had a head CT done yesterday which showed an abnormality in the temporoparietal lobe. MRI is pending today. She is a little more responsive neurologically, but continues to have fevers once again. REVIEW OF SYSTEMS: The patient shook her head to chest pain but admitted to having a headache. Denied any difficulty breathing. PHYSICAL EXAMINATION: Vital signs reviewed. T-max of 38.4, pulse 90, respirations 28, BP 163/93, sats 99% on 3 L Oxymizer. General: Chronically ill-appearing, lying in bed. Sometimes nods and tries to answer questions but overall not able to cooperate or have a conversation. Chest: Clear to auscultation. LABORATORIES: Reviewed. WBC 9.3. Chemistry also reviewed. Procalcitonin is down to 1.02 from 1.37 yesterday, and overall trending down. Cultures: No new growth. Arterial blood gas this morning shows pH 7.51, pCO2 of 29, pO2 of 86, and bicarb of 23. IMAGING: Brain CTs as described before with right temporoparietal lobe white matter hypodensity. ASSESSMENT: 1. Acute hypoxic respiratory failure, intubated February 26, extubated March 05. Currently on 3 L Oxymizer. 2. Acute encephalopathy. 3. End-stage renal disease on hemodialysis. 4. History of polysubstance abuse including IV heroin. 5. Sepsis, unknown source. Likely MSSA pneumonia. RECOMMENDATIONS: A 46-year-old woman with end-stage renal disease on hemodialysis, polysubstance abuse, presenting with seizure, subsequent respiratory failure, and now encephalopathy. She had persistent fevers early on in the hospitalization that resolved for about 48-72 hours after at the addition of tigecycline but have now recurred post extubation. T-max yesterday was 38.4. CT of the head done yesterday shows the abnormality described above and an MRI is pending at this time. If this does not explain her tachypnea, fever, and encephalopathy, then we should consider a CT pulmonary angiogram of the chest to rule out PE. Her procalcitonin continues to improve on tigecycline, which makes me think this is not all sepsis. She is getting Xanax as well as oxycodone to prevent withdrawal from benzos and narcotics. She is on appropriate DVT prophylaxis. TIME: Critical care time is 45 minutes.
--- NOTE | 2017-03-07 14:02 | DRSVH ---
PROCEDURE: MRI BRAIN WITHOUT CONTRAST ([id number]) INDICATIONS: ENCEPHALOPATHY TECHNIQUE: Noncontrast axial T1 spin echo, axial T2 fast spin echo, sagittal and axial FLAIR, coronal T2 fast sp in echo, axial gradient echo, axial diffusion and ADC through the brain. COMPARISON: [facility], CT, CT BRAIN WO CON, 03/06/2017, 9:40. FINDINGS: Image quality: Partially degraded by motion artifact. CSF Spaces: Basal cisterns are patent. No extra-axial fluid collections. Ventricles are normal in size and shape. Brain: No intracranial masses or hemorrhage. There is a mild degree of patchy multifocal high FLAIR signal intensity foci within the periventricular and pericallosal white matter. A few of these lesio ns demonstrate long axes perpendicular to the lateral ventricular long axes. Clifton/white matter interf morenita is normal. Brainstem appears normal. Diffusion-weighted images demonstrate no acute ischemic in sult. No chronic ischemic insults. Normal intravascular flow voids are present. Skull and face: Calvarium has normal marrow signal. Orbits appear normal. Sinuses: Mastoids are clear. Moderate right sphenoid sinus mucosal thickening. Sinuses otherwise frankie r. IMPRESSION: 1. No acute process. No recent infarct. 2. Mild degree of white matter disease. Differential considerations include vasculitides, demyelinati ng disorders such as multiple sclerosis, diabetes, and early small vessel ischemic disease. Dictated by: Rossy Brock M.D. on 03/07/2017 at 13:57 Approved by: Rossy Brock M.D. on 03/07/2017 at 14:00
[2017-03-07] MEDS: Labetalol 5 mg/mL 20 mL Inj IV SCH ×4 (14:04→23:58)
[2017-03-07] MEDS ORDERED: MeTOProlol 1 mg/mL 5 mL Inj IVPUSH ONE (14:05)
[2017-03-07] MEDS ORDERED: Diltiazem 5 mg/mL 5 mL Inj IVPUSH PRN (14:05)
--- NOTE | 2017-03-07 14:14 | DRSVH ---
[facility] [address] [place] [address] Echocardiogram Report Name: SHAWNEE ZUNIGA MStudy Date: 03/07/2017 Height: 66 in Hospital Exam Location: [facility] Weight: 127 lb Gender: Female BSA: 1.6 m2 : 1970 Age: 46 yrs BP: 138/92 mmHg Reason For Study: Elevated Troponin Ordering Physician: HOSPITALIST [facility] Performed By: [facility] Staff Referring Physician: Abbey Dupree Interpretation Summary Patient was supine and sedated through out the exam. Left ventricular systolic function is normal (ejection fraction is estimated to be 65-70%) There are no obvious focal wall motion abnormalities noted but poor endocardial definition reduces the sensitivity for the detection of such. There is no pericardial effusion. No change compared to the prior echo dated 02/26/2017. Procedure: A two-dimensional transthoracic echocardiogram with color flow and Doppler was performed in limited views only. The study quality was technically limited. Images from the parasternal window were difficult to obtain and are suboptimal in quality. The patient was in sinus tachycardia with heart rates between 105-110 bpm during the exam. Left Ventricle: The left ventricle is grossly normal size. There is mild concentric left ventricular hypertrophy. The ejection fraction is estimated to be 65-70%. There are no obvious focal wall motion abnormalities noted but poor endocardial definition reduces the sensitivity for the detection of such. Right Ventricle: The right ventricle is normal in size, thickness and function. Mitral Valve: The mitral valve leaflets appear thickened, but open well. There is no mitral regurgitation noted. Pericardium/ Pleura There is no pericardial effusion. Reading Physician:02:13 PM
[2017-03-07] MEDS ORDERED: Acetaminophen IV 1,000 MG in IV Premix 1 EACH IV ONE (14:35)
[2017-03-07 15:18] LABS: INR 1.05 ratio
--- NOTE | 2017-03-07 15:56 | DRSVH ---
PROCEDURE: US VENOUS LEG DUPLEX BILATERAL INDICATIONS: Suspect DVT TECHNIQUE: Real-time imaging, as well as color and pulse Doppler interrogation, were performed of the deep veins of both legs from the inguinal ligament to the popliteal fossa. COMPARISON: [facility], US, [facility] LTD, 02/28/2017, 15:17. FINDINGS: The deep veins are normally compressible, and free of intraluminal thrombus. Color and pu lse Doppler demonstrate normal phasic intravascular flow. IMPRESSION: No sonographic evidence of deep venous thrombus in either lower extremity. Dictated by: Huy Quintero M.D. on 03/07/2017 at 15:54 Approved by: Huy Quintero M.D. on 03/07/2017 at 15:55
--- NOTE | 2017-03-07 16:40 | PCM.PROC ---
Procedure Note Date of Service: Mar 07, 2017 Pre Procedure Diagnosis: Altered mental status Procedure: Lumbar puncture Provider and Secondary Special Education Teacher: Provider: Miguel Arreola Attending: Jeffrey Neves Indication for Procedure: Altered mental status, fevers Procedure Details: Date: 03/07/17 Time: 1600 Indication: Altered Mental Status The patient was placed in the right lateral decubitus position in a semi- position with help from the nursing staff. The area was cleansed and draped in usual sterile fashion. 1% lidocaine was used anesthetize the surrounding skin area. A 20-gauge spinal needle was placed in the L3-L4 interspace and advanced. Multiple attempts yielded no cerebrospinal fluid and the procedure was terminated. Dr. Jeffrey Neves was present for the entire procedure. The patient tolerated the procedure well and there were no complications Attending Statement This procedure was observed and monitored by myself. Dr. Lord did prep the patient standard fashion and attempt lumbar puncture. Unfortunately the lumbar puncture was unsuccessful. The procedure was aborted. The patient had no adverse effects or other complications. Miguel Arreola Mar 07, 2017 16:40 Jeffrey Neves MD Mar 08, 2017 17:48
--- NOTE | 2017-03-07 18:02 | NUR ---
P: Resp, Hemodynamics, Neuro, Nutrition I,E: Pt is o 3l O2 via oxymask. RR is up at this time in the 30's although pt does not appear to be in distress. Her sats are 98% at this time. She does have a moist occ cough. Pt went to MRI today. she became tachycardic in the 170's. Lopressor 5mg IV ordered by MD and given with good effect with HR dropping to the 80's. this only lasted approx 30 mins and then HR increased to 170's again. Cardizem was given by primary nurse at the time. Pt continues to be hypertensive 1509/90 currently. UOP is minimal, (pt is on dialysis normally). Pt is drowsy, forgetful. She is oriented to place and month. she does obey commands. Her speech is very mumbled and she is difficult to understand. she had a fever today but last temp was 37.2. LP was attempted this afternoon without success. Tube feeds continue at goal.
[2017-03-07] MEDS ORDERED: Albuterol-Ipratropium 3 mL Inhalation Solution NEB PRN (22:16)
[2017-03-08] VITALS (7 sets, daily range): BP systolic 139–170; BP diastolic 87–101; PULSE 85–104; RESP 26–35; O2SAT 96–100
[2017-03-08] MEDS: oxyCODONE 1 mg/mL 5 mL Liquid TUBE SCH ×4 (02:33→20:46)
[2017-03-08] MEDS: Labetalol 5 mg/mL 20 mL Inj IV SCH ×5 (05:15→20:55)
[2017-03-08 06:15] LABS: BASOPHILS % (AUTO) 0.6 % (0-3); EOSINOPHILS % (AUTO) 0.8 % (0-5); MONOCYTES % (AUTO) 8.6 % (4-12); Mean Corpuscular Volume 94.7 fL (81-100); NEUTROPHILS % (AUTO) 74.8 % (40-74); Platelet Count 458 bil/L (150-400)
[2017-03-08 06:51] LABS: ERYTHROCYTE SEDIMENTATION RATE 43 mm/hr (0-32)
--- NOTE | 2017-03-08 07:20 | NUR ---
Mentation/HTN/Respiratory Pt more awake, alert and oriented to self, restless at times, follows simple commands. SBP 160's mmhg, given routine labetalol 20 mg IV x 3, HR 80's NSR; On oxymask @ 2LPM,weaned off to RA, sp02>95% Fingerstick BG <180, remain on insulin gtt NDKA protocol. Pt c/o 2-3/10 generalized body pain, given roxicodone as ordered and xanax also given for anxiety. Bed alarm on, frequent rounding.
[2017-03-08] MEDS: Nystatin 100,000 Unit/mL 5 mL Suspension PO SCH ×3 (08:30→20:45)
[2017-03-08] MEDS: Chlorhexidine 0.12% 15 mL Oral Solution MT SCH ×2 (08:30→18:27)
--- NOTE | 2017-03-08 08:52 | PCM.PNMED ---
Subjective Date of Service Mar 08, 2017 Subjective She is much more awake today. She denies any shortness of breath or pain. She was talking to the nurse about needing to get to the methadone clinic earlier. No headache. No nausea. She did have a bowel movement overnight. No other overnight events Exam Vital Signs Vital Sign - Last Date Time Temp Pulse Resp B/P Pulse Ox O2 Delivery O2 Flow Rate FiO2 03/08/17 07:58 91 35 99 Room Air 03/08/17 07:11 36.3 157/91 03/08/17 04:30 2.00 03/07/17 08:41 80 Intake and Output 03/07/17 03/07/17 03/08/17 Cumulative From/Thru 15:00 23:00 07:00 02/26/17 17:12 - 03/08/17 05:22 Intake Total 1191 ml 20336 ml Output Total 400 ml 66285 ml Balance 791 ml 8989 ml Intake Oral 600 ml IV Total 597 ml 37674 ml Tube Feeding 343 ml 4405 ml TPN/PPN 110 ml Tube Irrigant 251 ml 1714 ml Output Urine Total 400 ml 2738 ml Gastric Drainage Total 1935 ml Ultrafiltrate 7500 ml # Bowel Movements 8 Exam Alert and oriented -3 (she said to [facility] from where she was transferred), no distress. Fluent speech, slightly slow. Anicteric sclera. Lungs are clear with normal rate and effort Heart is regular without murmur gallop or rub Abdomen soft nontender, flat Extremities are free of edema. Skin is free of rash or lesions. She moves arms and legs when asked to has no facial droop. Lab and Diagnostics Result Diagram: 03/08/17 0550 03/08/17 0550 X-Rays, CTs and MRIs Chest x-ray 02/27/17 IMPRESSION: Stable support lines and tubes in no definite acute cardiopulmonary process. Dictated by: Kem Gordon RRLillie Interpreted: Caleb Cabrera MD on 02/27/2017 at 10:05 Approved by: Caleb Cabrera M.D. on 02/27/2017 at 10:[address] 02/28/17 1. Mild periventricular and subcortical hypodensities in the right parietal and occipital lobes are nonspecific and may represent early chronic small vessel ischemic changes. But the differential is broad and include inflammatory processes such as demyelinating disease and infection among other etiologies. Recommend correlation clinically and consider further evaluation with MRI if indicated. Dictated by: Jerson Inman M.D. on 02/28/2017 at 12:[address] 02/28/17 1. Bilateral clustered pulmonary nodules with areas of confluent consolidation in the lower lobes suggestive of aspiration and pneumonia. 2. Segmental wall thickening involving the cecum and ascending colon as well as the rectosigmoid colon consistent with a nonspecific colitis, likely infectious or inflammatory. 3. Endotracheal tube present with the tip approximately 2.5 cm from the mike. Consider withdrawal by approximately 1-1.5 cm 4. Distention of the gallbladder without calcified gallstones. Recommend further evaluation with ultrasound if there is clinical suspicion for cholecystitis 5. Indeterminate left adrenal nodule. Further evaluation may be obtained with an adrenal protocol CT or MRI when clinically feasible. Dictated by: Jerson Inman M.D. on 02/28/2017 at 12:40 PROCEDURE: US ABDOMEN, LIMITED ([id number]) IMPRESSION: Limited exam demonstrating prominence of the gallbladder and several small gallstones. Dictated by: Kem Gordon [facility] Interpreted: Honey Vivar MD on 02/28/2017 at 16: 34 PROCEDURE: X-RAY CHEST ONE VIEW, PORTABLE ([id number]) IMPRESSION: Stable support devices. No acute cardiopulmonary pathology. Dictated by: Huy Quintero M.D. on 03/01/2017 at 9:35 Assessment & Plan Patient is a 46-year-old female with history of polysubstance abuse and long- term benzodiazepine use presented to [facility] requesting Xanax, underwent a seizure and was intubated, and transferred to [facility], all following missed dialysis. Acute hypoxic respiratory failure. Active and much improved. - Secondary to seizures. Patient extubated 03/05/17. She continues to be tachypneic with primary respiratory alkalosis. Possibly secondary to pneumonia vs intracranial pathology. - She is off high flow and we will continue to wean her. She has been treated for pneumonia. Possible NSTEMI, acute and stable. - Pt appears in distress, possibly endorsing chest pain although communication is difficult. She has a hx of CAD so has risk factors for UT. She denies chest pain or dyspnea at this time. - EKG and troponin ordered - Aspirin daily - Trend troponin, this is trending in a stable mildly elevated level but she has no chest pain. - Echocardiogram ordered, this is completely normal. Acute septic encephalopathy, POA and now much improved. We will hold the CT angiogram at this point and await serology testing. She does appear to be rapidly clearing at this point. Acute seizures. Resolved. - Likely secondary to benzodiazepine withdrawal, although intracranial causes should be ruled out. CT head shows right temporoparietal lobe white matter hypodensity, is unchanged from prior CT 1 week ago. MRI showed mild degree of white matter disease. Differential considerations include vasculitides, demyelinating disorders such as multiple sclerosis, diabetes, and early small vessel ischemic disease. Discussed case with [facility], who agree with plan to work up autoimmune or infectious causes, and also recommend CT angio brain/neck. - Restarted home Xanax 2 mg TID PO - Lumbar puncture attempt unsuccessful today. Will repeat attempt in future. - ROXY with reflex, ANCA, C3/4, cryoglobulin - ESR, CRP - Acute hepatitis panel, HIV panel - CSF for meningitis PCR panel, cell count, glucose, protein, cultures, cytology - Bilateral lower extremity duplex - CT angio brain/neck, we will hold the study for another day or 2. Neurologically she is much improved. Sepsis secondary to MSSA pneumonia. Active and improving. - Pt had been presenting with persistent fevers and elevated WBC count over her admission.CT abd showed bilateral lower lobe infiltrates suspicious for aspiration and possible colitis. Sputum culture positive for MSSA. Improving on tigecycline. - Dr. Faith of Infectious Disease has been consulted. We appreciate his input. - Continue tigecycline - Stool guaiac pending - Fungal blood cultures pending - Fungitell and Cryptococcal antigens pending Diabetes mellitus type 2, POA and improved. - A1c 9.1. - Stopped regular insulin SQ - Started insulin gtt, we will attempt to wean insulin drip and the next day. Supraventricular tachycardia, acute. Resolved. - Pt had episode of SVT early this AM, with HR in 170s. Resolved with metoprolol 5 mg IV - Continue home metoprolol - Diltiazem 10-20 mg IV q1h PRN HR >110. - Monitor on telemetry. Hypertension, acute. Improved. - Better controlled, now on home medications. SBP improved to 140s and nicardipine gtt was discontinued. - Restarted home metoprolol 50 mg BID - Restarted home losartan 25 mg daily - Discontinued nicardipine gtt ESRD, POA and stable - Continue dialysis per Nephrology M/W/F. She is dialyzing today. Continue DVT prophylaxis Speech to assess swallow she did pull out her NG tube last night. We will then attempt to advance her oral diet. GI Prophylaxis: H2 rhonda VTE Prophylaxis: Sub-Q Heparin (Unfractionated) VTE Mechanical Devices: Intermittant Pneumatic CD Resuscitation Status: CPR: Attempt Resuscitation Jeffrey Neves MD Mar 08, 2017 08:52
[2017-03-08] MEDS: Levothyroxine 100 mCg/5 mL Inj IV SCH (09:04)
[2017-03-08] MEDS: Pantoprazole 4 mg/mL 10 mL Inj IV SCH ×2 (09:04→17:20)
[2017-03-08] MEDS: Tigecycline Inj 50 MG in 0.9% Sodium Chloride 100 ML IV SCH ×2 (10:25→20:39)
--- NOTE | 2017-03-08 11:21 | PCM.PNNEPH ---
Subjective Date of Service Mar 08, 2017 Subjective Pt is seen during HD, stable BP. More awake and alert today, follow commands. Pending speech evaluation. Exam Vital Signs Vital Sign - Last Date Time Temp Pulse Resp B/P Pulse Ox O2 Delivery O2 Flow Rate FiO2 03/08/17 07:58 91 35 99 Room Air 03/08/17 07:11 36.3 157/91 03/08/17 04:30 2.00 03/07/17 08:41 80 Intake and Output 03/07/17 03/07/17 03/08/17 Cumulative From/Thru 15:00 23:00 07:00 02/26/17 17:12 - 03/08/17 05:22 Intake Total 1191 ml 19956 ml Output Total 400 ml 68650 ml Balance 791 ml 8989 ml Intake Oral 600 ml IV Total 597 ml 76385 ml Tube Feeding 343 ml 4405 ml TPN/PPN 110 ml Tube Irrigant 251 ml 1714 ml Output Urine Total 400 ml 2738 ml Gastric Drainage Total 1935 ml Ultrafiltrate 7500 ml # Bowel Movements 8 Exam GENERAL: lying in bed comfortably, follow commands, awake and alert. HEENT: Head is normocephalic and atraumatic. Mucous membranes are moist. NECK: Supple, no elevation of JVD, No carotid bruits. Left IJ triple-lumen in place LUNGS: Equal breath sounds bilaterally,decreased BS at bases. Right tunneled catheter in place. HEART: Normal S1/S2, tachycardic, regular rate and rhythm, no murmurs, rubs or gallops. ABDOMEN: Soft, nontender, and nondistended. Positive bowel sounds. No hepatosplenomegaly was noted. EXTREMITIES: Generalized muscle atrophy. No significant swelling. Lab and Diagnostics Result Diagram: 03/08/17 0550 03/08/17 0550 X-Rays, CTs and MRIs Chest x-ray 02/27/17 IMPRESSION: Stable support lines and tubes in no definite acute cardiopulmonary process. Dictated by: Kem Gordon Lillie Interpreted: Caleb Cabrera MD on 02/27/2017 at 10:05 Approved by: Caleb Cabrera M.D. on 02/27/2017 at 10:[address] 02/28/17 1. Mild periventricular and subcortical hypodensities in the right parietal and occipital lobes are nonspecific and may represent early chronic small vessel ischemic changes. But the differential is broad and include inflammatory processes such as demyelinating disease and infection among other etiologies. Recommend correlation clinically and consider further evaluation with MRI if indicated. Dictated by: Jerson Inman M.D. on 02/28/2017 at 12:[address] 02/28/17 1. Bilateral clustered pulmonary nodules with areas of confluent consolidation in the lower lobes suggestive of aspiration and pneumonia. 2. Segmental wall thickening involving the cecum and ascending colon as well as the rectosigmoid colon consistent with a nonspecific colitis, likely infectious or inflammatory. 3. Endotracheal tube present with the tip approximately 2.5 cm from the mike. Consider withdrawal by approximately 1-1.5 cm 4. Distention of the gallbladder without calcified gallstones. Recommend further evaluation with ultrasound if there is clinical suspicion for cholecystitis 5. Indeterminate left adrenal nodule. Further evaluation may be obtained with an adrenal protocol CT or MRI when clinically feasible. Dictated by: Jerson Inman M.D. on 02/28/2017 at 12:40 PROCEDURE: US ABDOMEN, LIMITED ([id number]) IMPRESSION: Limited exam demonstrating prominence of the gallbladder and several small gallstones. Dictated by: Kem Gordon RRA Interpreted: Honey Vivar MD on 02/28/2017 at 16: 34 PROCEDURE: X-RAY CHEST ONE VIEW, PORTABLE ([id number]) IMPRESSION: Stable support devices. No acute cardiopulmonary pathology. Dictated by: Huy Quintero M.D. on 03/01/2017 at 9:35 Plan Impression 1. End-stage renal disease. 3 hours, 2 potassium bath, 35 bicarbonate bath. Dialysate flow rate 600, blood flow rate 400 3 L ultrafiltration, revaclear. Right tunneled catheter. 2. Hypertension, improved. 3. Acute hypoxic respiratory failure 4. Metabolic encephalopathy 5. Sepsis. 6. Seizure 7. Polysubstance abuse 8. Type II diabetes with diabetic nephropathy 9. Anemia of CKD. Plan: Next hemodialysis on Friday. Continue metoprolol and losartan, dose to be adjusted accordingly. We will follow along. Anita Camp MD Mar 08, 2017 11:21
--- NOTE | 2017-03-08 11:45 | NUR ---
Dialysis note: 3 1/2 hr tx Net UF 3000 right cath A-V, V-A QB 400 Pt awake and pulled out her feeding tube 10 min before dialysis, talking but speech is mumbled Tx stable Venous chamber clotting noted when blood was returned Cath limbs dwelled with Heparin 1000 and secured with caps. Report given to primary Rn Ally Pt stable. Please see DTR for complete record of VS
--- NOTE | 2017-03-08 12:18 | PROG NOTE ---
[address] [address] PROGRESS NOTE PATIENT: SHAWNEE ZUNIGA : 1970 MR#: [id number] ADMIT: 02/26/2017 JOB ID: [id number] DATE: 03/08/2017 PULMONARY PROGRESS NOTE: The patient is a 46-year-old woman with history of end-stage renal disease on hemodialysis, polysubstance abuse, coronary artery disease, presenting with seizure and respiratory failure with acute encephalopathy. INTERVAL HISTORY: Lumbar puncture was attempted yesterday and was unsuccessful. The patient has been afebrile overnight and neurologically dramatically improved today, following commands, answering questions. She denies any headache, fevers, chills, chest pain, cough. REVIEW OF SYSTEMS: She does have some back pain. PHYSICAL EXAMINATION: Vital signs reviewed. Temperature 36.5, pulse 85, respirations 32, BP 157/91, sats 98% on room air. General: She is alert, sitting up, trying to climb out of bed, answering questions appropriately. Chest is clear to auscultation. LABORATORIES: Reviewed. WBC went up today to 14.7, hemoglobin 12, platelets 458. Chemistry also reviewed. Procalcitonin continues to go down, 0.95 today from 1 yesterday. Cultures, no new growth other than Staph aureus in her sputum from a few days ago. IMAGING: Venous duplex of lower extremities was negative yesterday for DVT. Brain MRI was found to have mild degree of white matter disease that is most likely due to small vessel ischemic disease but differential includes vasculitis. ASSESSMENT: 1. Acute encephalopathy -- resolved. 2. Fever -- resolved. 3. Methicillin-sensitive Staphylococcus aureus pneumonia -- improving. 4. End-stage renal disease, on hemodialysis. 5. Polysubstance abuse. RECOMMENDATIONS: A 46-year-old woman with end-stage renal disease on hemodialysis, who presented to the emergency department with a seizure, attributed to benzodiazepine withdrawal, subsequently intubated. She has had improvement in her intermittent fever curve on tigecycline antibiotic. Due to persistent encephalopathy post extubation on March 05, we considered working her up for intracranial processes. MRI showed possible small vessel ischemic disease. The differential included vasculitis, for which reason an LP was attempted yesterday and unsuccessful. Today, however, her mentation is completely back to normal, she has no fever, her respiratory status is excellent on room air. Based on discussion with Dr. Gilbert, we decided not to further pursue a neurologic workup for vasculitis unless any of her labs such as ROXY, ANCA come back positive. Will continue tigecycline for a 7-10 day course for pneumonia. She is on Xanax and oxycodone to prevent benzodiazepine and oxycodone withdrawal. She is getting dialysis right now. If she continues to stay stable as she is now, I think it is okay for her to move out of the ICU. I will follow up tomorrow if needed but if she remains stable, she no longer needs ICU care.
[2017-03-08] MEDS ORDERED: Alteplase (Cathflo) 1 mg/mL 2 mL Inj IVPUSH ONE ×3 (14:15)
--- NOTE | 2017-03-08 15:22 | NUR ---
NUTRITION FOLLOW-UP: ASSESS: 46 YO F admitted to CCU with hyperkalemia and respiratory failure, dialysis dependent. Pt had a seizure and was intubated at [place]. Pt was successfully extubated 03/05; however, her sputum has grown MSSA which may have been the initial source of infection. Stat head CT was done 03/06 to rule out any acute intracranial process. There is a hypodensity in the temporoparietal region that is unexplained. Lumbar puncture was attempted yesterday and was unsuccessful. The patient has been afebrile overnight and neurologically dramatically improved today, following commands, answering questions. The patient pulled out her NG last night; enteral feeding on hold, pending swallow evaluation. PMHX: ESRD requiring dialysis, tachycardia, CAD, T2DM, diabetic gastropathy, GERD, anxiety, benzo abuse, GI pain, heroin use, ETOH, methadone, marijuana use with cyclic nausea / vomiting, mirgraines, hypothyroid, GERD. LABS: Reviewed. BUN 103, Cr 5.95, Glu 129, CRP 2.9, Alb 2.8. MEDS: Reviewed. Lopressor, insulin, synthroid. GI: BM x 1 today. SKIN: No pressure injuries, per contract administration specialist. Andrey 16 today. WT: 61.1 kg, BMI 21.0 kg/m2. Admit weight: 61.9 kg, BMI 22.0 kg/m2, IBW: 59.1 kg DIET: NPO. NUTRITION SUPPORT DISCONTINUED: Nepro rate currently at goal 33 ml/hr, providing 1306 kcal, 58 g protein; meeting 100% calorie, 61% protein needs. EST. NEEDS: DIALYSIS Calories: 5497-1406 kcal/day (20-25 kcal/kg BW) Protein: 95-125 g/day (1.2-2.0 g/kg BW) Fluids: ~1550 ml/day NUTRITION DIAGNOSIS: 1) Inadequate oral intake related to decreased ability to consume sufficient energy as evidenced by current NPO status - PERSISTS. 2) Increased kcal/pro needs related to ESRD as evidence by pt on chronic dialysis - PERSISTS. NUTRITION INTERVENTION: 1) In the event pt. does not pass her swallow evaluation over weekend, recommend consideration of restarting enteral feeding, per previous recommendations. MONITOR/EVALUATE: NPO status, GI, wt, labs, POC, nutrition status. Follow per high nutrition risk guidelines.
--- NOTE | 2017-03-08 16:57 | NUR ---
P:Resp, Neuro, Cardiac. Nutrition I,E: Pt has been on room air all day and is doing well with sat's in the high 90's. Her high RR has come down from high 30's to high 20's. she does have a moist productive cough. Pt is more alert today, her speech is less mumbled. she obeys commands. She thought she was in [facility] because that is where she was intially, she knows now she is at [facility]. Pt has been in SR, although her HR was increasing without her am meds. She pulled her NG out this am when she was still drowsy. I replaced this after her dialysis was completed and was then able to give her all of her morning meds. I waited for Speech to assess her, but unfortunately there is no speech pathologist today. Tube feeds were re started this afternoon at goal rate. Insulin was stopped without her tube feeds her OT dropped to the 80's. It went up with insulin off and then this afternoon her Central line was not in use for approx 1hr as IVT had cath flow in the lumens. It is now fully functional and I have re started her insulin at 6 units for a OT of 283, alg 2. Pt has had a liquid BM today. PT worked with pt today and she was able to stand briefly at the edge of the bed.
[2017-03-08] MEDS: Insulin Human REGular Inj 100 UNIT in 0.9% Sodium Chloride-Pha MIX 100 ML IV SCH (20:40)
[2017-03-09] VITALS: BP 140/80; PULSE 85; RESP 32; O2SAT 97
[2017-03-09] MEDS: Labetalol 5 mg/mL 20 mL Inj IV SCH ×7 (00:55→20:25)
--- NOTE | 2017-03-09 02:40 | NUR ---
neuro pt's words mumbled, pt alert, answers orientation questions appropriately, uzma, moves self in bed, pt intermittently restless in bed, figits, bed alarm on, tele- sr, denies cp ls- cl/decreased, ra sats upper 90's, denies sob, tf abdias well, denies n/v, minimal residuals, no bm, abd snt generalized aches/pain alleviated by scheduled meds, see mar, insulin gtt per non dka protocol, bg low 100's, insulin gtt at 1-1.5 units per hour t/o shift, algorithm 2, see ccu flow sheet, plan: speech therapy, physical therapy, Addendum: 03/09/17 at 0720 by JOSE LUIS JAVIER RN resp rate=20-30's, no resp distress noted, sats wnl,
[2017-03-09] MEDS: oxyCODONE 1 mg/mL 5 mL Liquid TUBE SCH ×4 (02:53→20:22)
[2017-03-09 04:00] VITALS: BP 167/90; PULSE 84; RESP 32; O2SAT 97
[2017-03-09 04:59] LABS: BASOPHILS % (AUTO) 0.4 % (0-3); EOSINOPHILS % (AUTO) 0.8 % (0-5); MONOCYTES % (AUTO) 10.1 % (4-12); Mean Corpuscular Hemoglobin 31.9 pg (27.0-35.0); Mean Corpuscular Volume 94.1 fL (81-100); NEUTROPHILS % (AUTO) 71.8 % (40-74); Platelet Count 433 bil/L (150-400)
--- NOTE | 2017-03-09 06:48 | NUR ---
bp bp 160's/90-100 early this am, labetolol given, bp currently 151/95, pt figity,
[2017-03-09] MEDS: Pantoprazole 4 mg/mL 10 mL Inj IV SCH ×2 (07:56→16:43)
[2017-03-09] MEDS: Levothyroxine 100 mCg/5 mL Inj IV SCH (07:56)
[2017-03-09] MEDS: Nystatin 100,000 Unit/mL 5 mL Suspension PO SCH ×3 (07:57→20:21)
[2017-03-09] MEDS: Chlorhexidine 0.12% 15 mL Oral Solution MT SCH ×2 (07:57→20:25)
[2017-03-09 08:00] VITALS: BP 149/89; PULSE 94; RESP 29; O2SAT 98
[2017-03-09] MEDS: Tigecycline Inj 50 MG in 0.9% Sodium Chloride 100 ML IV SCH ×2 (10:03→20:21)
[2017-03-09] MEDS ORDERED: Glucose 40% Oral Gel 15 Gm Tube PO PRN (10:30)
--- NOTE | 2017-03-09 10:35 | PCM.PNMED ---
Subjective Date of Service Mar 09, 2017 Subjective Patient is motionless confused. She knows the year and where she is. She also knows the month. She is having ongoing constant lower abdominal pain associated with diarrhea which is thought likely to relate to her tube feeds. She denies headache. She denies any dyspnea but she has remained tachypneic. She has a persistent metabolic acidosis. She has been tolerating dialysis without difficulty. No other overnight events noted. Exam Vital Signs Vital Sign - Last Date Time Temp Pulse Resp B/P Pulse Ox O2 Delivery O2 Flow Rate FiO2 03/09/17 08:00 37.0 94 29 149/89 98 Room Air 03/08/17 04:30 2.00 03/07/17 08:41 80 Intake and Output 03/08/17 03/08/17 03/09/17 Cumulative From/Thru 15:00 23:00 07:00 02/26/17 17:12 - 03/09/17 06:00 Intake Total 1126 ml 833 ml 33844 ml Output Total 3300 ml 550 ml 25972 ml Balance -2174 ml 283 ml 7098 ml Intake Oral 600 ml IV Total 523 ml 345 ml 93803 ml Tube Feeding 422 ml 368 ml 5195 ml TPN/PPN 110 ml Tube Irrigant 181 ml 120 ml 2015 ml Output Urine Total 300 ml 550 ml 3588 ml Gastric Drainage Total 1935 ml Ultrafiltrate 3000 ml 31474 ml # Bowel Movements 1 0 9 Exam Alert and oriented -3, no distress. Fluent speech, but slow Anicteric sclera. Lungs are clear with increased right normal effort. Heart is regular without murmur gallop or rub Abdomen soft nontender, flat Extremities are free of edema. Skin is free of rash or lesions. IVs and Medications Medications Reviewed: Medications were reviewed in detail Lab and Diagnostics Result Diagram: 03/09/17 0445 03/09/17 0445 X-Rays, CTs and MRIs Chest x-ray 02/27/17 IMPRESSION: Stable support lines and tubes in no definite acute cardiopulmonary process. Dictated by: Kem PINTO Interpreted: Caleb Cabrera MD on 02/27/2017 at 10:05 Approved by: Caleb Cabrera M.D. on 02/27/2017 at 10:[address] 02/28/17 1. Mild periventricular and subcortical hypodensities in the right parietal and occipital lobes are nonspecific and may represent early chronic small vessel ischemic changes. But the differential is broad and include inflammatory processes such as demyelinating disease and infection among other etiologies. Recommend correlation clinically and consider further evaluation with MRI if indicated. Dictated by: Jerson Inman M.D. on 02/28/2017 at 12:[address] 02/28/17 1. Bilateral clustered pulmonary nodules with areas of confluent consolidation in the lower lobes suggestive of aspiration and pneumonia. 2. Segmental wall thickening involving the cecum and ascending colon as well as the rectosigmoid colon consistent with a nonspecific colitis, likely infectious or inflammatory. 3. Endotracheal tube present with the tip approximately 2.5 cm from the mike. Consider withdrawal by approximately 1-1.5 cm 4. Distention of the gallbladder without calcified gallstones. Recommend further evaluation with ultrasound if there is clinical suspicion for cholecystitis 5. Indeterminate left adrenal nodule. Further evaluation may be obtained with an adrenal protocol CT or MRI when clinically feasible. Dictated by: Jerson Inman M.D. on 02/28/2017 at 12:40 PROCEDURE: US ABDOMEN, LIMITED ([id number]) IMPRESSION: Limited exam demonstrating prominence of the gallbladder and several small gallstones. Dictated by: Kem Gordon [facility] Interpreted: Honey Vivar MD on 02/28/2017 at 16: 34 PROCEDURE: X-RAY CHEST ONE VIEW, PORTABLE ([id number]) IMPRESSION: Stable support devices. No acute cardiopulmonary pathology. Dictated by: Huy Quintero M.D. on 03/01/2017 at 9:35 Assessment & Plan Patient is a 46-year-old female with history of polysubstance abuse and long- term benzodiazepine use presented to [facility] requesting Xanax, underwent a seizure and was intubated, and transferred to [facility], all following missed dialysis. #. Acute hypoxic respiratory failure. Resolved. - Secondary to seizures. Patient extubated 03/05/17. She continues to be tachypneic with primary respiratory alkalosis. Possibly secondary to pneumonia vs intracranial pathology. She was extubated and then slowly weaned off from oxygen. #. Possible NSTEMI, resolved. - Pt appears in distress, possibly endorsing chest pain although communication is difficult. She has a hx of CAD so has risk factors for CT. She denies chest pain or dyspnea at this time. - EKG and troponin ordered - Aspirin daily - Trend troponin, this is trending in a stable mildly elevated level but she has no chest pain. - Echocardiogram ordered, this is completely normal. The patient elevated troponins in context of end-stage renal disease and no cardiac symptoms. At this point we will continue beta blockade and aspirin but no further workup. At some point that she continues to clinically progress she may benefit from a pharmacologic stress test. #. Acute septic encephalopathy, POA continuing to improve. She continues to improve. She did have a workup for possible vasculitis which is really unremarkable. We have canceled a CT head angiogram to rule out evidence of vasculitis. The patient likely is just improving from washout of her various medications. Her initial presentation was likely related to benzodiazepine withdrawal seizures. She is also on maintenance methadone at 50 mg a day prior to arrival. We will hold the CT angiogram at this point and await serology testing. She does appear to be rapidly clearing at this point. Her MRI and CT are essentially mildly abnormal but nonspecific. #. Seizures. Resolved. - Likely secondary to benzodiazepine withdrawal, although intracranial causes should be ruled out. CT head shows right temporoparietal lobe white matter hypodensity, is unchanged from prior CT 1 week ago. MRI showed mild degree of white matter disease. Differential considerations include vasculitides, demyelinating disorders such as multiple sclerosis, diabetes, and early small vessel ischemic disease. Discussed case with [facility], who agree with plan to work up autoimmune or infectious causes, and also recommend CT angio brain/neck. - Restarted home Xanax 2 mg TID PO - Lumbar puncture attempt unsuccessful today. Will repeat attempt in future. - ROXY with reflex, ANCA, C3/4, cryoglobulin - ESR, CRP - Acute hepatitis panel, HIV panel - CSF for meningitis PCR panel, cell count, glucose, protein, cultures, cytology - Bilateral lower extremity duplex - CT angio brain/neck, we will hold the study for now. Neurologically she is much improved. #. Sepsis secondary to MSSA pneumonia. Active and improving. - Pt had been presenting with persistent fevers and elevated WBC count over her admission.CT abd showed bilateral lower lobe infiltrates suspicious for aspiration and possible colitis. Sputum culture positive for MSSA. Improving on tigecycline. - Dr. Faith of Infectious Disease has been consulted. We appreciate his input. - Continue tigecycline - Stool guaiac pending - Fungal blood cultures pending - Fungitell and Cryptococcal antigens pending #. Respiratory alkalosis, relatively new and stable She has continued tachypnea with a low CO2. There is no clear evidence of [employer] disturbance. We will continue to clinically observe her. #. Diabetes mellitus type 2, POA and stable. - A1c 9.1. - Stopped regular insulin SQ -We will stop the heparin drip and resume Lantus and lispro correctional. Supraventricular tachycardia, acute. Resolved. - Pt had episode of SVT early this AM, with HR in 170s. Resolved with metoprolol 5 mg IV - Continue home metoprolol - Diltiazem 10-20 mg IV q1h PRN HR >110. - Monitor on telemetry. #. Hypertension, acute. Improved. - Better controlled, now on home medications. SBP improved to 140s and nicardipine gtt was discontinued. - Restarted home metoprolol 50 mg BID - Restarted home losartan 25 mg daily -She required nicardipine drip for a short time. We will continue her metoprolol and losartan as well as add a Catapres TTS patch today. #. ESRD, POA and stable - Continue dialysis per Nephrology M/W/F. She is dialyzing today. #. Dysphagia, POA and active. The patient has a another NG tube placed for tube feeds as well as medications. We will continue to evaluate her speech to see when she can convert to oral intake. #. Abdominal pain, relatively new and active. She does have a diffuse lower quadrant abdominal pain which is bilateral. This may relate to diarrhea which is apparently associated with her tube feeds. We will continue to follow clinically and we will check a C. difficile toxin. Continue DVT prophylaxis Speech to assess swallow and will continue to use her NG tube for now. We will then attempt to advance her oral diet. Dangerous medications include IV opiates for pain control. She continues to have a high risk of recurrent seizure clinical decompensation given her multiple medical active issues. GI Prophylaxis: H2 rhonda VTE Prophylaxis: Sub-Q Heparin (Unfractionated) VTE Mechanical Devices: Intermittant Pneumatic CD Resuscitation Status: CPR: Attempt Resuscitation Jeffrey Neves MD Mar 09, 2017 10:35
[2017-03-09] MEDS ORDERED: Dextrose 10% 250 ML IV PRN (10:40)
[2017-03-09 11:08] LABS: Hepatitis A Antibody IgM Negative (Negative); Hepatitis B Core Antibody IgM Negative (Negative)
[2017-03-09] MEDS: Insulin LISPRO 300 Unit/3 mL Inj SUBQ SCH ×3 (11:11→20:24)
--- NOTE | 2017-03-09 13:00 | PCM.PNNEPH ---
Subjective Date of Service Mar 09, 2017 Subjective More awake and alert. Elevated BP. HD yesterday without complications. NG tube reinserted. Exam Vital Signs Vital Sign - Last Date Time Temp Pulse Resp B/P Pulse Ox O2 Delivery O2 Flow Rate FiO2 03/09/17 08:00 37.0 94 29 149/89 98 Room Air 03/08/17 04:30 2.00 03/07/17 08:41 80 Intake and Output 03/08/17 03/08/17 03/09/17 Cumulative From/Thru 15:00 23:00 07:00 02/26/17 17:12 - 03/09/17 06:00 Intake Total 1126 ml 833 ml 83775 ml Output Total 3300 ml 550 ml 38017 ml Balance -2174 ml 283 ml 7098 ml Intake Oral 600 ml IV Total 523 ml 345 ml 56099 ml Tube Feeding 422 ml 368 ml 5195 ml TPN/PPN 110 ml Tube Irrigant 181 ml 120 ml 2015 ml Output Urine Total 300 ml 550 ml 3588 ml Gastric Drainage Total 1935 ml Ultrafiltrate 3000 ml 50830 ml # Bowel Movements 1 0 9 Exam GENERAL: lying in bed comfortably, follow commands, awake and alert. HEENT: Head is normocephalic and atraumatic. Mucous membranes are moist, NG tube in place. NECK: Supple, no elevation of JVD, No carotid bruits. Left IJ triple-lumen in place LUNGS: Equal breath sounds bilaterally,decreased BS at bases. Right tunneled catheter in place. HEART: Normal S1/S2, tachycardic, regular rate and rhythm, no murmurs, rubs or gallops. ABDOMEN: Soft, nontender, and nondistended. Positive bowel sounds. No hepatosplenomegaly was noted. EXTREMITIES: Generalized muscle atrophy. No significant swelling. Lab and Diagnostics Result Diagram: 03/09/17 0445 03/09/17 0445 X-Rays, CTs and MRIs Chest x-ray 02/27/17 IMPRESSION: Stable support lines and tubes in no definite acute cardiopulmonary process. Dictated by: Kem Gordon [facility] Interpreted: Caleb Cabrera MD on 02/27/2017 at 10:05 Approved by: Caleb Cabrera M.D. on 02/27/2017 at 10:[address] 02/28/17 1. Mild periventricular and subcortical hypodensities in the right parietal and occipital lobes are nonspecific and may represent early chronic small vessel ischemic changes. But the differential is broad and include inflammatory processes such as demyelinating disease and infection among other etiologies. Recommend correlation clinically and consider further evaluation with MRI if indicated. Dictated by: Jerson Inman M.D. on 02/28/2017 at 12:[address] 02/28/17 1. Bilateral clustered pulmonary nodules with areas of confluent consolidation in the lower lobes suggestive of aspiration and pneumonia. 2. Segmental wall thickening involving the cecum and ascending colon as well as the rectosigmoid colon consistent with a nonspecific colitis, likely infectious or inflammatory. 3. Endotracheal tube present with the tip approximately 2.5 cm from the mike. Consider withdrawal by approximately 1-1.5 cm 4. Distention of the gallbladder without calcified gallstones. Recommend further evaluation with ultrasound if there is clinical suspicion for cholecystitis 5. Indeterminate left adrenal nodule. Further evaluation may be obtained with an adrenal protocol CT or MRI when clinically feasible. Dictated by: Jerson Inman M.D. on 02/28/2017 at 12:40 PROCEDURE: US ABDOMEN, LIMITED ([id number]) IMPRESSION: Limited exam demonstrating prominence of the gallbladder and several small gallstones. Dictated by: Kem Gordon [facility] Interpreted: Honey Vivar MD on 02/28/2017 at 16: 34 PROCEDURE: X-RAY CHEST ONE VIEW, PORTABLE ([id number]) IMPRESSION: Stable support devices. No acute cardiopulmonary pathology. Dictated by: Huy Quintero M.D. on 03/01/2017 at 9:35 Plan Impression 1. End-stage renal disease. 2. Hypertension, improved. 3. Acute hypoxic respiratory failure 4. Metabolic encephalopathy 5. Sepsis. 6. Seizure 7. Polysubstance abuse 8. Type II diabetes with diabetic nephropathy 9. Anemia of CKD. Plan: Next hemodialysis on Friday. d/c metoprolol, start labetalol 300 mg q8h. Anita Camp MD Mar 09, 2017 13:00
--- NOTE | 2017-03-09 13:22 | NUR ---
Evaluation completed. Please go to "Notes" then click on "Assessments and Notes" (bottom left corner of screen). Then select appropriate discipline tab on top of screen.
[2017-03-09] MEDS ORDERED: Ondansetron 2 mg/mL 2 mL Inj IVPUSH PRN (13:45)
[2017-03-09 14:58] VITALS: BP 133/88; PULSE 91; RESP 24; O2SAT 94
--- NOTE | 2017-03-09 16:08 | NUR ---
Social Work- Update/Multidisciplinary Rounds Data: EMR reviewed. Pt is on day 11 of hospitalization. Pt has transferred from [facility] to [facility], no longer CCU status. Pt discussed in multidisciplinary rounds. Per MD, pt is not appropriate for CD assessment today, anticipated appropriate for assessment in 2 days. Case management will continue to follow pt's clinical course and assess for d/c needs. A: Pt who was previously I living in [place] P: Case management to continue to follow to assess for needs. Erin Blankenship MSW
--- NOTE | 2017-03-09 19:08 | NUR ---
Transfer to [facility] Pt. transferred to [facility] at 1500 in stable condition. Feeding tube running at 33/hr, w/ 40 ml water flush Q4. Pt. c/o mild pain, but does not want tylenol at this time. Oriented to self only. She thinks she is at [facility] and does not know the date. Pts. speech is very slow and quiet. Strict NPO d/t dysphasia. RA.
[2017-03-09 20:13] VITALS: BP 152/87; PULSE 92; RESP 22; O2SAT 93
[2017-03-09] MEDS: Insulin GLARgine 100 Unit/mL Syringe SUBQ SCH (20:22)
[2017-03-10] MEDS: Labetalol 5 mg/mL 20 mL Inj IV SCH ×6 (00:55→20:55)
[2017-03-10 01:47] VITALS: BP 151/89; PULSE 94; O2SAT 93
[2017-03-10] MEDS: oxyCODONE 1 mg/mL 5 mL Liquid TUBE SCH ×4 (04:20→22:06)
[2017-03-10 04:23] VITALS: BP 153/87; PULSE 87; RESP 22; O2SAT 95
--- NOTE | 2017-03-10 06:43 | NUR ---
Pain: Pt c/o abdominal pain during the night, scheduled pain medication administered; effective. Pt denied SOB and chest pain, continues to be forgetful with date and place, very weak and speaks in a whisper tone. Pt slept most of the night, pleasant and cooperative with care.
[2017-03-10 07:40] LABS: BASOPHILS % (AUTO) 0.7 % (0-3); MONOCYTES % (AUTO) 7.4 % (4-12); Mean Corpuscular Hemoglobin 31.9 pg (27.0-35.0); Mean Corpuscular Volume 94.8 fL (81-100); NEUTROPHILS % (AUTO) 75.1 % (40-74); Platelet Count 447 bil/L (150-400)
[2017-03-10] MEDS: Chlorhexidine 0.12% 15 mL Oral Solution MT SCH (07:57)
[2017-03-10] MEDS: Levothyroxine 100 mCg/5 mL Inj IV SCH (08:04)
[2017-03-10] MEDS: Pantoprazole 4 mg/mL 10 mL Inj IV SCH (08:04)
[2017-03-10] MEDS: Nystatin 100,000 Unit/mL 5 mL Suspension PO SCH ×3 (08:05→22:04)
[2017-03-10] MEDS: Tigecycline Inj 50 MG in 0.9% Sodium Chloride 100 ML IV SCH ×2 (08:05→22:06)
[2017-03-10] MEDS: Insulin LISPRO 300 Unit/3 mL Inj SUBQ SCH ×4 (08:17→22:07)
[2017-03-10 08:54] VITALS: BP 147/80; PULSE 82
--- NOTE | 2017-03-10 10:43 | PCM.PNNEPH ---
Subjective Date of Service Mar 10, 2017 Subjective Patient is seen during HD. Stable v/s. Pain is controlled. BP has improved. Exam Vital Signs Vital Sign - Last Date Time Temp Pulse Resp B/P Pulse Ox O2 Delivery O2 Flow Rate FiO2 03/10/17 04:23 37.1 87 22 153/87 95 Room Air 03/08/17 04:30 2.00 03/07/17 08:41 80 Intake and Output 03/09/17 03/09/17 03/10/17 Cumulative From/Thru 15:00 23:00 07:00 02/26/17 17:12 - 03/10/17 06:38 Intake Total 524 ml 509 ml 43823 ml Output Total 300 ml 47509 ml Balance 224 ml 509 ml 7831 ml Intake Oral 0 ml 600 ml IV Total 43091 ml Tube Feeding 404 ml 353 ml 5952 ml TPN/PPN 110 ml Tube Irrigant 120 ml 156 ml 2291 ml Output Urine Total 300 ml 3888 ml Gastric Drainage Total 1935 ml Ultrafiltrate 05515 ml # Bowel Movements 0 9 Exam GENERAL: lying in bed comfortably, follow commands, awake and alert. HEENT: Head is normocephalic and atraumatic. Mucous membranes are moist, NG tube in place. NECK: Supple, no elevation of JVD, No carotid bruits. Left IJ triple-lumen in place LUNGS: Equal breath sounds bilaterally,decreased BS at bases. Right tunneled catheter in place. HEART: Normal S1/S2, regular rate and rhythm, no murmurs, rubs or gallops. ABDOMEN: Soft, nontender, and nondistended. Positive bowel sounds. No hepatosplenomegaly was noted. EXTREMITIES: Generalized muscle atrophy. No significant swelling. Lab and Diagnostics Result Diagram: 03/10/17 0445 03/10/17 0445 X-Rays, CTs and MRIs Chest x-ray 02/27/17 IMPRESSION: Stable support lines and tubes in no definite acute cardiopulmonary process. Dictated by: Kem PINTO Interpreted: Caleb Cabrera MD on 02/27/2017 at 10:05 Approved by: Caleb Cabrera M.D. on 02/27/2017 at 10:[address] 02/28/17 1. Mild periventricular and subcortical hypodensities in the right parietal and occipital lobes are nonspecific and may represent early chronic small vessel ischemic changes. But the differential is broad and include inflammatory processes such as demyelinating disease and infection among other etiologies. Recommend correlation clinically and consider further evaluation with MRI if indicated. Dictated by: Jerson Inman M.D. on 02/28/2017 at 12:[address] 02/28/17 1. Bilateral clustered pulmonary nodules with areas of confluent consolidation in the lower lobes suggestive of aspiration and pneumonia. 2. Segmental wall thickening involving the cecum and ascending colon as well as the rectosigmoid colon consistent with a nonspecific colitis, likely infectious or inflammatory. 3. Endotracheal tube present with the tip approximately 2.5 cm from the mike. Consider withdrawal by approximately 1-1.5 cm 4. Distention of the gallbladder without calcified gallstones. Recommend further evaluation with ultrasound if there is clinical suspicion for cholecystitis 5. Indeterminate left adrenal nodule. Further evaluation may be obtained with an adrenal protocol CT or MRI when clinically feasible. Dictated by: Jerson Inman M.D. on 02/28/2017 at 12:40 PROCEDURE: US ABDOMEN, LIMITED ([id number]) IMPRESSION: Limited exam demonstrating prominence of the gallbladder and several small gallstones. Dictated by: Kem Gordon [facility] Interpreted: Honey Vivar MD on 02/28/2017 at 16: 34 PROCEDURE: X-RAY CHEST ONE VIEW, PORTABLE ([id number]) IMPRESSION: Stable support devices. No acute cardiopulmonary pathology. Dictated by: Huy Quintero M.D. on 03/01/2017 at 9:35 Plan Impression 1. End-stage renal disease. 3.5hr, 2K, 35HCO3. DFR 600, BFR 400. UF 2-3L as tolerated. Revaclear. Right tunneled cath. 2. Hypertension, improved. 3. Acute hypoxic respiratory failure 4. Metabolic encephalopathy 5. Sepsis, MSSA pneumonia. 6. Seizure 7. Polysubstance abuse. 8. Type II diabetes with diabetic nephropathy 9. Anemia of CKD. Plan: Next hemodialysis on Friday. Continue labetalol 300 mg q8h and losartan. Continue clonidine patch. Anita Camp MD Mar 10, 2017 10:43
--- NOTE | 2017-03-10 12:33 | PCM.PNMED ---
Subjective Date of Service Mar 10, 2017 Subjective Patient was seen and examined at bedside today. Patient denies any chest pain, shortness of breath, nausea, vomiting, diarrhea. Patient was currently in dialysis and seems to be recovering from her encephalopathy. Patient was alert to self and time but not alert to place. The patient was very anxious today and was very fixated on making sure that she had her Xanax scheduled. Overnight events: None Exam Vital Signs Vital Sign - Last Date Time Temp Pulse Resp B/P Pulse Ox O2 Delivery O2 Flow Rate FiO2 03/10/17 04:23 37.1 87 22 153/87 95 Room Air 03/08/17 04:30 2.00 03/07/17 08:41 80 Intake and Output 03/09/17 03/09/17 03/10/17 Cumulative From/Thru 15:00 23:00 07:00 02/26/17 17:12 - 03/10/17 06:38 Intake Total 524 ml 509 ml 78292 ml Output Total 300 ml 38026 ml Balance 224 ml 509 ml 7831 ml Intake Oral 0 ml 600 ml IV Total 37598 ml Tube Feeding 404 ml 353 ml 5952 ml TPN/PPN 110 ml Tube Irrigant 120 ml 156 ml 2291 ml Output Urine Total 300 ml 3888 ml Gastric Drainage Total 1935 ml Ultrafiltrate 47937 ml # Bowel Movements 0 9 Exam Physical Exam: GEN: Patient was awake, alert, responding appropriately to questions, patient is aware of self and time however still has some difficulty with the name of where she is at but she does know that she is in the hospital HEENT: Pupils equal round and reactive to light, extraocular eye muscles intact , Neck soft supple, trachea midline, nomocephalic/atraumatic, NG tube in place CV: Irregular rate and rhythm, no murmurs auscultated Respiratory: CTAB, no wheezes, rales, rhonchi GI: +bowel sounds x4, soft, compressible, nontender to palpation EXT: no clubbing, cyanosis, edema Neuro: Cranial nerves II-XII grossly intact Psych: mood and affect were appropriate IVs and Medications Medications Reviewed: Medications were reviewed in detail Lab and Diagnostics Result Diagram: 03/10/17 0445 03/10/17444 X-Rays, CTs and MRIs Chest x-ray 02/27/17 IMPRESSION: Stable support lines and tubes in no definite acute cardiopulmonary process. Dictated by: Kem PINTO Interpreted: Caleb Cabrera MD on 02/27/2017 at 10:05 Approved by: Caleb Cabrera M.D. on 02/27/2017 at 10:[address] 02/28/17 1. Mild periventricular and subcortical hypodensities in the right parietal and occipital lobes are nonspecific and may represent early chronic small vessel ischemic changes. But the differential is broad and include inflammatory processes such as demyelinating disease and infection among other etiologies. Recommend correlation clinically and consider further evaluation with MRI if indicated. Dictated by: Jerson Inman M.D. on 02/28/2017 at 12:[address] 02/28/17 1. Bilateral clustered pulmonary nodules with areas of confluent consolidation in the lower lobes suggestive of aspiration and pneumonia. 2. Segmental wall thickening involving the cecum and ascending colon as well as the rectosigmoid colon consistent with a nonspecific colitis, likely infectious or inflammatory. 3. Endotracheal tube present with the tip approximately 2.5 cm from the mike. Consider withdrawal by approximately 1-1.5 cm 4. Distention of the gallbladder without calcified gallstones. Recommend further evaluation with ultrasound if there is clinical suspicion for cholecystitis 5. Indeterminate left adrenal nodule. Further evaluation may be obtained with an adrenal protocol CT or MRI when clinically feasible. Dictated by: Jerson Inman M.D. on 02/28/2017 at 12:40 PROCEDURE: US ABDOMEN, LIMITED ([id number]) IMPRESSION: Limited exam demonstrating prominence of the gallbladder and several small gallstones. Dictated by: Kem PINTO Interpreted: Honey Vivar MD on 02/28/2017 at 16: 34 PROCEDURE: X-RAY CHEST ONE VIEW, PORTABLE ([id number]) IMPRESSION: Stable support devices. No acute cardiopulmonary pathology. Dictated by: Huy Quintero M.D. on 03/01/2017 at 9:35 Assessment & Plan Patient is a 46-year-old female with history of polysubstance abuse and long- term benzodiazepine use presented to [facility] requesting Xanax, underwent a seizure and was intubated, and transferred to [facility], all following missed dialysis. Acute hypoxic respiratory failure. Resolved. - Secondary to seizures. -Patient extubated 03/05/17 then slowly weaned off from oxygen -She continues to be tachypneic with primary respiratory alkalosis. Possibly secondary to pneumonia vs intracranial pathology. Possible NSTEMI, resolved. - Pt appears in distress, possibly endorsing chest pain although communication is difficult. She has a hx of CAD so has risk factors for KS. She denies chest pain or dyspnea at this time. - EKG and troponin ordered - Aspirin daily - Trend troponin, this is trending in a stable mildly elevated level but she has no chest pain. - Echocardiogram ordered, this is completely normal. The patient elevated troponins in context of end-stage renal disease and no cardiac symptoms. At this point we will continue beta blockade and aspirin but no further workup. At some point that she continues to clinically progress she may benefit from a pharmacologic stress test. Acute septic encephalopathy, POA continuing to improve. She continues to improve. She did have a workup for possible vasculitis which is really unremarkable. We have canceled a CT head angiogram to rule out evidence of vasculitis. The patient likely is just improving from washout of her various medications. Her initial presentation was likely related to benzodiazepine withdrawal seizures. She is also on maintenance methadone at 50 mg a day prior to arrival. We will hold the CT angiogram at this point and await serology testing. She does appear to be rapidly clearing at this point. Her MRI and CT are essentially mildly abnormal but nonspecific. Seizures. Resolved. - Likely secondary to benzodiazepine withdrawal, although intracranial causes should be ruled out. CT head shows right temporoparietal lobe white matter hypodensity, is unchanged from prior CT 1 week ago. MRI showed mild degree of white matter disease. Differential considerations include vasculitides, demyelinating disorders such as multiple sclerosis, diabetes, and early small vessel ischemic disease. Discussed case with [facility], who agree with plan to work up autoimmune or infectious causes, and also recommend CT angio brain/neck. - Restarted home Xanax 2 mg TID PO - Lumbar puncture attempt unsuccessful today 03/09/17. Will repeat attempt in future. - ROXY with reflex, ANCA, C3/4, cryoglobulin - ESR, CRP - Acute hepatitis panel, HIV panel - CSF for meningitis PCR panel, cell count, glucose, protein, cultures, cytology - Bilateral lower extremity duplex - CT angio brain/neck, we will hold the study for now. Neurologically she is much improved. Sepsis secondary to MSSA pneumonia. Active and improving. - Pt had been presenting with persistent fevers and elevated WBC count over her admission.CT abd showed bilateral lower lobe infiltrates suspicious for aspiration and possible colitis. Sputum culture positive for MSSA. Improving on tigecycline. - Dr. Faith of Infectious Disease has been consulted. We appreciate his input. - Continue tigecycline - Stool guaiac negative - Fungal blood cultures negative - Fungitell and Cryptococcal antigens negative Respiratory alkalosis, relatively new and stable She has continued tachypnea with a low CO2. There is no clear evidence of [employer]EL[employer] disturbance. We will continue to clinically observe her. Diabetes mellitus type 2, POA and stable. - A1c 9.1. - Stopped regular insulin SQ -We will stop the heparin drip and resume Lantus and lispro correctional. Supraventricular tachycardia, acute. Resolved. - Pt had episode of SVT early this AM, with HR in 170s. Resolved with metoprolol 5 mg IV - Continue home metoprolol - Diltiazem 10-20 mg IV q1h PRN HR >110. - Monitor on telemetry. Hypertension, acute. Improved. - Better controlled, now on home medications. SBP improved to 140s and nicardipine gtt was discontinued. - Restarted home metoprolol 50 mg BID - Restarted home losartan 25 mg daily -She required nicardipine drip for a short time. - Continue Catapres TTS patch - Continue losartan - Continue labetalol -Stop the when necessary IV metoprolol. ESRD, POA and stable - Continue dialysis per Nephrology M/W/F. She is dialyzing today. Dysphagia, POA and active. -Most likely secondary to prolonged intubation -NG tube in place with tube feedings -Speech to reevaluate the patient to potentially start oral intake today. Abdominal pain, relatively new and active. - Patient's abdominal pain has improved - Patient states that her diarrhea has also improved, the diarrhea is most likely associated with her tube feeds - Speech to reevaluate patient for oral feeding - We will continue to follow clinically and check for C. difficile toxin if diarrhea once again worsens. DVT prophylaxis: Restart heparin subcutaneous Disposition: The patient also still has some misunderstanding as to the gravity of her condition and she states that she is ready to go home and she is still not tolerating any type of diet and is currently on NG tube feedings. The patient also according to physical therapy has very limited mobility and this would also continue to have her as an unlikely candidate to return home. The patient's medical conditions are very complex and she will most likely need another few days in the hospital with a possible fci facility placement. Speech to assess swallow and will continue to use her NG tube for now. We will then attempt to advance her oral diet. Dangerous medications include IV opiates for pain control. She continues to have a high risk of recurrent seizure clinical decompensation given her multiple medical active issues. GI Prophylaxis: H2 rhonda VTE Prophylaxis: Sub-Q Heparin (Unfractionated) VTE Mechanical Devices: Intermittant Pneumatic CD Resuscitation Status: CPR: Attempt Resuscitation Gabby Ramachandran DO Mar 10, 2017 12:33
--- NOTE | 2017-03-10 12:57 | NUR ---
Dialysis note: 3 1/2 hr tx Net UF 2000 Accessed right cath QB 400 Pt stable throughout tx Cath limbs dwelled with Heparin 1000 and secured with caps Pt returned to floor stable Report given to primary RN Jericho Please see DTR for complete record of VS
[2017-03-10 13:29] VITALS: BP 127/81; PULSE 91; RESP 20; O2SAT 93
--- NOTE | 2017-03-10 14:41 | NUR ---
NUTRITION FOLLOW-UP: ASSESS: 46 YO F admitted to CCU with hyperkalemia and respiratory failure, dialysis dependent. Pt had a seizure and was intubated at [facility]. Pt was extubated 03/05. The patient pulled out her NG tube on 03/07, and NG tube was replaced on 03/08 and TF were restarted. ST advanced diet to stimulation today. PMHX: ESRD requiring dialysis, tachycardia, CAD, T2DM, diabetic gastropathy, GERD, anxiety, benzo abuse, GI pain, heroin use, ETOH, methadone, marijuana use with cyclic nausea / vomiting, mirgraines, hypothyroid, GERD. LABS: Reviewed. BUN 102, Cr 6.03, Glu 361, Phos 8.7, ALB 2.9. MEDS: Reviewed. GI: BM x 1 (03/10) SKIN: No pressure injuries, per exercise equipment specialist. WT: 61.7 kg, BMI 21.0 kg/m2. Admit weight: 61.9 kg, BMI 22.0 kg/m2, IBW: 59.1 kg DIET: Stimulation. NUTRITION SUPPORT: Nepro at 33 ml/hr, providing 1366 kcal, 61 g protein. RE-EST. NEEDS: DIALYSIS Calories: 1466-7934 kcal/day (30-35 kcal/kg BW) Protein: 95-125 g/day (1.2-2.0 g/kg BW) Fluids: 3751-5890 ML/day NUTRITION DIAGNOSIS: 1) Inadequate oral intake related to decreased ability to consume sufficient energy as evidenced by current NPO status - PERSISTS. 2) Increased kcal/pro needs related to ESRD as evidence by pt on chronic dialysis - PERSISTS. NUTRITION INTERVENTION: 1) As pt is no longer in CCU and has been extubated, recommend advancing TF to better meet pt newly est. needs. Recommend advancing TF by 10 ml every 4 hours as tolerated to goal rate of 50 mL/hr to provide 2070 kcals and 93 g protein per day. Recommend continuing flush dose of 40 ml every 4 hours to provide 1076 mL free H2O per day. MONITOR/EVALUATE: TF tolerance, diet advancement / tolerance, labs, nutritional status. Follow per high nutritional risk guidelines.
[2017-03-10 17:01] VITALS: BP 127/83; PULSE 84; RESP 20; O2SAT 93
[2017-03-10] MEDS: Heparin 5,000 Unit/mL Inj SUBQ SCH (17:11)
--- NOTE | 2017-03-10 17:43 | NUR ---
Social Work-continued d/c planning/ attempted CD assessment: Data:EMR Reviewed. Pt is on day 12 of hyperkalemia per H&P. Pt is not medically stable anticipate several more days. order received for SNF and CD assessment. PT has seen pt and recommends SNF placement. SW followed up with pt at bedside, SW role explained. Pt is alert and oriented x3. Pt remains with NG tube in place. SW discussed recommendation of SNF, pt only able to ambulate less than 10ft.. Pt declining stating she plans on returning home. SW went over risks and benefits and pt continues to decline. SW encouraged pt to think about this and SW will plan to follow up with pt again tomorrow. Pt goes to [facility] dialysis on . order received for pt's CD use.SW discussed pt's current drug use. Pt informed SW that she has been clean from drugs for the last 2 years. Pt states she goes to [facility] for her methadone. Pt's tox screen positive for methadone and Marijuana. Pt states she does not need any resources and declines any further discussion. Assessment:home vs SNF. Plan:SW to follow up with pt again tomorrow regarding SNF placement, pt currently declining. Pt enrolled at [facility]. SW will continue to follow. KIRAN Jernigan
--- NOTE | 2017-03-10 19:33 | NUR ---
Left unit/Blood sugars Pt left [facility] room 3008 for MOC room 244 at ~0830 for dialysis, receiving COC RN Adelaide given report, Pt returned to [facility] room 3008 at ~1255 from dialysis. Pt's VSS both prior to leaving and upon returning from dialysis. Pt's blood sugars in the 300s on NOC shift per report, spoke with MD today who verbalized she would look at increasing lantus insulin dose at [facility], blood sugars in the 300s this shift with exception of blood sugar attained during dialysis, no order changes by shift change, oncoming NOC RN made aware.
[2017-03-10 20:15] VITALS: BP 125/77; PULSE 91; RESP 18; O2SAT 93
[2017-03-10] MEDS: Lansoprazole 30 mg ODTablet TUBE SCH (22:04)
[2017-03-10] MEDS: Insulin GLARgine 100 Unit/mL Syringe SUBQ SCH (22:05)
[2017-03-11] MEDS: Heparin 5,000 Unit/mL Inj SUBQ SCH ×3 (00:50→17:20)
[2017-03-11] MEDS: Labetalol 5 mg/mL 20 mL Inj IV SCH ×3 (00:51→08:33)
[2017-03-11 04:21] VITALS: BP 124/79; PULSE 83; RESP 16; O2SAT 93
[2017-03-11] MEDS: oxyCODONE 1 mg/mL 5 mL Liquid TUBE SCH ×3 (04:23→15:07)
--- NOTE | 2017-03-11 04:54 | NUR ---
Feeding/pain: Pt's tube feeding increased to 50 ml/hr, pt tolerating well. Pt c/o ear pain 02/27, states she feels like it's from the NG feeding tube; medication administered. BG levels remain in the 300's, will pass to dayshift to have insulin increased. Pt slept most of the night, pleasant and cooperative with care.
[2017-03-11] MEDS: Lansoprazole 30 mg ODTablet TUBE SCH (08:43)
[2017-03-11] MEDS: Nystatin 100,000 Unit/mL 5 mL Suspension PO SCH ×3 (08:44→20:55)
[2017-03-11] MEDS: Insulin LISPRO 300 Unit/3 mL Inj SUBQ SCH ×4 (08:44→20:59)
[2017-03-11] MEDS: Tigecycline Inj 50 MG in 0.9% Sodium Chloride 100 ML IV SCH (08:55)
--- NOTE | 2017-03-11 11:51 | PCM.PNNEPH ---
Subjective Date of Service Mar 11, 2017 Subjective Patient looks considerably better compared week ago. She is off the ventilator and has made considerable improvement. She is getting tube feedings but states that she is able to swallow without difficulties. Events of the past week have been reviewed Exam Vital Signs Vital Sign - Last Date Time Temp Pulse Resp B/P Pulse Ox O2 Delivery O2 Flow Rate FiO2 03/11/17 10:55 Supplement Oxygen 03/11/17 04:21 36.9 83 16 124/79 93 03/08/17 04:30 2.00 03/07/17 08:41 80 Intake and Output 03/10/17 03/10/17 03/11/17 Cumulative From/Thru 15:00 23:00 07:00 02/26/17 17:12 - 03/11/17 06:21 Intake Total 0 ml 296 ml 1352 ml 32196 ml Output Total 2600 ml 65733 ml Balance -2600 ml 296 ml 1352 ml 6879 ml Intake Oral 0 ml 100 ml 50 ml 750 ml IV Total 196 ml 245 ml 74178 ml Tube Feeding 897 ml 6849 ml TPN/PPN 110 ml Tube Irrigant 160 ml 2451 ml Output Urine Total 600 ml 4488 ml Gastric Drainage Total 1935 ml Ultrafiltrate 2000 ml 61065 ml # Voids 1 2 3 # Bowel Movements 1 1 11 Exam HEENT examination is remarkable for pale sclera. Neck is supple without adenopathy, thyromegaly, or jugular venous distention. Lungs are clear though somewhat diminished in both bases. There were some scattered rhonchi but otherwise clear. Heart was regular and rhythmical with a systolic ejection murmur. Abdomen is soft without any tenderness rebound guarding masses or hepatosplenomegaly. Extremities do not show any evidence of any clubbing, cyanosis, or edema. Skin turgor is good. Lab and Diagnostics Result Diagram: 03/10/17 0445 03/10/17 0445 X-Rays, CTs and MRIs Chest x-ray 02/27/17 IMPRESSION: Stable support lines and tubes in no definite acute cardiopulmonary process. Dictated by: Kem Gordon Lillie Interpreted: Caleb Cabrera MD on 02/27/2017 at 10:05 Approved by: Caleb Cabrera M.D. on 02/27/2017 at 10:[address] 02/28/17 1. Mild periventricular and subcortical hypodensities in the right parietal and occipital lobes are nonspecific and may represent early chronic small vessel ischemic changes. But the differential is broad and include inflammatory processes such as demyelinating disease and infection among other etiologies. Recommend correlation clinically and consider further evaluation with MRI if indicated. Dictated by: Jerson Inman M.D. on 02/28/2017 at 12:[address] 02/28/17 1. Bilateral clustered pulmonary nodules with areas of confluent consolidation in the lower lobes suggestive of aspiration and pneumonia. 2. Segmental wall thickening involving the cecum and ascending colon as well as the rectosigmoid colon consistent with a nonspecific colitis, likely infectious or inflammatory. 3. Endotracheal tube present with the tip approximately 2.5 cm from the mike. Consider withdrawal by approximately 1-1.5 cm 4. Distention of the gallbladder without calcified gallstones. Recommend further evaluation with ultrasound if there is clinical suspicion for cholecystitis 5. Indeterminate left adrenal nodule. Further evaluation may be obtained with an adrenal protocol CT or MRI when clinically feasible. Dictated by: Jerson Inman M.D. on 02/28/2017 at 12:40 PROCEDURE: US ABDOMEN, LIMITED ([id number]) IMPRESSION: Limited exam demonstrating prominence of the gallbladder and several small gallstones. Dictated by: Kem Gordon RR Interpreted: Honey Vivar MD on 02/28/2017 at 16: 34 PROCEDURE: X-RAY CHEST ONE VIEW, PORTABLE ([id number]) IMPRESSION: Stable support devices. No acute cardiopulmonary pathology. Dictated by: Huy Quintero M.D. on 03/01/2017 at 9:35 Plan Impression Impression #1 end-stage renal disease dialysis dependent number to diabetic nephropathy #3 hypertension with hypertensive heart disease and hypertensive nephrosclerosis Recommendations #1 I would like to see if the patient needs for ongoing tube feedings Joana will defer that to the primary team. #2 hemiparesis for her dialysis tomorrow. Donny Chadwick DO Mar 11, 2017 11:51
--- NOTE | 2017-03-11 12:19 | PROG NOTE ---
[address] [address] PROGRESS NOTE PATIENT: SHAWNEE ZUNIGA : 1970 MR#: [id number] ADMIT: 02/26/2017 JOB ID: [id number] DATE: 03/11/2017 INFECTIOUS DISEASE FOLLOWUP NOTE: REASON FOR FOLLOWUP: Possible nosocomial pneumonia or intra-abdominal infection treated with tigecycline. INTERVAL HISTORY: I have been out of town for the last week or so. Just prior to leaving I had the opportunity to see the patient in consultation. Recall that she is a complicated 46-year-old woman with polysubstance abuse who was admitted with what appeared to be benzodiazepine withdrawal induced seizures and remained in the ICU. She initially received very broad-spectrum antibiotics but had persistent fevers while remaining on the ventilator in the middle part of this month. We decided to switch her antibiotics at that point and switched her to tigecycline, which resulted in resolution of her white blood count and overall improvement. She was subsequently extubated and taken out of the ICU and is now up on the third floor. She has had some issues with confusion and encephalopathy, but in general her course has been one of improvement. She is currently being fed, however, through an NG tube which she would dearly like to get rid of. At this point she denies fevers, chills, or sweats. She has headache and ear pain which she attributes to the NG tube. She does not have sore throat. She does not have significant cough or shortness of breath. The patient states she has been gradually increasing her appetite and would like to get the NG tube out as soon as possible and stop the tube feedings. She reports she is able to get up walk and denies other focal complaint. No fevers, chills. Recall this patient has underlying diabetes with gastropathy as well as end-stage renal disease. She receives chronic hemodialysis. PHYSICAL EXAMINATION: Today reveals a much more comfortable woman than when I saw her a week ago when she was critically ill, in the ICU. She is now sitting up in a chair next to her bed with a tube in the nose, in no great distress. Her NG tube is in good position and there is no tenderness around it. The oral cavity is negative. Lungs reasonably clear, with some scattered wheezes bilaterally, but not bad. Cardiac tones without new murmur. She has a dialysis catheter in her right upper chest which appears benign. It is a percutaneous style catheter. In addition she has a line in her left IJ which appears uninfected. Her abdomen is soft and nontender. No new skin rash. LABORATORIES: Include white count which has become elevated over the last few days and is currently 16,000, with quite benign differential however. Her platelets are also slowly rising at 447. Creatinine 6.03 in this dialysis patient. LFTs normal. Albumin 2.9. Procalcitonin 0.67, which is oddly identical to prior numbers and would be consistent just with her degree of renal impairment. Some of the studies we had ordered earlier in her stay are now back. Her crypto antigen and Fungitell, are negative. HIV negative and hepatitis C negative. Micro studies include Staph aureus which grew from an endotracheal aspiration back on March 03. This was an MSSA. Doxycycline susceptibility was not done on this so we cannot be certain if Tygacil would work, though it is likely it would. Blood cultures taken also on the are negative. Prior blood cultures yielded just coag-negative staph in one bottle which was probably a contaminant. MRSA screen has been negative. IMAGING: Includes our last chest x-ray from five days ago which basically was clear a brain MRI was done on the because of confusion and showed no acute changes, though there was some mild white matter disease, probably due to diabetes. IMPRESSION: Overall this patient is considerably improved as opposed to when I last saw her a week ago when she was in the intensive care unit. At this point I think that it is probably reasonable to go ahead and stop antibiotics as she has now received eight days of tigecycline following her original course of broad-spectrum antibiotics. There has been concern about encephalopathy and confusion, and possibly even seizures, and I think on that basis it would be reasonable to watch her off antibiotics and try and discontinue as many of her medical interventions as possible at this point. RECOMMENDATIONS: 1. Will go ahead and stop the tigecycline today. 2. If possible I would switch her from the tube feeds to regular food and pull out her NG tube. 3. If possible, and there was no continued need for it, would take the line out of the neck. 4. If she continues to have a leukocytosis in the coming days off antibiotics, even if she has no fever, we should obtain blood cultures through the skin as well as through the dialysis line. 5. Overall I am impressed though that her course is one of very significant improvement. Thank you very much.
[2017-03-11] MEDS ORDERED: Labetalol 5 mg/mL 20 mL Inj IV PRN (12:55)
--- NOTE | 2017-03-11 13:55 | NUR ---
Social Work-continued d/c planning/ attempted CD assessment: Data:EMR Reviewed. Pt is on day 13 of hyperkalemia per H&P. Pt is not medically stable anticipate several more days. SW followed up with pt at bedside, SW role explained. Pt is alert and oriented x3. Pt remains with NG tube in place. SW discussed recommendation of SNF, pt only able to ambulate less than 10ft. Pt declining stating she plans on returning home. SW went over risks and benefits and pt continues to decline. SW encouraged pt to think about this and SW will plan to follow up with pt again tomorrow. SW will continue to follow. Assessment:home vs SNF. Plan:SW to follow up with pt again tomorrow regarding SNF placement, pt currently declining. Pt enrolled at [facility]. SW will continue to follow. KIRAN Jernigan
[2017-03-11 14:12] LABS: Antiproteinase 3 (PR-3) Abs <3.5 U/mL (0.0-3.5); Perinuclear (P-ANCA) <1:20 titer (Neg:<1:20)
[2017-03-11 14:17] VITALS: BP 114/72; PULSE 83; RESP 16; O2SAT 96
--- NOTE | 2017-03-11 15:16 | NUR ---
NG Tube Discontinued NG Tube removed per order. Patient reporting decreased ear pain following removal.
--- NOTE | 2017-03-11 18:08 | PCM.PNMED ---
Subjective Date of Service Mar 11, 2017 Subjective 46yo F with underlying CAD with CABGx3 (October 2016), HTN, ESRD on hemodialysis (noncompliant), T2DM with gastropathy, anxiety, depression, GERD, hypothyroidism, migraines, and history of multi-drug abuse was admitted to the hospital on 02/26/17 for seizure possibly secondary to benzodiazepine withdrawal. She was intubated for airway protection, stabilized, extubated on 03/05/17 and transferred to [facility] floor for continued management of septic encephalopathy , ESRD and other chronic conditions. Today pt complains of ear pain that she thinks may be due to the NG tube; she wonders if she can get her NG tube removed. She slept most of the night and off and on throughout the day, but she was cooperative when awake to answer questions. She denies sore throat, cough or SOB. She denies pain other than her ears. She has been sitting up in a chair and ambulating the patient has been more conversational and it seems that she is returning back to her baseline mental status. Overnight events: Last night she choked while sucking on an ice chip and on a sponge. Exam Vital Signs Vital Sign - Last Date Time Temp Pulse Resp B/P Pulse Ox O2 Delivery O2 Flow Rate FiO2 03/11/17 14:17 36.8 83 16 114/72 96 Room Air 03/08/17 04:30 2.00 03/07/17 08:41 80 Intake and Output 03/10/17 03/10/17 03/11/17 Cumulative From/Thru 15:00 23:00 07:00 02/26/17 17:12 - 03/11/17 06:21 Intake Total 0 ml 296 ml 1352 ml 91707 ml Output Total 2600 ml 10133 ml Balance -2600 ml 296 ml 1352 ml 6879 ml Intake Oral 0 ml 100 ml 50 ml 750 ml IV Total 196 ml 245 ml 12756 ml Tube Feeding 897 ml 6849 ml TPN/PPN 110 ml Tube Irrigant 160 ml 2451 ml Output Urine Total 600 ml 4488 ml Gastric Drainage Total 1935 ml Ultrafiltrate 2000 ml 29299 ml # Voids 1 2 3 # Bowel Movements 1 1 11 Exam Physical Exam: GEN: Patient was awake, alert, responding appropriately to questions, NAD HEENT: Pupils equal round and reactive to light, extraocular eye muscles intact , Neck soft supple, trachea midline, nomocephalic/atraumatic, some cerumen bilaterally but TMs visualized and some mild scarring CV: +S1/S2, regular rate and rhythm, no murmurs auscultated Respiratory: CTAB, no wheezes, rales, rhonchi GI: +bowel sounds x4, soft, compressible, nontender to palpation EXT: no clubbing, cyanosis, edema Neuro: Cranial nerves II-XII grossly intact Psych: mood and affect were appropriate IVs and Medications Medications Reviewed: Medications were reviewed in detail Lab and Diagnostics Result Diagram: 03/10/17 0445 03/10/17 0445 X-Rays, CTs and MRIs Chest x-ray 02/27/17 IMPRESSION: Stable support lines and tubes in no definite acute cardiopulmonary process. Dictated by: Kem Gordon [facility] Interpreted: Caleb Cabrrea MD on 02/27/2017 at 10:05 Approved by: Caleb Cabrera M.D. on 02/27/2017 at 10:[address] 02/28/17 1. Mild periventricular and subcortical hypodensities in the right parietal and occipital lobes are nonspecific and may represent early chronic small vessel ischemic changes. But the differential is broad and include inflammatory processes such as demyelinating disease and infection among other etiologies. Recommend correlation clinically and consider further evaluation with MRI if indicated. Dictated by: Jerson Inman M.D. on 02/28/2017 at 12:[address] 02/28/17 1. Bilateral clustered pulmonary nodules with areas of confluent consolidation in the lower lobes suggestive of aspiration and pneumonia. 2. Segmental wall thickening involving the cecum and ascending colon as well as the rectosigmoid colon consistent with a nonspecific colitis, likely infectious or inflammatory. 3. Endotracheal tube present with the tip approximately 2.5 cm from the mike. Consider withdrawal by approximately 1-1.5 cm 4. Distention of the gallbladder without calcified gallstones. Recommend further evaluation with ultrasound if there is clinical suspicion for cholecystitis 5. Indeterminate left adrenal nodule. Further evaluation may be obtained with an adrenal protocol CT or MRI when clinically feasible. Dictated by: Jerson Inman M.D. on 02/28/2017 at 12:40 PROCEDURE: US ABDOMEN, LIMITED ([id number]) IMPRESSION: Limited exam demonstrating prominence of the gallbladder and several small gallstones. Dictated by: Kem Gordon [facility] Interpreted: Honey Vivar MD on 02/28/2017 at 16: 34 PROCEDURE: X-RAY CHEST ONE VIEW, PORTABLE ([id number]) IMPRESSION: Stable support devices. No acute cardiopulmonary pathology. Dictated by: Huy Quintero M.D. on 03/01/2017 at 9:35 Assessment & Plan Patient is a 46-year-old female with history of polysubstance abuse and long- term benzodiazepine use presented to [facility] requesting Xanax, underwent a seizure and was intubated, and transferred to [facility], all following missed dialysis. Acute hypoxic respiratory failure. Resolved. - Secondary to seizures. -Patient extubated 03/05/17 then slowly weaned off from oxygen -She continues to be tachypneic with primary respiratory alkalosis. Possibly secondary to pneumonia vs intracranial pathology. Possible NSTEMI, resolved. - Pt appears in distress, possibly endorsing chest pain although communication is difficult. She has a hx of CAD so has risk factors for KS. She denies chest pain or dyspnea at this time. - EKG and troponin ordered - Aspirin daily - Trend troponin, this is trending in a stable mildly elevated level but she has no chest pain. - Echocardiogram ordered, this is completely normal. The patient elevated troponins in context of end-stage renal disease and no cardiac symptoms. At this point we will continue beta blockade and aspirin but no further workup. At some point that she continues to clinically progress she may benefit from a pharmacologic stress test. Acute septic encephalopathy, POA continuing to improve. -She continues to improve. She did have a workup for possible vasculitis which is really unremarkable. We have canceled a CT head angiogram to rule out evidence of vasculitis. The patient likely is just improving from washout of her various medications. Her initial presentation was likely related to benzodiazepine withdrawal seizures. She is also on maintenance methadone at 50 mg a day prior to arrival. -We will hold the CT angiogram at this point and await serology testing. She does appear to be rapidly clearing at this point. Her MRI and CT are essentially mildly abnormal but nonspecific. -Patient appears to be returning back to her normal baseline status she is able to answer questions appropriately and shows linear thought process Seizures. Resolved. - Likely secondary to benzodiazepine withdrawal, although intracranial causes should be ruled out. CT head shows right temporoparietal lobe white matter hypodensity, is unchanged from prior CT 1 week ago. MRI showed mild degree of white matter disease. Differential considerations include vasculitides, demyelinating disorders such as multiple sclerosis, diabetes, and early small vessel ischemic disease. Discussed case with [facility], who agree with plan to work up autoimmune or infectious causes, and also recommend CT angio brain/neck. - Restarted home Xanax 2 mg TID PO - Lumbar puncture attempt unsuccessful today 03/09/17. Will repeat attempt in future. - ROXY with reflex, ANCA, C3/4, cryoglobulin - ESR, CRP - Acute hepatitis panel, HIV panel - CSF for meningitis PCR panel, cell count, glucose, protein, cultures, cytology - Bilateral lower extremity duplex - CT angio brain/neck, we will hold the study for now. Neurologically she is much improved. Sepsis secondary to MSSA pneumonia. Active and improving. - Pt had been presenting with persistent fevers and elevated WBC count over her admission.CT abd showed bilateral lower lobe infiltrates suspicious for aspiration and possible colitis. Sputum culture positive for MSSA. Improving on tigecycline. - Dr. Faith of Infectious Disease has been consulted and recommended stopping tigecycline today. Completed full 7 day course - Discontinue tigecycline 03/11/2017 - Stool guaiac negative - Fungal blood cultures negative - Fungitell and Cryptococcal antigens negative - Procalcitonin trending down Respiratory alkalosis, relatively new and stable She has continued tachypnea with a low CO2. There is no clear evidence of SERVICE SUPERINTENDENT disturbance. We will continue to clinically observe her. Diabetes mellitus type 2, POA and stable. - A1c 9.1. - Increase Lantus to 20 units subcutaneous twice a day - Continue insulin sliding scale Supraventricular tachycardia, acute. Resolved. - Pt had episode of SVT early this AM, with HR in 170s. Resolved with metoprolol 5 mg IV - Continue home metoprolol - Diltiazem 10-20 mg IV q1h PRN HR >110. - Monitor on telemetry. Hypertension, acute. Improved. - Better controlled, now on home medications. SBP improved to 140s and nicardipine gtt was discontinued. 03/09/17 -Continue home metoprolol 50 mg BID -Continue home losartan 25 mg daily - Continue Catapres TTS patch - Continue losartan - Continue labetalol -Stop the when necessary IV metoprolol. ESRD, POA and stable - Continue dialysis per Nephrology M/W/F. -Continue labetalol, losartan, and clonidine - Nephrology following and managing patient's dialysis Dysphagia, POA and active. -Most likely secondary to prolonged intubation -Speech evaluated the patient and updated her to dysphagia diet with no solid foods secondary to possible choking hazards - We will discontinue tube feedings and NG tube now the patient is tolerating oral feedings Abdominal pain, relatively new and active. - Patient's abdominal pain has improved - Patient states that her diarrhea has also improved, the diarrhea is most likely associated with her tube feeds - Speech to reevaluate patient for oral feeding - We will continue to follow clinically and check for C. difficile toxin if diarrhea once again worsens. DVT prophylaxis: Restart heparin subcutaneous Patient has a follow-up appointment with her new PCP Dr. Floyd Payan at the [facility] in [facility] on 03/25/2017 at 2:30 PM Disposition: The patient is now more appropriate and responding to questions with a linear thought process. The patient is now on a dysphagia diet. We will continue to monitor the patient to see how well she tolerates this. The patient, according to physical therapy, has had limited mobility and would benefit from a chcf facility however the patient would prefer to go home with her mother and have home health services and home health PT there. The patient will most likely be discharged home to her mother's place in the next 1-2 days. Speech to assess swallow and will continue to use her NG tube for now. We will then attempt to advance her oral diet. Dangerous medications include IV opiates for pain control. She continues to have a high risk of recurrent seizure clinical decompensation given her multiple medical active issues. GI Prophylaxis: H2 rhonda VTE Prophylaxis: Sub-Q Heparin (Unfractionated) VTE Mechanical Devices: Intermittant Pneumatic CD Resuscitation Status: CPR: Attempt Resuscitation Ramachandran,Gabby L DO Mar 11, 2017 18:08 * F/u with new PCP per above GI Prophylaxis: H2 rhonda VTE Prophylaxis: Sub-Q Heparin (Unfractionated) VTE Mechanical Devices: Intermittant Pneumatic CD Resuscitation Status: CPR: Attempt Resuscitation Ramachandran,Gabby L DO Mar 11, 2017 18:08
[2017-03-11 20:37] VITALS: BP 112/65; PULSE 82; RESP 18; O2SAT 92
[2017-03-11] MEDS: Insulin GLARgine 100 Unit/mL Syringe SUBQ SCH (22:08)
[2017-03-12] MEDS: Heparin 5,000 Unit/mL Inj SUBQ SCH ×3 (02:20→17:05)
[2017-03-12 05:40] VITALS: BP 134/78; PULSE 77; RESP 20; O2SAT 96
--- NOTE | 2017-03-12 06:30 | NUR ---
Activity/Diet Patient improving, more alert and interactive with cares. Motivated to get home. 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 Continuing dysphagia mechanical diet with nector thick liquids, meds with pudding. Reddened coccyx with skin open, mepilex in place. Wound nurse consult ordered. Labs drawn, pending.
[2017-03-12 07:42] LABS: BASOPHILS % (AUTO) 0.8 % (0-3); EOSINOPHILS % (AUTO) 3.6 % (0-5); MONOCYTES % (AUTO) 6.1 % (4-12); Mean Corpuscular Hemoglobin 31.6 pg (27.0-35.0); Mean Corpuscular Volume 94.2 fL (81-100); NEUTROPHILS % (AUTO) 57.2 % (40-74); Platelet Count 440 bil/L (150-400)
[2017-03-12] MEDS: Insulin LISPRO 300 Unit/3 mL Inj SUBQ SCH ×4 (08:00→20:50)
[2017-03-12 08:04] VITALS: BP 128/67; PULSE 74
[2017-03-12] MEDS: Lansoprazole 30 mg ODTablet PO SCH ×2 (08:07→17:05)
[2017-03-12] MEDS: Nystatin 100,000 Unit/mL 5 mL Suspension PO SCH ×3 (08:08→21:01)
--- NOTE | 2017-03-12 08:20 | NUR ---
Off unit Pt off unit to dialysis. Addendum: 03/12/17 at 1254 by SJ DOUGHERTY RN Pt returned from dialysis, A&O, no c/o at this time. VS obtained. Bed in lowest, locked position and call light in reach. Report rec'd from Joi Zamarripa RN.
[2017-03-12 08:39] VITALS: BP 114/76; PULSE 75
--- NOTE | 2017-03-12 10:03 | NUR ---
pt arrived to [facility] for DIALYSIS at ~0825 via bed report received from primary nurse AK orbitread operator RN at bedside, call light in reach, will cont to monitor
[2017-03-12] MEDS: Insulin GLARgine 100 Unit/mL Syringe SUBQ SCH ×2 (10:37→20:51)
--- NOTE | 2017-03-12 11:23 | PCM.PNNEPH ---
Subjective Date of Service Mar 12, 2017 Subjective Patient continues to improve. She states she feels much stronger and is able to ambulate with assistance. She denies any chest pain, shortness of breath, nausea or vomiting. Her blood pressure has been good. Morning her hemoglobin is 11.4, sodium 134, potassium 4.8, chloride 95, bicarbonate 22, BUN and creatinine were 88 and 5.95 with an albumin of 2.8. Exam Vital Signs Vital Sign - Last Date Time Temp Pulse Resp B/P Pulse Ox O2 Delivery O2 Flow Rate FiO2 03/12/17 08:04 74 128/67 03/12/17 05:40 36.4 20 96 Room Air 03/08/17 04:30 2.00 03/07/17 08:41 80 Intake and Output 03/11/17 03/11/17 03/12/17 Cumulative From/Thru 15:00 23:00 07:00 02/26/17 17:12 - 03/11/17 20:00 Intake Total 550 ml 35300 ml Output Total 885 ml 72597 ml Balance -335 ml 6544 ml Intake Oral 550 ml 1300 ml IV Total 21212 ml Tube Feeding 6849 ml TPN/PPN 110 ml Tube Irrigant 2451 ml Output Urine Total 500 ml 4988 ml Gastric Drainage Total 385 ml 2320 ml Ultrafiltrate 86859 ml # Voids 3 # Bowel Movements 1 12 Exam Neck is supple without adenopathy, thyromegaly, or jugular venous distention. Lungs are clear to auscultation. Heart was regular and rhythmical with a soft systolic murmur. Abdomen soft without any tenderness rebound guarding masses or hepatosplenomegaly. Extremities did not show any evidence of any clubbing, cyanosis, or edema. Lab and Diagnostics Result Diagram: 03/12/17 0730 03/12/17 0730 X-Rays, CTs and MRIs Chest x-ray 02/27/17 IMPRESSION: Stable support lines and tubes in no definite acute cardiopulmonary process. Dictated by: Kem Gordon [facility] Interpreted: Caleb Cabrera MD on 02/27/2017 at 10:05 Approved by: Caleb Cabrera M.D. on 02/27/2017 at 10:[address] 02/28/17 1. Mild periventricular and subcortical hypodensities in the right parietal and occipital lobes are nonspecific and may represent early chronic small vessel ischemic changes. But the differential is broad and include inflammatory processes such as demyelinating disease and infection among other etiologies. Recommend correlation clinically and consider further evaluation with MRI if indicated. Dictated by: Jerson Inman M.D. on 02/28/2017 at 12:[address] 02/28/17 1. Bilateral clustered pulmonary nodules with areas of confluent consolidation in the lower lobes suggestive of aspiration and pneumonia. 2. Segmental wall thickening involving the cecum and ascending colon as well as the rectosigmoid colon consistent with a nonspecific colitis, likely infectious or inflammatory. 3. Endotracheal tube present with the tip approximately 2.5 cm from the mike. Consider withdrawal by approximately 1-1.5 cm 4. Distention of the gallbladder without calcified gallstones. Recommend further evaluation with ultrasound if there is clinical suspicion for cholecystitis 5. Indeterminate left adrenal nodule. Further evaluation may be obtained with an adrenal protocol CT or MRI when clinically feasible. Dictated by: Jerson Inman M.D. on 02/28/2017 at 12:40 PROCEDURE: US ABDOMEN, LIMITED ([id number]) IMPRESSION: Limited exam demonstrating prominence of the gallbladder and several small gallstones. Dictated by: Kem Gordon [facility] Interpreted: Honey Vivar MD on 02/28/2017 at 16: 34 PROCEDURE: X-RAY CHEST ONE VIEW, PORTABLE ([id number]) IMPRESSION: Stable support devices. No acute cardiopulmonary pathology. Dictated by: Huy Quintero M.D. on 03/01/2017 at 9:35 Plan Impression Impression #1 end-stage renal disease dialysis dependent number to diabetic nephropathy #3 hypertension with hypertensive heart disease and hypertensive nephrosclerosis Recommendations #1 the patient dialyzed today for 3-1/2 hours on a standard dialyzer, 2 potassium bath, 137 sodium, 400 blood flow and 600 dialysate flow, thousand of heparin and 400 and will try to take 2-3 L of fluid off. Donny Chadwick DO Mar 12, 2017 11:23
[2017-03-12 12:20] VITALS: BP 121/86; PULSE 75
--- NOTE | 2017-03-12 12:45 | NUR ---
pt returned to [facility] post DIALYSIS at 1235 via bed report returned to AK RN see machine joiner cementer note, intervention, and/or graphic flow chart for treatment details
[2017-03-12 12:48] VITALS: BP 114/80; PULSE 83; RESP 18; O2SAT 97
--- NOTE | 2017-03-12 13:55 | NUR ---
Dialysis Note Treatment time 3.5 hours wheezing noted in r/l upper lobes, c/b slight SOB, O2@2L/NC applied, pt noted to have a history of asthma CVC assessed and heparin lock removed Net ultrafiltration 1999 Patient stable during treatment Catheter dressing changed - old dressing removed. clean, dry and intact. site cleaned with chloraprep. no s/s of infections, patient tolerated well CVC aspirated and flush easily. locked with 1000 unit/ml heparin No complaints post treatment, pt tolerated treatment well, stable discharge report given to MOC DANNY Tamez Please see DTR for complete record of VS
--- NOTE | 2017-03-12 15:26 | NUR ---
Inpatient Wound Nurse Patient seen for Pressure Injury Protocol and pressure injuries to L and R coccyx. Stage 2 pressure ulcers noted on L and R coccyx. R: 1.25 cm L x 1 cm W x 0.1 cm D. L: 2 cm L x 1.25 cm W x 0.1 cm D. Both wound cleansed, blotted dry, covered with bordered sacral Mepilex dressing. Patient was instructed to side-lie as much as possible. Dressing can be changed PRN, may stay in place up to five days if clean, dry, intact. CWON will see patient on Friday.
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
--- NOTE | 2017-03-12 15:46 | NUR ---
Social Work-continued d/c planning: Data:EMR reviewed. Pt is on day 14 of hospitalization for hyperkalemia per H&P. Pt is not medically stable. NG removed yesterday and pt working no tolerating food. Pt worked with PT and they are recommending SNF, but pt ambulating 125ft. SW followed up with pt at bedside to discuss, SW role explained. Pt continues to decline SNF and states that MD spoke with her about HH services. SW has not obtained any orders from MD regarding this. SW to follow up with pt regarding HH once order has been received. SW also received a call from pt's dialysis center [phone] who confirms that if anything is needed so call. SW will continue to follow. Assessment:Pt who would benefit from HH. Plan:Pt to likely discharge home once medically stable. Pt continues to decline SNF. SW to await for MD orders for HH services. SW will continue to follow. KIRAN Jernigan
--- NOTE | 2017-03-12 16:11 | PCM.PNMED ---
Subjective Date of Service Mar 12, 2017 Subjective Patient states she feels better, ambulating without help and eating without choking. She denies shortness of breath, chest pain, nausea, vomiting, abdominal pain, or diarrhea. Dialysis today, tolerating well. When discussing her placement options, she states a desire to go home to take care of her mom. Possible discharge tomorrow if lab results improve with PT and home health upon discharge. Exam Vital Signs Vital Sign - Last Date Time Temp Pulse Resp B/P Pulse Ox O2 Delivery O2 Flow Rate FiO2 03/12/17 12:48 36.6 83 18 114/80 97 Room Air 03/08/17 04:30 2.00 03/07/17 08:41 80 Intake and Output 03/11/17 03/11/17 03/12/17 Cumulative From/Thru 15:00 23:00 07:00 02/26/17 17:12 - 03/11/17 20:00 Intake Total 550 ml 46342 ml Output Total 885 ml 61479 ml Balance -335 ml 6544 ml Intake Oral 550 ml 1300 ml IV Total 54788 ml Tube Feeding 6849 ml TPN/PPN 110 ml Tube Irrigant 2451 ml Output Urine Total 500 ml 4988 ml Gastric Drainage Total 385 ml 2320 ml Ultrafiltrate 87315 ml # Voids 3 # Bowel Movements 1 12 Exam GEN: Patient was awake, alert, responding appropriately to questions, NAD, lying on her side receiving dialysis in [facility]: Pupils equal round and reactive to light, extraocular eye muscles intact , Neck soft supple, trachea midline, nomocephalic/atraumatic CV: +S1/S2, regular rate and rhythm, no murmurs auscultated Respiratory: CTAB, no wheezes, rales, rhonchi GI: +bowel sounds x4, soft, compressible, nontender to palpation EXT: no clubbing, cyanosis, edema Neuro: Cranial nerves II-XII grossly intact Psych: mood and affect were appropriate IVs and Medications Medications Reviewed: Medications were reviewed in detail Lab and Diagnostics Result Diagram: 03/12/17 0730 03/12/17 0730 X-Rays, CTs and MRIs Chest x-ray 02/27/17 IMPRESSION: Stable support lines and tubes in no definite acute cardiopulmonary process. Dictated by: Kem PINTO Interpreted: Caleb Cabrera MD on 02/27/2017 at 10:05 Approved by: Caleb Cabrera M.D. on 02/27/2017 at 10:[address] 02/28/17 1. Mild periventricular and subcortical hypodensities in the right parietal and occipital lobes are nonspecific and may represent early chronic small vessel ischemic changes. But the differential is broad and include inflammatory processes such as demyelinating disease and infection among other etiologies. Recommend correlation clinically and consider further evaluation with MRI if indicated. Dictated by: Jerson Inman M.D. on 02/28/2017 at 12:[address] 02/28/17 1. Bilateral clustered pulmonary nodules with areas of confluent consolidation in the lower lobes suggestive of aspiration and pneumonia. 2. Segmental wall thickening involving the cecum and ascending colon as well as the rectosigmoid colon consistent with a nonspecific colitis, likely infectious or inflammatory. 3. Endotracheal tube present with the tip approximately 2.5 cm from the mike. Consider withdrawal by approximately 1-1.5 cm 4. Distention of the gallbladder without calcified gallstones. Recommend further evaluation with ultrasound if there is clinical suspicion for cholecystitis 5. Indeterminate left adrenal nodule. Further evaluation may be obtained with an adrenal protocol CT or MRI when clinically feasible. Dictated by: Jerson Inman M.D. on 02/28/2017 at 12:40 PROCEDURE: US ABDOMEN, LIMITED ([id number]) IMPRESSION: Limited exam demonstrating prominence of the gallbladder and several small gallstones. Dictated by: Kem Gordon RR Interpreted: Honey Vivar MD on 02/28/2017 at 16: 34 PROCEDURE: X-RAY CHEST ONE VIEW, PORTABLE ([id number]) IMPRESSION: Stable support devices. No acute cardiopulmonary pathology. Dictated by: Huy Quintero M.D. on 03/01/2017 at 9:35 Assessment & Plan Patient is a 46-year-old female with history of polysubstance abuse and long- term benzodiazepine use presented to [facility] requesting Xanax, underwent a seizure and was intubated, and transferred to [facility], all following missed dialysis. Acute hypoxic respiratory failure. Resolved. - Secondary to seizures. -Patient extubated 03/05/17 then slowly weaned off from oxygen -She continues to be tachypneic with primary respiratory alkalosis. Possibly secondary to pneumonia vs intracranial pathology. Possible NSTEMI, resolved. - Pt appears in distress, possibly endorsing chest pain although communication is difficult. She has a hx of CAD so has risk factors for NE. She denies chest pain or dyspnea at this time. - EKG and troponin ordered - Aspirin daily - Trend troponin, this is trending in a stable mildly elevated level but she has no chest pain. - Echocardiogram ordered, this is completely normal. The patient elevated troponins in context of end-stage renal disease and no cardiac symptoms. At this point we will continue beta blockade and aspirin but no further workup. At some point that she continues to clinically progress she may benefit from a pharmacologic stress test. Acute septic encephalopathy, POA continuing to improve. -She continues to improve. She did have a workup for possible vasculitis which is really unremarkable. We have canceled a CT head angiogram to rule out evidence of vasculitis. The patient likely is just improving from washout of her various medications. Her initial presentation was likely related to benzodiazepine withdrawal seizures. She is also on maintenance methadone at 50 mg a day prior to arrival. -We will hold the CT angiogram at this point and await serology testing. She does appear to be rapidly clearing at this point. Her MRI and CT are essentially mildly abnormal but nonspecific. -Patient appears to be returning back to her normal baseline status she is able to answer questions appropriately and shows linear thought process Seizures. Resolved. - Likely secondary to benzodiazepine withdrawal, although intracranial causes should be ruled out. CT head shows right temporoparietal lobe white matter hypodensity, is unchanged from prior CT 1 week ago. MRI showed mild degree of white matter disease. Differential considerations include vasculitides, demyelinating disorders such as multiple sclerosis, diabetes, and early small vessel ischemic disease. Discussed case with [facility], who agree with plan to work up autoimmune or infectious causes, and also recommend CT angio brain/neck. - Restarted home Xanax 2 mg TID PO - Lumbar puncture attempt unsuccessful today 03/09/17. Will repeat attempt in future. - ROXY with reflex, ANCA, C3/4, cryoglobulin - ESR, CRP - Acute hepatitis panel, HIV panel - CSF for meningitis PCR panel, cell count, glucose, protein, cultures, cytology - Bilateral lower extremity duplex - CT angio brain/neck, we will hold the study for now. Neurologically she is much improved. Sepsis secondary to MSSA pneumonia. Active and improving. - Pt had been presenting with persistent fevers and elevated WBC count over her admission.CT abd showed bilateral lower lobe infiltrates suspicious for aspiration and possible colitis. Sputum culture positive for MSSA. Improving on tigecycline. - Dr. Faith of Infectious Disease has been consulted and recommended stopping tigecycline today. Completed full 7 day course - Discontinue tigecycline 03/11/2017 - Stool guaiac negative - Fungal blood cultures negative - Fungitell and Cryptococcal antigens negative - Procalcitonin trending down - WBC trending down Respiratory alkalosis, relatively new and stable She has continued tachypnea with a low CO2. There is no clear evidence of SANITIZER disturbance. We will continue to clinically observe her. Diabetes mellitus type 2, POA and stable. - A1c 9.1. -Continue Lantus to 20 units subcutaneous twice a day - Continue insulin sliding scale -Glucose is under improved control with the addition of Lantus to the sliding scale. - Continue to monitor Supraventricular tachycardia, acute. Resolved. - Pt had episode of SVT early this AM, with HR in 170s. Resolved with metoprolol 5 mg IV - Continue home metoprolol - Diltiazem 10-20 mg IV q1h PRN HR >110. - Monitor on telemetry. Hypertension, acute. Improved. - Better controlled, now on home medications. SBP improved to 140s and nicardipine gtt was discontinued. 03/09/17 -Continue home metoprolol 50 mg BID -Continue home losartan 25 mg daily - Continue Catapres TTS patch - Continue losartan - Continue labetalol -Stop the when necessary IV metoprolol. ESRD, POA and stable - Continue dialysis per Nephrology M/W/. -Continue labetalol, losartan, and clonidine - Nephrology following and managing patient's dialysis Dysphagia, POA and active. -Most likely secondary to prolonged intubation -Speech evaluated the patient and updated her to dysphagia diet with no solid foods secondary to possible choking hazards - Patient currently doing well with NG tube removal on 03/11/2017 -Patient currently tolerating dysphagia diet advanced as tolerated Ear pain - No signs of erythema or edema in the tympanic membrane -Patient was complaining of ear pain yesterday most likely secondary to NG tube -Pain has subsided since removal of the NG tube Abdominal pain, relatively new and active. - Patient's abdominal pain has improved - Patient states that her diarrhea has also improved, the diarrhea is most likely associated with her tube feeds - Speech to reevaluate patient for oral feeding - We will continue to follow clinically and check for C. difficile toxin if diarrhea once again worsens. DVT prophylaxis: Restart heparin subcutaneous Patient has a follow-up appointment with her new PCP Dr. Floyd Payan at the [facility] in [facility] on 03/25/2017 at 2:30 PM Disposition: The patient is currently doing well today. The patient is progressing each day and is able to swallow more and the patient feels that she is stronger. However it does seem that the patient still has some unrealistic goals for herself. The patient would like to go home however upon evaluation with physical therapy the patient is still very unbalanced and they are recommending that she be discharged to a fpc facility. The patient is insistent on going to live with her mother as she states that her mother "needs her to take care of her". He was a clean to the patient that if she is unable to take care of herself how would she be able to take care of her mother , but she is insistent that she has significant support and help and should be able to manage at home. The patient does state that she is open to having home health services and home health PT as well. As always the patient continues to do well she will most likely be discharged home with home health, social work, and physical therapy 3 times a week tomorrow. Speech to assess swallow and will continue to use her NG tube for now. We will then attempt to advance her oral diet. Dangerous medications include IV opiates for pain control. She continues to have a high risk of recurrent seizure clinical decompensation given her multiple medical active issues. GI Prophylaxis: H2 rhonda VTE Prophylaxis: Sub-Q Heparin (Unfractionated) VTE Mechanical Devices: Venous Foot Pump Resuscitation Status: CPR: Attempt Resuscitation Gabby Ramachandran DO Mar 12, 2017 16:11
--- NOTE | 2017-03-12 16:25 | NUR ---
Communication with sister Pt's sister Michelle ([phone]) phoned this afternoon and expressed concerns re: pt's discharge. Per Michelle, pt will have no one at home to take care of her upon dc. Michelle states their mother is 72 with poor health and unable to care for her and that dtr will provide no care as well. Michelle resides in [place] and unable to care for pt. Above info given to LUIS.
--- NOTE | 2017-03-12 18:42 | NUR ---
Diet/activity Pt tolerating dysph mech, NTL diet with no noted coughing with intake. Pt req "regular" food, some agitation with education re: altered texture. Allowed pt to vent frustrations and provided support. Pt tolerated meds whole in pudding. Pt up to BSC with 1 per assist, fairly impulsive as well as unsteady with any transfer. Pt sat in chair this afternoon and tolerated well. Bed alarm on for safety. Bed in lowest, locked position and call light in reach.
[2017-03-12 21:00] VITALS: BP 146/87; PULSE 88; RESP 20; O2SAT 97
[2017-03-13] MEDS: Heparin 5,000 Unit/mL Inj SUBQ SCH ×2 (00:50→08:00)
[2017-03-13] MEDS: Sodium Chloride LOK Flush 10 mL Syringe IVFLUSH PRN (00:50)
[2017-03-13 05:22] VITALS: BP 151/82; PULSE 76; RESP 20; O2SAT 97
[2017-03-13 06:10] LABS: BASOPHILS % (AUTO) 1.3 % (0-3); EOSINOPHILS % (AUTO) 3.2 % (0-5); MONOCYTES % (AUTO) 6.6 % (4-12); Mean Corpuscular Hemoglobin 31.9 pg (27.0-35.0); Mean Corpuscular Volume 95.2 fL (81-100); NEUTROPHILS % (AUTO) 55.8 % (40-74); Platelet Count 408 bil/L (150-400)
[2017-03-13] MEDS: Nystatin 100,000 Unit/mL 5 mL Suspension PO SCH ×2 (07:59→15:03)
[2017-03-13] MEDS: Lansoprazole 30 mg ODTablet PO SCH (07:59)
[2017-03-13] MEDS: Insulin LISPRO 300 Unit/3 mL Inj SUBQ SCH ×2 (08:05→11:34)
[2017-03-13] MEDS ORDERED: Insulin GLARgine 100 Unit/mL Syringe SUBQ SCH (08:30)
[2017-03-13 09:27] VITALS: BP 139/82; PULSE 82; RESP 20; O2SAT 100
--- NOTE | 2017-03-13 10:13 | PROG NOTE ---
[address] [address] PROGRESS NOTE PATIENT: SHAWNEE ZUNIGA : 1970 MR#: [id number] ADMIT: 02/26/2017 JOB ID: [id number] DATE: REASON FOR FOLLOWUP: Leukocytosis with probable aspiration pneumonia event in a patient with an underlying seizure disorder and benzodiazepine withdrawal. INTERVAL HISTORY: Overnight, the patient has felt well. Recall that she has now been off antibiotics for a couple days. She has had no additional fevers, chills, or sweats. She reports her breathing is about at baseline. No nausea, vomiting, diarrhea. PHYSICAL EXAMINATION: Reveals an afebrile woman. She has been afebrile since the , which is now six days ago. Current temp 36.8, pulse 76, respiratory rate 20, blood pressure 152/72, saturating well on room air. She is awake, alert, in no acute distress. She has a left IJ central line which appears benign. She also has a right chest dialysis line which appears uninfected. Oral cavity negative. Mental status normal. Lungs relatively clear. A few crackles at the bases, but pretty good bilaterally. Abdomen: Negative. LABORATORIES: Include a white count which has finally normalized at 8400. Completely normal diff. Creatinine 3.81 in this dialysis patient. LFTs are normal. Procalcitonin is 0.46, which is normal in a dialysis patient. Cryptococcal antigen, Fungitell, hep C, HIV all negative. ANCA negative. Cultures negative throughout this admission, with the exception of a Staph aureus which grew from the trachea back on March 03. That was from an endotracheal aspirate while she was still being ventilated. There was also a coag-negative staph in one blood culture, which was a contaminant. IMPRESSION: This patient is doing well off antibiotics, and I see no reason to prescribe additional antibiotics or perform additional cultures. At this point, she is ready for discharge without antibiotics from an ID point of view. RECOMMENDATIONS: 1. No antibiotics. 2. The patient is ready for discharge. 3. ID will go ahead and sign off at this time. Note that this case was discussed with Dr. Ramachandran.
--- NOTE | 2017-03-13 11:18 | NUR ---
Social Work-readiness for discharge: Data:EMR reviewed. Pt is on day 15 of hospitalization for hyperkalemia per H&P. Pt is likely medically stable later today or tomorrow. order received for HH services. LUIS met with pt, SW role explained. PT has seen pt and recommending SNF, but pt ambulating 125ft. Pt confirms she does not want to go to SNF and plans to return home. SW provided pt with HH choice list. Pt has no agency preference. SW referred to [facility] and made referral to [facility] to check pt's insurance. Pt confirms she has fww at home to use. Pt states she lives with her mom and daughter. Pt declines having SW call any of her family to discuss discharge planning. Pt confirms her mom will likely provide transport home. F2F to be completed by . SW will continue to follow. Assessment:Pt who would benefit from HH. Plan:Pt to discharge home when medically stable via POV. Pt is declining SNF, but able to ambulate 125ft. SW has made referral to [facility] they are checking pt's insurance, will call back. LUIS will continue to follow. KIRAN Jernigan Addendum: 03/13/17 at 1129 by KARISSA GOMEZ LUIS received a call back from Keila with [facility] who confirms they cannot accept insurance. LUIS followed up with pt, she is agreeable to alternative agencies being tried. LUIS called Gust[facility] with [facility] who will look into insurance as well. LUIS will continue to follow. KIRAN Jernigan Addendum: 03/13/17 at 1326 by KARISSA STAPLETON [facility] is able to accept referral and take pt's insurance, SW updated pt and she is agreeable. KIRAN Jernigan
[2017-03-13] MEDS ORDERED: ALPR1TAB7 PO (12:55)
[2017-03-13] MEDS ORDERED: ASPI81TA3 PO (12:55)
[2017-03-13] MEDS ORDERED: LANS30TA4 PO (12:55)
[2017-03-13] MEDS ORDERED: LABE200T PO (12:55)
[2017-03-13] MEDS ORDERED: CLON1PAT TOPICAL (12:55)
[2017-03-13] MEDS ORDERED: INSU100V7 SUBQ ×2 (12:55)
[2017-03-13] MEDS ORDERED: OXYC5TAB72 PO (12:55)
[2017-03-13] MEDS ORDERED: LOSA50TA3 PO (12:55)
--- NOTE | 2017-03-13 13:00 | PCM.DIMED ---
Discharge Instructions Date of Service Mar 13, 2017 Dates of Hospitalization Feb 26, 2017 at 15:46 Discharge Diagnosis Discharge Diagnosis Hypoxic respiratory failure with intubation Possible NSTEMI Acute septic encephalopathy Seizures Sepsis secondary to MSSA pneumonia Respiratory alkalosis Diabetes type II Supraventricular tachycardia Uncontrolled hypertension end-stage renal disease Dysphagia Ear pain Abdominal pain Diet Discharge Diet: Diabetic, Renal Diet Activity Discharge Activity: Home Health Phyical Therapy Call your provider Call your provider for: Fever or Chills, Shortness of breath, Vomitting, Weakness (unilateral) Patient Instructions Patient Instructions Please do not to drugs or smoke Please make it to all of your dialysis appointments do not skip any appointments Please use care when walking as you are very unsteady on her feet and even though physical therapy recommended that he go to a detention facility unit shows him to go home so please be careful. Please take all of your medications as prescribed do not take any extra doses Please follow-up with your primary care physician within the next week [facility] Provider[facility] Follow-up with PCP in: 1 week (if an appointment has not been made please call to schedule an appointment) Gabby Ramachandran DO Mar 13, 2017 13:00
[2017-03-13 13:03] VITALS: BP 136/64; PULSE 84; RESP 18; O2SAT 100
--- NOTE | 2017-03-13 13:26 | NUR ---
Social Work-discharge: Data:EMR reviewed. Pt is on day 15 of hospitalization for hyperkalemia per H&P. Pt is medically stable for discharge. PT continues to recommend SNF. SW followed up with pt again about this today. Pt continues to decline stating she will return home. SW went over risk and benefits of SNF and pt continues to decline. SW set up services with [facility] for RN,Pt, and STOCK ANALYST. [facility] with [facility] confirms they can start services with pt tomorrow 03/14. F2F and orders have been provided.Pt to continue with outpt dialysis and methadone clinic. Pt confirms her mother will provide transport home today. Pt declined having SW call any of her family. Pt has DME to use at home, including fww. All updated and agreeable to plan. Assessment:pt who would benefit from HH. Plan:Pt to discharge home today via POV. Pt declining SNF. F2F and orders provided to [facility] for RN, PT, and STOCK ANALYST. All updated and agreeable to plan. KIRAN Jernigan
--- NOTE | 2017-03-13 13:48 | PCM.DC.MED ---
Discharge Summary Date of Service Mar 13, 2017 Dates of Hospitalization Date of Hospital Admission Feb 26, 2017 at 15:46 Date of Discharge: Mar 13, 2017 Providers: Admitting Physician: Jeffrey Neves MD Primary Care Physician: Trav Cox PA-C Attending Physician: Gabby Ramachandran DO Diagnosis at Time of Discharge Diagnosis at Time of Discharge Hypoxic respiratory failure with intubation Possible NSTEMI Acute septic encephalopathy Seizures Sepsis secondary to MSSA pneumonia Respiratory alkalosis Diabetes type II Supraventricular tachycardia Uncontrolled hypertension end-stage renal disease Dysphagia Ear pain Abdominal pain Procedures XRay, CTs & MRIs Chest x-ray 02/27/17 IMPRESSION: Stable support lines and tubes in no definite acute cardiopulmonary process. Dictated by: Kem PINTO Interpreted: Caleb Cabrera MD on 02/27/2017 at 10:05 Approved by: Caleb Cabrera M.D. on 02/27/2017 at 10:[address] 02/28/17 1. Mild periventricular and subcortical hypodensities in the right parietal and occipital lobes are nonspecific and may represent early chronic small vessel ischemic changes. But the differential is broad and include inflammatory processes such as demyelinating disease and infection among other etiologies. Recommend correlation clinically and consider further evaluation with MRI if indicated. Dictated by: Jerson Inman M.D. on 02/28/2017 at 12:[address] 02/28/17 1. Bilateral clustered pulmonary nodules with areas of confluent consolidation in the lower lobes suggestive of aspiration and pneumonia. 2. Segmental wall thickening involving the cecum and ascending colon as well as the rectosigmoid colon consistent with a nonspecific colitis, likely infectious or inflammatory. 3. Endotracheal tube present with the tip approximately 2.5 cm from the mike. Consider withdrawal by approximately 1-1.5 cm 4. Distention of the gallbladder without calcified gallstones. Recommend further evaluation with ultrasound if there is clinical suspicion for cholecystitis 5. Indeterminate left adrenal nodule. Further evaluation may be obtained with an adrenal protocol CT or MRI when clinically feasible. Dictated by: Jerson Inman M.D. on 02/28/2017 at 12:40 PROCEDURE: US ABDOMEN, LIMITED ([id number]) IMPRESSION: Limited exam demonstrating prominence of the gallbladder and several small gallstones. Dictated by: Kem PINTO Interpreted: Honey Vivar MD on 02/28/2017 at 16: 34 PROCEDURE: X-RAY CHEST ONE VIEW, PORTABLE ([id number]) IMPRESSION: Stable support devices. No acute cardiopulmonary pathology. Dictated by: Huy Quintero M.D. on 03/01/2017 at 9:35 Brief History All history is obtained from medical records. The patient arrives intubated, sedated with propofol drip. She has an endotracheal tube in place, a left IJ central venous catheter, and a left tibia-fibula interosseous needle in place. The patient apparently presented to [facility] with anxiety state and need for Xanax refill. There she was thought to have a seizure shortly after arrival. This quickly lead to sedation and intubation for airway protection. Patient's laboratories revealed hyperkalemia consistent with probable noncompliance with regards to her dialysis. She does have a right subclavian dialysis catheter in place. She does have a history of dialysis noncompliance. The implications that she takes chronic benzodiazepines and that this might be a withdrawal seizure given her presentation asking for refill of her Xanax. There is no documentation of our DHR of a history of seizure disorder. She is having a history of stated THC use as well as possible methadone use. The patient was a difficult wean from being intubated. And finally when the patient was extubated she had acute encephalopathy. There was some concern that this could potentially be some sort of brain injury and multiple tests were coming up negative. However as the days went on the patient gradually returned back to her baseline mental status. Patient does have a significant addiction to Xanax as upon my first meeting with this patient that was her first concern. The patient after being intubated for so long had difficulty swallowing therefore an NG tube was placed for several days in order to give the patient parent nutrition. Once it wheezes her to pass her swallow eval she was able to be started on a statin diet. The patient then was gradually increased and for the last 2 days has been able to have good oral intake. The patient is still very unsteady on her feet and very weak and it was highly recommended by physical therapy the patient go to a fdc facility. This was explained to the patient and she was still insistent on going home and stated that she needed to "take care of her mother" is expressed the patient that she should have home health and home physical therapy for which she was amenable to. It was explained to the patient multiple times that it was best if she would go to a fdc facility for further rehabilitation however the patient refused multiple times. The patient was discharged home with home health, home physical therapy, social work services and encouraged to always maintain her dialysis appointments and not to miss any of them and also to have close follow-up with her primary care physician. Patient is being discharged to her mother's house in stable condition. Hospital Course Patient is a 46-year-old female with history of polysubstance abuse and long- term benzodiazepine use presented to [facility] requesting Xanax, underwent a seizure and was intubated, and transferred to [facility], all following missed dialysis. Acute hypoxic respiratory failure. Resolved. - Secondary to seizures. -Patient extubated 03/05/17 then slowly weaned off from oxygen -She continues to be tachypneic with primary respiratory alkalosis. Possibly secondary to pneumonia vs intracranial pathology. Possible NSTEMI, resolved. - Pt appears in distress, possibly endorsing chest pain although communication is difficult. She has a hx of CAD so has risk factors for IL. She denies chest pain or dyspnea at this time. - EKG and troponin ordered - Aspirin daily - Trend troponin, this is trending in a stable mildly elevated level but she has no chest pain. - Echocardiogram ordered, this is completely normal. The patient elevated troponins in context of end-stage renal disease and no cardiac symptoms. At this point we will continue beta blockade and aspirin but no further workup. At some point that she continues to clinically progress she may benefit from a pharmacologic stress test. Acute septic encephalopathy, POA continuing to improve. -She continues to improve. She did have a workup for possible vasculitis which is really unremarkable. We have canceled a CT head angiogram to rule out evidence of vasculitis. The patient likely is just improving from washout of her various medications. Her initial presentation was likely related to benzodiazepine withdrawal seizures. She is also on maintenance methadone at 50 mg a day prior to arrival. -We will hold the CT angiogram at this point and await serology testing. She does appear to be rapidly clearing at this point. Her MRI and CT are essentially mildly abnormal but nonspecific. -Patient appears to be returning back to her normal baseline status she is able to answer questions appropriately and shows linear thought process Seizures. Resolved. - Likely secondary to benzodiazepine withdrawal, although intracranial causes should be ruled out. CT head shows right temporoparietal lobe white matter hypodensity, is unchanged from prior CT 1 week ago. MRI showed mild degree of white matter disease. Differential considerations include vasculitides, demyelinating disorders such as multiple sclerosis, diabetes, and early small vessel ischemic disease. Discussed case with [facility], who agree with plan to work up autoimmune or infectious causes, and also recommend CT angio brain/neck. - Restarted home Xanax 2 mg TID PO - Lumbar puncture attempt unsuccessful today 03/09/17. Will repeat attempt in future. - ROXY with reflex, ANCA, C3/4, cryoglobulin - ESR, CRP - Acute hepatitis panel, HIV panel - CSF for meningitis PCR panel, cell count, glucose, protein, cultures, cytology - Bilateral lower extremity duplex - CT angio brain/neck, we will hold the study for now. Neurologically she is much improved. Sepsis secondary to MSSA pneumonia. Active and improving. - Pt had been presenting with persistent fevers and elevated WBC count over her admission.CT abd showed bilateral lower lobe infiltrates suspicious for aspiration and possible colitis. Sputum culture positive for MSSA. Improving on tigecycline. - Dr. Faith of Infectious Disease has been consulted and recommended stopping tigecycline today. Completed full 7 day course - Discontinue tigecycline 03/11/2017 - Stool guaiac negative - Fungal blood cultures negative - Fungitell and Cryptococcal antigens negative - Procalcitonin trending down - WBC trending down Respiratory alkalosis, relatively new and stable She has continued tachypnea with a low CO2. There is no clear evidence of [employer] disturbance. We will continue to clinically observe her. Diabetes mellitus type 2, POA and stable. - A1c 9.1. -Continue Lantus to 20 units subcutaneous twice a day - Continue insulin sliding scale -Glucose is under improved control with the addition of Lantus to the sliding scale. - Continue to monitor Supraventricular tachycardia, acute. Resolved. - Pt had episode of SVT early this AM, with HR in 170s. Resolved with metoprolol 5 mg IV - Continue home metoprolol - Diltiazem 10-20 mg IV q1h PRN HR >110. - Monitor on telemetry. Hypertension, acute. Improved. - Better controlled, now on home medications. SBP improved to 140s and nicardipine gtt was discontinued. 03/09/17 -Continue home metoprolol 50 mg BID -Continue home losartan 25 mg daily - Continue Catapres TTS patch - Continue losartan - Continue labetalol -Stop the when necessary IV metoprolol. ESRD, POA and stable - Continue dialysis per Nephrology M/W/F. -Continue labetalol, losartan, and clonidine - Nephrology following and managing patient's dialysis Dysphagia, POA and active. -Most likely secondary to prolonged intubation -Speech evaluated the patient and updated her to dysphagia diet with no solid foods secondary to possible choking hazards - Patient currently doing well with NG tube removal on 03/11/2017 -Patient currently tolerating dysphagia diet advanced as tolerated Ear pain - No signs of erythema or edema in the tympanic membrane -Patient was complaining of ear pain yesterday most likely secondary to NG tube -Pain has subsided since removal of the NG tube Abdominal pain, relatively new and active. - Patient's abdominal pain has improved - Patient states that her diarrhea has also improved, the diarrhea is most likely associated with her tube feeds - Speech to reevaluate patient for oral feeding - We will continue to follow clinically and check for C. difficile toxin if diarrhea once again worsens. DVT prophylaxis: Restart heparin subcutaneous Patient has a follow-up appointment with her new PCP Dr. Floyd Payan at the [facility] in [facility] on 03/25/2017 at 2:30 PM Disposition: The patient is currently doing well today. The patient is progressing each day and is able to swallow more and the patient feels that she is stronger. However it does seem that the patient still has some unrealistic goals for herself. The patient would like to go home however upon evaluation with physical therapy the patient is still very unbalanced and they are recommending that she be discharged to a fdc facility. The patient is insistent on going to live with her mother as she states that her mother "needs her to take care of her". He was a clean to the patient that if she is unable to take care of herself how would she be able to take care of her mother , but she is insistent that she has significant support and help and should be able to manage at home. The patient does state that she is open to having home health services and home health PT as well. As always the patient continues to do well she will most likely be discharged home with home health, social work, and physical therapy 3 times a week tomorrow. Speech to assess swallow and will continue to use her NG tube for now. We will then attempt to advance her oral diet. Dangerous medications include IV opiates for pain control. She continues to have a high risk of recurrent seizure clinical decompensation given her multiple medical active issues. Exam Vital Signs (Last) Date Time Temp Pulse Resp B/P Pulse Ox O2 Delivery O2 Flow Rate FiO2 03/13/17 13:03 36.8 84 18 136/64 100 Room Air 03/08/17 04:30 2.00 03/07/17 08:41 80 Exam Physical Exam: GEN: Patient was awake, alert, responding appropriately to questions HEENT: Pupils equal round and reactive to light, extraocular eye muscles intact , Neck soft supple, trachea midline, nomocephalic/atraumatic CV: +S1/S2, regular rate and rhythm, no murmurs auscultated Respiratory: CTAB, no wheezes, rales, rhonchi GI: +bowel sounds x4, soft, compressible, nontender to palpation EXT: no clubbing, cyanosis, edema Neuro: Cranial nerves II-XII grossly intact Psych: mood and affect were appropriate Test 02/26/17 16:20 02/26/17 16:58 02/26/17 17:33 02/28/17 04:50 Activated Partial Thromboplast Time 29.4sec (22.8-33.0) Urine Opiates Screen Negative Urine Methadone Screen Positive Urine Barbiturates Screen Negative Urine Amphetamines Screen Negative Urine Benzodiazepines Screen Negative Urine Cocaine Metabolite Screen Negative Urine Cannabinoids Screen Positive Ketones Small (Negative) Hemoglobin A1c 9.1% (4.8-5.6) Thyroid Stimulating Hormone (TSH) 1.970uIU/mL (0.450-4.500) Test 02/28/17 08:50 03/01/17 17:05 03/02/17 18:32 03/03/17 11:17 Ammonia 36ug/dL (18-53) Prealbumin 12mg/dL (20-40) Urine Color Yellow (YELLOW) Urine Appearance Clear (CLEAR,HAZY) Urine pH 6.0 (5.0-8.0) Urine Specific [place] 1.015 (1.003-1.035) Urine Protein 100mg/dL (NEG,TRACE) Urine Glucose (UA) 250mg/dL (NEGATIVE) Urine Ketones Negativemg/dL (NEGATIVE) Urine Occult Blood Trace (NEGATIVE) Urine Nitrite Negative (NEGATIVE) Urine Bilirubin Negative (NEGATIVE) Urine Urobilinogen Normalmg/dL (NORMAL) Urine Leukocyte Esterase Negative (NEGATIVE) Urine RBC 0-2/hpf (0-2) Urine WBC 0-5/hpf (0-5) Urine Epithelial Cells None/hpf (NONE-MOD) Urine Crystals None seen (NONE SEEN) Urine Bacteria Few/hpf (NONE-FEW) Urine Hyaline Casts None/lpf (NONE) Urine Granular Casts None seen (NONE SEEN) Urine Waxy Casts None seen (NONE SEEN) Urine Red Blood Cell Casts None seen (NONE SEEN) Urine White Blood Cell Casts None seen (NONE SEEN) Urine Mucus None seen (None Seen) Urine Trichomonas None seen (NONE SEEN) Urine Yeast None (NONE SEEN) Urinalysis Comment None Urine Culture Reflexed Not indicated Cryptococcus Antigen Negative (Negative) Fungal Antibodies <31pg/mL (<80) Test 03/03/17 11:41 03/04/17 04:20 03/06/17 02:55 03/07/17 08:05 Lipase 7U/L (13-60) Iron Level 21ug/dL (35-150) Total Iron Binding Capacity 108ug/dL (250-450) Percent Iron Saturation 19%sat (15-50) Unsaturated Iron Binding 86.7ug/dL Ferritin 1926ng/mL (13-150) Vitamin B12 Level 1649pg/mL (211-946) Folate > 19.9ng/mL (>3.0) Magnesium Level 1.9mg/dL (1.6-2.6) Troponin T 0.316ug/L (0.0-0.011) Test 03/07/17 14:55 03/08/17 05:50 03/10/17 04:45 03/12/17 07:30 Prothrombin Time 11.3sec (8.1-12.5) Prothromb Time International Ratio 1.05ratio Myeloperoxidase <9.0U/mL (0.0-9.0) Anti-Nuclear Antibody Screen Negative (.) Cytoplasmic ANCA (c-ANCA) Antibody <1:20titer (Neg:<1:20) Proteinase 3 (PR3) Antibodies <3.5U/mL (0.0-3.5) Atypical p-ANCA <1:20titer (Neg:<1:20) Perinuclear ANCA (p-ANCA) Antibody <1:20titer (Neg:<1:20) Complement C3 91mg/dL (82-167) Complement C4 22mg/dL (14-44) Erythrocyte Sedimentation Rate 43mm/hr (0-32) C-Reactive Protein 2.9mg/dL (0.0-0.5) Hepatitis A IgM Antibody Negative (Negative) Hepatitis B Surface Antigen Negative (Negative) Hepatitis B Core IgM Antibody Negative (Negative) Hepatitis C Antibody <0.1s/co ratio (0.0-0.9) Hepatitis C Comment Comment (.) HIV (1&2) Ag and Ab, 4th Generation Non reactive (Non Reactive) Phosphorus Level 8.7mg/dL (2.5-4.9) Lactic Acid Level 1.0mmol/L (0.4-2.0) Test 03/13/17 05:34 White Blood Count 8.4th/mm3 (3.8-10.1) Red Blood Count 3.35mil/mm3 (3.90-5.20) Hemoglobin 10.7g/dL (12.0-15.6) Hematocrit 31.9% (35.0-46.0) Mean Corpuscular Volume 95.2fL (81-100) Mean Corpuscular Hemoglobin 31.9pg (27.0-35.0) Mean Corpuscular Hemoglobin Concent 33.5% (32.0-37.0) Red Cell Distribution Width 15.9% (12.3-15.4) Platelet Count 408bil/L (150-400) Neutrophils (%) (Auto) 55.8% (40-74) Lymphocytes (%) (Auto) 31.9% (14-46) Monocytes (%) (Auto) 6.6% (4-12) Eosinophils (%) (Auto) 3.2% (0-5) Basophils (%) (Auto) 1.3% (0-3) Sodium Level 136mEq/L (134-144) Potassium Level 4.6mEq/L (3.5-5.2) Chloride Level 96mEq/L (97-108) Carbon Dioxide Level 22mmol/L (18-29) Blood Urea Nitrogen 47mg/dL (6-24) Creatinine 3.81mg/dL (0.57-1.00) Estimat Glomerular Filtration Rate 18mL/min (>59) Glucose Level 234mg/dL (60-99) Calcium Level 8.3mg/dL (8.5-10.1) Total Bilirubin 0.4mg/dL (0.0-1.2) Aspartate Amino Transf (AST/SGOT) 21U/L (0-50) Alanine Aminotransferase (ALT/SGPT) 26U/L (0-32) Alkaline Phosphatase 130U/L (25-150) Total Protein 5.4g/dL (6.4-8.4) Albumin 3.0g/dL (3.4-5.0) Procalcitonin 0.46ng/mL (0.00-0.08) Discharge Medications Discharge Medications Albuterol/Ipratropium (Combivent Respimat Inhal [place]) 120 Spr/4 Gm Inhaler 1 PUFF INH Q6-8Hrs (Reported) Alprazolam (Alprazolam) 1 Mg Tablet 2 MG PO TID Prescribed by: GABBY RAMACHANDRAN DO Aspirin Chew (Aspirin Chew) 81 Mg Chew 81 MG PO DAILY Prescribed by: GABBY RAMACHANDRAN DO Clonidine 0.1 mg/day Patch (Catapres TTS-1) 1 Each Patch 1 PATCH TOPICAL Q7D Prescribed by: GABBY RAMACHANDRAN DO Docusate Calcium (Stool Softener) 240 Mg Capsule 240-480 MG PO DAILY (Reported) Insulin Glargine (Lantus U100 Insulin Vial) 100 Unit/Ml Vial 30 UNITS SUBQ MORNING Prescribed by: GABBY RAMACHANDRAN DO Insulin Glargine (Lantus U100 Insulin Vial) 100 Unit/Ml Vial 30 UNIT SUBQ Evening Prescribed by: GABBY RAMACHANDRAN DO Labetalol (Labetalol) 200 Mg Tablet 300 MG PO Q8H Prescribed by: GABBY RAMACHANDRAN DO Lansoprazole ODT (Prevacid ODT) 30 Mg Tablet 30 MG PO BIDWM Prescribed by: GABBY RAMACHANDRAN DO Levothyroxine (Levothyroxine) 50 Mcg Tablet 50 MCG PO DAILY (Reported) Losartan Potassium (Cozaar) 50 Mg Tablet 50 MG PO DAILY Prescribed by: GABBY RAMACHANDRAN DO Medroxyprogesterone Acetate (Medroxyprogesterone Acetate) 150 Mg/1 Ml Syringe 150 MG [id number] q12 weeks (Reported) oxyCODONE (oxyCODONE) 5 Mg Tablet 5 MG PO Q6 Prescribed by: GABBY RAMACHANDRAN, As needed Albuterol Sulfate (Ventolin HFA Inhaler) 200 Puff/18 Gm Inhaler 1-2 PUFFS INH q4 -6 hours PRN PRN For Shortness of Breath (Reported) Insulin Human Lispro (HumaLOG U100 Insulin Vial) 100 Unit/Ml Unit 3-7 UNITS SUBQ QID PRN PRN sliding scale (Reported) Followup Plan Discharge Diet: Diabetic, Renal Diet Discharge Activity: Home Health Phyical Therapy Patient Instructions Please do not to drugs or smoke Please make it to all of your dialysis appointments do not skip any appointments Please use care when walking as you are very unsteady on her feet and even though physical therapy recommended that he go to a fdc facility unit shows him to go home so please be careful. Please take all of your medications as prescribed do not take any extra doses Please follow-up with your primary care physician within the next week Follow-up Provider: PRINCE DEXTER Follow-up with PCP in: 1 week (if an appointment has not been made please call to schedule an appointment) Time spent Greater than 35 minutes copies to: PRINCE DEXTER Precious L DO Mar 13, 2017 13:48
--- NOTE | 2017-03-13 16:10 | NUR ---
Discharge Went over discharge instructions with patient who verbally acknowledged understanding. IV therapy removed IJ. Pt lost iphone and we were unable to find it in room. Pt left in wheel chair with no s/s of distress.
== END 2017-03-13 15:49 | disposition home health service (06) | DRG 207 ==
LOC: CCU 15:46 → PCC 03-09 10:30 → MPC 03-09 14:07
PROVIDERS: ADMIT Hospitalist; ATTEND Hospitalist
PROC: 5A1955Z Respiratory Ventilation, Greater than 96 Consecutive Hours (ICD-10-PCS; principal; 2017-02-26)
PROC: 4A033R1 Measurement of Arterial Saturation, Peripheral, Percutaneous Approach (ICD-10-PCS; 2017-02-26)
PROC: 5A1D00Z (ICD-10-PCS; 2017-02-26)
PROC: 5A1D00Z (ICD-10-PCS; 2017-02-27)
PROC: 5A1D00Z (ICD-10-PCS; 2017-03-01)
PROC: 5A1D00Z (ICD-10-PCS; 2017-03-03)
PROC: 5A1D00Z (ICD-10-PCS; 2017-03-06)
PROC: 00JU3ZZ Inspection of Spinal Canal, Percutaneous Approach (ICD-10-PCS; 2017-03-07)
PROC: 5A1D00Z (ICD-10-PCS; 2017-03-08)
PROC: 5A1D00Z (ICD-10-PCS; 2017-03-10)
PROC: 5A1D00Z (ICD-10-PCS; 2017-03-12)
DX: J96.01 Acute respiratory failure with hypoxia (principal); A41.01 Sepsis due to Methicillin susceptible Staphylococcus aureus; J69.0 Pneumonitis due to inhalation of food and vomit; G92 Toxic encephalopathy; R56.9 Unspecified convulsions; E13.10 Other specified diabetes mellitus with ketoacidosis without coma; E87.3 Alkalosis; N18.6 End stage renal disease; F13.239 Sedative, hypnotic or anxiolytic dependence with withdrawal, unspecified; I13.11 Hypertensive heart and chronic kidney disease without heart failure, with stage 5 chronic kidney disease, or end stage renal disease; I47.1 Supraventricular tachycardia; I25.10 Atherosclerotic heart disease of native coronary artery without angina pectoris; Z95.1 Presence of aortocoronary bypass graft; F41.9 Anxiety disorder, unspecified; F32.9 Major depressive disorder, single episode, unspecified; Z79.4 Long term (current) use of insulin; E03.9 Hypothyroidism, unspecified; Z87.891 Personal history of nicotine dependence; E87.5 Hyperkalemia; E87.70 Fluid overload, unspecified; E11.21 Type 2 diabetes mellitus with diabetic nephropathy; Z99.2 Dependence on renal dialysis; Z91.15 Patient's noncompliance with renal dialysis; F11.10 Opioid abuse, uncomplicated; R07.9 Chest pain, unspecified; R13.10 Dysphagia, unspecified; H92.09 Otalgia, unspecified ear; R10.9 Unspecified abdominal pain

== ENCOUNTER 2017-03-20 11:37 | Emergency (ER) | payer MEDICAID, OTHER ==
[~2017-03-20] VITALS: Ht 167.6 cm; Wt 68.2 kg
[~2017-03-20 11:37] MED LIST changes: +ALPR1TAB7 PO; -ALPR2TAB6 PO; -ASCO-294 PO; -ASPI-973 PO; +ASPI81TA3 PO; -ATOR40TA69 PO; -CHOL100045 PO; +CLON1PAT TOPICAL; +LABE200T PO; +LANS30TA4 PO; -LOSA25TA21 PO; +LOSA50TA3 PO; -METH10OR11 PO; -METO25TA6 PO; +OXYC5TAB72 PO; -SEVE800T7 PO; -UBID100C16 PO; -VIT1TABL83 PO
[2017-03-20 11:49] VITALS: BP 163/104; PULSE 83; RESP 18; O2SAT 100
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
[2017-03-20 14:03] VITALS: BP 146/87; PULSE 87; RESP 20; O2SAT 99
[2017-03-20] MEDS ORDERED: CLON0.5T PO (15:30)
[2017-03-20] MEDS ORDERED: BUSP10TA2 PO (15:30)
[2017-03-20] MEDS ORDERED: GABA-502 PO (15:30)
== END 2017-03-20 15:49 | disposition home or self-care (01) ==
LOC: SED 11:37
DX: F13.239 Sedative, hypnotic or anxiolytic dependence with withdrawal, unspecified (principal); R10.9 Unspecified abdominal pain; R51 Headache; R20.8 Other disturbances of skin sensation; R11.10 Vomiting, unspecified; R19.7 Diarrhea, unspecified; F41.9 Anxiety disorder, unspecified; Z79.82 Long term (current) use of aspirin; Z79.4 Long term (current) use of insulin; Z87.891 Personal history of nicotine dependence; Z88.1 Allergy status to other antibiotic agents; Z88.5 Allergy status to narcotic agent; Z88.6 Allergy status to analgesic agent